=== PATIENT | female | born 1950 | race Caucasian/White ===

== ENCOUNTER 2021-08-01 04:25 | Inpatient (IN) | payer MEDICARE, SELFPAY ==
[2021-08-01] VITALS (11 sets, daily range): BP systolic 102–152; BP diastolic 52–68; PULSE 67–80; RESP 13–18; TEMP 36.7–37.1; O2SAT 94–98; BMI 40.1; BMI 40.4
--- NOTE | 2021-08-01 04:36 | CT_ITS ---
STUDY: CT BRAIN WITHOUT CONTRAST REASON FOR EXAM: Female, 71 years old patient with closed head injury after unspecified trauma. RADIATION DOSAGE (If Supplied By Facility): CTDIvol = ( 44.99 ) mGy, DLP = ( 762.36 ) mGycm TECHNIQUE: Transaxial CT imaging of the brain was performed without administration of intravenous contrast material. Multiplanar reformations are submitted for interpretation. Individualized dose optimization techniques were used for this CT. COMPARISON: No relevant priors. FINDINGS: There are multiple punctate calcifications within the dermis of the forehead and scalp. Normal calvarium. Normal size ventricles and extra-axial spaces for the patient''s age. There are areas of decreased attenuation within the white matter tracts of the supratentorial brain, consistent with microvascular disease changes. There are small punctate calcifications of the basal ganglia which are seen in the aging brain as a normal variant. Normal brainstem. Normal cerebellum. There is no intracranial hemorrhage. There are no findings of an acute ischemic infarction. There is a small right maxillary mucous retention cyst. CT/Brain/Head without Contrast IMPRESSION: 1. Chronic involutional changes of the brain. 2. No CT evidence of acute intracranial hemorrhage. Electronically Signed: Radhika Edwards MD at 6:59 EST ,
--- NOTE | 2021-08-01 04:36 | EKG12_ITS ---
Test Reason : WEAKNESS Blood Pressure : / mmHG Vent. Rate : 070 BPM Atrial Rate : 070 BPM P-R Int : 168 ms QRS Dur : 134 ms QT Int : 474 ms P-R-T Axes : 038 -57 043 degrees QTc Int : 511 ms Normal sinus rhythm Left axis deviation Non-specific intra-ventricular conduction block Abnormal ECG Confirmed by JAY RAMOS, NEAL ([id number]), electronic news gathering editor YANG GRAVES ([id number]) on 08/03/2021 12:43:07 PM Referred By: ALMAZ Confirmed By:NEAL THOMPSON MD
--- NOTE | 2021-08-01 04:36 | RAD_ITS ---
HISTORY: Cough, confused, fall EXAMINATION/TECHNIQUE: XR Chest 1 View portable AP view COMPARISON: None FINDINGS: LINES/DEVICES: classroom monitor leads. LUNGS: No overt pulmonary edema. No focal airspace consolidation. No sizable pleural effusion. No pneumothorax detected. Mildly elevated right hemidiaphragm. MEDIASTINUM AND CARDIOVASCULAR STRUCTURES: Heart shadow is slightly prominent, magnified by imaging technique. Central airways and mediastinal contour are unremarkable. BONES AND SOFT TISSUES: No acute findings. RAD/Chest 1 View (Portable) IMPRESSION: Borderline cardiomegaly with no acute pulmonary airspace disease. at 0650 Reported and signed by: Eagle Arauz MD Electronically Signed: Eagle Arauz MD at 6:49 EST ,
--- NOTE | 2021-08-01 04:36 | CT_ITS ---
HISTORY: trauma TECHNIQUE: Helically acquired images were obtained of the cervical spine without contrast. 2D reformatted images were reviewed. A radiation dose optimization technique was used for this scan. COMPARISON: None FINDINGS: # of images incl. paperwork: [id number] SOFT TISSUES: No prevertebral soft tissue swelling. ALIGNMENT: Normal alignment. FRACTURE: No fracture or acute compression deformity. DISC SPACES/POSTERIOR ELEMENTS: Multilevel anterior bridging osteophytes. Small posterior disc osteophyte complexes, most prominent at C3-C4 with mild spinal canal narrowing. No evidence of critical spinal canal stenosis. LUNG APICES: Visualized portions are unremarkable. THYROID: Left thyroid 9 mm nodule, likely benign given small size relative to age. SKULL BASE: High riding right jugular bulb without gross dehiscence. CT/Spine Cervical without Contras IMPRESSION: No acute fracture or subluxation. Individualized dose optimization techniques were used for this CT. at 0648 Reported and signed by: Mehrdad White MD Electronically Signed: Mehrdad White MD at 6:47 EST ,
--- NOTE | 2021-08-01 04:39 | EX.ED.DYSGE1 ---
HPI History of Present Illness Chief Complaint: Alt LOC Informant: patient and EMS Narrative Narrative: Patient sent in for change in mental status. Patient states she feels fine but does seem mildly confused. From EMS the nurse got the story as below. Patient evidently was not feeling well starting Monday morning. She had some dry heaving but no actual vomiting during the day. I do not know of any other symptomatology. The heard a sound this morning. He went into her room and she was half on the bed and half off. Her head was actually on the ground. It looks like she either rolled out of bed or tried to get out of bed. She seems much more confused than normal. I do not know if this confusion started with the impact or was occurring before that. Patient is reportedly on no blood thinners. Glucose was checked and was evidently over 300 by EMS. [facility] Medical History Diabetes Hypertension Left-sided colitis with ileus Morbid obesity with BMI of 45.0-49.9, adult Obstructive sleep apnea on CPAP Home Medications metformin 1,000 mg PO BIDCM 04/22/15 [History Last Taken 04/22/15 06:00] Vitamin D3 5,000 iu PO DAILY 04/23/15 [History Last Taken 04/22/15 06:00] empagliflozin [Jardiance] 25 mg PO DAILY 08/01/21 [History Last Taken 07/31/21 08:00] lisinopril 10 mg PO DAILY 08/01/21 [History Last Taken 07/31/21 08:00] metoprolol succinate 50 mg PO DAILY 08/01/21 [History Last Taken 07/31/21 08:00] rosuvastatin 5 mg PO QHS 08/01/21 [History Last Taken Unknown] Allergy/AdvReac Type Severity Reaction Status Date / Time sulfamethoxazole Allergy Itching Verified 08/01/21 04:31 [From Bactrim] trimethoprim [From Bactrim] Allergy Itching Verified 08/01/21 04:31 Family History unable to obtain Surgical History History of cholecystectomy History of gastric bypass Social History Smoking Status: Never smoker alcohol intake: never substance use type: does not use ROS ROS ED ROS Narrative Review of systems is quite limited at this time. Patient states she has no complaints at all. But I do not necessarily believe the accuracy of her statements. She denies nausea vomiting or dry heaves but evidently was having dry heaving. Therefore, the review of systems is severely limited. Review of Systems ROS Unobtainable: due to mental status Gastrointestinal Gastrointestinal: Reports other Details: Dry heaves EXAM Physical Exam Const Vital Signs: 08/01/21 04:26 08/01/21 05:26 08/01/21 06:26 Temperature 98.2 F 98.1 F 98.7 F Temperature Source Oral Oral Oral Pulse Rate 75 73 74 Respiratory Rate 18 18 18 Blood Pressure 118/53 L 102/58 L 120/52 L Blood Pressure Mean 74 72 74 Pulse Ox 98 95 97 Oxygen Delivery Method Room Air Room Air Room Air Positive well nourished, well developed and obese Constitutional Narrative: Patient is spontaneously awake. She greets me when I enter the room. But she is slow to answer questions. She looks a bit dry. General Appearance ED: well developed; Negative for cyanotic or diaphoretic Nutritional Appearance: obese HEENT Reports dry mucous membranes HEENT Narrative: I do not find any signs of trauma on exam. Mouth ED: Yes dry mucous membranes Mouth: dry mucous membranes Eyes General Eye ED: Negative for pale conjunctiva or scleral icterus Neck no JVD Chest Wall inspection of chest normal Resp normal respiratory effort and clear to auscultation bilaterally Effort and Inspection: Negative for pain with movement Auscultation: Negative for rales, rhonchi or wheezes Cardio regular rate, regular rhythm and no murmurs GI normal to inspection, nondistended, normoactive bowel sounds and non-tender GI Narrative: Abdomen is benign. She has well-healed her prior scar. I can press firmly [id number] and there is no discomfort. Palpation: soft Back/Spine no CVA tenderness Extremity General Extremety ED: Negative for tenderness Neuro Neuro Narrative: Patient is alert. She is oriented to name, emergency department, month and president [facility]. But she cannot tell me the year. She still seems rather slow to answer questions even when she does get them correct. Sensorium / Orientation: alert Psych Psych Narrative: Mildly flat affect. Skin no rashes or lesions noted and no wounds MDM MDM MDM Narrative Medical decision making narrative: Patient has significant elevation of white count. However, her respiratory rate and heart rate and temperature were normal. She does not meet SIRS criteria although I think she does actually represent suspicion for sepsis. We got back further blood work. She has an acute kidney injury with elevated creatinine. Lactic acid is elevated. All her liver function test and lipase are elevated. Patient is denying abdominal pain but she is a little slow to answer and mildly confused. Her abdomen is not notably tender but obesity likely does limit exam somewhat. With these results, I have added CT scan of her abdomen also. This is without contrast due to her acute kidney injury and inability to take p.o. and follow directions clearly. Patient's CAT scan of the abdomen does not show any marked abnormalities given her findings on labs. I talk with the patient again. If I pressed very firmly in the epigastrium she says maybe she feels a little bit of soreness. But overall she is not hurting. She seems more quick at this time. She is quicker to respond. She has gotten some IV fluids here. Urine was gotten by cath. Patient had a somewhat stool soaked rag down in the inguinal area. There is some erythema and skin breakdown. The urine is very dark but some of this is due to her elevated liver function test. However, her urine does not show complete evidence of UTI. There are 4+ bacteria and the area was cleaned quite well. There are some leukocyte Estrace. But not a lot of white cells. Patient is also on Victoza. This may be altering her bicarb and anion gap slightly. We have sent cultures. Covid is sent but pending. Patient does not officially meet SIRS or qSOFA criteria. Although I think this patient is rather ill. I do not have any old liver function test to compare to. Since she is currently clinically stable, we will admit to PCU stepdown rather than ICU. Patient will need to be admitted. Her vitals been good. Her saturations are good she is more awake and alert. We have cultures pending also. Lab Data Attestation: I reviewed the patient's lab results. Labs: Laboratory Results - last 24 hr 08/01/21 08/01/21 08/01/21 04:55 04:55 04:55 WBC 31.3 H* RBC 5.09 Hgb 14.6 Hct 45.2 MCV 88.8 MCH 28.7 MCHC 32.3 RDW Std Deviation 47.5 H RDW Coeff of Francy 14.6 Plt Count 252 MPV 11.1 Immature Gran % (Auto) 1.100 H Neut % (Auto) 92.1 H Lymph % (Auto) 1.6 L [place] % (Auto) 5.0 Eos % (Auto) 0.0 Baso % (Auto) 0.2 Absolute Neuts (auto) 28.8 H Absolute Lymphs (auto) 0.49 L Nucleated RBC % 0 Diff Path Review May foll PT INR Sodium 138 Potassium 4.0 Chloride 103 Carbon Dioxide 19.0 L Anion Gap 16 H BUN 28 H Creatinine 2.28 H Estim Creat Clear Calc 17.33 Est GFR (MDRD) Af Amer 27 L Est GFR (MDRD) Non-Af 23 L BUN/Creatinine Ratio 12.3 Glucose 347 H Hemoglobin A1c Lactic Acid 4.0 H* Calcium 8.4 L Total Bilirubin 4.70 H AST 632 H ALT 508 H Alkaline Phosphatase 154 H Troponin I High Sens 14 Total Protein 6.7 Albumin 3.0 L Globulin 3.7 Albumin/Globulin Ratio 0.8 L Lipase 45817 H Urine Color Urine Clarity Urine pH Ur Specific [place] Urine Protein Urine Glucose (UA) Urine Ketones Urine Occult Blood Urine Nitrite Urine Bilirubin Urine Urobilinogen Ur Leukocyte Esterase Urine RBC Urine WBC Ur Squamous Epith Cells Ur Renal Epithelial Cell Amorphous Sediment Urine Bacteria Urine Mucus POC Glucose 08/01/21 08/01/21 08/01/21 04:55 06:25 06:57 WBC RBC Hgb Hct MCV MCH MCHC RDW Std Deviation RDW Coeff of Francy Plt Count MPV Immature Gran % (Auto) Neut % (Auto) Lymph % (Auto) [place] % (Auto) Eos % (Auto) Baso % (Auto) Absolute Neuts (auto) Absolute Lymphs (auto) Nucleated RBC % Diff Path Review PT Cancelled INR Cancelled Sodium Potassium Chloride Carbon Dioxide Anion Gap BUN Creatinine Estim Creat Clear Calc Est GFR (MDRD) Af Amer Est GFR (MDRD) Non-Af BUN/Creatinine Ratio Glucose Hemoglobin A1c 7.6 H Lactic Acid Calcium Total Bilirubin AST ALT Alkaline Phosphatase Troponin I High Sens Total Protein Albumin Globulin Albumin/Globulin Ratio Lipase Urine Color Yellow Urine Clarity Sl. Cloudy Urine pH 5.0 Ur Specific [place] 1.015 Urine Protein 30 H Urine Glucose (UA) 1000 H Urine Ketones 5 H Urine Occult Blood 25 H Urine Nitrite Negative Urine Bilirubin 3 H Urine Urobilinogen 4 H Ur Leukocyte Esterase 25 H Urine RBC 0-5 SEEN Urine WBC 0-5 SEEN Ur Squamous Epith Cells 0 SEEN Ur Renal Epithelial Cell 0-5 SEEN Amorphous Sediment 1+ Urine Bacteria 4+ Urine Mucus 0 SEEN POC Glucose 08/01/21 06:58 WBC RBC Hgb Hct MCV MCH MCHC RDW Std Deviation RDW Coeff of Francy Plt Count MPV Immature Gran % (Auto) Neut % (Auto) Lymph % (Auto) [place] % (Auto) Eos % (Auto) Baso % (Auto) Absolute Neuts (auto) Absolute Lymphs (auto) Nucleated RBC % Diff Path Review PT INR Sodium Potassium Chloride Carbon Dioxide Anion Gap BUN Creatinine Estim Creat Clear Calc Est GFR (MDRD) Af Amer Est GFR (MDRD) Non-Af BUN/Creatinine Ratio Glucose Hemoglobin A1c Lactic Acid Calcium Total Bilirubin AST ALT Alkaline Phosphatase Troponin I High Sens Total Protein Albumin Globulin Albumin/Globulin Ratio Lipase Urine Color Urine Clarity Urine pH Ur Specific [place] Urine Protein Urine Glucose (UA) Urine Ketones Urine Occult Blood Urine Nitrite Urine Bilirubin Urine Urobilinogen Ur Leukocyte Esterase Urine RBC Urine WBC Ur Squamous Epith Cells Ur Renal Epithelial Cell Amorphous Sediment Urine Bacteria Urine Mucus POC Glucose 340 H Radiography Diagnostic Testing: Clinical Impression(s) from Imaging Studies Brain CT 08/01/21 04:36 IMPRESSION: 1. Chronic involutional changes of the brain. 2. No CT evidence of acute intracranial hemorrhage. Electronically Signed: Radhika Edwards MD at 6:59 EST , Cervical Spine CT 08/01/21 04:36 IMPRESSION: No acute fracture or subluxation. Individualized dose optimization techniques were used for this CT. at 0648 Reported and signed by: Mehrdad White MD Electronically Signed: Mehrdad White MD at 6:47 EST , Chest X-Ray 08/01/21 04:36 IMPRESSION: Borderline cardiomegaly with no acute pulmonary airspace disease. at 0650 Reported and signed by: Eagle Arauz MD Electronically Signed: Eagle Arauz MD at 6:49 EST , Abdomen/Pelvis CT 08/01/21 05:34 IMPRESSION: Prior Monae-en-Y gastric bypass without evidence of alimentary tract obstruction.. Excluded stomach and duodenum are fluid-filled and mildly prominent caliber without gayathri distention. This is of unknown significance. Finding may be transient. Clinical and possibly CT follow-up may be beneficial to exclude developing or partial biliary limb obstruction. Mild hepatomegaly. Individualized dose optimization techniques were used for this CT. at 0634 Reported and signed by: Mehrdad White MD Electronically Signed: Mehrdad White MD at 6:33 EST , EKG Initial EKG: Comments: EKG none for change in mental status and dry heaves read by me shows normal sinus rhythm with overall rate of 70. No ectopy. No acute ST elevation or depression consistent with infarct or ischemia. Slight nonspecific interventricular conduction delay. [place] interval is normal. QRS duration and QTc are slightly long. There is no old for comparison. Discharge Plan Dx/Rx/DC Orders Clinical Impression: Delirium, Elevated liver function tests, Elevated lipase, Leukocytosis, Acute kidney injury, Dehydration Disposition Disposition: Acute Care Hospital [facility] Discharge Date/Time: 08/01/21 09:10
[2021-08-01 05:03] LABS: Absolute Lymphocyte Count 0.49 X10^3/uL (0.83-4.51); Absolute Neutrophil Count 28.8 X10^3/uL (2.0-7.7); Basophil# 0.07 X10^3/uL; Basophil% 0.2 % (0-1); Hematocrit 45.2 % (37-47); Hemoglobin 14.6 g/dL (12.0-15.0); Lymphocyte # 0.49 X10^3/ul (0.83-4.51); Lymphocyte % 1.6 % (19-41); Mean Corp Hgb Conc 32.3 g/dL (32-36); Mean Corpuscular Hgb 28.7 pg (27.0-32.0); Mean Corpuscular Volume 88.8 fL (81-99); Mean Platelet Vol. 11.1 fl (6.2-12.0); Monocyte# 1.55 X10^3/uL; NRBC Flagged by Analyzer 0 % (0-5); Neutrophil # 28.83 X10^3/uL (2.7-7.7); Neutrophil % 92.1 % (47-70); POSITIVE COUNT YES; POSITIVE DIFFERENTIAL YES; Platelet Count 252 K/mm3 (150-450); RBC Distribution Width CV 14.6 % (11.6-14.6); RBC Distribution Width SD 47.5 fl (35.1-43.9); Red Blood Count 5.09 M/mm3 (4.2-5.4); White Blood Count 31.3 K/mm3 (4.4-11.0)
[2021-08-01 05:08] LABS: Differential Indicated SCAN CRITERIA MET
[2021-08-01 05:33] LABS: ALB/GLOB Ratio 0.8 RATIO (0.9-2.4); AST(SGOT) 632 U/L (15-37); Alanine Aminotransfer ALT/SGPT 508 U/L (13-56); Alkaline Phosphatase 154 U/L (45-117); Anion Gap 16 (5-15); BUN 28 mg/dL (7-18); BUN/Creat Ratio 12.3 RATIO (10-20); Calcium,Total 8.4 mg/dL (8.5-10.1); Chloride 103 mmol/L (98-107); Creatinine, Serum 2.28 mg/dL (0.55-1.02); EST Glomerular Filtration Rate 23 mL/min (>60); Est Glom Filt Rate - Afr Amer 27 mL/min (>60); Estimated Creatinine Clearance 17.33 ml/min; Globulin 3.7 g/dL (2.2-4.2); Glucose 347 mg/dL (74-106); Lipase 11482 U/L (73-393); Protein, Total 6.7 g/dL (6.4-8.2); Sodium Level 138 mmol/L (136-145); Troponin-I HS 14 pg/mL (3.0-54.0)
--- NOTE | 2021-08-01 05:34 | CT_ITS ---
HISTORY: vomiting pain TECHNIQUE: Multiple axial images were obtained of the abdomen and pelvis without oral or IV contrast. Coronal and sagittal reformats obtained. A radiation dose optimization technique was used for this scan. COMPARISON: April 22, 2015 FINDINGS: # of images incl. paperwork: [id number] LUNG BASES: Unremarkable. Severe coronary atherosclerosis. Mild cardiomegaly. LIVER T BILIARY TRACT: Absent gallbladder. Mild hepatomegaly with Jazmín lobe morphology. ADRENAL GLANDS: Unremarkable. SPLEEN: Splenic 1.9 cm fluid density lesion, commonly sequela of prior infection or trauma. PANCREAS: Unremarkable. KIDNEYS/URETERS/BLADDER: Left renal 1.4 cm cyst, no imaging follow-up required. No nephrolithiasis, hydronephrosis or perinephric inflammation. Unremarkable ureters and bladder. LYMPH NODES: No suspicious adenopathy. STOMACH, SMALL AND LARGE BOWEL: Antecolic Monae-en-Y Gastric bypass surgical change. No acute gastric finding. No small bowel obstruction or gross wall thickening. Normal appendix. No acute colonic finding. ASCITES/FREE AIR: No free fluid or free air. AORTA: Atherosclerosis without ectasia. PELVIS: Unremarkable uterus. No evidence of adnexal mass. MUSCULOSKELETAL: No acute osseous finding. Fat-containing umbilical hernia without inflammation. CT/Abdomen/Pelvis without Cont IMPRESSION: Prior Monae-en-Y gastric bypass without evidence of alimentary tract obstruction.. Excluded stomach and duodenum are fluid-filled and mildly prominent caliber without gayathri distention. This is of unknown significance. Finding may be transient. Clinical and possibly CT follow-up may be beneficial to exclude developing or partial biliary limb obstruction. Mild hepatomegaly. Individualized dose optimization techniques were used for this CT. at 0634 Reported and signed by: Mehrdad White MD Electronically Signed: Mehrdad White MD at 6:33 EST ,
[2021-08-01] MEDS: 0.9% Normal Saline 1,000 ML 999 ML IV (06:12)
[2021-08-01 06:34] LABS: Mucous, Urine 0 SEEN /hpf (<or=2+); Squamous Epithelial Cells - UA 0 SEEN /hpf (5-10)
[2021-08-01 06:35] LABS: Color, Urine Yellow (Yellow); Glucose, Dipstick 1000 mg/dl (Normal); Ketone-Dipstick 5 mg/dl (Negative); Leukocyte Esterase-Dipstick 25 /ul (Negative); Nitrite-Dipstick Negative (Negative); Occult Blood-Urine 25 /ul (Negative); Protein-Dipstick 30 mg/dl (Negative); Specific Gravity, Urine 1.015 (1.002-1.030); Urine Clarity Sl. Cloudy (Clear); Urine Urobilinogen 4 mg/dl (Normal)
[2021-08-01 06:43] LABS: Amorphous Sediment 1+; Bacteria 4+ /hpf (None Seen); Red Blood Cells-Urine 0-5 SEEN /hpf (0-5); Renal Epithelial Cells 0-5 SEEN /hpf (0-5); Urine Bilirubin Dipstick 3 mg/dL (Negative); White Blood Cells 0-5 SEEN /hpf (0-5)
[2021-08-01 07:05] LABS: Bedside Glucose 340 mg/dL (70-110)
[2021-08-01 07:33] LABS: International Normalized Ratio 1.2; Prothrombin Time (Protime)PT. 14.6 SECONDS (11.7-14.9)
--- NOTE | 2021-08-01 07:42 | HP.PCM.HOS_ITS ---
HPI - General General Date of Admission: 08/01/21 Date of Service: 08/01/21 Chief Complaint: Altered Mental Status HPI Narrative TONYA HEBERT, is a 71 F who presented to the emergency department was coming hospital on 08/01/2021 with altered mental status. Upon presentation the patient reported that she felt fine but was mildly confused for the emergency department physician. All information obtained was from EMS. Evidently the patient had not been feeling well starting on Monday morning. She had some dry heaving but no actual vomiting during the day. No other symptoms were described. This morning the her heard a sound upstairs and he went into her bedroom and she was half off the bed and half on the bed. Her head was on the ground and it appeared that she either rolled out of bed or try to get out of bed headfirst. She seemed much more confused than normal per her on EMS arrival and was therefore brought to the emergency department. At the time of my evaluation she is alone in the room and has no complaints she is alert and oriented x3 although appears to be mildly confused with recent events. She states that she had been feeling fine. She reports that she did have a Monae-en-Y gastric bypass surgery performed at the [facility] approximately 3 years ago and she had a remote cholecystectomy but is unable to remember the timing of this. Upon presentation to emergency department her vital signs were stable however her laboratory data was markedly abnormal. Her CBC shows a markedly elevated white count at 31.3 with a left shift at 92.1% and a markedly elevated absolute neutrophil count. Her coags are normal. Her CMP is markedly abnormal showing a mildly low serum bicarbonate 19, and elevated anion gap at 16, and elevated BUN at 28, and elevated serum creatinine at 2.28 (baseline 1-1.2), serum glucose of 347, lactic acid of 4.0, total bilirubin of 4.7, and AST of 632, ALT of 508, and alk phos of 154, and a markedly elevated lipase at 11,482. A troponin was obtained and found to be normal at 14. Given her marked liver abnormalities and her elevated lipase a CT of her abdomen pelvis was performed and showed prior Monae-en-Y gastric bypass without evidence of alimentary tract obstruction, fluid-filled stomach and duodenum with mildly prominent caliber however no gayathri distention was noted, mild hepatomegaly and no other acute findings and the pancreas was noted to be unremarkable. With her fall a CT of her head was performed and showed chronic involutional changes of the brain but no evidence of intracranial hemorrhage or acute abnormality. Also a CT of her cervical spine was performed and showed no acute fracture or subluxation and her chest x- ray showed borderline cardiomegaly without acute pulmonary airspace disease. Her EKG showed normal sinus rhythm with a rate of [address]-T wave changes consistent with ischemia. She did have a slight intraventricular conduction delay with a slightly prolonged QTC. We have no previous EKGs for comparison. In the emergency department she was worked up for sepsis and started on antibiotics given her marked leukocytosis and her lactic acid however she did not meet sepsis criteria on admission. She was also given IV hydration given her acute kidney injury. Unfortunately no family was present for further input. [facility] Medical History Diabetes Hypertension Left-sided colitis with ileus Morbid obesity with BMI of 45.0-49.9, adult Obstructive sleep apnea on CPAP Home Medications metformin 1,000 mg PO BIDCM 04/22/15 [History Last Taken 07/31/21 18:00] Vitamin D3 50,000 iu PO QWEEK 04/23/15 [History Last Taken 07/31/21] empagliflozin [Jardiance] 25 mg PO DAILY 08/01/21 [History Last Taken 07/31/21 08:00] lisinopril 10 mg PO DAILY 08/01/21 [History Last Taken 07/31/21 08:00] metoprolol succinate 50 mg PO DAILY 08/01/21 [History Last Taken 07/31/21 08:00] rosuvastatin 5 mg PO QHS 08/01/21 [History Last Taken Unknown] Allergy/AdvReac Type Severity Reaction Status Date / Time sulfamethoxazole Allergy Itching Verified 08/01/21 04:31 [From Bactrim] trimethoprim [From Bactrim] Allergy Itching Verified 08/01/21 04:31 Family History unable to obtain unable to obtain (due to pts MS) Surgical History History of cholecystectomy History of gastric bypass Social History Smoking Status: Never smoker alcohol intake: never substance use type: does not use ROS ROS Narrative betancourt negative but deviates some from husbands report to squad/ED physician--> he is not at bedside Constitutional Constitutional: Denies anorexia, change in weight, chills, fatigue, fever(s), malaise, night sweats, weakness or other Eyes Eyes: Denies blurry vision, change in eye color, change in vision, discharge from eye(s), double vision, erythema, eye pain, loss of vision or other ENT HEENT: Denies abnormal hearing, dysphagia, ear pain, epistaxis, headache(s), hearing loss, nasal congestion, nasal discharge, post nasal drip, sinus pressure, sore throat or other Cardiovascular Cardiovascular: Denies chest pain, claudication, dyspnea on exertion, edema, lightheadedness, orthopnea, palpitations, paroxysmal nocturnal dyspnea, rapid heart rate, syncope or other Respiratory/Chest Respiratory/Chest: Denies cough, dyspnea, excessive phlegm production, hemoptysis, productive cough, shortness of breath at rest, shortness of breath with exertion, wheezing or other Gastrointestinal Gastrointestinal: Denies abdominal pain, coffee ground emesis, constipation, diarrhea, dyspepsia, hematemesis, hematochezia, loose stools, melena, nausea, vomiting or other Genitourinary Genitourinary: Denies burning urination, difficulty urinating, dysuria, hematuria, nocturia, urinary frequency, urinary hesitancy, urinary incontinence, urinary urgency or other Musculoskeletal Musculoskeletal: Denies arthralgias, back pain, joint pain, joint stiffness, joint swelling, myalgias, neck pain or other Neurologic Neurologic: Denies abnormal gait, abnormal speech, confusion, disequilibrium, dizziness, focal weakness, headache(s), numbness, paresthesias, seizure-like ac tivity, seizures, syncope, tingling, tremor(s) or other Psychiatric Psychiatric: Denies anxiety, depression, homicidal ideation, suicidal ideation or other Endocrine Endocrinology: Denies change in body appearance, cold intolerance, excessive sweating, heat intolerance, polydipsia, polyuria or other Hematologic/Lymphatic Hematologic/Lymphatic: Denies anemia, easy bleeding, easy bruising, lymphadenopathy or other Allergic/Immunologic Allergic/Immunologic: Denies rhinitis, hives, eczemia, asthma or other Vital Signs Vital Signs Vital Signs: 08/01/21 04:26 08/01/21 05:26 08/01/21 06:26 Temperature 98.2 F 98.1 F 98.7 F Temperature Source Oral Oral Oral Pulse Rate 75 73 74 Respiratory Rate 18 18 18 Blood Pressure 118/53 L 102/58 L 120/52 L Blood Pressure Mean 74 72 74 Pulse Ox 98 95 97 Oxygen Delivery Method Room Air Room Air Room Air Weight Weight: 96.5 kg Body Mass Index (BMI) 40.1 Physical Exam Const alert, oriented x3, no apparent distress and well nourished Constitutional Narrative: MO, Older WF lying in bed resting but awake, appears comfortable, nontoxic appearing General Appearance: cooperative HEENT normocephalic, head/scalp atraumatic and hearing grossly normal bilaterally HEENT Narrative: Dry mucous membranes, no thrush, mallampati 2-3, Dentition is fair, hirsutism Eyes PERRL, EOMs intact bilaterally and conjunctivae normal Eyes Narrative: no sig scleral icterus Neck no lymphadenopathy, supple, no JVD and no carotid bruits Neck Narrative: trachea midline with no thyroid enlargement Resp normal respiratory effort, no retractions, no use of accessory muscles and clear to auscultation bilaterally Auscultation: Negative for crackles, rales, rhonchi or wheezes Cardio regular rate, regular rhythm, S1 normal heart sound, S2 normal heart sound, no murmurs, no rub, no gallops, no clicks and no JVD GI normal to inspection, nondistended, normoactive bowel sounds, soft to palpation and non-distended GI Narrative: tenderness is only mild, well healed incisions Palpation: tender epigastric, LUQ and RUQ Extremity no clubbing, cyanosis or edema Peripheral Pulses: Yes pulses 2+ throughout Skin no rashes or lesions noted, no wounds, skin turgor normal, no jaundice, no petechiae and no mottling Neuro oriented x3, CN's II-XII intact bilaterally, moves all extremities and no focal motor deficits Neuro Narrative: speech is a bit delayed but otherwise normal Sensorium / Orientation: awake and alert Psych Psych Narrative: tearful when discussing admission, affect is flat Results Lab / Micro Data Attestation: I reviewed the patient's lab results. Result Diagrams: 08/01/21 04:55 08/01/21 04:55 Labs: Laboratory Results - last 24 hr 08/01/21 04:55: WBC 31.3 H*, RBC 5.09, Hgb 14.6, Hct 45.2, MCV 88.8, MCH 28.7, MCHC 32.3, RDW Std Deviation 47.5 H, RDW Coeff of Francy 14.6, Plt Count 252, MPV 11.1, Immature Gran % (Auto) 1.100 H, Neut % (Auto) 92.1 H, Lymph % (Auto) 1.6 L , [place] % (Auto) 5.0, Eos % (Auto) 0.0, Baso % (Auto) 0.2, Absolute Neuts (auto) 28.8 H, Absolute Lymphs (auto) 0.49 L, Nucleated RBC % 0, Diff Path Review October08/01/21 04:55: Sodium 138, Potassium 4.0, Chloride 103, Carbon Dioxide 19.0 L, Anion Gap 16 H, BUN 28 H, Creatinine 2.28 H, Estim Creat Clear Calc 17.33, Est GFR (MDRD) Af Amer 27 L, Est GFR (MDRD) Non-Af 23 L, BUN/Creatinine Ratio 12.3, Glucose 347 H, Calcium 8.4 L, Total Bilirubin 4.70 H, AST 632 H, ALT 508 H, Alkaline Phosphatase 154 H, Troponin I High Sens 14, Total Protein 6.7, Albumin 3.0 L, Globulin 3.7, Albumin/Globulin Ratio 0.8 L, Lipase 97318 H 08/01/21 04:55: Lactic Acid 4.0 H* 08/01/21 06:25: Urine Color Yellow, Urine Clarity Sl. Cloudy, Urine pH 5.0, Ur Specific [place] 1.015, Urine Protein 30 H, Urine Glucose (UA) 1000 H, Urine Ketones 5 H, Urine Occult Blood 25 H, Urine Nitrite Negative, Urine Bilirubin 3 H, Urine Urobilinogen 4 H, Ur Leukocyte Esterase 25 H, Urine RBC 0-5 SEEN, Urine WBC 0-5 SEEN, Ur Squamous Epith Cells 0 SEEN, Ur Renal Epithelial Cell 0-5 SEEN, Amorphous Sediment 1+, Urine Bacteria 4+, Urine Mucus 0 SEEN 08/01/21 06:57: PT Cancelled, INR Cancelled 08/01/21 06:58: POC Glucose 340 H 08/01/21 07:17: PT 14.6, INR 1.2 Micro: Microbiology 08/01/21 06:45 Nasal Secretion SARS-CoV-2 Antigen (Rapid) - Final Radiology Impression Brain CT 08/01/21 04:36 IMPRESSION: 1. Chronic involutional changes of the brain. 2. No CT evidence of acute intracranial hemorrhage. Electronically Signed: Radhika Edwards MD at 6:59 EST , Cervical Spine CT 08/01/21 04:36 IMPRESSION: No acute fracture or subluxation. Individualized dose optimization techniques were used for this CT. at 0648 Reported and signed by: Mehrdad White MD Electronically Signed: Mehrdad White MD at 6:47 EST , Chest X-Ray 08/01/21 04:36 IMPRESSION: Borderline cardiomegaly with no acute pulmonary airspace disease. at 0650 Reported and signed by: Eagle Arauz MD Electronically Signed: Eagle Arauz MD at 6:49 EST , Abdomen/Pelvis CT 08/01/21 05:34 IMPRESSION: Prior Monae-en-Y gastric bypass without evidence of alimentary tract obstruction.. Excluded stomach and duodenum are fluid-filled and mildly prominent caliber without gayathri distention. This is of unknown significance. Finding may be transient. Clinical and possibly CT follow-up may be beneficial to exclude developing or partial biliary limb obstruction. Mild hepatomegaly. Individualized dose optimization techniques were used for this CT. at 0634 Reported and signed by: Mehrdad White MD Electronically Signed: Mehrdad White MD at 6:33 EST , Assessment & Plan Assessment/Plan (1) Acute kidney injury: (2) Dehydration: (3) Elevated lipase: (4) Leukocytosis: (5) Elevated liver function tests: (6) Metabolic encephalopathy: (7) Metabolic acidosis: (8) Lactic acidosis: (9) Hyperbilirubinemia: PLAN: Acute kidney injury -Most recent labs in our EMR from 2014 and showed baseline of 1-1.2 however we have nothing more recent -Current serum creatinine is 2.24 -We will give an IV fluids and hold lisinopril and Metformin -Avoid nephrotoxins -Repeat BMP in a.m. -If creatinine remains elevated will need further work-up Leukocytosis -Patient does not meet sepsis criteria -White count is markedly high at greater than 31,000 with significant left shift -Cultures are pending -Chest x-ray is not impressive for infection -UA has significant bacteria but no white white cells and is leukoesterase positive but nitrite negative -Check procalcitonin -Repeat CBC in a.m. -Some of this may be dilutional however I suspect there is more to it than that Elevated lipase -Etiology unclear -Patient without gallbladder for an extended period of time -No significant tenderness on exam and CT is negative for any abnormalities of the pancreas -We will leave n.p.o. at this time -GI has been consulted Transaminitis/hyperbilirubinemia -Alk phos is not all that elevated -AST and ALT are markedly elevated -Bilirubin is close to 4 -Suspect patient may have some baseline fatty liver however I do not expect that this is the etiology for these significant elevations -Hepatitis panel is pending -Coags are normal -Hold home statin -GI consult pending--> Dr. Shi has been notified Lactic acidosis -Patient does not meet sepsis criteria -Suspect this may be due to dehydration and medication as the patient is on Metformin at baseline -We will repeat per protocol Metabolic encephalopathy -Suspect multifactorial -It is unclear at this time how far off she is of her baseline -She was alert and oriented x3 for me in the emergency department however response times were slightly slow -CT head unremarkable -Check ammonia level given LFT elevation -Continue to monitor clinically Anion gap metabolic acidosis -Suspect related to kidney injury and lactic acid elevation -Repeat lab in a.m. Hypertension -Hold lisinopril with elevated LFTs -Continue home metoprolol 50 mg daily Hyperlipidemia -Hold home rosuvastatin with elevated LFTs DM-2 -Hold home oral agents -N.p.o. for now -Sliding scale every 6 -Accu-Cheks every 6 Morbid obesity -BMI is 50.5 -History of Monae-en-Y gastric bypass approximately 3 years ago -Recommend weight loss -Complicates treatment, prognosis, outcomes DVT prophylaxis -Heparin subcu 5000 units 3 times daily -SCDs CODE STATUS -We will leave as full code unverified is patient was not mentally capable of understanding the ramifications of not being full code on admission based on her confusion and oriented x3 Charges/Coding Visit Charges Inpatient E&M: 00181 Init Hosp L3
[2021-08-01 08:51] LABS: Bedside Glucose 273 mg/dL (70-110)
[2021-08-01 09:01] LABS: Reflex Lactate? Y
[2021-08-01] MEDS: 0.9% Normal Saline 1,000 ML 100 ML IV (10:03)
[2021-08-01 10:05] LABS: Hemoglobin A1c 7.6 % (3.8-5.6)
[2021-08-01 10:11] LABS: Lactic Acid 3.4 mmol/L (0.4-1.9)
[2021-08-01] MEDS: Insulin Lispro 100 UNIT/ML INSULN.PEN SC ×2 (11:29→16:44)
[2021-08-01 12:00] LABS: Bedside Glucose 266 mg/dL (70-110)
--- NOTE | 2021-08-01 13:51 | EX.PCM.CON.G ---
HPI Consult Data Date of Consult: 08/01/21 HPI Narrative HPI Narrative: TONYA HEBERT, is a 71 F who presents from home to EMS with a chief complaint of abdominal pain dry heaving and nausea. She has a past medical history of gastric bypass done approximately 4 years ago. She had a Monae-en-Y gastric bypass for type 2 diabetes mellitus with administration of long-acting insulin. She is lost approximately 80 pounds and has not had any complications such as dumping, vitamin deficiency or diarrhea. However she was brought from home via EMS due to worsening confusion along with abdominal pain and nausea. In the ED, her glucose was checked and it was 300 without a significant acidosis. She was put on IV fluids. She was also determined to be normotensive, not tachycardic and afebrile. Her biochemical analysis in the ED did show acute kidney injury with an elevated BUN/creatinine ratio a significant leukocytosis with a white blood cell count of 31,000 and a lactic acidosis. Also noted was a significant elevation in her lipase at 11,000. She does not drink any alcohol and has had no previous history of pancreatitis. At this time she does not complain of any abdominal pain but does appear to be in what confused. I do not know what her baseline mental status is. I called her but I have not been able to speak with him regarding her day-to-day activities and if he thinks she is at her baseline mentally. She was started on broad-spectrum antibiotics. She got a CT scan of the abdomen pelvis that had shown inflammation in the remnant stomach extending to the duodenum. [facility] [place] Medical History Diabetes Hypertension Left-sided colitis with ileus Morbid obesity with BMI of 45.0-49.9, adult Obstructive sleep apnea on CPAP Home Medications metformin 1,000 mg PO BIDCM 04/22/15 [History Last Taken 07/31/21 18:00] Vitamin D3 50,000 iu PO QWEEK 04/23/15 [History Last Taken 07/31/21] empagliflozin [Jardiance] 25 mg PO DAILY 08/01/21 [History Last Taken 07/31/21 08:00] lisinopril 10 mg PO DAILY 08/01/21 [History Last Taken 07/31/21 08:00] metoprolol succinate 50 mg PO DAILY 08/01/21 [History Last Taken 07/31/21 08:00] rosuvastatin 5 mg PO QHS 08/01/21 [History Last Taken Unknown] Allergy/AdvReac Type Severity Reaction Status Date / Time sulfamethoxazole Allergy Itching Verified 08/01/21 04:31 [From Bactrim] trimethoprim [From Bactrim] Allergy Itching Verified 08/01/21 04:31 Family History unable to obtain Surgical History History of cholecystectomy History of gastric bypass Social History (Updated 08/01/21 @ 09:42 by Renata Berman) Smoking Status: Never smoker alcohol intake: never substance use type: does not use ROS Review of Systems ROS Unobtainable: other Constitutional Constitutional: Denies fatigue, fever(s), poor appetite, weight gain or weight loss ENT HEENT: Denies mouth lesions Cardiovascular Cardiovascular: Denies abdominal bloating, abdominal edema or abdominal pain Respiratory/Chest Respiratory/Chest: Denies change in mental status, change in phlegm color, chest congestion or chest tightness Gastrointestinal Gastrointestinal: Denies belching, bloating, change in bowel habits, change in stool character, chewing difficulty, coffee ground emesis, constipation, cramping, diarrhea, dyspepsia, dysphagia, early satiety, excessive flatus, fecal incontinence, heartburn, hematemesis, hematochezia, hemorrhoids, loose stools, melena, nausea, odynophagia, rectal bleeding, tenesmus, vomiting or weight changes Genitourinary Genitourinary: Denies abdominal discomfort, burning urination or itching Musculoskeletal Musculoskeletal: Reports as per HPI; Denies muscle weakness or myalgias Integumentary Integumentary: Denies jaundice Neurologic Neurologic: Denies lack of coordination or weakness Psychiatric Psychiatric: Denies confusion, depression, memory loss, mood swings, paranoia or suicidal ideation Endocrine Endocrinology: Denies systems reviewed and no addt'l complaints, except as documented Hematologic/Lymphatic Hematologic/Lymphatic: Denies anemia, easy bleeding, easy bruising or lymphadenopathy Allergic/Immunologic Allergic/Immunologic: Denies systems reviewed and no addt'l complaints, except as documented Physical Exam Const alert General Appearance: cooperative Orientation / Consciousness: oriented to person HEENT hearing grossly normal bilaterally Head and Scalp: normal to inspection Face and Sinus: face symmetric Nose: external nose normal Mouth: oral and palatal mucosa normal Eyes conjunctivae normal General Eye: normal appearance of both eyes Neck full ROM General: normal visual inspection Lymph Lymphatic: no lymphadenopathy noted Chest inspection of chest normal and palpation of chest normal Chest: symmetrical chest wall rise Resp normal respiratory effort Effort and Inspection: able to speak in complete sentences Cardio regular rate GI non-distended Percussion: normal to percussion Rectal Exam: deferred Neuro Speech: speech normal Gait (Neuro): normal gait Lab / Micro Data Result Diagrams: 08/01/21 04:55 08/01/21 04:55 Labs: Laboratory Results - last 24 hr 08/01/21 04:55: WBC 31.3 H*, RBC 5.09, Hgb 14.6, Hct 45.2, MCV 88.8, MCH 28.7, MCHC 32.3, RDW Std Deviation 47.5 H, RDW Coeff of Francy 14.6, Plt Count 252, MPV 11.1, Immature Gran % (Auto) 1.100 H, Neut % (Auto) 92.1 H, Lymph % (Auto) 1.6 L, [place] % (Auto) 5.0, Eos % (Auto) 0.0, Baso % (Auto) 0.2, Absolute Neuts (auto) 28.8 H, Absolute Lymphs (auto) 0.49 L, Nucleated RBC % 0, Diff Path Review October08/01/21 04:55: Sodium 138, Potassium 4.0, Chloride 103, Carbon Dioxide 19.0 L, Anion Gap 16 H, BUN 28 H, Creatinine 2.28 H, Estim Creat Clear Calc 17.33, Est GFR (MDRD) Af Amer 27 L, Est GFR (MDRD) Non-Af 23 L, BUN/Creatinine Ratio 12.3, Glucose 347 H, Calcium 8.4 L, Total Bilirubin 4.70 H, AST 632 H, ALT 508 H, Alkaline Phosphatase 154 H, Troponin I High Sens 14, Total Protein 6.7, Albumin 3.0 L, Globulin 3.7, Albumin/Globulin Ratio 0.8 L, Lipase 98312 H 08/01/21 04:55: Lactic Acid 4.0 H* 08/01/21 04:55: Hemoglobin A1c 7.6 H 08/01/21 06:25: Urine Color Yellow, Urine Clarity Sl. Cloudy, Urine pH 5.0, Ur Specific [place] 1.015, Urine Protein 30 H, Urine Glucose (UA) 1000 H, Urine Ketones 5 H, Urine Occult Blood 25 H, Urine Nitrite Negative, Urine Bilirubin 3 H, Urine Urobilinogen 4 H, Ur Leukocyte Esterase 25 H, Urine RBC 0-5 SEEN, Urine WBC 0-5 SEEN, Ur Squamous Epith Cells 0 SEEN, Ur Renal Epithelial Cell 0-5 SEEN, Amorphous Sediment 1+, Urine Bacteria 4+, Urine Mucus 0 SEEN 08/01/21 06:57: PT Cancelled, INR Cancelled 08/01/21 06:58: POC Glucose 340 H 08/01/21 07:17: PT 14.6, INR 1.2 08/01/21 07:17: Acetone Level NEGATIVE 08/01/21 08:41: POC Glucose 273 H 08/01/21 09:22: Lactic Acid 3.4 H* 08/01/21 11:18: POC Glucose 266 H Micro: Microbiology 08/01/21 06:45 Nasal Secretion SARS-CoV-2 Antigen (Rapid) - Final Radiology Impression Brain CT 08/01/21 04:36 IMPRESSION: 1. Chronic involutional changes of the brain. 2. No CT evidence of acute intracranial hemorrhage. Electronically Signed: Radhika Edwards MD at 6:59 EST , Cervical Spine CT 08/01/21 04:36 IMPRESSION: No acute fracture or subluxation. Individualized dose optimization techniques were used for this CT. at 0648 Reported and signed by: Mehrdad White MD Electronically Signed: Mehrdad White MD at 6:47 EST , Chest X-Ray 08/01/21 04:36 IMPRESSION: Borderline cardiomegaly with no acute pulmonary airspace disease. at 0650 Reported and signed by: Eagle Arauz MD Electronically Signed: Eagle Arauz MD at 6:49 EST , Abdomen/Pelvis CT 08/01/21 05:34 IMPRESSION: Prior Monae-en-Y gastric bypass without evidence of alimentary tract obstruction.. Excluded stomach and duodenum are fluid-filled and mildly prominent caliber without gayathri distention. This is of unknown significance. Finding may be transient. Clinical and possibly CT follow-up may be beneficial to exclude developing or partial biliary limb obstruction. Mild hepatomegaly. Individualized dose optimization techniques were used for this CT. at 0634 Reported and signed by: Mehrdad White MD Electronically Signed: Mehrdad White MD at 6:33 EST , Assessment & Plan Assessment/Plan (1) Hyperbilirubinemia: PLAN: Hyperbilirubinemia possibly secondary to a cholestatic hepatitis from a past stone in her common bile duct. I think she needs a MRCP to evaluate her hepatobiliary system. Her risk factors for that would be rapid weight loss which would cause biliary stasis and choledocholithiasis. At this time she does not appear to be in any distress. We can order this for the a.m. (2) Lactic acidosis: PLAN: Lactic acidosis possibly secondary to cholangitis versus urosepsis. (3) Metabolic encephalopathy: PLAN: Metabolic encephalopathy secondary to metabolic acidosis from likely infection from multiple sources. Work-up in progress. I will also order stool tests. (4) Elevated lipase: PLAN: Hyperlipidemia possibly secondary to sepsis and choledocholithiasis. (5) Leukocytosis: PLAN: Leukocytosis likely secondary to sepsis await blood cultures urine cultures and stool cultures. Charges/Coding Visit Charges Inpatient E&M: 31729 Init Hosp L3
--- NOTE | 2021-08-01 14:04 | PCM.RX.CS ---
Consult Pharmacy has been consulted to manage selected antiobiotic: Vancomycin Type of Consult: New start Suspected Infection: Other Labs: Sodium 138 mmol/L (136-145) 08/01/21 04:55 Potassium 4.0 mmol/L (3.5-5.1) 08/01/21 04:55 Chloride 103 mmol/L (98-107) 08/01/21 04:55 Carbon Dioxide 19.0 mmol/L (21.0-32.0) L 08/01/21 04:55 Anion Gap 16 (5-15) H 08/01/21 04:55 BUN 28 mg/dL (7-18) H 08/01/21 04:55 Creatinine 2.28 mg/dL (0.55-1.02) H 08/01/21 04:55 Est GFR (MDRD) Af Amer 27 mL/min (>60) L 08/01/21 04:55 Est GFR (MDRD) Non-Af 23 mL/min (>60) L 08/01/21 04:55 BUN/Creatinine Ratio 12.3 RATIO (10-20) 08/01/21 04:55 Glucose 347 mg/dL (74-106) H 08/01/21 04:55 Microbiology: Microbiology 08/01/21 06:45 Nasal Secretion SARS-CoV-2 Antigen (Rapid) - Final Goal Trough: 15-20 mcg/mL Pharmacy Plan for Drug Dosing: NEW START IV VANCOMYCIN Consulting Physician: Dr. Tessa Christiansen Indication: Goal Trough: 15-20 SrCr: 2.28 CrCl: 28.52 (using an adjusted body weight of 78.7kg) Comments: pt received a 1500mg x1 dose on 08/01/21 at 1042 Vancomcyin Dose: based off of pts weight and renal function, recommend an initial dose of 750mg q24h starting 08/02/21 at 1100. trough before the 3rd total dose Pending Level: 08/03/21 at 1030 Pharmacy Service will continue to monitor and adjust dosing as required. Follow-Up Labs: Trough Vancomycin - 08/03/21 at 1030
[2021-08-01] MEDS: Heparin Injection (Vial) 5,000 UNIT/ML VIAL 5000 UNIT SC ×2 (15:15→21:20)
[2021-08-01 15:20] LABS: Procalcitonin 25.48 ng/mL (0.00-0.09)
[2021-08-01] MEDS: Nystatin Powder 15gm Bottle 1 APPLIC TOPICAL ×2 (16:45→21:20)
[2021-08-01 17:26] LABS: Bedside Glucose 188 mg/dL (70-110)
[2021-08-02] VITALS (13 sets, daily range): BP systolic 147–209; BP diastolic 67–92; PULSE 68–85; RESP 16; TEMP 36.6–36.9; O2SAT 94–98
[2021-08-02] MEDS: Insulin Lispro 100 UNIT/ML INSULN.PEN SC ×2 (00:48→06:47)
[2021-08-02 01:01] LABS: Bedside Glucose 157 mg/dL (70-110)
--- NOTE | 2021-08-02 04:30 | NURSING ---
Pt ambulating to bathroom w/JUNIOR ACCOUNTING CLERK, this RN notified that IV was dislodged by pt's movement. This RN attempted x2 to restart an IV to RFA unsuccessfully. Pt states, can we wait a little while before trying again? Emotional support provided and pt consoled by staff agreement to wait before IV start again.
[2021-08-02 05:49] LABS: Absolute Lymphocyte Count 0.67 X10^3/uL (0.83-4.51); Absolute Neutrophil Count 13.9 X10^3/uL (2.0-7.7); Basophil# 0.04 X10^3/uL; Basophil% 0.3 % (0-1); Eosinophil# 0.02 X10^3/uL; Eosinophils% 0.1 % (0-5); Hematocrit 37.7 % (37-47); Hemoglobin 12.4 g/dL (12.0-15.0); Lymphocyte # 0.67 X10^3/ul (0.83-4.51); Lymphocyte % 4.2 % (19-41); Mean Corp Hgb Conc 32.9 g/dL (32-36); Mean Corpuscular Hgb 29.7 pg (27.0-32.0); Mean Corpuscular Volume 90.2 fL (81-99); Mean Platelet Vol. 11.3 fl (6.2-12.0); Monocyte# 1.11 X10^3/uL; NRBC Flagged by Analyzer 0 % (0-5); Neutrophil # 13.91 X10^3/uL (2.7-7.7); Neutrophil % 87.8 % (47-70); Platelet Count 213 K/mm3 (150-450); RBC Distribution Width CV 15.1 % (11.6-14.6); Red Blood Count 4.18 M/mm3 (4.2-5.4); White Blood Count 15.8 K/mm3 (4.4-11.0)
[2021-08-02 06:27] LABS: ALB/GLOB Ratio 0.7 RATIO (0.9-2.4); AST(SGOT) 188 U/L (15-37); Alanine Aminotransfer ALT/SGPT 303 U/L (13-56); Albumin, Serum 2.5 g/dL (3.2-5.0); Alkaline Phosphatase 118 U/L (45-117); Anion Gap 9 (5-15); BUN 24 mg/dL (7-18); BUN/Creat Ratio 16.2 RATIO (10-20); Calcium,Total 8.2 mg/dL (8.5-10.1); Chloride 117 mmol/L (98-107); Creatinine, Serum 1.48 mg/dL (0.55-1.02); EST Glomerular Filtration Rate 37 mL/min (>60); Est Glom Filt Rate - Afr Amer 45 mL/min (>60); Estimated Creatinine Clearance 25.41 ml/min; Globulin 3.6 g/dL (2.2-4.2); Glucose 153 mg/dL (74-106); Potassium 3.4 mmol/L (3.5-5.1); Protein, Total 6.1 g/dL (6.4-8.2); Sodium Level 146 mmol/L (136-145)
[2021-08-02] MEDS: 0.9% Normal Saline 1,000 ML 100 ML IV (06:40)
[2021-08-02] MEDS: Heparin Injection (Vial) 5,000 UNIT/ML VIAL 5000 UNIT SC ×3 (06:43→22:11)
[2021-08-02] MEDS: Nystatin Powder 15gm Bottle 1 APPLIC TOPICAL ×3 (06:44→22:11)
--- NOTE | 2021-08-02 07:24 | US_ITS ---
STUDY: ABDOMINAL ULTRASOUND - RIGHT UPPER QUADRANT REASON FOR VISIT: Female, 71 years old Transaminitis TECHNIQUE: Ultrasound evaluation of the right upper quadrant was performed with real-time and static corbett-scale imaging. TECHNICAL QUALITY: Adequate. COMPARISON: None. FINDINGS: Liver: The liver is enlarged and measures 20.3 cm. There is normal echogenicity of the liver. The bile ducts are within normal limits. There is hepatic color flow. The direction of portal flow is hepatopetal. There is no demonstrated mass lesion. Gallbladder: The patient is status post cholecystectomy. Common Bile Duct (C.B.D.): The common bile duct measures 7 mm. Pancreas: Normal size of the head, body and tail of the pancreas. There is normal echogenicity of the pancreas. There is no demonstrated pancreatic mass or cyst. Right Kidney: Normal size of the right kidney. The right kidney measures 12.8 cm x 4.5 cm x 5.3 cm. Normal renal cortex. The right cortex measures 1.4 cm. There is no demonstrated renal mass or cyst. There is no right hydronephrosis. US/Abdomen Limited IMPRESSION: Status post cholecystectomy. The common bile duct measures upper limits of normal. Electronically Signed: Nish wKan MD at 13:44 EST ,
[2021-08-02] MEDS: 0.45% Normal Saline 1,000 ML 60 ML IV (09:13)
[2021-08-02] MEDS: Metoprolol(XL)Succ 50 MG Tablet PO (10:06)
[2021-08-02] MEDS: Potassium Chloride Oral Tablet 20 MEQ 60 MEQ PO (10:06)
[2021-08-02] MEDS: hydrALAZINE 20 MG/ML Vial 10 MG IV ×2 (10:42→18:21)
[2021-08-02 12:11] LABS: Bedside Glucose 130 mg/dL (70-110)
--- NOTE | 2021-08-02 12:13 | PHA.PHARE_ITS ---
Consult Pharmacy has been consulted to manage selected antiobiotic: Vancomycin Type of Consult: Follow-up Labs: Sodium 146 mmol/L (136-145) H 08/02/21 05:10 Potassium 3.4 mmol/L (3.5-5.1) L 08/02/21 05:10 Chloride 117 mmol/L (98-107) H 08/02/21 05:10 Carbon Dioxide 20.0 mmol/L (21.0-32.0) L 08/02/21 05:10 Anion Gap 9 (5-15) 08/02/21 05:10 BUN 24 mg/dL (7-18) H 08/02/21 05:10 Creatinine 1.48 mg/dL (0.55-1.02) H 08/02/21 05:10 Est GFR (MDRD) Af Amer 45 mL/min (>60) L 08/02/21 05:10 Est GFR (MDRD) Non-Af 37 mL/min (>60) L 08/02/21 05:10 BUN/Creatinine Ratio 16.2 RATIO (10-20) 08/02/21 05:10 Glucose 153 mg/dL (74-106) H 08/02/21 05:10 Microbiology: Microbiology 08/01/21 06:25 Urine Catheter - Catheter Urine Culture - Preliminary Presumptive E. coli 08/01/21 06:08 Blood Culture (Wb) - Anticubital Right Blood Culture - Preliminary GNR lactose habilitative interventionist 08/01/21 06:45 Nasal Secretion SARS-CoV-2 Antigen (Rapid) - Final Goal Trough: 15-20 mcg/mL Pharmacy Plan for Drug Dosing: DAILY ASSESSMENT Current Vancomycin Dose: 750mg IV Q24h Number of Doses Received: no scheduled doses (had initial dose of 1500mg IV x1 08/01 @1042) Current Renal Function: 1.48 Renal Function Trend: improvement from yesterday (SCr 2.28 08/01) Any Change in Vanc Plan: Increase dose to 1250mg IV Q24hr per protocol based on improvement in renal function. Pending Level: 08/03/21 @1230, prior to 3rd total dose of vancomycin per protocol Pharmacy Service will continue to monitor and adjust dosing as required.
[2021-08-02] MEDS: 0.9% Saline Lock 10 ML Syringe IV ×2 (13:53→18:30)
[2021-08-02 14:05] LABS: Pathologist Review Reviewed
--- NOTE | 2021-08-02 14:10 | CASEMGMT ---
ADAM TERRY assessment: Face to Face with patient for initial transition planning/care coordination assessment. ADAM TERRY introduced self and role at [facility], pt voices understanding and consents to assessment. Pt is sitting up in chair in no distress on room air. Pt is A/Ox4 and answers all questions appropriately. Care providers, pharmacy, and demographics verified. Presentation: Pt fell out of bed, confusion-per , pt has been nauseous and not eating/drinking much Admitting dx: Acute pancreatitis PCP: Te Specialists: None Preferred [facility]acy: [facility] Insurance: AeR Prescription Benefit: AeMCR Living Will/HPOA: Pt does not have LW/HPOA and declines AD info. LNOK: Jesus Yang, Living Arrangements: Pt lives with in apt with laundry in basement and states no concerns at home. Pt is independent with ADL's. Transportation: Pt drives and states no transportation concerns. DME/HHC: Pt has no current DME or need for any further DME. Pt states no hx of HHC or SNF. Pt states no concerns with going home at time of discharge. Pt is retired. Pt states does not smoke cigarettes or drink ETOH. Pt states no further concerns/needs. CM to follow for any further discharge planning/needs. Advised pt to ask for CM if any further questions/concerns/needs arise, voices understanding. Pt Goal: Home Plan: [place] ADAM TERRY
--- NOTE | 2021-08-02 14:41 | MRI_ITS ---
EXAM: MR ABDOMEN WITHOUT INTRAVENOUS CONTRAST, MRCP PROTOCOL CLINICAL INDICATION: pancreaitis and jaundice TECHNIQUE: Multiplanar and multisequence MR images of the abdomen without intravenous contrast obtained with MRCP sequence. Three-dimensional post-processing reconstructions were performed. This report was created using CSDN report generation technology. COMPARISON: None. FINDINGS: LOWER THORAX: Unremarkable. No pleural effusion. LIVER: Unremarkable. Normal morphology. GALLBLADDER AND BILE DUCTS: The common duct is mildly dilated measuring 7.5 mm. The common hepatic duct measures 8.6 mm with slight degree of biliary dilation involving the left more than right intrahepatic bile ducts. On image 14 of series 10, there is a punctate round defect in the lower common duct measuring 2.5-3 mm. The pancreatic duct is nondilated. Gallbladder is surgically absent. No choledochal filling defect. PANCREAS: See above. No pancreatic mass. SPLEEN: Unremarkable. Non-enlarged. ADRENALS: Unremarkable. No nodules. KIDNEYS AND URETERS: 1.1 cm hypointense T2 signal intensity lesion of the left kidney as seen on image 19 of series 7, and not seen on noncontrasted CT performed recently. Normal renal size and position. No hydronephrosis. Age-related perinephric edema. STOMACH AND BOWEL: Status post gastric bypass surgery. INTRAPERITONEAL SPACE: Unremarkable. No ascites or other fluid collection. VASCULATURE: Unremarkable. Abdominal aorta is non-dilated. LYMPH NODES: No enlarged lymph nodes. MRI/MRCP Abdomen without Contrast IMPRESSION: 1. Punctate (2.5-3 mm) lower CBD choledocholithiasis with mild extrahepatic more than intrahepatic bile duct dilation. 2. 1.1 cm left renal indeterminate (not compatible with simple cyst) lesion of the left kidney. Renal protocol CT/MRI recommended for characterization. Electronically Signed: Ezequiel Aguilar MD ([place]) at 13:10 EST ,
--- NOTE | 2021-08-02 15:21 | PN.HOSP_ITS ---
Subjective Subjective Patient states she is feeling okay today. is at the bedside today during my exam and indicates that about 24 hours before he brought her in she had some abdominal pain and some dry heaving but no emesis. He states he noted no other abnormalities. He indicates that she has these episodes periodically. She had no issues overnight. confirms that she is clinically better however she is still not at baseline. Objective Data Objective Data Vital Signs: Vital Signs Temp Pulse Resp BP Pulse Ox 98.5 F 79 16 195/89 H 97 08/02/21 15:00 08/02/21 15:00 08/02/21 15:00 08/02/21 15:00 08/02/21 15:00 Oxygen Delivery Method Room Air Weight: 93.9 kg Body Mass Index (BMI) 40.4 Intake & Output: Intake and Output for Last 24 Hours 07/31/21 08/01/21 08/02/21 23:59 23:59 23:59 Intake Total 2893.33 / 2893.33 395.00 / 395.00 Output Total 950 / 950 Balance 2893.33 / 2643.33 -555.00 / -555.00 Lab / Micro Data Result Diagrams: 08/02/21 05:10 08/02/21 05:10 Labs: Laboratory Results - last 24 hr 08/01/21 04:55: Diff Path Review Reviewed 08/01/21 16:43: POC Glucose 188 H 08/02/21 00:46: POC Glucose 157 H 08/02/21 05:10: WBC 15.8 H, RBC 4.18 L, Hgb 12.4, Hct 37.7, MCV 90.2, MCH 29.7, MCHC 32.9, RDW Std Deviation 50.0 H, RDW Coeff of Francy 15.1 H, Plt Count 213, MPV 11.3, Immature Gran % (Auto) 0.600, Neut % (Auto) 87.8 H, Lymph % (Auto) 4.2 L, [place] % (Auto) 7.0, Eos % (Auto) 0.1, Baso % (Auto) 0.3, Absolute Neuts (auto) 13.9 H, Absolute Lymphs (auto) 0.67 L, Nucleated RBC % 0 08/02/21 05:10: Sodium 146 H, Potassium 3.4 L, Chloride 117 H, Carbon Dioxide 20.0 L, Anion Gap 9, BUN 24 H, Creatinine 1.48 H, Estim Creat Clear Calc 25.41, Est GFR (MDRD) Af Amer 45 L, Est GFR (MDRD) Non-Af 37 L, BUN/Creatinine Ratio 16.2, Glucose 153 H, Calcium 8.2 L, Total Bilirubin 1.00, AST 188 H, ALT 303 H, Alkaline Phosphatase 118 H, Total Protein 6.1 L, Albumin 2.5 L, Globulin 3.6, Albumin/Globulin Ratio 0.7 L 08/02/21 12:02: POC Glucose 130 H Micro: Microbiology 08/01/21 06:25 Urine Catheter - Catheter Urine Culture - Preliminary Presumptive E. coli 08/01/21 06:08 Blood Culture (Wb) - Anticubital Right Blood Culture - Preliminary GNR lactose pharmacy intern 08/01/21 06:45 Nasal Secretion SARS-CoV-2 Antigen (Rapid) - Final Radiography Diagnostic Testing: Radiology Impression Abdomen Ultrasound 08/02/21 07:24 IMPRESSION: Status post cholecystectomy. The common bile duct measures upper limits of normal. Electronically Signed: Nish Kwan MD at 13:44 EST , MRCP 08/02/21 14:41 IMPRESSION: 1. Punctate (2.5-3 mm) lower CBD choledocholithiasis with mild extrahepatic more than intrahepatic bile duct dilation. 2. 1.1 cm left renal indeterminate (not compatible with simple cyst) lesion of the left kidney. Renal protocol CT/MRI recommended for characterization. Electronically Signed: Ezequiel Aguilar MD (Brooks) at 13:10 EST , Physical Exam Const alert, oriented x3, no apparent distress and well nourished Constitutional Narrative: MO, Older WF lying in bed awake, at bedside, nursing at bedside, appears comfortable, nontoxic appearing, patien still is slightly slow with answering questions but definitely improved in the last 24 hours General Appearance: cooperative Nutritional Appearance: morbidly obese HEENT normocephalic, head/scalp atraumatic, hearing grossly normal bilaterally and moist oral mucous membranes HEENT Narrative: Edentulous, Mallampati is 2, no thrush Head and Scalp: normocephalic Eyes PERRL, EOMs intact bilaterally and conjunctivae normal Eyes Narrative: no sig scleral icterus Neck no lymphadenopathy, supple, no JVD and no carotid bruits Neck Narrative: trachea midline with no thyroid enlargement Resp normal respiratory effort, no retractions, no use of accessory muscles and clear to auscultation bilaterally Auscultation: Negative for crackles, rales, rhonchi or wheezes Cardio regular rate, regular rhythm, S1 normal heart sound, S2 normal heart sound, no murmurs, no rub, no gallops, no clicks and no JVD GI normal to inspection, nondistended, normoactive bowel sounds, soft to palpation, non-tender and non-distended Extremity no clubbing, cyanosis or edema Peripheral Pulses: Yes pulses 2+ throughout Skin no rashes or lesions noted, no wounds, skin turgor normal, no jaundice, no petec hiae and no mottling Neuro oriented x3, CN's II-XII intact bilaterally, moves all extremities and no focal motor deficits Neuro Narrative: speech is a bit delayed but otherwise normal--> has improved however in the last 24 hours Sensorium / Orientation: awake and alert Psych Psych Narrative: Affect is slightly flat but otherwise communication is appropriate Assessment & Plan Assessment/Plan (1) Acute kidney injury: (2) Dehydration: (3) Elevated lipase: (4) Leukocytosis: (5) Elevated liver function tests: (6) Metabolic encephalopathy: (7) Metabolic acidosis: (8) Lactic acidosis: (9) Hyperbilirubinemia: (10) Hypokalemia: PLAN: Acute kidney injury -Most recent labs in our EMR from 2014 and showed baseline of 1-1.2 however we have nothing more recent -Serum creatinine was 2.24 admission -Down to 1.48 today -Continue IV fluids but will convert to half-normal from normal saline given rise in sodium and chloride -We will continue to hold home lisinopril -Avoid nephrotoxins -Repeat BMP in a.m. Gram-negative bacteremia secondary to UTI -Patient did not meet sepsis criteria on admission with qSOFA score -White count has dramatically improved -Blood culture with gram-negative rods lactose pharmacy intern -Urine culture showing presumptive E. coli at this time -Chest x-ray is not impressive for infection -Procalcitonin is markedly elevated at 25 LFT elevation secondary to choledocholithiasis -MRCP shows choledocholithiasis however this is a small stone in the lower common bile duct with mild extrahepatic bile duct dilation -Await GI input to see if he would like to perform an ERCP -LFTs have improved in the last 24 hours -Start clear liquid diet Hypokalemia -P.o. potassium replacement -Repeat potassium in a.m. Lactic acidosis -Resolved Hypernatremia/hyperchloremia -Likely iatrogenic with IV fluid replacement -Convert IV fluids from normal saline to half-normal saline -Diet was initiated and I suspect will be able to discontinue IV fluids altogether within the next 24 hours Metabolic encephalopathy -Suspect multifactorial -Improved but not quite yet at baseline -CT head unremarkable -Ammonia levels only slightly elevated at 35 therefore will not intervene further at this time -Continue to monitor clinically Anion gap metabolic acidosis -Resolved Hypertension -Hold lisinopril with elevated LFTs -Continue home metoprolol 50 mg daily -As needed hydralazine for systolic greater than 160 Hyperlipidemia -Hold home rosuvastatin with elevated LFTs [id number] -Hemoglobin A1c on admission was 7.6 -Hold home oral agents -Blood sugar is much better with a fasting of 153 this morning -N.p.o. for now -Sliding scale every 6 -Accu-Cheks every 6 Morbid obesity -BMI is 50.5 -History of Monae-en-Y gastric bypass approximately 3 years ago -Recommend weight loss -Complicates treatment, prognosis, outcomes DVT prophylaxis -Heparin subcu 5000 units 3 times daily -SCDs CODE STATUS -Full code as verified today with patient and Charges/Coding Visit Charges Inpatient E&M: [id number] [facility] L3
[2021-08-02 17:20] LABS: Bedside Glucose 133 mg/dL (70-110)
--- NOTE | 2021-08-02 18:26 | PN_ITS ---
Subjective Subjective Patient is not having any abdominal pain at this time. Objective Data Objective Data Vital Signs: Vital Signs Temp Pulse Resp BP Pulse Ox 97.8 F 70 16 186/91 H 96 08/02/21 18:15 08/02/21 18:21 08/02/21 18:15 08/02/21 18:15 08/02/21 18:15 Oxygen Delivery Method Room Air Weight: 207 lb 0.225 oz Body Mass Index (BMI) 40.4 Intake & Output: Intake and Output for Last 24 Hours 07/31/21 08/01/21 08/02/21 23:59 23:59 23:59 Intake Total 2893.33 / 2893.33 910.00 / 910.00 Output Total 950 / 950 Balance 2893.33 / 2643.33 -40.00 / -40.00 Lab / Micro Data Result Diagrams: 08/02/21 05:10 08/02/21 05:10 Labs: Laboratory Results - last 24 hr 08/01/21 04:55: Diff Path Review Reviewed 08/02/21 00:46: POC Glucose 157 H 08/02/21 05:10: WBC 15.8 H, RBC 4.18 L, Hgb 12.4, Hct 37.7, MCV 90.2, MCH 29.7, MCHC 32.9, RDW Std Deviation 50.0 H, RDW Coeff of Francy 15.1 H, Plt Count 213, MPV 11.3, Immature Gran % (Auto) 0.600, Neut % (Auto) 87.8 H, Lymph % (Auto) 4.2 L, [place] % (Auto) 7.0, Eos % (Auto) 0.1, Baso % (Auto) 0.3, Absolute Neuts (auto) 13.9 H, Absolute Lymphs (auto) 0.67 L, Nucleated RBC % 0 08/02/21 05:10: Sodium 146 H, Potassium 3.4 L, Chloride 117 H, Carbon Dioxide 2 0.0 L, Anion Gap 9, BUN 24 H, Creatinine 1.48 H, Estim Creat Clear Calc 25.41, Est GFR (MDRD) Af Amer 45 L, Est GFR (MDRD) Non-Af 37 L, BUN/Creatinine Ratio 16.2, Glucose 153 H, Calcium 8.2 L, Total Bilirubin 1.00, AST 188 H, ALT 303 H, Alkaline Phosphatase 118 H, Total Protein 6.1 L, Albumin 2.5 L, Globulin 3.6, Albumin/Globulin Ratio 0.7 L 08/02/21 12:02: POC Glucose 130 H 08/02/21 17:15: POC Glucose 133 H Micro: Microbiology 08/01/21 06:25 Urine Catheter - Catheter Urine Culture - Preliminary Presumptive E. coli 08/01/21 06:08 Blood Culture (Wb) - Anticubital Right Blood Culture - Preliminary GNR lactose morning show newscast producer 08/01/21 06:45 Nasal Secretion SARS-CoV-2 Antigen (Rapid) - Final Radiography Diagnostic Testing: Radiology Impression Abdomen Ultrasound 08/02/21 07:24 IMPRESSION: Status post cholecystectomy. The common bile duct measures upper limits of normal. Electronically Signed: Nish Kwan MD at 13:44 EST , MRCP 08/02/21 14:41 IMPRESSION: 1. Punctate (2.5-3 mm) lower CBD choledocholithiasis with mild extrahepatic more than intrahepatic bile duct dilation. 2. 1.1 cm left renal indeterminate (not compatible with simple cyst) lesion of the left kidney. Renal protocol CT/MRI recommended for characterization. Electronically Signed: Ezequiel Aguilar MD (Brooks) at 13:10 EST , Physical Exam Const alert General Appearance: cooperative Orientation / Consciousness: oriented to person HEENT hearing grossly normal bilaterally Head and Scalp: normal to inspection Face and Sinus: face symmetric Nose: external nose normal Mouth: oral and palatal mucosa normal Eyes conjunctivae normal General Eye: normal appearance of both eyes Neck full ROM General: normal visual inspection Lymph Lymphatic: no lymphadenopathy noted Chest inspection of chest normal and palpation of chest normal Chest: symmetrical chest wall rise Resp normal respiratory effort Effort and Inspection: able to speak in complete sentences Cardio regular rate GI non-distended Percussion: normal to percussion Rectal Exam: deferred Neuro Speech: speech normal Gait (Neuro): normal gait Assessment & Plan Assessment/Plan (1) Hyperbilirubinemia: PLAN: Patient is elevated liver enzymes along with cholestatic hepatitis is likely secondary to choledocholithiasis. Patient is status post Monae-en-Y gastric bypass. It would make an ERCP very difficult. However, patient will think about whether she wants to undergo an ERCP. She may need a double-balloon enteroscopy scope in order to have a better chance to have a successful ERCP. (2) Elevated lipase: PLAN: Pancreatitis secondary to gallstone pancreatitis. She has no abdominal pain at this time. I suspect that this was just chemical pancreatitis. Patient should undergo endoscopic evaluation with ERCP and stone removal.
[2021-08-02] MEDS: Morphine 2 MG/ML Syringe IV (18:27)
[2021-08-03] VITALS (19 sets, daily range): BP systolic 156–185; BP diastolic 72–92; PULSE 56–85; RESP 16–20; TEMP 36.2–37; O2SAT 92–98; BMI 40.0; BMI 40.6
[2021-08-03 02:01] LABS: Bedside Glucose 145 mg/dL (70-110)
[2021-08-03] MEDS: 0.45% Normal Saline 1,000 ML 60 ML IV (02:46)
--- NOTE | 2021-08-03 05:00 | EKG12_ITS ---
Test Reason : PRE-OP Blood Pressure : / mmHG Vent. Rate : 065 BPM Atrial Rate : 065 BPM P-R Int : 180 ms QRS Dur : 138 ms QT Int : 474 ms P-R-T Axes : 029 -59 035 degrees QTc Int : 492 ms Normal sinus rhythm Left axis deviation Non-specific intra-ventricular conduction block Abnormal ECG Confirmed by JAY RAMOS, NEAL ([id number]), subeditor YANG GRAVES ([id number]) on 08/04/2021 12:44:42 PM Referred By: ROBERT Confirmed By:NEAL THOMPSON MD
[2021-08-03] MEDS: Nystatin Powder 15gm Bottle 1 APPLIC TOPICAL ×2 (05:19→20:14)
[2021-08-03 05:31] LABS: Absolute Lymphocyte Count 1.14 X10^3/uL (0.83-4.51); Absolute Neutrophil Count 11.2 X10^3/uL (2.0-7.7); Basophil# 0.03 X10^3/uL; Basophil% 0.2 % (0-1); Eosinophil# 0.03 X10^3/uL; Eosinophils% 0.2 % (0-5); Hematocrit 36.7 % (37-47); Hemoglobin 12.5 g/dL (12.0-15.0); Lymphocyte # 1.14 X10^3/ul (0.83-4.51); Lymphocyte % 8.4 % (19-41); Mean Corp Hgb Conc 34.1 g/dL (32-36); Mean Corpuscular Hgb 29.1 pg (27.0-32.0); Mean Corpuscular Volume 85.3 fL (81-99); Mean Platelet Vol. 10.9 fl (6.2-12.0); Monocyte# 1.02 X10^3/uL; Monocyte% 7.5 % (0-10); NRBC Flagged by Analyzer 0 % (0-5); Neutrophil # 11.24 X10^3/uL (2.7-7.7); Neutrophil % 83.3 % (47-70); Platelet Count 209 K/mm3 (150-450); RBC Distribution Width CV 15.1 % (11.6-14.6); RBC Distribution Width SD 46.6 fl (35.1-43.9); White Blood Count 13.5 K/mm3 (4.4-11.0)
[2021-08-03 05:47] LABS: Partial Thromboplast Time 31.4 Seconds (24.1-36.2)
[2021-08-03 05:53] LABS: ALB/GLOB Ratio 0.6 RATIO (0.9-2.4); AST(SGOT) 62 U/L (15-37); Alanine Aminotransfer ALT/SGPT 186 U/L (13-56); Albumin, Serum 2.4 g/dL (3.2-5.0); Alkaline Phosphatase 102 U/L (45-117); Anion Gap 9 (5-15); BUN 16 mg/dL (7-18); BUN/Creat Ratio 15.2 RATIO (10-20); Chloride 112 mmol/L (98-107); Creatinine, Serum 1.05 mg/dL (0.55-1.02); EST Glomerular Filtration Rate 55 mL/min (>60); Est Glom Filt Rate - Afr Amer 67 mL/min (>60); Estimated Creatinine Clearance 35.81 ml/min; Globulin 3.9 g/dL (2.2-4.2); Glucose 128 mg/dL (74-106); Potassium 3.4 mmol/L (3.5-5.1); Protein, Total 6.3 g/dL (6.4-8.2); Sodium Level 138 mmol/L (136-145)
[2021-08-03 06:36] LABS: Bedside Glucose 136 mg/dL (70-110)
[2021-08-03 08:10] LABS: HEPATITIS B SURFACE AG Negative (Negative); Hepatitis A IgM Antibody Negative (Negative); Hepatitis B Core AB IgM Negative (Negative)
[2021-08-03] MEDS: Metoprolol(XL)Succ 50 MG Tablet PO (09:29)
[2021-08-03] MEDS: hydrALAZINE 20 MG/ML Vial 10 MG IV (11:20)
[2021-08-03 12:51] LABS: Bedside Glucose 119 mg/dL (70-110)
[2021-08-03] MEDS: Enalaprilat 1.25 MG/ML Vial IV (12:53)
[2021-08-03 13:24] LABS: Vancomycin, Trough Level 9.4 ug/mL (5.0-15.0)
[2021-08-03 13:45] LABS: Hep C Antibodies <0.1 s/co ratio (0.0-0.9)
--- NOTE | 2021-08-03 15:18 | NURSING ---
This nurse called in to take over care at 0815.
--- NOTE | 2021-08-03 15:38 | PN.HOSP_ITS ---
Subjective Subjective Patient states she is feeling much better today. Asking for something to eat however she is n.p.o. for ERCP later today. Mental status seems much better patient's response times are appropriate. Objective Data Objective Data Vital Signs: Vital Signs Temp Pulse Resp BP Pulse Ox 98.6 F 65 18 161/92 H 96 08/03/21 14:59 08/03/21 14:59 08/03/21 14:59 08/03/21 14:59 08/03/21 14:59 Oxygen Delivery Method Room Air Weight: 93.8 kg Body Mass Index (BMI) 40.6 Intake & Output: Intake and Output for Last 24 Hours 08/01/21 08/02/21 08/03/21 23:59 23:59 23:59 Intake Total 2893.33 / 2893.33 960.00 / 960.00 1212 / 1212 Output Total 950 / 950 350 / 350 Balance 2893.33 / 2643.33 10.00 / 10.00 862 / 862 Lab / Micro Data Result Diagrams: 08/03/21 05:16 08/03/21 05:16 Labs: Laboratory Results - last 24 hr 08/01/21 07:17: Hepatitis A IgM Ab Negative, Hep Bs Antigen Negative, Hep B Core IgM Ab Negative, Hepatitis C Ab (EIA) <0.1 08/02/21 17:15: POC Glucose 133 H 08/02/21 22:14: POC Glucose 145 H 08/03/21 05:16: WBC 13.5 H, RBC 4.30, Hgb 12.5, Hct 36.7 L, MCV 85.3 D, MCH 29.1, MCHC 34.1, RDW Std Deviation 46.6 H, RDW Coeff of Francy 15.1 H, Plt Count 209, MPV 10.9, Immature Gran % (Auto) 0.400, Neut % (Auto) 83.3 H, Lymph % (Auto) 8.4 L, Whiteside % (Auto) 7.5, Eos % (Auto) 0.2, Baso % (Auto) 0.2, Absolute Neuts (auto) 11.2 H, Absolute Lymphs (auto) 1.14, Nucleated RBC % 0 08/03/21 05:16: Sodium 138, Potassium 3.4 L, Chloride 112 H, Carbon Dioxide 17.0 L, Anion Gap 9, BUN 16, Creatinine 1.05 H, Estim Creat Clear Calc 35.81, Est GFR (MDRD) Af Amer 67, Est GFR (MDRD) Non-Af 55 L, BUN/Creatinine Ratio 15.2, Glucose 128 H, Calcium 8.0 L, Total Bilirubin 0.80, AST 62 H, ALT 186 H, Alkaline Phosphatase 102, Total Protein 6.3 L, Albumin 2.4 L, Globulin 3.9, Albumin/Globulin Ratio 0.6 L 08/03/21 05:16: APTT 31.4 08/03/21 05:25: POC Glucose 136 H 08/03/21 12:27: POC Glucose 119 H 08/03/21 12:35: Vancomycin Trough 9.4 Micro: Microbiology 08/01/21 05:33 Blood Culture (Wb) - Anticubital Left Blood Culture - Final Presumptive E. coli 08/01/21 06:25 Urine Catheter - Catheter Urine Culture - Final Escherichia coli 08/01/21 06:08 Blood Culture (Wb) - Anticubital Right Blood Culture - Final Escherichia coli 08/01/21 06:45 Nasal Secretion SARS-CoV-2 Antigen (Rapid) - Final Physical Exam Const alert, oriented x3, no apparent distress, healthy appearing and well nourished Constitutional Narrative: MO, Older WF lying in bed awake, appears comfortable, nontoxic appearing, patient is now appropriately interactive with normal response times General Appearance: cooperative Exam Limitations: no limitations Nutritional Appearance: morbidly obese HEENT normocephalic, head/scalp atraumatic, hearing grossly normal bilaterally and moist oral mucous membranes HEENT Narrative: Mallampati is 3, no thrush Head and Scalp: normocephalic Resp normal respiratory effort, no retractions, no use of accessory muscles and clear to auscultation bilaterally Auscultation: Negative for crackles, rales, rhonchi or wheezes Cardio regular rate, regular rhythm, S1 normal heart sound, S2 normal heart sound, no murmurs, no rub, no gallops, no clicks and no JVD GI normal to inspection, nondistended, normoactive bowel sounds, soft to palpation, non-tender and non-distended Extremity no clubbing, cyanosis or edema Peripheral Pulses: Yes pulses 2+ throughout Neuro oriented x3, CN's II-XII intact bilaterally, moves all extremities and no focal motor deficits Neuro Narrative: Mild proximal weakness generally speaking Sensorium / Orientation: awake and alert Speech: speech normal Assessment & Plan Assessment/Plan (1) Acute kidney injury: (2) Dehydration: (3) Elevated lipase: (4) Leukocytosis: (5) Elevated liver function tests: (6) Metabolic encephalopathy: (7) Metabolic acidosis: (8) Hyperbilirubinemia: (9) Hypokalemia: (10) Choledocholithiasis: PLAN: Acute kidney injury -Most recent labs in our EMR from 2014 and showed baseline of 1-1.2 however we have nothing more recent -Serum creatinine was 2.24 admission -Down to 1.05 -Discontinue IV fluid -We will restart home lisinopril -Avoid nephrotoxins -Repeat BMP in a.m. E. coli bacteremia secondary to UTI -Patient did not meet sepsis criteria on admission with qSOFA score -White count still slightly elevated however almost normalized -E. coli in urine and blood both with same sensitivities -Antibiotics narrowed to Unasyn -Anticipate discharge within the next 24 hours on oral antibiotics LFT elevation secondary to choledocholithiasis -MRCP shows choledocholithiasis however this is a small stone in the lower common bile duct with mild extrahepatic bile duct dilation -ERCP pending for today -LFTs have improved in the last 24 hours -N.p.o. until after ERCP Hypokalemia -P.o. potassium replacement again today -Repeat BMP in a.m. Hypernatremia/hyperchloremia -Likely iatrogenic with IV fluid replacement -Improving -Discontinue IV fluids today Metabolic encephalopathy -Resolved Hypertension -Restart her home lisinopril -Continue home metoprolol 50 mg daily -As needed hydralazine for systolic greater than 160 Hyperlipidemia -Restart home Crestor [id number] -Hemoglobin A1c on admission was 7.6 -Hold home oral agents -Suspect acute marked elevation was related to bacteremia and infection -Blood sugar is much better with a fasting of 128 this morning -N.p.o. for now -Sliding scale every 6 -Accu-Cheks every 6 Morbid obesity -BMI is 50.5 -History of Monae-en-Y gastric bypass approximately 3 years ago -Recommend weight loss -Complicates treatment, prognosis, outcomes DVT prophylaxis -Heparin subcu 5000 units 3 times daily -SCDs CODE STATUS -Full code as verified 08/02/2021 with patient Charges/Coding Visit Charges Inpatient E&M: 57834 Subs Hosp L2
--- NOTE | 2021-08-03 17:55 | RAD_ITS ---
EXAM: INTRAOPERATIVE CHOLANGIOGRAM FLUOROSCOPY TIME: 8.6 seconds RADIATION DOSE: 3.1 mGy TOTAL NUMBER OF IMAGES: 1 COMPARISON: None. PROVIDED CLINICAL HISTORY: STONES PAIN TECHNIQUE: The examination was performed with physician in attendance. Under fluoroscopic observation, fluoroscopic images were obtained in the operating room. FINDINGS: First image demonstrates surgical instruments overlying the [id number]. IMPRESSION: Fluoroscopic assistance images were obtained. Pertinent findings noted above. Electronically Signed: Matheus Hernandes MD at 18:46 EST , RAD/ERCP Biliary/Pancreas
--- NOTE | 2021-08-03 18:27 | OP.ERCP_ITS ---
Patient Name: Anai Yang Procedure Date: 08/03/2021 5:31 PM Date of : 1950 Age: 71 Procedure: ERCP Indications: Bile duct stone(s) Providers: Chandler Shi DO Medicines: General Anesthesia Patient Profile: This is a 71 year old female. Refer to note in patient chart for documentation of history and physical. Patient has symptoms of acute right upper quadrant abdominal pain and acute jaundice. This patient has no history of previous ERCP. She is status post laparoscopic gastric bypass within the past several years. Complications: No immediate complications. Procedure: Pre-Anesthesia Assessment: - Prior to the procedure, a History and Physical was performed, and patient medications and allergies were reviewed. The patient is competent. The risks and benefits of the procedure and the sedation options and risks were discussed with the patient. All questions were answered and informed consent was obtained. Patient identification and proposed procedure were verified by the physician in the pre-procedure area. Mental Status Examination: alert and oriented. Airway Examination: normal oropharyngeal airway and neck mobility. Respiratory Examination: clear to auscultation. CV Examination: normal. Prophylactic Antibiotics: The patient does not require prophylactic antibiotics. Prior Anticoagulants: The patient has taken no previous anticoagulant or antiplatelet agents. ASA Grade Assessment: II - A patient with mild systemic disease. After reviewing the risks and benefits, the patient was deemed in satisfactory condition to undergo the procedure. The anesthesia plan was to use moderate sedation / analgesia (conscious sedation). Immediately prior to administration of medications, the patient was re-assessed for adequacy to receive sedatives. The heart rate, respiratory rate, oxygen saturations, blood pressure, adequacy of pulmonary ventilation, and response to care were monitored throughout the procedure. The physical status of the patient was re-assessed after the procedure. After obtaining informed consent, the scope was passed under direct vision. Throughout the procedure, the patient's blood pressure, pulse, and oxygen saturations were monitored continuously. The pediatric colonoscope was introduced through the mouth, and advanced to the duodenum without successful cannulation. The ERCP was technically difficult and complex due to challenging cannulation because of inability to visualize the major papilla. The major ampulla was not able to be reached due to the long length of the Monae-en-Y gastric bypass. The procedure was therefore stopped. The ulcer seen at the gastrojejunal anastomosis. Moderate Sedation: Moderate (conscious) sedation was administered by the endoscopy nurse and supervised by the endoscopist. The following parameters were monitored: oxygen saturation, heart rate, blood pressure, and response to care. Total physician intraservice time was 15 minutes. Scope In: 5:53:47 PM Scope Out: 6:19:12 PM Total Procedure Duration Time 0 hours 25 minutes 25 seconds Findings: The tool technician film was normal. Impression: Unsuccessful ERCP due to a long Monae-en-Y limb. - The ERCP was aborted due to the extreme difficulty of the procedure. Recommendation: - Resume regular diet today. Carafate liquid 4 times a day x1 month. Procedure Code(s): --- Professional --- 50588, Esophagogastroduodenoscopy, flexible, transoral; diagnostic, including collection of specimen(s) by brushing or washing, when performed (separate procedure) G0500, Moderate sedation services provided by the same physician or other qualified health respiratory care practitioner performing a gastrointestinal endoscopic service that sedation supports, requiring the presence of an independent trained observer to assist in the monitoring of the patient's level of consciousness and physiological status; initial 15 minutes of intra-service time; patient age 5 years or older (additional time may be reported with 98790, as appropriate) CPT copyright 2017 [employer]. All rights reserved. The codes documented in this report are preliminary and upon director professional services review may be revised to meet current compliance requirements. Chandler Shi DO 08/03/2021 6:27:22 PM This report has been signed electronically. Number of Addenda: 0 Note Initiated On: 08/03/2021 5:31 PM
--- NOTE | 2021-08-03 18:28 | OP.CCLET_ITS ---
08/03/2021 Tameka Tiwari [address] [place] [address] Re : ERCP procedure for Anai Trey Dear Dr. Tiwari This procedure was performed on Tuesday, August 03, 2021. My impressions and recommendations are as follows: Impressions : Unsuccessful ERCP due to a long Monae-en-Y limb. - The ERCP was aborted due to the extreme difficulty of the procedure. Recommendations : - Resume regular diet today. Carafate liquid 4 times a day x1 month. My findings are described in the full procedure note, which is enclosed. If I can be of further assistance, please feel free to contact me at . Sincerely, Chandler Shi, 08/03/2021 6:27:22 PM This report has been signed electronically.
[2021-08-03] MEDS: 0.9% Saline Lock 10 ML Syringe IV (19:48)
[2021-08-03] MEDS: Insulin Lispro 100 UNIT/ML INSULN.PEN SC (20:14)
[2021-08-03] MEDS: Heparin Injection (Vial) 5,000 UNIT/ML VIAL 5000 UNIT SC (20:14)
[2021-08-03] MEDS: Atorvastatin Calcium 10 MG Tablet PO (20:15)
[2021-08-03 20:26] LABS: Bedside Glucose 228 mg/dL (70-110)
[2021-08-03] MEDS: Potassium Chloride Oral Tablet 20 MEQ 40 MEQ PO (20:59)
[2021-08-04] VITALS (8 sets, daily range): BP systolic 165–184; BP diastolic 82–93; PULSE 61–80; RESP 18; TEMP 36.1–36.6; O2SAT 96–100
[2021-08-04] MEDS: 0.9% Saline Lock 10 ML Syringe IV (02:51)
[2021-08-04] MEDS: hydrALAZINE 20 MG/ML Vial 10 MG IV (02:52)
[2021-08-04] MEDS: Heparin Injection (Vial) 5,000 UNIT/ML VIAL 5000 UNIT SC (04:32)
[2021-08-04] MEDS: Nystatin Powder 15gm Bottle 1 APPLIC TOPICAL (04:33)
[2021-08-04 05:18] LABS: Absolute Lymphocyte Count 0.38 X10^3/uL (0.83-4.51); Absolute Neutrophil Count 6.3 X10^3/uL (2.0-7.7); Hematocrit 40.7 % (37-47); Hemoglobin 13.3 g/dL (12.0-15.0); Lymphocyte # 0.38 X10^3/ul (0.83-4.51); Lymphocyte % 5.5 % (19-41); Mean Corp Hgb Conc 32.7 g/dL (32-36); Mean Corpuscular Hgb 28.9 pg (27.0-32.0); Mean Corpuscular Volume 88.3 fL (81-99); Mean Platelet Vol. 11.1 fl (6.2-12.0); Monocyte% 1.5 % (0-10); NRBC Flagged by Analyzer 0 % (0-5); Neutrophil # 6.34 X10^3/uL (2.7-7.7); Neutrophil % 92.3 % (47-70); POSITIVE DIFFERENTIAL YES; Platelet Count 220 K/mm3 (150-450); RBC Distribution Width CV 14.9 % (11.6-14.6); RBC Distribution Width SD 48.4 fl (35.1-43.9); Red Blood Count 4.61 M/mm3 (4.2-5.4); White Blood Count 6.9 K/mm3 (4.4-11.0)
[2021-08-04 05:29] LABS: Differential Indicated SCAN CRITERIA MET
[2021-08-04 05:54] LABS: ALB/GLOB Ratio 0.6 RATIO (0.9-2.4); AST(SGOT) 26 U/L (15-37); Alanine Aminotransfer ALT/SGPT 135 U/L (13-56); Albumin, Serum 2.6 g/dL (3.2-5.0); Alkaline Phosphatase 97 U/L (45-117); Anion Gap 9 (5-15); BUN 21 mg/dL (7-18); BUN/Creat Ratio 20.2 RATIO (10-20); Calcium,Total 8.8 mg/dL (8.5-10.1); Chloride 113 mmol/L (98-107); Creatinine, Serum 1.04 mg/dL (0.55-1.02); EST Glomerular Filtration Rate 56 mL/min (>60); Est Glom Filt Rate - Afr Amer 67 mL/min (>60); Estimated Creatinine Clearance 74.85 ml/min; Globulin 4.2 g/dL (2.2-4.2); Glucose 204 mg/dL (74-106); Protein, Total 6.8 g/dL (6.4-8.2); Sodium Level 140 mmol/L (136-145)
[2021-08-04 05:57] LABS: Differential Comment SCANNED
[2021-08-04] MEDS: Insulin Lispro 100 UNIT/ML INSULN.PEN SC (06:38)
[2021-08-04 06:51] LABS: Bedside Glucose 195 mg/dL (70-110)
[2021-08-04] MEDS: Aspirin 81 MG TAB.CHEW PO (09:09)
[2021-08-04] MEDS: Metoprolol(XL)Succ 50 MG Tablet PO (09:10)
[2021-08-04] MEDS: Lisinopril 10 MG Tablet PO (09:10)
--- NOTE | 2021-08-04 11:08 | DS.PCM_ITS ---
Providers Date of Admission: 08/01/21 Primary Care Physician: Dr. Tameka Tiwari MD Consultations 08/01/21 09:23 Consult: Gastroenterology Routine Consulting Provider: [facility] Reason for Consult: Transaminitis/Pancreatitis EMERGENT Consult: No MD Notified: Yes Date Notified: 08/01/21 Time Notified: 07:17 Method of Notification: Text Reason For Visit: ACUTE PANCREATITIS Diagnosis Discharge Diagnosis (1) Acute kidney injury: Status: Acute Code(s): N17.9 - Acute kidney failure, unspecified (2) Dehydration: Status: Acute Code(s): E86.0 - Dehydration (3) Elevated lipase: Status: Acute Code(s): R74.8 - Abnormal levels of other serum enzymes (4) Leukocytosis: Status: Acute Code(s): D72.829 - Elevated white blood cell count, unspecified (5) Elevated liver function tests: Status: Acute Code(s): R79.89 - Other specified abnormal findings of blood chemistry (6) Metabolic encephalopathy: Status: Acute Code(s): G93.41 - Metabolic encephalopathy (7) Metabolic acidosis: Status: Acute Code(s): E87.2 - Acidosis (8) Hyperbilirubinemia: Status: Acute Code(s): E80.6 - Other disorders of bilirubin metabolism (9) Hypokalemia: Status: Acute Code(s): E87.6 - Hypokalemia (10) Choledocholithiasis: Status: Acute Code(s): K80.50 - Calculus of bile duct without cholangitis or cholecystitis without obstruction Medications at Discharge Home Medications metformin 1,000 mg PO BIDCM 04/22/15 Vitamin D3 50,000 iu PO QWEEK 04/23/15 Jardiance 25 mg PO DAILY 08/01/21 metoprolol succinate 50 mg PO DAILY 08/01/21 rosuvastatin 5 mg PO QHS 08/01/21 amoxicillin-pot clavulanate 1 tab PO BID #8 tab 08/04/21 lisinopril 20 mg PO DAILY #30 tab 08/04/21 Hospital Course Procedures - (MRCP/ERCP) Summary of Care Provided Minutes Spent on Discharge: 44 Hospital Course: Mrs. Yang is a 71 year-old white female presented to the emergency department at [facility] on 08/01/2021 with altered mental status. Evidently her heard noise upstairs and found her half off the bed headfirst. He stated when she came in she had some dry heaving the day before but no actual vomiting and had not been feeling well in general on Monday. S he denied any specific complaints on admission however her response times were slow but she was alert and oriented x3 at that time. Upon presentation she had stable vital signs but her labs were markedly abnormal. Her CBC showed a white count of 31.3 with a left shift. Her CMP showed a metabolic acidosis with an elevated anion gap and acute kidney injury with a BUN of 28 and a serum creatinine of 2.28, serum glucose of 347, and elevated total bilirubin at 4.7 and transaminitis with an AST of 632 and an ALT of 508. Her alk phos was only 154. She had a markedly elevated lipase as well at 11,482. Her lactic acid was 4.0. A CT of her abdomen and pelvis was performed and showed a previous Monae-en-Y gastric bypass without evidence of any obstruction and a fluid-filled stomach and duodenum with a mildly prominent caliber however no gayathri distention was noted, mild hepatomegaly but no acute findings were noted in the pancreas. A CT of her head was negative for any acute findings and a CT of her cervical spine was performed given her fall and was negative as well. A sepsis work-up was initiated and she was started on IV antibiotics. She was admitted to the PCU where antibiotics were continued and she was evaluated by gastroenterology given her markedly elevated liver enzymes. An MRCP was performed on 08/02/2021 and the patient was found to have a punctate (2.5 to 3 mm) lower common bile duct choledocholithiasis with a mild extrahepatic more than intrahepatic bile duct dilation and a 1.1 cm left renal lesion. With these findings, an ERCP was recommended by gastroenterology but unfortunately was unsuccessful due to a long Monae-en-Y limb and the fact that the scope was not long enough to proceed. I discussed the case with Dr. Shi from gastroenterology and he recommended outpatient follow-up at a tertiary center where she would have availability to a longer scope. He stated that she could be discharged and follow-up with him in 2 weeks and he would make that referral. She was also found to have E. coli bacteremia with a E. coli urinary tract infection. These organisms appear to be the same as sensitivities were identical. She was treated with IV antibiotics narrowed to Zosyn and then Unasyn and discharged to complete oral antibiotics for total of 7 days with Augmentin orally. Her blood pressure was high throughout her hospitalization and her lisinopril dose was increased from 10 to 20 mg at discharge and she was maintained on her metoprolol. Her renal function improved and on discharge her serum creatinine was 1.04. Her liver functions almost normalized as well with an ALT of 135 and AST of 26 on discharge. Her bilirubin was normal at 0.60. She was discharged home in stable condition. We recommended she follow-up with her primary care physician in 1 to 2 weeks and she will need an outpatient MRI to follow-up on this renal lesion. We also recommended she follow-up with Dr. Shi in 2 weeks for further evaluation and probable referral to tertiary center for repeat ERCP in the future. Discharge diagnoses: E. coli bacteremia E. coli urinary tract infection Choledocholithiasis Transaminitis-improved ADELINA-resolved Metabolic encephalopathy-resolved Hypertension Hyperlipidemia DM-2 uncontrolled Morbid obesity Physical Exam Const alert, oriented x3, no apparent distress, healthy appearing and well nourished Constitutional Narrative: MO, Older WF sitting up in bed, watching television, at bedside, appears comfortable, nontoxic appearing, patient is now appropriately interactive with normal response times General Appearance: cooperative, comfortable, well kempt and well developed Orientation / Consciousness: awake Exam Limitations: no limitations Nutritional Appearance: morbidly obese HEENT normocephalic, head/scalp atraumatic, hearing grossly normal bilaterally and moist oral mucous membranes HEENT Narrative: Mallampati 3, no thrush, dentition fair Eyes PERRL, EOMs intact bilaterally and conjunctivae normal Eyes Narrative: no sig scleral icterus Neck no lymphadenopathy, supple and no JVD Neck Narrative: Trachea midline, no thyroid enlargement Resp normal respiratory effort, no retractions, no use of accessory muscles and clear to auscultation bilaterally Auscultation: Negative for crackles, rales, rhonchi or wheezes Cardio regular rate, regular rhythm, S1 normal heart sound, S2 normal heart sound, no murmurs, no rub, no gallops, no clicks and no JVD GI normal to inspection, nondistended, normoactive bowel sounds, soft to palpation, non-tender and non-distended Palpation: tender epigastric, LUQ and RUQ Extremity normal to inspection and no clubbing, cyanosis or edema Skin no rashes or lesions noted, no wounds, skin turgor normal, no jaundice, no petechiae and no mottling Neuro oriented x3, CN's II-XII intact bilaterally, moves all extremities and no focal motor deficits Sensorium / Orientation: awake and alert Speech: speech normal Psych affect normal Psych Narrative: very pleasant and appropriately interactive Weight / BMI Weight Weight: 94.2 kg Body Mass Index (BMI) 40.6 ABG / Lab / Microbiology Data Result Diagrams: 08/04/21 05:02 08/04/21 05:02 Laboratory: Laboratory Results - last 24 hr 08/01/21 07:17: Hepatitis A IgM Ab Negative, Hep Bs Antigen Negative, Hep B Core IgM Ab Negative, Hepatitis C Ab (EIA) <0.1 08/03/21 12:27: POC Glucose 119 H 08/03/21 12:35: Vancomycin Trough 9.4 08/03/21 20:12: POC Glucose 228 H 08/04/21 05:02: WBC 6.9, RBC 4.61, Hgb 13.3, Hct 40.7, MCV 88.3, MCH 28.9, MCHC 32.7, RDW Std Deviation 48.4 H, RDW Coeff of Francy 14.9 H, Plt Count 220, MPV 11.1, Immature Gran % (Auto) 0.700, Neut % (Auto) 92.3 H, Lymph % (Auto) 5.5 L, Stearns % (Auto) 1.5, Eos % (Auto) 0.0, Baso % (Auto) 0.0, Absolute Neuts (auto) 6.3, Absolute Lymphs (auto) 0.38 L, Nucleated RBC % 0, Differential Comment SCANNED 08/04/21 05:02: Sodium 140, Potassium 4.0, Chloride 113 H, Carbon Dioxide 18.0 L , Anion Gap 9, BUN 21 H, Creatinine 1.04 H, Estim Creat Clear Calc 74.85, Est GFR (MDRD) Af Amer 67, Est GFR (MDRD) Non-Af 56 L, BUN/Creatinine Ratio 20.2 H, Glucose 204 H, Calcium 8.8, Total Bilirubin 0.60, AST 26, ALT 135 H, Alkaline Phosphatase 97, Total Protein 6.8, Albumin 2.6 L, Globulin 4.2, Albumin/Globulin Ratio 0.6 L 08/04/21 06:36: POC Glucose 195 H Microbiology: Microbiology 08/01/21 05:33 Blood Culture (Wb) - Anticubital Left Blood Culture - Final Presumptive E. coli 08/01/21 06:25 Urine Catheter - Catheter Urine Culture - Final Escherichia coli 08/01/21 06:08 Blood Culture (Wb) - Anticubital Right Blood Culture - Final Escherichia coli 08/01/21 06:45 Nasal Secretion SARS-CoV-2 Antigen (Rapid) - Final Radiography Diagnostic Testing: Radiology Impression Endo Retro Cholangiopancreatogram 08/03/21 17:55 D/C Instructions Discharge Diet: Low fat / Low cholesterol and 1800 Calorie Control Diet Discharge Activity: Return to Normal Activity Meaningful Use Info Meaningful Use Diagnoses (Choose all that apply): None applicable Discharge Plan Admission Admit Date/Time: 08/01/21 07:07 Primary Reason for Your Visit: Acute Mental Status Change Attending Provider: Antonella Christiansen Primary Care Provider: Tameka Tiwari Discharge Orders/Prescriptions Prescriptions: New amoxicillin-pot clavulanate 875-125 mg tablet 1 tab PO BID Qty: 8 RF: 0 lisinopril 20 mg tablet 20 mg PO DAILY Qty: 30 RF: 0 Continued metformin 1,000 MG tablet 1,000 mg PO BIDCM RF: 0 Vitamin D3 50,000 iu PO QWEEK RF: 0 metoprolol succinate 50 mg tablet extended release 24 hr 50 mg PO DAILY RF: 0 rosuvastatin 5 mg tablet 5 mg PO QHS RF: 0 Jardiance 25 mg tablet 25 mg PO DAILY RF: 0 Discontinued lisinopril 20 mg tablet 10 mg PO DAILY RF: 0 Referrals / Follow Up: Tameka Tiwari MD [Primary Care Provider] - Within 2 Weeks Chandler Shi DO [STAFF PHYSICIAN] - Within 2 Weeks Disposition Disposition (needs filled in before D/C Order can be placed): Home, Self Care Charges/Coding Visit Charges Inpatient E&M: 84917 Disch Hosp
== END 2021-08-04 13:02 | disposition home or self-care (01) | DRG 444 ==
LOC: ED 07:16 → PCU 07:27
PROVIDERS: Anesthesiology; Internal Medicine Gastroenterology; Admitting Provider Internal Medicine; Emergency Provider Emergency Medicine; PCP Internal Medicine; Visit Provider Internal Medicine
PROC: (CPT 43260; principal; 2021-08-03 16:30)
DX: K80.50 Calculus of bile duct without cholangitis or cholecystitis without obstruction (principal); G93.41 Metabolic encephalopathy; R78.81 Bacteremia; E87.0 Hyperosmolality and hypernatremia; E87.2 Acidosis; N39.0 Urinary tract infection, site not specified; N17.9 Acute kidney failure, unspecified; Z68.43 Body mass index [BMI] 50.0-59.9, adult; E11.9 Type 2 diabetes mellitus without complications; B96.20 Unspecified Escherichia coli [E. coli] as the cause of diseases classified elsewhere; E66.01 Morbid (severe) obesity due to excess calories; K83.8 Other specified diseases of biliary tract; E87.8 Other disorders of electrolyte and fluid balance, not elsewhere classified; E86.0 Dehydration; E80.6 Other disorders of bilirubin metabolism; E87.6 Hypokalemia; I10 Essential (primary) hypertension; G47.33 Obstructive sleep apnea (adult) (pediatric); K75.89 Other specified inflammatory liver diseases; E78.5 Hyperlipidemia, unspecified; K76.0 Fatty (change of) liver, not elsewhere classified; Z87.19 Personal history of other diseases of the digestive system; Z79.84 Long term (current) use of oral hypoglycemic drugs; Z79.899 Other long term (current) drug therapy; Z90.49 Acquired absence of other specified parts of digestive tract; Z98.84 Bariatric surgery status; N28.9 Disorder of kidney and ureter, unspecified
CPT/HCPCS: 36415; 70450; 71045; 72125; 74176; 74181; 74330; 76000; 76705; 80053; 80074; 80202; 81001; 82009; 82140; 82962; 83036; 83605; 83690; 84145; 84484; 85025; 85610; 85730; 87040; 87077; 87086; 87088; 87186; 87426; 93005; 97162; 97165; 97530; 99251; 99285; J7030; J7040; J7050; J7120; A4216; G0463; J0295; J2405

== ENCOUNTER 2021-09-10 06:30 | Outpatient (CLI) | payer MEDICARE, SELFPAY ==
--- NOTE | 2021-09-10 06:32 | MRI_ITS ---
Abdominal MRI and MRCP 09/10/2021 7:05 AM COMPARISON: 08/02/2021 CLINICAL HISTORY: choledocholithiasis TECHNIQUE: Multiplanar T1 and T2 weighted images were obtained through the abdomen. In addition, MRCP was performed. 3-D postprocessing images were reviewed. FINDINGS: Liver: Unremarkable Gallbladder: Surgically absent. Bile Ducts: Mild dilatation of the common bile duct and common hepatic duct with no visible obstructing stone or stricture. This is compatible with reservoir effect status post cholecystectomy. No intrahepatic biliary duct dilatation. Pancreas: Unremarkable Spleen: Two mildly T2 hyperintense lesions in the spleen measuring 1.4 cm and 1.3 cm, respectively. Adrenal Glands: Unremarkable Kidneys: Simple bilateral renal cysts. GI Tract: Postsurgical changes status post gastric bypass. Lymphadenopathy: Absent Ascites: Absent Bones: Diffuse degenerative changes of the visualized spine. MRI/MRCP Abdomen without Contrast IMPRESSION: No evidence of choledocholithiasis. Two mildly T2 hyperintense lesions in the spleen are indeterminate, however most likely represent hemangiomas. Electronically Signed: Isauro Strickland MD at 16:52 EDT ,
== END 2021-09-10 23:59 | disposition home or self-care (01) ==
PROVIDERS: PCP Internal Medicine; Referring Provider Nurse Practitioner Adult Health; Visit Provider Nurse Practitioner Adult Health
DX: K80.50 Calculus of bile duct without cholangitis or cholecystitis without obstruction (principal)
CPT/HCPCS: 74181

== ENCOUNTER → 2023-10-30 | Outpatient (CLI) | payer MEDICARE, SELFPAY ==
--- NOTE | 2023-10-30 08:27 | MRI_ITS ---
ACR Level 3 findings have been noted. An addendum which confirms receipt of the report will follow. MRCP without contrast 10/30/2023 8:52 AM COMPARISON: 11/07/2021 CLINICAL HISTORY: choledocholithiasis TECHNIQUE: Multiplanar and multisequence MR images of the abdomen were obtained with MRCP sequence. Three-dimensional post-processing reconstructions were performed. FINDINGS: Liver: Unremarkable Gallbladder: Surgically absent. Bile Ducts: Mild intra and extrahepatic biliary ductal dilatation. No T2 dark stone or mass. Pancreas: Unremarkable Spleen: 1.7 cm T2 hyperintense lesion in the spleen. Adrenal Glands: Unremarkable Kidneys: There is a 2 cm heterogeneous mixed T1 and T2 intensity mass in the mid to lower pole of the left kidney. It has increased in size since prior, measuring 1.5 cm on 09/10/2021. GI Tract: Unremarkable Lymphadenopathy: Absent Ascites: Absent Bones: No suspicious lesions MRI/MRCP Abdomen without Contrast IMPRESSION: No evidence of choledocholithiasis. Mild intra/extrahepatic biliary ductal dilatation most likely represents reservoir effect status post cholecystectomy. Increased size of a 2 cm heterogeneous mass in the mid to lower pole of the left kidney. This is concerning for possible renal cell carcinoma. Recommend obtaining additional multiphase postcontrast images to assess for enhancement. 1.7 cm T2 hyperintense lesion in the spleen most likely represents a hemangioma. Electronically Signed: Isauro Strickland MD at 23:36 EDT ,
== END | disposition home or self-care (01) ==
LOC: MRI 07:50
PROVIDERS: PCP Internal Medicine; Referring Provider Internal Medicine Gastroenterology; Visit Provider Internal Medicine Gastroenterology
DX: K80.50 Calculus of bile duct without cholangitis or cholecystitis without obstruction (principal)
CPT/HCPCS: 74181

== ENCOUNTER → 2024-05-20 | Outpatient (CLI) | payer MEDICARE, SELFPAY ==
--- NOTE | 2024-05-20 13:44 | CT_ITS ---
EXAM: CT ABDOMEN AND PELVIS WITH INTRAVENOUS CONTRAST CLINICAL INDICATION: Neoplasm of uncertain behavior of left kidney TECHNIQUE: Helically acquired images were obtained of the abdomen and pelvis with intravenous contrast. This CT exam was performed using one or more of the following dose reduction techniques: automated exposure control, adjustment of the mA and/or kV according to patient size, and/or use of iterative reconstruction technique. CONTRAST: IV 100mL Isovue-370 COMPARISON: 04/22/2015 FINDINGS: LOWER THORAX: Unremarkable. Lung bases are clear. No cardiomegaly. No significant pericardial effusion. ABDOMEN: LIVER: Unremarkable. Homogeneous. No focal mass. GALLBLADDER AND BILE DUCTS: Unremarkable. No calcified gallstones. No gallbladder distention or wall edema. No intra- or extrahepatic biliary ductal dilation. PANCREAS: Unremarkable. No focal cystic or solid mass. SPLEEN: There is a fluid density structure in the spleen which may represent a cyst or hemangioma. ADRENALS: Unremarkable. No nodules. KIDNEYS AND URETERS: There is low-density in the cortex of the midpole of the left kidney that measures 2.2 x 1.9 cm. This does not meet the strict criteria for cyst and may represent a renal mass. Further evaluation with ultrasound may be beneficial. STOMACH AND BOWEL: There are surgical clips at the GE junction. No stomach or bowel distention. No focal inflammatory change. PELVIS: APPENDIX: No evidence of acute appendicitis. BLADDER: Unremarkable. REPRODUCTIVE: Unremarkable as visualized. No mass. ABDOMEN and PELVIS: INTRAPERITONEAL SPACE: Unremarkable. No ascites or other fluid collection. No free air. BONES/JOINTS: Unremarkable. No suspicious lytic or blastic abnormality. SOFT TISSUES: There is a fat-containing umbilical hernia. VASCULATURE: Unremarkable. Abdominal aorta is non-dilated. LYMPH NODES: Unremarkable. No enlarged lymph nodes. CT/Abdomen/Pelvis W IV Cont ONLY IMPRESSION: Low-density area in the lateral aspect of the left kidney which does not meet the criteria for simple cysts and further evaluation with ultrasound is recommended. No other acute abnormalities are seen in the abdomen or pelvis. Electronically Signed: Saul Benson MD at 0:08 EST ,
[2024-05-20 14:11] LABS: CREATININE FINGERSTICK 1.1 mg/dL (0.55-1.02)
== END | disposition home or self-care (01) ==
LOC: CT 13:33
PROVIDERS: PCP Internal Medicine; Referring Provider Urology; Visit Provider Urology
DX: D41.02 Neoplasm of uncertain behavior of left kidney (principal)
CPT/HCPCS: 74177; Q9967

== ENCOUNTER → 2024-11-26 | Outpatient (CLI) | payer MEDICARE, SELFPAY ==
--- NOTE | 2024-11-26 07:54 | CT_ITS ---
PROCEDURE: ABDOMEN/PELVIS WITH CONTRAST 11/26/2024 REASON FOR EXAM: NEOPLASM OF UNCERTAIN BEHAVIOR OF LEFT KIDNEY TECHNIQUE: Abdomen and pelvis CT with intravenous contrast. Coronal and Sagittal reconstruction series were provided. PATIENT PREPARATION: Per protocol ORAL CONTRAST TYPE: None. AMOUNT: mL CONTRAST: Isovue-300 VOLUME: 99 mL One or more dose reduction techniques were used (e.g., Automated exposure control, adjustment of the mA and/or kV according to patient size, use of iterative reconstruction technique. RADIATION DOSE SUMMARY: CTDlvol: 32.4 mGy DLP: 1124.59 mGycm COMPARISON: CT abdomen and pelvis with contrast, 05/20/2024. MR abdomen with/without contrast, 10/30/2023. FINDINGS: Lung bases: There are stable peripheral nodules in both lung bases. There are no pleural effusions. The heart size is normal. There is no pericardial effusion. There is calcific vascular disease of the thoracic aorta and coronary arteries. Liver: Normal homogeneous parenchymal. There is stable intra and extrahepatic biliary ductal dilatation. Gallbladder: Surgically absent. Spleen: There is a stable 2 cm in diameter low-density nodule consistent with a hemangioma. Pancreas: Normal. Adrenals: Normal. Kidneys: There is a 2.4 x 2.4 x 2.3 cm (was 2.2 x 2.1 x 2.1 cm) hypoenhancing mass in the interpolar cortex of the left kidney. There is a 1.9 cm in diameter simple cortical cyst in the interpolar region of the left kidney. The right kidney is unremarkable. Bladder: Normal unenhanced appearance. Reproductive Organs: The uterus and ovaries are unremarkable. There is no free fluid in the pelvis. There is no pelvic or inguinal lymphadenopathy. Bowel: There is a small hiatal hernia. Status post gastric bypass surgery. There is fluid and stool throughout the colon consistent with a mild colitis. Appendix: Normal. Lymph nodes: There is no mesenteric or retroperitoneal lymphadenopathy. Field Vasculature: There is calcific vascular disease of the abdominal aorta. The inferior vena cava and portal venous system are normal. Abdominal wall: There is a 4.7 cm in diameter multiloculated umbilical hernia. Bones: There is [id number] multilevel degenerative disc disease of the lower thoracic and lumbar spine. There is degenerative grade 1 anterolisthesis of L4 on L5 and L5 on S1. 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 CT/Abdomen/Pelvis WITH Contrast IMPRESSION: 1. Interval decrease in size of a suspicious mass in the left kidney consisten t with a renal cell carcinoma. 2. Other findings as noted. Reading Location: [place] [id number]
[2024-11-26 08:22] LABS: CREATININE FINGERSTICK < 1.0 mg/dL (0.55-1.02)
== END | disposition home or self-care (01) ==
PROVIDERS: PCP Internal Medicine; Referring Provider Urology; Visit Provider Urology
DX: D41.02 Neoplasm of uncertain behavior of left kidney (principal)
CPT/HCPCS: 74177; Q9967; A4216

== ENCOUNTER 2025-01-08 07:41 | Observation (INO) | payer MEDICARE, SELFPAY ==
--- NOTE | 2024-12-23 15:19 | PAT.ANE_ITS ---
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 When Was Last Pacemaker Check QUESTION #4 FULL TEXT: You/Your Family Experience fever (hyperthermia) with Anesthesia Last Oral Intake Last Oral intake: Last Oral Intake NPO since Meds taken in AM with sips of water? Meds patient instructed to take am of surgery PONV PONV - advertising operations coordinator: PONV - advertising operations coordinator Female Yes 12/23/24 14:55 HX of Motion Sickness No 12/23/24 14:55 HX of N/V After Surgery No 12/23/24 14:55 Non-Smoker Yes 12/23/24 14:55 Duration of Surgery greater Yes 12/23/24 14:55 than 60 minutes Number of Risk Factors 3 12/23/24 14:55 PONV Score Moderate Risk 12/23/24 14:55 Height & Weight Height & Weight: Anesthesia: Height & Weight Height 4 ft 11 in 10/10/22 08:00 Respiratory Assessment Respiratory Assessment - advertising operations coordinator: Respiratory Tract Infection Hx - advertising operations coordinator Hx Respiratory Tract Infection No 12/23/24 14:55 STOP Sleep Apnea STOP Sleep Apnea - advertising operations coordinator: STOP Sleep Apnea - advertising operations coordinator Hx Hypertension Yes: ON MEDS 12/23/24 14:55 Hx Sleep Apnea No 12/23/24 14:55 CPAP Yes 08/01/21 10:04 BIPAP No 08/01/21 10:04 Do you snore loudly (louder No 12/23/24 14:55 than talking or can be heard Do you often feel tired/ No 12/23/24 14:55 fatigued/ sleepy during daytime? Has anyone observed you stop No 12/23/24 14:55 breathing during sleep? STOP Results Negative 12/23/24 14:55 QUESTION #5 FULL TEXT : Do you snore loudly (louder than talking or can be heard through closed doors)? 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 Specify any problems Hx of Preganancy in last 3 No 12/23/24 14:55 Months Nurse Filling Out Transfusion JZOLLINGE 12/23/24 14:55 & Questions: Date: 12/23/24 12/23/24 14:55 Time: 14:56 12/23/24 14:55 Patient unable to answer at this time (ie. confused, unrespo /Reproduction History /Reproductive History - advertising operations coordinator: /Reproductive Hx- advertising operations coordinator Hx Now No 12/23/24 14:55 Gestational Age (in weeks): EDC: Hx Hx Para Hx Section SAB No 12/23/24 14:55 [facility] Medical History (Updated 12/23/24 @ 14:54 by Emily Graham) Wears glasses Wears partial dentures Bladder disease High cholesterol Dietary restriction Non-smoker Sleep apnea Herpes zoster Choledocholithiasis Diabetes Hypertension Morbid obesity with BMI of 45.0-49.9, adult Left-sided colitis with ileus Home Medications ?Medication ?Instructions ?Recorded ?Last Taken ?Type metformin 1,000 mg tablet 1,000 mg PO BIDCM diabetic 1 06/22/14 07/31/21 18:00 History empagliflozin 25 mg tablet 25 mg PO DAILY diabetic 07/31/21 08:00 History (Jardiance) metoprolol succinate 50 mg 50 mg PO DAILY heart 07/31/21 08:00 History tablet,extended release 24 hr rosuvastatin 5 mg tablet 5 mg PO QHS cholesterol 07/20 09/07 Unknown History lisinopril 20 mg tablet 40 mg PO DAILY 10/10/22 Unkn own History oxybutynin chloride 5 mg tablet 5 mg PO DAILY 10/09/23 Unknown History ursodiol 300 mg capsule 300 mg PO BID #180 caps 10/17 01/09 Unknown Rx cholecalciferol (vitamin D3) 125 125 mcg PO DAILY 01/10 Unknown History mcg (5,000 unit) tablet (Vitamin D3) Allergy/AdvReac Type Severity Reaction Status Date / Time sulfamethoxazole (From Allergy Itching Verified 12/23/24 14:39 Bactrim) trimethoprim (From Bactrim) Allergy Itching Verified 12/23/24 14:39 Surgical History (Updated 12/23/24 @ 14:54 by Emily Graham) Hx of colonoscopy History of cholecystectomy History of gastric bypass Social History Smoking Status: Never smoker alcohol intake: never substance use type: does not use Audit: Pertinent Findings Pertinent Findings EKG Perinent findings: 08/03 2021. Normal sinus rhythm 65 bpm. Left axis deviation. Nonspecific intraventricular conduction block. Current Visit Impressions Current Visit Impressions: Await pending EKG results. From future date. Recommendation Anesthesia Recommendation Anesthesia recommendation: F/U recommended (Await pending EKG. Most likely should be good for anesthesia for the procedure.)
--- NOTE | 2024-12-31 07:20 | EKG12_ITS ---
Test Reason : PRE OP Blood Pressure : */* mmHG Vent. Rate : 55 BPM Atrial Rate : 55 BPM P-R Int : 186 ms QRS Dur : 142 ms QT Int : 484 ms P-R-T Axes : 34 -62 36 degrees QTcB Int : 463 ms Sinus bradycardia Non-specific intra-ventricular conduction block Possible Anterolateral infarct , age undetermined Abnormal ECG Confirmed by Tye Camarillo ([id number]), school photograph editor SIMONE MARQUEZ ([id number]) on 01/01/2025 11:22:11 AM Referred By: Matt Mason Confirmed By: Tye Camarillo
[2024-12-31 08:22] LABS: Anion Gap 13 (5-15); BUN 18 mg/dL (4-19); BUN/Creat Ratio 17.6 RATIO (10-20); Calcium,Total 8.2 mg/dL (7.6-11.0); Carbon Dioxide 20.9 mmol/L (21.0-32.0); Chloride 108 mmol/L (98-108); Glucose 169 mg/dL (70-99); Potassium 3.0 mmol/L (3.3-5.1)
--- NOTE | 2024-12-31 17:31 | PAT.ANESEVAL ---
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 When Was Last Pacemaker Check QUESTION #4 FULL TEXT: You/Your Family Experience fever (hyperthermia) with Anesthesia Last Oral Intake Last Oral intake: Last Oral Intake NPO since Meds taken in AM with sips of water? 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 Female Yes 12/23/24 14:55 HX of Motion Sickness No 12/23/24 14:55 HX of N/V After Surgery No 12/23/24 14:55 Non-Smoker Yes 12/23/24 14:55 Duration of Surgery greater Yes 12/23/24 14:55 than 60 minutes Number of Risk Factors 3 12/23/24 14:55 PONV Score Moderate Risk 12/23/24 14:55 Height & Weight Height & Weight: Anesthesia: Height & Weight Height 4 ft 11 in 10/10/22 08:00 Respiratory Assessment Respiratory Assessment - school cafeteria cook head: Respiratory Tract Infection Hx - school cafeteria cook head Hx Respiratory Tract Infection No 12/23/24 14:55 STOP Sleep Apnea STOP Sleep Apnea - school cafeteria cook head: STOP Sleep Apnea - school cafeteria cook head Hx Hypertension Yes: ON MEDS 12/23/24 14:55 Hx Sleep Apnea No 12/23/24 14:55 CPAP Yes 08/01/21 10:04 BIPAP No 08/01/21 10:04 Do you snore loudly (louder No 12/23/24 14:55 than talking or can be heard Do you often feel tired/ No 12/23/24 14:55 fatigued/ sleepy during daytime? Has anyone observed you stop No 12/23/24 14:55 breathing during sleep? STOP Results Negative 12/23/24 14:55 QUESTION #5 FULL TEXT : Do you snore loudly (louder than talking or can be heard through closed doors)? 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 Specify any problems Hx of Preganancy in last 3 No 12/23/24 14:55 Months Nurse Filling Out Transfusion JZOLLINGE 12/23/24 14:55 & Questions: Date: 12/23/24 12/23/24 14:55 Time: 14:56 12/23/24 14:55 Patient unable to answer at this time (ie. confused, unrespo /Reproduction History /Reproductive History - school cafeteria cook head: /Reproductive Hx- school cafeteria cook head Hx Now No 12/23/24 14:55 Gestational Age (in weeks): EDC: Hx Hx Para Hx Section SAB No 12/23/24 14:55 [facility] Medical History (Updated 12/23/24 @ 14:54 by Emily Graham) Wears glasses Wears partial dentures Bladder disease High cholesterol Dietary restriction Non-smoker Sleep apnea Herpes zoster Choledocholithiasis Diabetes Hypertension Morbid obesity with BMI of 45.0-49.9, adult Left-sided colitis with ileus Home Medications ?Medication ?Instructions ?Recorded ?Last Taken ?Type metformin 1,000 mg tablet 1,000 mg PO BIDCM diabetic 04/22/15 07/31/21 18:00 History empagliflozin 25 mg tablet 25 mg PO DAILY diabetic 08/01/21 07/31/21 08:00 History (Jardiance) metoprolol succinate 50 mg 50 mg PO DAILY heart 08/01/21 07/31/21 08:00 History tablet,extended release 24 hr rosuvastatin 5 mg tablet 5 mg PO QHS cholesterol 08/01/21 Unknown History lisinopril 20 mg tablet 40 mg PO DAILY 10/10/22 Unknown History oxybutynin chloride 5 mg tablet 5 mg PO DAILY 10/09/23 Unknown History ursodiol 300 mg capsule 300 mg PO BID #180 caps 11/03/23 Unknown Rx cholecalciferol (vitamin D3) 125 125 mcg PO DAILY 12/23/24 Unknown History mcg (5,000 unit) tablet (Vitamin D3) Allergy/AdvReac Type Severity Reaction Status Date / Time sulfamethoxazole (From Allergy Itching Verified 12/23/24 14:39 Bactrim) trimethoprim (From Bactrim) Allergy Itching Verified 12/23/24 14:39 Surgical History (Updated 12/23/24 @ 14:54 by Emily Graham) Hx of colonoscopy History of cholecystectomy History of gastric bypass Social History Smoking Status: Never smoker alcohol intake: never substance use type: does not use Audit: Pertinent Findings HISTORY of Pertinent Findings History of Pertinent Findings: EKG Pertinent Findings EKG Perinent findings 08/03 2021. Normal sinus 12/23/24 15:21 rhythm 65 bpm. Left axis deviation. Nonspecific intraventricular conduction block. Pertinent Findings EKG Perinent findings: December 31, 2024. Sinus bradycardia at 55 bpm. Nonspecific intraventricular conduction block. Possible anterior lateral infarct, age undetermined. No significant change from EKG of August 03, 2021. Additional pertinent findings: Labs done on 12/31/2024. Potassium is 3.0. A1c is 7.8. Recommendation Anesthesia Recommendation Anesthesia recommendation: F/U recommended (Patient's potassium needs to be rechecked on day of surgery or prior to day of surgery to make sure it is above 3.0.)
[2025-01-06 10:56] LABS: Anion Gap 12 (5-15); BUN 19 mg/dL (4-19); BUN/Creat Ratio 19.2 RATIO (10-20); Calcium,Total 8.7 mg/dL (7.6-11.0); Carbon Dioxide 20.4 mmol/L (21.0-32.0); Chloride 109 mmol/L (98-108); Glucose 204 mg/dL (70-99); Potassium 4.5 mmol/L (3.3-5.1)
--- NOTE | 2025-01-06 16:49 | PAT.ANE_ITS ---
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 When Was Last Pacemaker Check QUESTION #4 FULL TEXT: You/Your Family Experience fever (hyperthermia) with Anesthesia Last Oral Intake Last Oral intake: Last Oral Intake NPO since Meds taken in AM with sips of water? 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 Female Yes 12/23/24 14:55 HX of Motion Sickness No 12/23/24 14:55 HX of N/V After Surgery No 12/23/24 14:55 Non-Smoker Yes 12/23/24 14:55 Duration of Surgery greater Yes 12/23/24 14:55 than 60 minutes Number of Risk Factors 3 12/23/24 14:55 PONV Score Moderate Risk 12/23/24 14:55 Height & Weight Height & Weight: Anesthesia: Height & Weight Height 4 ft 11 in 10/10/22 08:00 Respiratory Assessment Respiratory Assessment - electric truck crane operator: Respiratory Tract Infection Hx - electric truck crane operator Hx Respiratory Tract Infection No 12/23/24 14:55 STOP Sleep Apnea STOP Sleep Apnea - electric truck crane operator: STOP Sleep Apnea - electric truck crane operator Hx Hypertension Yes: ON MEDS 12/23/24 14:55 Hx Sleep Apnea No 12/23/24 14:55 CPAP Yes 08/01/21 10:04 BIPAP No 08/01/21 10:04 Do you snore loudly (louder No 12/23/24 14:55 than talking or can be heard Do you often feel tired/ No 12/23/24 14:55 fatigued/ sleepy during daytime? Has anyone observed you stop No 12/23/24 14:55 breathing during sleep? STOP Results Negative 12/23/24 14:55 QUESTION #5 FULL TEXT : Do you snore loudly (louder than talking or can be heard through closed doors)? 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 Specify any problems Hx of Preganancy in last 3 No 12/23/24 14:55 Months Nurse Filling Out Transfusion JZOLLINGE 12/23/24 14:55 & Questions: Date: 12/23/24 12/23/24 14:55 Time: 14:56 12/23/24 14:55 Patient unable to answer at this time (ie. 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: /Reproductive Hx- electric truck crane operator Hx Now No 12/23/24 14:55 Gestational Age (in weeks): EDC: Hx Hx Para Hx Section SAB No 12/23/24 14:55 [facility] Medical History (Updated 12/23/24 @ 14:54 by Emily Graham) Wears glasses Wears partial dentures Bladder disease High cholesterol Dietary restriction Non-smoker Sleep apnea Herpes zoster Choledocholithiasis Diabetes Hypertension Morbid obesity with BMI of 45.0-49.9, adult Left-sided colitis with ileus Home Medications ?Medication ?Instructions ?Recorded ?Last Taken ?Type metformin 1,000 mg tablet 1,000 mg PO BIDCM diabetic 1 06/22/14 07/31/21 18:00 History empagliflozin 25 mg tablet 25 mg PO DAILY diabetic 07/31/21 08:00 History (Jardiance) metoprolol succinate 50 mg 50 mg PO DAILY heart 07/31/21 08:00 History tablet,extended release 24 hr rosuvastatin 5 mg tablet 5 mg PO QHS cholesterol 07/20 09/07 Unknown History lisinopril 20 mg tablet 40 mg PO DAILY 10/10/22 Unkn own History oxybutynin chloride 5 mg tablet 5 mg PO DAILY 10/09/23 Unknown History ursodiol 300 mg capsule 300 mg PO BID #180 caps 10/17 01/09 Unknown Rx cholecalciferol (vitamin D3) 125 125 mcg PO DAILY 01/10 Unknown History mcg (5,000 unit) tablet (Vitamin D3) potassium chloride 10 mEq 10 meq PO DAILY 01/03/25 Unk nown History tablet,extended release(part/cryst) (Klor-Con M) Allergy/AdvReac Type Severity Reaction Status Date / Time sulfamethoxazole (From Allergy Itching Verified 12/23/24 14:39 Bactrim) trimethoprim (From Bactrim) Allergy Itching Verified 12/23/24 14:39 Surgical History (Updated 12/23/24 @ 14:54 by Emily Graham) Hx of colonoscopy History of cholecystectomy History of gastric bypass Social History (Reviewed 10/10/22 @ 08:04 by Samantha Whitlock CHEF PASSENGER VESSEL, CHEF PASSENGER VESSEL-C) Smoking Status: Never smoker alcohol intake: never substance use type: does not use Audit: Pertinent Findings HISTORY of Pertinent Findings History of Pertinent Findings: EKG Pertinent Findings EKG Perinent findings December 31, 2024. Sinus 12/31/24 17:36 bradycardia at 55 bpm. Nonspecific intraventricular conduction block. Possible anterior lateral infarct, age undetermined. No significant change from EKG of August 03, 2021. EKG Perinent findings 08/03 2021. Normal sinus 12/23/24 15:21 rhythm 65 bpm. Left axis deviation. Nonspecific intraventricular conduction block. Additional Pertinent Findings Additional pertinent findings Labs done on 12/31/2024. 12/31/24 17:38 Potassium is 3.0. A1c is 7. 8. Pertinent Findings Additional pertinent findings: Repeat potassium was performed on January 06, 2025 and was 4.5. Patient is optimized for surgery. Recommendation Anesthesia Recommendation Anesthesia recommendation: OPTIMIZED for anesthesia
[2025-01-08] VITALS (16 sets, daily range): BP systolic 162–213; BP diastolic 72–106; PULSE 54–89; RESP 16–18; TEMP 35.5–37.2; O2SAT 93–100; BMI 36.1
--- OUTSIDE RECORDS SUMMARY | 2025-01-08 06:08 | XMS RPT_ITS | CCD ---
Author Organization [facility] Care Team Providers Care Director Of Food And Nutrition Name Role Phone Dr. Griffin Stahl Primary Care Provider Dr. Alex Koch Emergency Provider Dr. Antonella Christiansen Admit Provider Dr. Antonella Christiansen Attending Provider Dr. Antonella Christiansen Other Provider Dr. Antonella Christiansen Referring Provider Dr. Chandler Shi Attending Provider [phone] Simon Shearer Attending Provider FriendDr. Arteaga Referring Provider Dr. Girffin Stahl Referring Provider Chinyere EDI PROGRAMMER ANALYST, EDI PROGRAMMER ANALYST-C Samantha Gardiner Attending Provider Griffin Stahl MD Primary Care Provider Rin RAMOS, Benico Unavailable [phone] [facility], Keti Unavailable Griffin Stahl MD Primary Care Provider Rin RAMOS, Benico Unavailable [phone] [facility], Keti Unavailable Griffin Stahl MD Primary Care Provider Rin RAMOS, Benico Unavailable [facility], Keti Unavailable Rin RAMOS, Benico Unavailable [facility], Keti Unavailable Griffin Stahl MD Primary Care Provider Cherry CADD MANAGER.PORTER SAMPLE CASE, Janelle Unavailable Shonna CADD MANAGER.SAP BOBJ DEVELOPER, Rachel Unavailable Shonna CADD MANAGER.SAP BOBJ DEVELOPER, Rachel Unavailable Cherry CADD MANAGER.PORTER SAMPLE CASE, Janelle Unavailable Te RAMOS, Dr. Griffin Ernst Primary Care Provider [phone] Isabella RAMOS, Dr. Matt Tinajero Attending Provider [phone] Isabella RAMOS, Dr. Matt Tinajero Referring Provider JANELLE CHERRY Referring Unavailable TALAMPAS, GRIFFIN D Primary Care Unavailable TALAMPAS, GRIFFIN D Primary Care Unavailable TALAMPAS, GRIFFIN D Attending Unavailable TALAMPAS, GRIFFIN D Primary Care Unavailable TALAMPAS, GRIFFIN D Referring Unavailable TALAMPAS, GRIFFIN D Primary Care Unavailable JANELLE CHERRY Attending Unavailable Isabella, Matt Tinajero Attending Unavailable Talampas, Griffin D Primary Care Unavailable Isabella, Matt Tinajero Referring Unavailable Isabella, Matt Tinajero Attending Unavailable Talampas, Griffin D Primary Care Unavailable IsabellaMatt Referring Unavailable Isabella, Matt Tinajero Referring Unavailable Isabella, Matt Tinajero Attending Unavailable Talampas, Griffin D Primary Care Unavailable Allergies Allergy Classification Reported Allergen(s) Allergy Type Date of Onset Reaction(s) Facility (3 sources) Sulfamethoxazole Drug Allergy 2 Itching [facility] (3 sources) Trimethoprim Drug Allergy 2 Itching [facility] (20 sources) Sulfamethoxazole / Trimethoprim; Translations: [SULFAMETHOXAZOLE-TR IMETHOPRIM] Drug Allergy 2 Rash [facility] (1 source) Sulfamethoxazole Drug Allergy 5 [facility] (1 source) Trimethoprim Drug Allergy 5 [facility] Medications Current Medications Medication Drug Class(es) Dates Sig (Normalized) Sig (Original) azithromycin 250 mg oral tablet (1 source) Macrolide Antimicrobial Start: 12-11-2023 End: 12-16-2023 take 2 tablets by mouth once daily, then take 1 tablet by mouth once daily azithromycin (ZITHROMAX) 250 mg tablet Indications: Acute cough Take 2 tablets by mouth once daily for 1 day, THEN 1 tablet once daily for 4 days. 6 tablet 0 12/11/2023 12/16/2023 Active benzonatate 100 mg oral capsule (7 sources) Non-narcotic Antitussive Start: 12-11-2023 End: 12-02-2024 take 1-2 capsules by mouth three times daily as needed benzonatate (TESSALON PERLES) 100 mg capsule Indications: Acute cough Take 1-2 capsules by mouth three times a day as needed. 60 capsule 1 12/11/2023 12/02/2024 Discontinued cholecalciferol 0.125 mg oral capsule (20 sources) Vitamin D Start: 05-31-2024 take 1 capsule by mouth once daily Cholecalciferol, Vitamin D3, 125 mcg (5,000 unit) cap Take 1 capsule by mouth once daily. 90 capsule 3 05/31/2024 Active Start: 08-23-2021 End: 05-31-2024 take 1 capsule by mouth every week cholecalciferol, Vitamin D3, (VITAMIN D3) 1,250 mcg (50,000 unit) cap capsule Indications: Vitamin D deficiency Take 1 capsule by mouth one time a week. 08/23/2021 05/31/2024 Discontinued Comment on above: Take 1 capsule by mo ut one time a week. empagliflozin 25 mg oral tablet (20 sources) Sodium-Glucose Cotransporter 2 Inhibitor Start: 023 End: 024 take 1 tablet by mouth once daily at breakfast empagliflozin (JARDIANCE) 25 mg tablet Indications: Type 2 diabetes mellitus with microalbuminuria, without long-term current use of insulin (HCC) Take 1 tablet by mouth daily with breakfast. 90 tablet 3 02/14/2024 Active Start: 07-07-2021 End: 03-18-2023 take 1 tablet by mouth once daily at breakfast JARDIANCE 25 mg tablet Indications: Type 2 diabetes mellitus with microalbuminuria, without long-term current use of insulin (HCC) take 1 tablet by mouth every day with breakfast 30 tablet 3 03/13/2023 03/18/2023 Discontinued Comment on above: Take 1 tablet by honey th daily with breakfast. take 1 tablet by honey th every day with breakfast lisinopril 40 mg oral tablet (20 sources) Angiotensin Converting Enzyme Inhibitor Start: 12-02-2024 End: 12-02-2025 take 1 tablet by mouth once daily lisinopril (ZESTRIL) 40 mg tablet Take 1 tablet by mouth once daily. 90 tablet 3 12/02/2024 12/02/2025 Active Start: 10-10-2022 take 2 tablets by mo [facility] once daily Lisinopril 20 mg tablet Active 40 mg PO DAILY October 10, 2022 8:10am Start: 05-17-2022 End: 12-02-2024 take 1 tablet by mouth once daily lisinopril (ZESTRIL) 30 mg tablet Take 1 tablet by mouth once daily. 90 tablet 3 05/02/2024 12/02/2024 Discontinued Start: 08-01-2021 End: 08-04-2021 take 10 mg by mouth once daily Lisinopril Discontinued 10 MG PO DAILY August 01, 2021 11:17am August 04, 2021 12:09pm Start: 08-01-2021 End: 08-04-2021 take 10 mg by mouth once daily Lisinopril 20 mg tablet Discontinued 10 mg PO DAILY August 01, 2021 1:00am August 04, 2021 12:09pm Start: 04-28-2021 End: 10-10-2022 take 1 tablet by mouth once daily Lisinopril 20 mg tablet Discontinued 20 mg PO DAILY August 04, 2021 1:00am October 10, 2022 8:10am Comment on above: Take 1 tablet by [facility] once daily. metFORMIN hydrochloride 500 mg oral tablet (20 sources) Biguanide Start: End: take 2 tablets by mouth once daily at breakfast, then take 2 tablets by mouth once daily at dinner metFORMIN (GLUCOPHAGE) 500 mg tablet Indications: Type 2 diabetes mellitus with microalbuminuria, without long-term current use of insulin (HCC) Take 2 tablets by mouth daily with breakfast AND 2 tablets daily with dinner. 360 tablet 3 12/11/2023 Active Start: 08-20-2022 take 2 tablets by mo [facility] once daily at breakfast, then take 1 tablet by mouth once daily at dinner metFORMIN (GLUCOPHAGE) 500 mg tablet Indications: Type 2 diabetes mellitus with microalbuminuria, without long-term current use of insulin (HCC) Take 2 tablets by mouth daily with breakfast AND 1 tablet daily with dinner. 270 tablet 3 08/20/2022 Active Start: 07-07-2021 take 2 tablets by mo [facility] once daily at breakfast, then take 1 tablet by mouth once daily at dinner metFORMIN (GLUCOPHAGE) 500 mg tablet Indications: Type 2 diabetes mellitus with microalbuminuria, without long-term current use of insulin (HCC) Take 2 tablets by mouth daily with breakfast AND 1 tablet daily with dinner. 270 tablet 3 07/07/2021 Active Start: 04-22-2015 take 1000 mg by mout h twice daily at mealtime Metformin Active 1000 MG PO TWICE DAILY WITH MEALS April 22, 2015 7:44pm Comment on above: Take 2 tablets by mo uth daily with breakfast AND 1 tablet daily with dinner. 24 hr metoprolol succinate 50 mg extended release oral tablet (20 sources) beta-Adrenergic Hayley Start: End: 4 take 1 tablet by mouth once daily metoprolol succinate ER (TOPROL XL) 50 mg 24 hr tablet Indications: White coat syndrome with diagnosis of hypertension Take 1 tablet by mouth once daily. 90 tablet 3 05/31/2024 Active Comment on above: Take 1 tablet by honey th once daily. nystatin 344602 unt/ml topical cream (20 sources) Polyene Antifungal Start: 0 End: 5 nystatin (MYCOSTATIN) cream Indications: Candidal intertrigo Apply 1 application to affected area twice daily. 30 g 1 10/08/2019 12/02/2024 Discontinued Comment on above: Apply 1 application to affected area twice daily. 24 hr oxybutynin chloride 5 mg extended release oral tablet (12 sources) Cholinergic Muscarinic Antagonist Start: 4 take 1 tablet by mouth once daily Oxybutynin Chloride 5 mg tablet Active 5 mg PO DAILY October 09, 2023 12:00am Start: 06-14-2023 End: 12-09-2024 take 1 tablet by mouth once daily oxybutynin XL (DITROPAN XL) 5 mg 24 hr tablet Take 1 tablet by mouth once daily. 90 tablet 3 12/09/2024 Active rosuvastatin calcium 5 mg oral tablet (20 sources) HMG-CoA Reductase Inhibitor Start: 04-28-2021 End: 05-31-2024 take 1 tablet by mouth once daily at bedtime rosuvastatin (CRESTOR) 5 mg tablet Indications: Mixed hyperlipidemia Take 1 tablet by mouth daily at bedtime. 90 tablet 3 05/31/2024 Active Comment on above: Take 1 tablet by honey th daily at bedtime. ursodiol 300 mg oral capsule (20 sources) Bile Acid Start: 06-14-2023 End: 05-31-2024 take 2 capsules by mouth once daily in the morning, then take 1 capsule by mouth once daily at bedtime ursodiol (ACTIGALL) 300 mg capsule Take 2 capsules by mouth every morning AND 1 capsule daily at bedtime. 270 capsule 3 05/31/2024 Active Start: 08-18-2021 End: 11-03-2023 take 1 capsule by mouth twice daily Ursodiol 300 mg capsule Active 300 mg PO TWICE A DAY November 03, 2023 12:44pm Comment on above: Take 300 mg by mouth twice daily. Vitamin D3 (3 sources) Start: 04-23-2015 take 44451 [IU] by mouth every week Vitamin D3 Active 04031 IU PO EVERY WEEK April 23, 2015 1:12am Start: 04-23-2015 Vitamin D3 Act kimberly 92539 [iU] PO EVERY WEEK April 23, 2015 1:00am Completed/Discontinued Medications Medication Drug Class(es) Dates Sig (Normalized) Sig (Original) amoxicillin 875 mg / clavulanate 125 mg oral tablet (3 sources) Penicillin-class Antibacterial Start: 08-04-2021 End: 08-18-2021 take 1 tablet by mouth twice daily Amoxicillin-Pot Clavulanate Discontinued 1 TABLET PO TWICE A DAY 8 August 04, 2021 12:10pm August 18, 2021 10:43am Start: 08-04-2021 End: 08-18-2021 Amoxicillin-Pot Clavulanate 875-125 mg tablet Discontinued 1 {tbl} PO TWICE A DAY 8 August 04, 2021 1:00am August 18, 2021 10:43am calcium carbonate 1250 mg / cholecalciferol 0.01 mg chewable tablet (3 sources) Vitamin D Start: 08-05-2015 End: 12-13-2021 take 1 tablet by mouth three times daily calcium carbonate-vitamin D3 (OSCAL+D) 500 mg(1,250mg) -400 unit chewable tablet Take 1 tablet by mouth three times daily. 0 08/05/2015 12/13/2021 Discontinued (Other) Comment on above: Take 1 tablet by honey three times daily. ciclopirox 7.7 mg/ml topical cream (3 sources) Start: 10-11-2018 End: 12-13-2021 ciclopirox (LOPROX) 0.77 % cream Indications: Seborrheic dermatitis Apply 1 application to affected area twice daily. as directed to rash on face as well as skin folds 90 g 1 10/11/2018 12/13/2021 Discontinued (Other) Comment on above: Apply 1 application to affected area twice daily. as directed to rash on face as well as skin folds COMPOUNDED PRESCRIPTION (14 sources) Start: 03-27-2013 End: 01-16-2023 COMPOUNDED PRESCRIPTION Initiate CPAP @ 10 cm of water with humidification. Mask, optional chin strap, filters, tubing, humidifier and lifetime supplies. 1 Device 0 03/27/2013 01/16/2023 Discontinued Start: 03-27-2013 COMPOUNDED PRE SCRIPTION Initiate CPAP @ 10 cm of water with humidification. Mask, optional chin strap, filters, tubing, humidifier and lifetime supplies. 1 Device 0 03/27/2013 Active Comment on above: Initiate CPAP @ 10 c m of water with humidification. Mask, optional chin strap, filters, tubing, humidifier and lifetime supplies. ketoconazole 20 mg/ml medicated shampoo (14 sources) Azole Antifungal Start: 06-08-2015 End: 01-16-2023 ketoconazole (NIZORAL) 2 % shampoo Indications: Other psoriasis , Intertrigo Lather scalp psoriasis areas for full 5 minutes on alternate days (qoday) as directed and tolerated for up to 2-4 wks or less, then if alot better, can gradually taper as able to once per week or less for maintenance tx. Can also use as a cleanser for 5 minute lather of fold areas of behind ears, under breasts, and groin area, as tolerated, daily to alternate day for 2-4 weeks and if cleared up can taper to weekly for maintenance control. 120 mL 6 06/08/2015 01/16/2023 Discontinued Comment on above: Lather scalp psorias is areas for full 5 minutes on alternate days (qoday) as directed and tolerated for up to 2-4 wks or less, then if alot better, can gradually taper as able to once per week or less for maintenance tx. Can also use as a cleanser for 5 minute lather of fold areas of behind ears, under breasts, and groin area, as tolerated, daily to alternate day for 2-4 weeks and if cleared up can taper to weekly for maintenance control. mupirocin 0.02 mg/mg topical ointment (14 sources) RNA Synthetase Inhibitor Antibacterial Start: 04-13-2016 End: 01-16-2023 mupirocin (BACTROBAN) 2 % ointment Apply 1 application to affected area three times daily. Location: umbilicus 22 g 0 04/13/2016 01/16/2023 Discontinued Comment on above: Apply 1 application to affected area three times daily. Location: umbilicus valACYclovir 1000 mg oral tablet (1 source) Herpesvirus Nucleoside Analog DNA Polymerase Inhibitor, Herpes Simplex Virus Nucleoside Analog DNA Polymerase Inhibitor, Herpes Zoster Virus Nucleoside Analog DNA Polymerase Inhibitor Start: 04-11-2022 End: 04-18-2022 Valacyclovir 1 gram tablet Discontinued 1000 mg PO Q8H 21 7 April 11, 2022 12:00am April 17, 2022 12:00am April 18, 2022 12:04am Problems Active Problems Problem Classification Problem Date Documented Date Episodic/Chronic Acute and unspecified renal failure (5 sources) Injury of kidney; Translations: [Acute kidney failure, unspecified] Episodic Administrative/socia l admission (2 sources) Caregiver role strain; Translations: [Dependent relative needing care at home] Onset: 5 12-02-2024 Episodic Anxiety disorders (20 sources) Anxiety neurosis ; Translations: [Generalized anxiety disorder] Onset: 5 02-20-2015 Chronic Biliary tract disease (3 sources) Common bile duct calculus; Translations: [Calculus of bile duct without cholangitis or cholecystitis without obstruction] 10-10-2022 Episodic Diabetes mellitus with complications (20 sources) Type 2 diabetes mellitus; Translations: [Type 2 diabetes mellitus with diabetic cataract] Onset: 5 04-24-2017 Chronic Diseases of white blood cells (5 sources) Leukocytosis; Translations: [Elevated white blood cell count, unspecified] Chronic Disorders of lipid metabolism (20 sources) Mixed hyperlipidemia; Translations: [Mixed hyperlipidemia] Onset: 9 08-19-2008 Chronic Essential hypertension (20 sources) Essential hypertension; Translations: [Essential (primary) hypertension] Onset: 5 12-19-2016 Chronic Fluid and electrolyte disorders (20 sources) Metabolic acidosis; Translations: [Acidosis] Episodic Neoplasms of unspecified nature or uncertain behavior (1 source) Neoplasm of uncertain behavior of left kidney; Translations: [Neoplasm of uncertain behavior of left kidney] Onset: 5 Episodic Nutritional deficiencies (20 sources) Vitamin D deficiency; Translations: [Vitamin D deficiency, unspecified] Onset: 0 06-04-2010 Chronic Osteoarthritis (20 sources) Osteoarthritis of knee; Translations: [Unilateral primary osteoarthritis, unspecified knee] Onset: 1 02-20-2015 Chronic Other diseases of bladder and urethra (20 sources) Overactive bladder; Translations: [Overactive bladder] Onset: 8 05-23-2018 Chronic Other diseases of kidney and ureters (20 sources) Secondary hyperparathyroidism; Translations: [Secondary hyperparathyroidism of renal origin] Onset: 0 03-01-2020 Chronic Other diseases of kidney and ureters (1 source) Hyperparathyroidism due to renal insufficiency; Translations: [Secondary hyperparathyroidism of renal origin] 01-16-2023 Chronic Other liver diseases (3 sources) High lipase level in serum; Translations: [Abnormal levels of other serum enzymes] 08-12-2021 Episodic Other liver diseases (2 sources) Abnormal levels of other serum enzymes; Translations: [Other nonspecific abnormal serum enzyme levels] Episodic Other lower respiratory disease (1 source) Cough; Translations: [Acute cough] 12-11-2023 Episodic Other nervous system disorders (3 sources) Metabolic encephalopathy; Translations: [Metabolic encephalopathy] 08-12-2021 Chronic Other nervous system disorders (2 sources) Metabolic encephalopathy; Translations: [Metabolic encephalopathy] Chronic Other nutritional; endocrine; and metabolic disorders (3 sources) Hyperbilirubinemia; Translations: [Other disorders of bilirubin metabolism] 08-12-2021 Chronic Other nutritional; endocrine; and metabolic disorders (2 sources) Other disorders of bilirubin metabolism; Translations: [Jaundice, unspecified, not of ] Chronic Other nutritional; endocrine; and metabolic disorders (3 sources) Severe obesity; Translations: [Morbid (severe) obesity due to excess calories] Chronic Other nutritional; endocrine; and metabolic disorders (1 source) Obesity caused by energy imbalance; Translations: [Class 2 obesity due to excess calories with body mass index (BMI) of 38.0 to 38.9 in adult, unspecified whether serious comorbidity present] 05-31-2024 Chronic Other nutritional; endocrine; and metabolic disorders (1 source) Other obesity due to excess calories; Translations: [Class 2 obesity due to excess calories with body mass index (BMI) of 38.0 to 38.9 in adult, unspecified whether serious comorbidity present] Onset: 4 Chronic Other nutritional; endocrine; and metabolic disorders (1 source) Body mass index (BMI) 38.0-38.9, adult; Translations: [Class 2 obesity due to excess calories with body mass index (BMI) of 38.0 to 38.9 in adult, unspecified whether serious comorbidity present] Onset: 4 Chronic Other screening for suspected conditions (not mental disorders or infectious disease) (13 sources) Other specified abnormal findings of blood chemistry; Translations: [Elevated liver function tests] Episodic Residual codes; unclassified (20 sources) Obstructive sleep apnea syndrome; Translations: [Obstructive sleep apnea (adult) (pediatric)] Onset: 3 06-14-2021 Chronic Residual codes; unclassified (1 source) Obstructive sleep apnea (adult) (pediatric); Translations: [DAKOTA (obstructive sleep apnea)] Onset: 1 Chronic Screening and history of mental health and substance abuse codes (2 sources) Patient encounter status; Translations: [Encounter for screening for depression] Onset: 5 12-02-2024 Episodic Spondylosis; intervertebral disc disorders; other back problems (20 sources) Degeneration of lumbosacral intervertebral disc; Translations: [Other intervertebral disc degeneration, lumbosacral region] Onset: 8 01-31-2008 Chronic Unclassified (1 source) Class 2 obesity due to excess calories with body mass index (BMI) of 38.0 to 38.9 in adult, unspecified whether serious comorbidity present; Translations: [Class 2 obesity due to excess calories with body mass index (BMI) of 38.0 to 38.9 in adult, unspecified whether serious comorbidity present] Onset: Viral infection (1 source) Herpes zoster; Translations: [Zoster without complications] 10-10-2022 Episodic Past or Other Problems Problem Classification Problem Date Documented Da te Episodic/Chronic Genitourinary symptoms and ill-defined conditions (20 sources) Dysuria; Translations: [Dysuria] Onset: 02-12-2018 02-12-2018 Episodic Immunizations and screening for infectious disease (7 sources) Vaccination needed; Translations: [Encounter for immunization] Onset: 05-31-2024 Episodic Other connective tissue disease (20 sources) Triggering of digit; Translations: [Trigger finger, left middle finger] Onset: 03-06-2018 04-05-2018 Episodic Other connective tissue disease (10 sources) Plantar fasciitis; Translations: [Plantar fascial fibromatosis] Onset: 03-04-2010 Resolved: 02-20-2015 02-20-2015 Episodic Other endocrine disorders (10 sources) Primary hyperparathyroidism ; Translations: [Primary hyperparathyroidism ] Onset: 07-09-2015 Resolved: 12-08-2016 06-14-2021 Chronic Other nutritional; endocrine; and metabolic disorders (20 sources) Body mass index 40+ - severely obese; Translations: [Morbid (severe) obesity due to excess calories] Onset: 04-07-2005 Resolved: 05-31-2024 05-06-2019 Chronic Other nutritional; endocrine; and metabolic disorders (20 sources) Morbid obesity; Translations: [Morbid (severe) obesity due to excess calories] Onset: 02-25-2016 Resolved: 05-31-2024 02-25-2016 Chronic Other nutritional; endocrine; and metabolic disorders (10 sources) Hypercalcemia; Translations: [Hypercalcemia] Onset: 02-20-2015 Resolved: 10-21-2015 10-21-2015 Chronic Spondylosis; intervertebral disc disorders; other back problems (20 sources) Lumbago with sciatica; Translations: [Lumbago with sciatica, left side] Onset: 08-19-2008 Resolved: 02-05-2020 02-20-2015 Episodic Unclassified (3 sources) Left-sided colitis with ileus 08-01-2021 Comment on above: 2014 Unclassified (1 source) Patient encounter status 11-12-2024 Results Test Name Value Interpretation Reference Range Facility 12 Lead EKGon 12-31-2024 12 Lead EKG [facility] [address] [place] [address] 12 Lead EKG 12/31/24 0728 MR#: [id number] Acct: [id number] Name: ANAI HEBERT Rep #: [id number] : 1950 74 From: Tye Camarillo MD Attending Dr: Dr. Matt Mason MD Status: PRE HIC Ordering Dr: Yannick Noe MD Date: 12/31/24 Location: [facility] Sex: F C Admitted: Test Reason : PRE OP Blood Pressure : */* mmHG Vent. Rate : 55 BPM Atrial Rate : 55 BPM P-R Int : 186 ms QRS Dur : 142 ms QT Int : 484 ms P-R-T Axes : 34 -62 36 degrees QTcB Int : 463 ms Sinus bradycardia Non-specific intra-ventricular conduction block Possible Anterolateral infarct , age undetermined Abnormal ECG Confirmed by Tye Camarillo ([id number]), script editor SIMONE MARQUEZ ([id number]) on 01/01/2025 11:22:11 AM Referred By: Matt Mason Confirmed By: Tye Camarillo 01/01/25 1122 Date Tye Camarillo MD CC: Dr. Yannick Noe MD; Dr. Matt Mason MD; Dr. Griffin Stahl MD Signed Normal [facility] Basic Metabolic Profile (BMP )on 12-31-2024 BUN/CRE 17.6 RATIO Normal 10-20 [facility] Comment on above: Performed By: #### L [id number], L500.2500 #### [facility] [address] [place], [address] Calcium [Mass/Vol] 8.2 mg/dL Normal 7.6-11.0 [facility] Comment on above: Performed By: #### L [id number], L500.2500 #### [facility] [address] [place], [address] Chloride [Moles/Vol] 108 mmol/L Normal 98-108 [facility] Comment on above: Performed By: #### L [id number], L500.2500 #### [facility] [address] [place], [address] CO2 [Moles/Vol] 20.9 mmol/L Low 21.0-32.0 [facility] Comment on above: Performed By: #### L [id number], L500.2500 #### [facility] [address] [place], [address] Creatinine [Mass/Vol] 1.00 mg/dL Normal 0.70-1.20 [facility] Comment on above: Performed By: #### L [id number], L500.2500 #### [facility] [address] [place], [address] GAP 13 Normal 5-15 [facility] Comment on above: Performed By: #### L [id number], L500.2500 #### [facility] [address] [place], [address] GFR/1.73 sq M.predicted among non-blacks MDRD (S/P/Bld) [Vol rate/Area] 60 mL/min/{1.73_m2} Normal >60 [facility] Comment on above: Result Comment: mL/m in/1.73m2 CKD-EPI Creatinine Equation (2020) Performed By: #### L [id number], L500.2500 #### [facility] [address] [place], [address] Glucose [Mass/Vol] 169 mg/dL High 70-99 [facility] Comment on above: Performed By: #### L [id number], L500.2500 #### [facility] [address] [place], [address] Potassium [Moles/Vol] 3.0 mmol/L Low 3.3-5.1 [facility] Comment on above: Result Comment: Hemo lysis present, Results??could be affected. ?? Performed By: #### L 501.9985, L500.2500 #### [facility] [address] [place], [address] Sodium [Moles/Vol] 142 mmol/L Normal 133-145 [facility] Comment on above: Performed By: #### L 501.9985, L500.2500 #### [facility] [address] [place], [address] Urea nitrogen [Mass/Vol] 18 mg/dL Normal 4-19 [facility] Comment on above: Performed By: #### L 501.9985, L500.2500 #### [facility] [address] [place], [address] Hemoglobin A1con 12-31-2024 HbA1c (Bld) [Mass fraction] 7.8 % High <=5.6 [facility] Comment on above: Result Comment: Norm al < 5.7 % Prediabetic 5.7 - 6.4 % Diabetic >or= 6.5 % Please note range changes. Performed By: #### L 501.9985, L500.2500 #### [facility] [address] [place], [address] MR/PAT.ANEon 12-31-2024 MR/PAT.ANE [facility] Medical Records Department [address] [place] [address] PAT - Anesthesia 12/31/24 1731 MR#: [id number] Acct: [id number] Name: EMILEEANAI Rep #: [id number] : 1950 74 From: Reed Sibley MD PCP: Dr. Griffin Stahl MD Status:PRE [facility] Y Race: C Location: [facility] Pre-Assessment Diagnosis/Proposed Procedure Planned Operative Procedure(s): (L) Lap Robotic Partial Nephrectomy Anesthesia History Anesthesia History - contact agent: Anesthesia History - contact agent Hx Hospitalization No 12/23/24 14:55 Any Problems With Anesthesia No 12/23/24 14:55 Cholinesterase deficiency No 12/23/24 14:55 You/Your Family Experience No 12/23/24 14:55 fever (hyperthermia) with Relationship Recent Exposure to Contagious No 08/03/21 01:29 Disease Does patient have nerve No 12/23/24 14:55 stimulator Patient instructed to have device shut off --Does patient have Pacemaker or ICD? When Was Last Pacemaker Check QUESTION #4 FULL TEXT: You/Your Family Experience fever (hyperthermia) with Anesthesia Last Oral Intake Last Oral intake: Last Oral Intake NPO since Meds taken in AM with sips of water? Meds patient instructed to take am of surgery PONV PONV - contact agent: PONV - contact agent Female Yes 12/23/24 14:55 HX of Motion Sickness No 12/23/24 14:55 HX of N/V After Surgery No 12/23/24 14:55 Non-Smoker Yes 12/23/24 14:55 Duration of Surgery greater Yes 12/23/24 14:55 than 60 minutes Number of Risk Factors 3 12/23/24 14:55 PONV Score Moderate Risk 12/23/24 14:55 Height Weight Height Weight: Anesthesia: Height Weight Height 4 ft 11 in 10/10/22 08:00 Respiratory Assessment Respiratory Assessment - contact agent: Respiratory Tract Infection Hx - contact agent Hx Respiratory Tract Infection No 12/23/24 14:55 STOP Sleep Apnea STOP Sleep Apnea - contact agent: STOP Sleep Apnea - contact agent Hx Hypertension Yes: ON MEDS 12/23/24 14:55 Hx Sleep Apnea No 12/23/24 14:55 CPAP Yes 08/01/21 10:04 BIPAP No 08/01/21 10:04 Do you snore loudly (louder No 12/23/24 14:55 than talking or can be heard Do you often feel tired/ No 12/23/24 14:55 fatigued/ sleepy during daytime? Has anyone observed you stop No 12/23/24 14:55 breathing during sleep? STOP Results Negative 12/23/24 14:55 QUESTION #5 FULL TEXT : Do you snore loudly (louder than talking or can be heard through closed doors)? Tobacco Use History Tobacco Use History - contact agent: Tobacco Use History - contact agent Tobacco Use Smoking Status Never smoker 12/23/24 14:55 Hx Tobacco Use No 12/23/24 14:55 Years Smoking Packs Smoked per Day Smoking Cessation Date was within the last 15 years Hx Smoking Cessation Date Hx Smoking Cessation Counseling Hematologic Medial History Hematologic Hx - contact agent: Hematologic Medical Hx - double end trimmer Hx of Blood Transfusion No 12/23/24 14:55 Hx of Transfusion in last 3 No 12/23/24 14:55 Months Date of Last Transfusion (if within last 3 months) Ever experience any problems No 12/23/24 14:55 with transfusion(s)? Specify any problems Hx of Preganancy in last 3 No 12/23/24 14:55 Months Nurse Filling Out Transfusion JZOLLINGE 12/23/24 14:55 Questions: Date: 12/23/24 12/23/24 14:55 Time: 14:56 12/23/24 14:55 Patient unable to answer at this time (ie. confused, unrespo /Reproduction History /Reproductive History - contact agent: /Reproductive Hx- contact agent Hx Now No 12/23/24 14:55 Gestational Age (in weeks): EDC: Hx Hx Para Hx Section SAB No 12/23/24 14:55 [facility] Medical History (Updated 12/23/24 @ 14:54 by Emily Graham) Wears glasses Wears partial dentures Bladder disease High cholesterol Dietary restriction Non-smoker Sleep apnea Herpes zoster Choledocholithiasis Diabetes Hypertension Morbid obesity with BMI of 45.0-49.9, adult Left-sided colitis with ileus Home Medications ???Medication ???Instructions ???Recorded ???Last Taken ???Type metformin 1,000 mg tablet 1,000 mg PO BIDCM diabetic 5 07/31/21 18:00 History empagliflozin 25 mg tablet 25 mg PO DAILY diabetic 08/01/21 0 07/31/21 08:00 History (Jardiance) metoprolol succinate 50 mg 50 mg PO DAILY heart 08/01/2107/20 08:00 History tablet,extended release 24 hr rosuvastatin 5 mg tablet 5 mg PO QHS cholesterol 08/01/21 U nknown History lisinopril 20 mg tablet 40 mg PO DAILY 10/10/22 Unknown Hi story oxybutynin chloride 5 mg tablet 5 mg PO D (more content not included)... Normal [facility] MR/PAT.Reina 12-23-2024 MR/PAT.SAIMA [facility] Medical Records Department [address] [place] [address] PAT - Anesthesia 12/23/24 1519 MR#: [id number] Acct: [id number] Name: ANAI HEBERT Rep #: [id number] : 1950 74 From: Yannick Noe MD PCP: Dr. Griffin Stahl MD Status:PRE SDC Y Race: C Location: [facility] Pre-Assessment Diagnosis/Proposed Procedure Planned Operative Procedure(s): (L) Lap Robotic Partial Nephrectomy Anesthesia History Anesthesia History - contact agent: Anesthesia History - contact agent Hx Hospitalization No 12/23/24 14:55 Any Problems With Anesthesia No 12/23/24 14:55 Cholinesterase deficiency No 12/23/24 14:55 You/Your Family Experience No 12/23/24 14:55 fever (hyperthermia) with Relationship Recent Exposure to Contagious No 08/03/21 01:29 Disease Does patient have nerve No 12/23/24 14:55 stimulator Patient instructed to have device shut off --Does patient have Pacemaker or ICD? When Was Last Pacemaker Check QUESTION #4 FULL TEXT: You/Your Family Experience fever (hyperthermia) with Anesthesia Last Oral Intake Last Oral intake: Last Oral Intake NPO since Meds taken in AM with sips of water? Meds patient instructed to take am of surgery PONV PONV - contact agent: PONV - contact agent Female Yes 12/23/24 14:55 HX of Motion Sickness No 12/23/24 14:55 HX of N/V After Surgery No 12/23/24 14:55 Non-Smoker Yes 12/23/24 14:55 Duration of Surgery greater Yes 12/23/24 14:55 than 60 minutes Number of Risk Factors 3 12/23/24 14:55 PONV Score Moderate Risk 12/23/24 14:55 Height Weight Height Weight: Anesthesia: Height Weight Height 4 ft 11 in 10/10/22 08:00 Respiratory Assessment Respiratory Assessment - contact agent: Respiratory Tract Infection Hx - contact agent Hx Respiratory Tract Infection No 12/23/24 14:55 STOP Sleep Apnea STOP Sleep Apnea - contact agent: STOP Sleep Apnea - contact agent Hx Hypertension Yes: ON MEDS 12/23/24 14:55 Hx Sleep Apnea No 12/23/24 14:55 CPAP Yes 08/01/21 10:04 BIPAP No 08/01/21 10:04 Do you snore loudly (louder No 12/23/24 14:55 than talking or can be heard Do you often feel tired/ No 12/23/24 14:55 fatigued/ sleepy during daytime? Has anyone observed you stop No 12/23/24 14:55 breathing during sleep? STOP Results Negative 12/23/24 14:55 QUESTION #5 FULL TEXT : Do you snore loudly (louder than talking or can be heard through closed doors)? Tobacco Use History Tobacco Use History - contact agent: Tobacco Use History - contact agent Tobacco Use Smoking Status Never smoker 12/23/24 14:55 Hx Tobacco Use No 12/23/24 14:55 Years Smoking Packs Smoked per Day Smoking Cessation Date was within the last 15 years Hx Smoking Cessation Date Hx Smoking Cessation Counseling Hematologic Medial History Hematologic Hx - contact agent: Hematologic Medical Hx - double end trimmer Hx of Blood Transfusion No 12/23/24 14:55 Hx of Transfusion in last 3 No 12/23/24 14:55 Months Date of Last Transfusion (if within last 3 months) Ever experience any problems No 12/23/24 14:55 with transfusion(s)? Specify any problems Hx of Preganancy in last 3 No 12/23/24 14:55 Months Nurse Filling Out Transfusion JOSE ENRIQUE 12/23/24 14:55 Questions: Date: 12/23/24 12/23/24 14:55 Time: 14:56 12/23/24 14:55 Patient unable to answer at this time (ie. confused, unrespo /Reproduction History /Reproductive History - contact agent: /Reproductive Hx- contact agent Hx Now No 12/23/24 14:55 Gestational Age (in weeks): EDC: Hx Hx Para Hx Section SAB No 12/23/24 14:55 [facility] Medical History (Updated 12/23/24 @ 14:54 by Emily Graham) Wears glasses Wears partial dentures Bladder disease High cholesterol Dietary restriction Non-smoker Sleep apnea Herpes zoster Choledocholithiasis Diabetes Hypertension Morbid obesity with BMI of 45.0-49.9, adult Left-sided colitis with ileus Home Medications ???Medication ???Instructions ???Recorded ???Last Taken ???Type metformin 1,000 mg tablet 1,000 mg PO BIDCM diabetic 5 07/31/21 18:00 History empagliflozin 25 mg tablet 25 mg PO DAILY diabetic 08/01/21 0 07/31/21 08:00 History (Jardiance) metoprolol succinate 50 mg 50 mg PO DAILY heart 08/01/2107/20 08:00 History tablet,extended release 24 hr rosuvastatin 5 mg tablet 5 mg PO QHS cholesterol 08/01/21 U nknown History lisinopril 20 mg tablet 40 mg PO DAILY 10/10/22 Unknown Hi story oxybutynin chloride 5 mg tablet 5 mg PO DAILY (more content not included)... Normal [facility] CNOVon 12-02-2024 CNOV Office Visit (INTMWS ) ANAI HEBERT ([id number]) 1950 F [place] Date Time Provider Department 12/02/24 7:00 AM JANELLE CHERRY INTMWS During your visit today, we recorded the following information about you: Pulse Respiration Blood pressure Weight 51/minute 16/minute 204/96 85.9 kg Janelle Cherry, CADD MANAGER.PORTER SAMPLE CASE 12/02/2024 8:06 AM Signed SUBJECTIVE: RSV Vaccine(1 - Risk 60-74 years 1-dose series) Never done Shingrix Vaccine(2 of 3) due on 05/17/2013 DTaP,Tdap,Td Vaccine(2 - Td or Tdap) due on 04/02/2022 Mammogram Screening due on 03/22/2024 Advance Directive Discussion due on 06/19/2024 Medicare Advantage Annual Wellness Visit due on 06/19/2024 Diabetic Foot Exam due on 12/10/2024 Depression Screening due on 12/10/2024 HPI Anai Dilia Hebert is a 74 year old female. 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 Hypertension: - Blood pressure elevated today; attributes to stress. - Denies missing medication this morning. - Denies chest pain, dyspnea, or palpitations. - Reports occasional dizziness in the mornings and mild ankle edema. - Home blood pressure readings: 140s/80s. - Current medications include Lisinopril 30 mg daily. Diabetes Mellitus: - Monitoring sugar intake; reports improvement in blood sugar levels. - Current medications include Jardiance. Hyperlipidemia: - Current medications include a statin. - suggests discontinuing statin due to improved cholesterol levels; Anai denies any adverse effects from the medication. Renal Mass: - Undergoing regular CT scans every 6 months for the past year. - Recent CT scan prompted a call from Dr. Sevilla to discuss surgical removal due to increased size and potential cancer risk. - Appointment scheduled with Dr. Sevilla on Monday to discuss surgery. Sleep Apnea: - No longer using CPAP machine due to recall. - reports no longer snoring; Anai reports good sleep quality. - Wakes up 3-4 times per night to urinate. Lifestyle: - Engages in regular walking, especially during shopping trips. - Accompanies on trips, which involves some physical activity. Notes incidentally found kidney lesion. She has an appointment with Dr. Vasquez urology next Monday, may need surgery for this. No outside records today. DIABETES MELLITUS: Without report of excessive thirst or increased frequency of urination, chest pain or dyspnea , numbness, tingling or pain in extremities, new or unusual visual symptoms, low sugar/hypoglycemic reactions, weight loss/gain, lightheadedness/dizzine ss and bowel changes/loose stools. Patient's last HgA1C was Hemoglobin A1C (%) Date Value 11/26/2024 7.4 05/22/2024 7.6 04/21/2021 7.6 12/23/2020 7.7 ) Notes home FBS - checks infrequently. Walking daily, tries to be consistent Eating more healthy meals, less fast foods. Notes prior gastric bypass and eating every 2 hours. Weight is stable. HTN: Without report of headache, chest pain, palpitations, dyspnea, peripheral edema, orthopnea, fatigue and PND.Notes occasional dry cough, helped with cough drop or similar. Has not missed BP medication doses. Last 14 Encounter BP Readings: Date: BP: 12/02/2024 204/96 05/31/2024 158/80 12/11/2023 154/82[bp average[ 06/14/2023 170/88 01/16/2023 142/88 05/17/2022 144/92 12/13/2021 142/78 04/28/2021 158/80 12/31/2020 156/85[trubp average[ 04/22/2019 195/105 01/21/2019 162/88[rechecked 3 times --was initially 180's over 80s[ 10/22/2018 183/84 10/11/2018 196/85 05/23/2018 180/88 Hyperlipidemia. Ms. Hebert reports doing well on current therapy Her most recent lipid panels are: Cholesterol, Total (mg/dL) Date Value 11/26/2024 156 05/22/2024 161 12/23/2020 152 08/11/2020 187 HDL Cholesterol (mg/dL) Date Value 11/26/2024 45 05/22/2024 46 12/23/2020 38 08/11/2020 34 LDL Cholesterol, Calculated (mg/dL) Date Value 11/26/2024 81 05/22/2024 76 12/23/2020 75 08/11/2020 108 LDL Cholesterol Calculated, Nonfasting (mg/dL) Date Value 08/14/2021 76 Triglyceride (mg/dL) Date Value 11/26/2024 177 05/22/2024 196 12/23/2020 196 08/11/2020 227 No report GERD, HB, or abdominal pain. Taking vitamin D supplemental. Taking once per week 50,000 IU ROS Cardiovascular: ( (more content not included)... Normal [facility]([place] 25-hydroxyvitamin D3 [Mass/Vol] 42.2 ng/mL Normal 31.0-80.0 [facility] Comment on above: Order Comment: Speci men Type: BLOOD SPECIMEN Ordering Facility: [facility] Address: [address] [place] [address] Performed By: #### 1 989-3 #### [facility] CLIA [id number] [address] [place] [address] [place] ALBUMIN/CREATININE RATIO, UR INEon 11-26-2024 Albumin DL <= 20 mg/L (U) [Mass/Vol] 305.7 mg/L Normal [facility] Comment on above: Order Comment: Speci men Type: URINE SPECIMEN Ordering Facility: [facility] Address: [address] [place] [address] Performed By: #### U ACR #### [facility] CLIA [id number] [address] [place] [address] [place] Albumin/Creatinine (U) [Mass ratio] 4076 mg/g High <30 [facility] Comment on above: Order Comment: Speci men Type: URINE SPECIMEN Ordering Facility: [facility] Address: [address] [place] [address] Result Comment: Adul t Male and Female Nephrotic Criteria: <30 mg/g is considered normal to mildly increased 30-300 mg/g is considered moderately increased >300 mg/g is considered severely increased KDIGO. (2013). KDIGO 2012 Clinical Practice Guideline for the Evaluation and Management of Chronic Kidney Disease. Official Journal of the International Society of Nephrology, 3(1), 1-150. Performed By: #### U ACR #### [facility] CLIA [id number] [address] [place] [address] [place] Creatinine (U) [Mass/Vol] 7.5 mg/dL Low 20.0-300.0 [facility] Comment on above: Order Comment: Speci men Type: URINE SPECIMEN Ordering Facility: [facility] Address: [address] [place] [address] Performed By: #### U ACR #### [facility] CLIA [id number] [address] [place] [address] [place] [address] [place] Abdomen/Pelvis WITH Contrast on 11-26-2024 Abdomen/Pelvis WITH Contrast [facility] Imaging Services [address] [place] [address] Abdomen/Pelvis WITH Contrast MR#: [id number] Acct: [id number] Name: ANAI HEBERT Rep #: [id number] : 1950 F 74 From: Bertrand Pastor MD PCP: Dr. Griffin Stahl MD Status: REG CLI Study: Abdomen/Pelvis WITH Contrast Date of Exam: 04/12 Exam# [id number] Ordering Dr: Matt Mason MD PROCEDURE: ABDOMEN/PELVIS WITH CONTRAST 11/26/2024 REASON FOR EXAM: NEOPLASM OF UNCERTAIN BEHAVIOR OF LEFT KIDNEY TECHNIQUE: Abdomen and pelvis CT with intravenous contrast. Coronal and Sagittal reconstruction series were provided. PATIENT PREPARATION: Per protocol ORAL CONTRAST TYPE: None. AMOUNT: mL CONTRAST: Isovue-300 VOLUME: 99 mL One or more dose reduction techniques were used (e.g., Automated exposure control, adjustment of the mA and/or kV according to patient size, use of iterative reconstruction technique. RADIATION DOSE SUMMARY: CTDlvol: 32.4 mGy DLP: 1124.59 mGycm COMPARISON: CT abdomen and pelvis with contrast, 05/20/2024. MR abdomen with/without contrast, 10/30/2023. FINDINGS: Lung bases: There are stable peripheral nodules in both lung bases. There are no pleural effusions. The heart size is normal. There is no pericardial effusion. There is calcific vascular disease of the thoracic aorta and coronary arteries. Liver: Normal homogeneous parenchymal. There is stable intra and extrahepatic biliary ductal dilatation. Gallbladder: Surgically absent. Spleen: There is a stable 2 cm in diameter low-density nodule consistent with a hemangioma. Pancreas: Normal. Adrenals: Normal. Kidneys: There is a 2.4 x 2.4 x 2.3 cm (was 2.2 x 2.1 x 2.1 cm) hypoenhancing mass in the interpolar cortex of the left kidney. There is a 1.9 cm in diameter simple cortical cyst in the interpolar region of the left kidney. The right kidney is unremarkable. Bladder: Normal unenhanced appearance. Reproductive Organs: The uterus and ovaries are unremarkable. There is no free fluid in the pelvis. There is no pelvic or inguinal lymphadenopathy. Bowel: There is a small hiatal hernia. Status post gastric bypass surgery. There is fluid and stool throughout the colon consistent with a mild colitis. Appendix: Normal. Lymph nodes: There is no mesenteric or retroperitoneal lymphadenopathy. Field Vasculature: There is calcific vascular disease of the abdominal aorta. The inferior vena cava and portal venous system are normal. Abdominal wall: There is a 4.7 cm in diameter multiloculated umbilical hernia. Bones: There is zpub-wy-thtrxgou multilevel degenerative disc disease of the lower thoracic and lumbar spine. There is degenerative grade 1 anterolisthesis of L4 on L5 and L5 on S1. 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 CT/Abdomen/Pelvis WITH Contrast IMPRESSION: 1. Interval decrease in size of a suspicious mass in the left kidney consistent with a renal cell carcinoma. 2. Other findings as noted. Reading Location: [place] [address] CC: Dr. Matt Mason MD; Dr. Griffin Stahl MD Batch Tester: Signed Normal [facility] CBC panel Auto (Bld)on 11-26 Erythrocyte distribution width (RBC) [Ratio] 15.2 % High 11.5-15.0 [facility] Comment on above: Order Comment: Nancy munoz Type: BLOOD SPECIMEN Ordering Facility: [facility] Address: [address] [place] [address] Performed By: #### 5 8410-2 #### [facility] CLIA [id number] [address] [place] [address] [place] Hematocrit (Bld) [Volume fraction] 43.7 % Normal 36.0-46.0 [facility] Comment on above: Order Comment: Specjulian munoz Type: BLOOD SPECIMEN Ordering Facility: [facility] Address: [address] [place] [address] Performed By: #### 5 8410-2 #### [facility] CLIA [id number] [address] [place] [address] [place] Hemoglobin (Bld) [Mass/Vol] 13.9 g/dL Normal 11.5-15.5 [facility] Comment on above: Order Comment: Speci men Type: BLOOD SPECIMEN Ordering Facility: [facility] Address: [address] [place] [address] Performed By: #### 5 8410-2 #### [facility] CLIA [id number] [address] [place] [address] [place] MCH (RBC) [Entitic mass] 29.4 pg Normal 26.0-34.0 [facility] Comment on above: Order Comment: Speci men Type: BLOOD SPECIMEN Ordering Facility: [facility] Address: [address] [place] [address] Performed By: #### 5 8410-2 #### [facility] CLIA [id number] [address] [place] [address] [place] MCHC (RBC) [Mass/Vol] 31.8 g/dL Normal 30.5-36.0 [facility] Comment on above: Order Comment: Speci men Type: BLOOD SPECIMEN Ordering Facility: [facility] Address: [address] [place] [address] Performed By: #### 5 8410-2 #### [facility] CLIA [id number] [address] [place] [address] [place] MCV (RBC) [Entitic vol] 92.6 fL Normal 80.0-100.0 [facility] Comment on above: Order Comment: Speci men Type: BLOOD SPECIMEN Ordering Facility: [facility] Address: [address] [place] [address] Performed By: #### 5 8410-2 #### [facility] CLIA [id number] [address] [place] [address] [place] Nucleated RBC (Bld) [#/Vol] 10*3/uL Normal <0.01 [facility] Comment on above: Order Comment: Speci men Type: BLOOD SPECIMEN Ordering Facility: [facility] Address: [address] [place] [address] Performed By: #### 5 8410-2 #### [facility] CLIA [id number] [address] [place] [address] [place] Platelet mean volume (Bld) [Entitic vol] 12.2 fL Normal 9.0-12.7 [facility] Comment on above: Order Comment: Speci men Type: BLOOD SPECIMEN Ordering Facility: [facility] Address: [address] [place] [address] Performed By: #### 5 8410-2 #### [facility] CLIA [id number] [address] [place] [address] [place] Platelets (Bld) [#/Vol] 234 10*3/uL Normal 150-400 [facility] Comment on above: Order Comment: Speci men Type: BLOOD SPECIMEN Ordering Facility: [facility] Address: [address] [place] [address] Performed By: #### 5 8410-2 #### [facility] CLIA [id number] [address] [place] [address] [place] RBC (Bld) [#/Vol] 4.72 10*6/uL Normal 3.90-5.20 [facility] Comment on above: Order Comment: Speci men Type: BLOOD SPECIMEN Ordering Facility: [facility] Address: [address] [place] [address] Performed By: #### 5 8410-2 #### [facility] CLIA [id number] [address] [place] [address] [place] WBC (Bld) [#/Vol] 10.66 10*3/uL Normal 3.70-11.00 [facility] Comment on above: Order Comment: Speci men Type: BLOOD SPECIMEN Ordering Facility: [facility] Address: [address] [place] [address] Performed By: #### 5 8410-2 #### [facility] CLIA [id number] [address] [place] [address] [place] CREATININE FINGERSTICKon CREATININE WB < 1.0 Normal 0.55-1.02 [facility] Comment on above: Performed By: #### L 9100.0200 #### [facility] [address] [place], [address] GFR/1.73 sq M.predicted among non-blacks MDRD (S/P/Bld) [Vol rate/Area] 56.0000 mL/min/{1.73_m2} Low >60 [facility] Comment on above: Performed By: #### L 9100.0200 #### [facility] [address] [place], [address] Comprehensive metabolic 2000 panelon 11-26-2024 Albumin [Mass/Vol] 4.0 g/dL Normal 3.9-4.[address] [facility] Comment on above: Order Comment: Speci men Type: BLOOD SPECIMEN Ordering Facility: [facility] Address: [address] [place] [address] Performed By: #### 2 4323-8, 94724-1 #### [facility] CLIA [id number] [address] [place] [address] [place] ALP [Catalytic activity/Vol] 72 U/L Normal 34-123 [facility] Comment on above: Order Comment: Speci men Type: BLOOD SPECIMEN Ordering Facility: [facility] Address: [address] [place] [address] Performed By: #### 2 4323-8, 91346-3 #### [facility] CLIA [id number] [address] [id number] [place] ALT [Catalytic activity/Vol] 13 U/L Normal 7-38 [facility] Comment on above: Order Comment: Speci men Type: BLOOD SPECIMEN Ordering Facility: [facility] Address: [address] [place], [place] [address] Performed By: #### 2 4323-8, 36586-9 #### [facility] CLIA [id number] [address] [place], [place] [address] [place] Anion gap [Moles/Vol] 12 mmol/L Normal 8-15 [facility] Comment on above: Order Comment: Speci men Type: BLOOD SPECIMEN Ordering Facility: [facility] Address: [address] [place] [address] Performed By: #### 2 4323-8, 59504-3 #### [facility] CLIA [id number] [address] [place] [address] [place] AST [Catalytic activity/Vol] 19 U/L Normal 13-35 [facility] Comment on above: Order Comment: Speci men Type: BLOOD SPECIMEN Ordering Facility: [facility] Address: [address] [place] [address] Performed By: #### 2 4323-8, 42290-6 #### [facility] CLIA [id number] [address] [place], [place] [address] [place] Bilirubin [Mass/Vol] 0.4 mg/dL Normal 0.2-1.3 [facility] Comment on above: Order Comment: Speci men Type: BLOOD SPECIMEN Ordering Facility: [facility] Address: [address] [place], [place] [id number] Performed By: #### 2 4323-8, 72025-0 #### [facility] CLIA [id number] [address] [place], [place] [address] [place] Calcium [Mass/Vol] 8.4 mg/dL Low 8.5-10.[address] [facility] Comment on above: Order Comment: Speci men Type: BLOOD SPECIMEN Ordering Facility: [facility] Address: [address] [place], [place] [address] Performed By: #### 2 4323-8, 36946-3 #### [facility] CLIA [id number] [address] [place] [address] [place] Chloride [Moles/Vol] 106 mmol/L Normal 98-107 [facility] Comment on above: Order Comment: Speci men Type: BLOOD SPECIMEN Ordering Facility: [facility] Address: [address] [place] [address] Performed By: #### 2 4323-8, 53728-0 #### [facility] CLIA [id number] [address] [place] [address] [place] CO2 [Moles/Vol] 22 mmol/L Normal 22-30 [facility] Comment on above: Order Comment: Speci men Type: BLOOD SPECIMEN Ordering Facility: [facility] Address: [address] [place] [address] Performed By: #### 2 4323-8, 78231-1 #### [facility] CLIA [id number] [address] [place] [address] [place] Creatinine [Mass/Vol] 0.90 mg/dL Normal 0.58-0.96 [facility] Comment on above: Order Comment: Speci men Type: BLOOD SPECIMEN Ordering Facility: [facility] Address: [address] [place] [address] Performed By: #### 2 4323-8, 07211-4 #### [facility] CLIA [id number] [address] [place] [address] [place] Creatinine and Glomerular filtration rate.predicted panel (S/P/Bld) 68 mL/min/1.73m??? Normal >=60 [facility] Comment on above: Order Comment: Speci men Type: BLOOD SPECIMEN Ordering Facility: [facility] Address: [address] [place] [address] Result Comment: Anny mated Glomerular Filtration Rate (eGFR) is calculated using the 2020 CKD-EPI creatinine equation. This equation utilizes serum creatinine, sex, and age as parameters. The creatinine assay has traceable calibration to isotope dilution-mass spectrometry. Refer to KDIGO guidelines for clinical interpretation. In patients with unstable renal function, e.g. those with acute kidney injury, the eGFR may not accurately reflect actual GFR. Performed By: #### 2 4323-8, 55670-8 #### [facility] CLIA [id number] [address] [place] [address] [place] Glucose [Mass/Vol] 161 mg/dL High 74-[address] [facility] Comment on above: Order Comment: Nancy munoz Type: BLOOD SPECIMEN Ordering Facility: [facility] Address: [address] [place] [address] Result Comment: The [place] Diabetes Association (ADA) provides guidance for cutoff values for fasting glucose and random glucose. The ADA defines fasting as no caloric intake for at least 8 hours. Fasting plasma glucose results between 100 to 125 mg/dL indicate increased risk for diabetes (prediabetes). Fasting plasma glucose results greater than or equal to 126 mg/dL meet the criteria for diagnosis of diabetes. In the absence of unequivocal hyperglycemia, results should be confirmed by repeat testing. In a patient with classic symptoms of hyperglycemia or hyperglycemic crisis, random plasma glucose results greater than or equal to 200 mg/dL meet the criteria for diagnosis of diabetes. Reference: Standards of Medical Care in Diabetes 2016, [place] Diabetes Association. Diabetes Care. 2016.39(Suppl 1). Performed By: #### 2 4323-8, 02852-9 #### [facility] CLIA [id number] [address] [place] [address] [place] Potassium [Moles/Vol] 4.0 mmol/L Normal 3.7-5.1 [facility] Comment on above: Order Comment: Nancy munoz Type: BLOOD SPECIMEN Ordering Facility: [facility] Address: [address] [place] [address] Performed By: #### 2 4323-8, 21785-8 #### [facility] CLIA [id number] [address] [place], [place] [address] [place] Protein [Mass/Vol] 6.9 g/dL Normal 6.3-8.[address] [facility] Comment on above: Order Comment: Nancy munoz Type: BLOOD SPECIMEN Ordering Facility: [facility] Address: [address] [place] [address] Performed By: #### 2 4323-8, 77789-3 #### [facility] CLIA [id number] [address] [place] [address] [place] Sodium [Moles/Vol] 140 mmol/L Normal 136-[address] [facility] Comment on above: Order Comment: Nancy munoz Type: BLOOD SPECIMEN Ordering Facility: [facility] Address: [address] [place] [address] Performed By: #### 2 4323-8, 29558-3 #### [facility] CLIA [id number] [address] [place] [address] [place] Urea nitrogen [Mass/Vol] 17 mg/dL Normal 7-21 [facility] Comment on above: Order Comment: Nancy men Type: BLOOD SPECIMEN Ordering Facility: [facility] Address: [address] [place] [address] Performed By: #### 2 4323-8, 26184-7 #### [facility] CLIA [id number] [address] [place] [address] [place] EGFROrdered By: Matt Mason on 11-26-2024 GFR/1.73 sq M.predicted among non-blacks MDRD (S/P/Bld) [Vol rate/Area] 56.0000 mL/min/{1.73_m2} Low >60 [facility] HbA1c (Bld)on 11-26-2024 Average glucose Estimated from glycated hemoglobin (Bld) [Mass/Vol] 166 mg/dL Normal [facility] Comment on above: Order Comment: Jessicai men Type: BLOOD SPECIMEN Ordering Facility: [facility] Address: [address] [place] [address] Result Comment: eAG: (Estimated average glucose) is a calculated value from HgbA1c and is insurance claims representative of the average blood glucose level in the last 2-3 month period. Performed By: #### 2 4323-8 #### [facility] CLIA [id number] [address] [place] [address] [place] HbA1c (Bld) [Mass fraction] 7.4 % High 4.3-5.6 [facility] Comment on above: Order Comment: Nancy munoz Type: BLOOD SPECIMEN Ordering Facility: [facility] Address: [address] [place] [address] Result Comment: [place] Diabetes Association guidelines indicate that patients with HgbA1c in the range 5.7-6.4% are at increased risk for development of diabetes, and intervention by lifestyle modification may be beneficial. HgbA1c greater or equal to 6.5% is considered diagnostic of diabetes. Performed By: #### 2 4323-8 #### [facility] CLIA [id number] [address] [place] [address] [place] Lipid 1996 panelon 5 Cholesterol [Mass/Vol] 156 mg/dL Normal <200 [facility] Comment on above: Order Comment: Nancy munoz Type: BLOOD SPECIMEN Ordering Facility: [facility] Address: [address] [place] [address] Result Comment: <200 mg/dL, Desirable 200-239 mg/dL, Borderline high >239 mg/dL, High Performed By: #### 2 4323-8, 73207-8 #### [facility] CLIA [id number] [address] [place] [address] [place] Cholesterol in HDL [Mass/Vol] 45 mg/dL Normal >39 [facility] Comment on above: Order Comment: Nancy munoz Type: BLOOD SPECIMEN Ordering Facility: [facility] Address: [address] [place] [address] Result Comment: 40-5 9 mg/dL, Acceptable >59 mg/dL, High: Negative risk factor for coronary heart disease <40 mg/dL, Low: Positive risk factor for coronary heart disease Performed By: #### 2 4323-8, 47807-3 #### [facility] CLIA [id number] [address] [place] [address] [place] Cholesterol in LDL [Mass/Vol] 81 mg/dL Normal <100 [facility] Comment on above: Order Comment: Speci men Type: BLOOD SPECIMEN Ordering Facility: [facility] Address: [address] [place] [address] Result Comment: <100 mg/dL, Optimal 100-129 mg/dL, Near optimal/above optimal 130-159 mg/dL, Borderline high 160-189 mg/dL, High >189 mg/dL, Very high Secondary prevention optimal LDL Cholesterol levels are recommended to be <70 mg/dL LDL cholesterol is calculated using the Gibson-NIH equation. Performed By: #### 2 4323-8, 91060-6 #### [facility] CLIA [id number] [address] [place] [address] [place] Cholesterol in LDL/Cholesterol in HDL [Mass ratio] 1.80 {ratio} Normal <2.54 [facility] Comment on above: Order Comment: Nancy men Type: BLOOD SPECIMEN Ordering Facility: [facility] Address: [address] [place] [address] Result Comment: Refe rence: 1. National Cholesterol Education Program ATP III Guideline At-A-Glance Quick Desk Reference: National Heart, Lung, and Blood [place]. National Institutes of Health. 2001: NIH Publication No. 01-3305. 2. An International Atherosclerosis Society position paper: global recommendations for the management of dyslipidemia: executive summary, Atherosclerosis. 2014: 232(2):410-413. Performed By: #### 2 4323-8, 45467-6 #### [facility] CLIA [id number] [address] [place] [address] [place] Cholesterol in VLDL [Mass/Vol] 27 mg/dL Normal <30 [facility] Comment on above: Order Comment: Speci men Type: BLOOD SPECIMEN Ordering Facility: [facility] Address: [address] [id number] Performed By: #### 2 4323-8, 59017-1 #### [facility] CLIA [id number] [address] [place] [address] [place] Cholesterol non HDL [Mass/Vol] 111 mg/dL Normal <130 [facility] Comment on above: Order Comment: Speci men Type: BLOOD SPECIMEN Ordering Facility: [facility] Address: [address] [place] [address] Result Comment: <130 mg/dL, Optimal 130-159 mg/dL, Near optimal/above optimal 160-189 mg/dL, Borderline high 190-219 mg/dL, High >219 mg/dL, Very high Secondary prevention optimal non HDL Cholesterol levels are recommended to be <100 mg/dL Performed By: #### 2 4323-8, 84381-1 #### [facility] CLIA [id number] [address] [place] [address] [place] Cholesterol.total/Cho lesterol in HDL [Mass ratio] 3.47 {ratio} Normal <5.10 [facility] Comment on above: Order Comment: Speci men Type: BLOOD SPECIMEN Ordering Facility: [facility] Address: [address] [place] [address] Performed By: #### 2 4323-8, 41587-9 #### [facility] CLIA [id number] [address] [place] [address] [place] FASTING TIME 12 hrs Normal [facility] Comment on above: Order Comment: Speci men Type: BLOOD SPECIMEN Ordering Facility: [facility] Address: [address] [place], [place] [id number] Performed By: #### 2 4323-8, 83306-3 #### [facility] CLIA [id number] [address] [place], [place] [address] [place] Triglyceride [Mass/Vol] 177 mg/dL High <150 [facility] Comment on above: Order Comment: Speci men Type: BLOOD SPECIMEN Ordering Facility: [facility] Address: [address] [place] [address] Result Comment: <150 mg/dL, Normal 150-199 mg/dL, Borderline high 200-499 mg/dL, High >499 mg/dL, Very high Performed By: #### 2 4323-8, 49972-6 #### [facility] CLIA [id number] [address] [place] [address] [place] Urinalysis complete panel (U )on 11-26-2024 Bacteria LM.HPF (Urine sed) [#/Area] Negative Normal Negative [facility] Comment on above: Order Comment: Speci men Type: URINE SPECIMEN Ordering Facility: [facility] Address: [address] [place] [address] Performed By: #### 2 4356-8 #### [facility] CLIA [id number] [address] [place] [address] [place] Bilirubin Ql (U) Negative Normal Negative [facility] Comment on above: Order Comment: Speci men Type: URINE SPECIMEN Ordering Facility: [facility] Address: [address] [place] [address] Performed By: #### 2 4356-8 #### [facility] CLIA [id number] [address] [place] [address] [place] Clarity (Unsp spec) Clear Normal Clear [facility] Comment on above: Order Comment: Speci men Type: URINE SPECIMEN Ordering Facility: [facility] Address: [address] [place] [address] Performed By: #### 2 4356-8 #### [facility] CLIA [id number] [address] [place] [address] [place] Color (U) Yellow Normal Yellow [facility] Comment on above: Order Comment: Speci men Type: URINE SPECIMEN Ordering Facility: [facility] Address: [address] [place] [address] Performed By: #### 2 4356-8 #### [facility] CLIA [id number] [address] [place] [address] [place] Epithelial cells LM.HPF (Urine sed) [#/Area] None Seen Normal [facility] Comment on above: Order Comment: Speci men Type: URINE SPECIMEN Ordering Facility: [facility] Address: [address] [place] [address] Performed By: #### 2 4356-8 #### [facility] CLIA [id number] [address] [place] [address] [place] Glucose Test strip (U) [Mass/Vol] 2+ Abnormal Negative [facility] Comment on above: Order Comment: Speci men Type: URINE SPECIMEN Ordering Facility: [facility] Address: [address] [place] [address] Performed By: #### 2 4356-8 #### [facility] CLIA [id number] [address] [place] [address] [place] Hemoglobin Ql (U) Negative Normal Negative [facility] Comment on above: Order Comment: Speci men Type: URINE SPECIMEN Ordering Facility: [facility] Address: [address] [place] [address] Performed By: #### 2 4356-8 #### [facility] CLIA [id number] [address] [place] [address] [place] Hyaline casts (Urine sed) [#/Area] 0 /[LPF] Normal 0 /LPF [facility] Comment on above: Order Comment: Speci men Type: URINE SPECIMEN Ordering Facility: [facility] Address: [address] [place] [address] Performed By: #### 2 4356-8 #### [facility] CLIA [id number] [address] [place] [address] [place] Ketones Ql (U) Negative Normal Negative [facility] Comment on above: Order Comment: Speci men Type: URINE SPECIMEN Ordering Facility: [facility] Address: [address] [place] [address] Performed By: #### 2 4356-8 #### [facility] CLIA [id number] [address] [place] [address] [place] Leukocyte esterase Test strip Ql (U) Negative Normal Negative [facility] Comment on above: Order Comment: Speci men Type: URINE SPECIMEN Ordering Facility: [facility] Address: [address] [place] [address] Performed By: #### 2 4356-8 #### [facility] CLIA [id number] [address] [place] [address] [place] Nitrite Ql (U) Negative Normal Negative [facility] Comment on above: Order Comment: Speci men Type: URINE SPECIMEN Ordering Facility: [facility] Address: [address] [place] [address] Performed By: #### 2 4356-8 #### [facility] CLIA [id number] [address] [place] [address] [place] pH (U) 6.5 [pH] Normal <8.5 [facility] Comment on above: Order Comment: Speci men Type: URINE SPECIMEN Ordering Facility: [facility] Address: [address] [place] [address] Performed By: #### 2 4356-8 #### [facility] CLIA [id number] [address] [place], [place] [address] [place] Protein (U) [Mass/Vol] 2+ Abnormal Negative [facility] Comment on above: Order Comment: Speci men Type: URINE SPECIMEN Ordering Facility: [facility] Address: [address] [place] [address] Performed By: #### 2 4356-8 #### [facility] CLIA [id number] [address] [place] [address] [place] RBC LM.HPF (Urine sed) [#/Area] 0-2 /HPF Normal 0-2 /HPF [facility] Comment on above: Order Comment: Speci men Type: URINE SPECIMEN Ordering Facility: [facility] Address: [address] [place] [address] Performed By: #### 2 4356-8 #### [facility] CLIA [id number] [address] [place] [address] [place] Specific gravity (U) [Rel density] 1.025 Normal 1.005-1.030 [facility] Comment on above: Order Comment: Speci men Type: URINE SPECIMEN Ordering Facility: [facility] Address: [address] [place] [address] Performed By: #### 2 4356-8 #### [facility] CLIA [id number] [address] [place] [address] [place] Urobilinogen Ql (U) 0.2 EU/dL Normal 0.2-1.0 EU/dL [facility] Comment on above: Order Comment: Speci men Type: URINE SPECIMEN Ordering Facility: [facility] Address: [address] [place] [address] Performed By: #### 2 4356-8 #### [facility] CLIA [id number] [address] [place] [address] [place] WBC LM.HPF (Urine sed) [#/Area] 0-5 /HPF Normal 0-5 /HPF [facility] Comment on above: Order Comment: Speci men Type: URINE SPECIMEN Ordering Facility: [facility] Address: [address] [place] [address] Performed By: #### 2 4356-8 #### [facility] CLIA [id number] [address] [place] [address] [place] CNOVon 05-31-2024 CNOV Office Visit (INTMWS ) ANAI HEBERT ([id number]) 1950 F [place] Date Time Provider Department 05/31/24 1:40 PM GRIFFIN STAHL INTMWS During your visit today, we recorded the following information about you: Pulse Respiration Blood pressure Weight 68/minute 14/minute 158/80 88.3 kg Height 1.524 m Griffin Stahl MD 06/30/2024 11:02 PM Signed This note was created using [employer]. Subjective HISTORY Anai Hebert is a 73 year old lady here for Medicare Annual Wellness Visit and yearly exam and follow up appointment. Anai Hebert is a 73-year-old female with a history of DM, HTN, HLD, and a renal cyst, presenting for a Medicare Annual Wellness Visit. Anai reports concerns about her current medications, particularly metformin and rosuvastatin. She questions the efficacy of metformin, despite her HbA1c being 7.6, and mentions her ?s concerns about rosuvastatin potentially causing dementia. She is currently taking 2 metformin tablets in the morning and 2 in the evening, along with Jardiance. She denies any side effects from rosuvastatin but notes increased forgetfulness, such as leaving her purse at home recently. She is not overly concerned about dementia, attributing her forgetfulness to her age and stress. Anai also reports nocturia, waking 2-3 times per night to urinate, and difficulty returning to sleep due to racing thoughts. She averages 6 hours of sleep per night and feels better with more sleep. She denies heartburn, reflux, or changes in bowel habits. She is hesitant to take melatonin due to concerns about not waking up when needed. She has a history of a renal cyst, with a recent CT scan showing a low-density area in the lateral aspect of the left kidney, measuring 2.2 x 1.9 cm. This is a follow-up to a previous MRI that showed a 2 cm cyst, which had increased from 1.5 cm in August 2021. She is awaiting further evaluation and is concerned about potential growth. Anai also reports stress related to her house being on the market, which may increase her rent from $350 to $1,000 per month. She mentions her is busy with [employer] and [employer] shopping trips, which adds to her stress. She has a history of vision problems, being legally blind in one eye and having astigmatism in the other, which prevents her from using bifocals. She uses two pairs of glasses and reports that her vision has improved over the last two years. She follows up with Dr. Karimi for her eye care. She has a history of gallstones and is currently taking ursodiol. She also takes Ditropan for urinary issues and is on a vitamin D supplement, having recently finished a course of 50,000 IU once a week. She is concerned about her vitamin D levels and the availability of her prescription. Anai has had a mild case of shingles in the past and received the Zostavax vaccine in 2012. She has not had a flu shot since 2015 and received the initial two COVID-19 vaccines but no boosters. She is due for a mammogram and has an order in place for it. 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 PAST MEDICAL HISTORY Diagnosis Date Adjustment disorder with mixed anxiety and depressed mood 11/29/2013 Benign neoplasm of rectum and anal canal Degenerative tear of medial meniscus 01/06/2011 Dermatofibroma of left lower leg 07/02/2012 Eczema intertrigo 07/02/2012 Erythema intertrigo 07/02/2012 External hemorrhoids without mention of complication 07/03/2012 Internal hemorrhoids without mention of complication 07/03/2012 Marital conflict 01/17/2014 Obesity, unspecified [place] (obstructive sleep apnea), severe on PSG 03/22/2013 Needs CPAP at 10 cm H2O with nasal pillows mask Other psoriasis 07/02/2012 Primary hyperparathyroidism (HCC) Type II or unspecified type diabetes mellitus without mention of complication, uncontrolled Unspecified essential hypertension Vitamin D deficiency 06/04/2010 Xerosis cutis 07/02/2012 Current Outpatient Medications Medication Sig lisinopril (ZESTRIL) 30 mg tablet Take 1 tablet by mouth once daily. empagliflozin (JARDIANCE) 25 mg tablet Take 1 tablet by mouth daily with breakfast. oxybutynin XL (DITROPAN XL) 5 mg 24 hr tablet Take 1 tablet by mouth once daily. metFORMIN (GLUCOPHAGE) 500 mg tablet Take 2 tablets by mouth daily with breakfast AND 2 tablets daily with dinner. benzonatate (TESSALON PERLES) 100 mg capsule Take 1-2 capsules by mouth three times a day as needed. ursodiol (ACTIGALL) 300 mg capsule Take 2 capsules by mouth every morning AND 1 capsule daily at bedtime. 2 capsules am and 1 capsule HS. metoprolol succinate ER (TOPROL XL) 50 mg 24 hr tablet Take 1 tablet by mouth once daily. rosuvastatin (CRESTOR) 5 mg tablet Take 1 tablet by mouth daily at bedtime. blood sugar diagnostic (BLOOD GLUCOSE TEST) test strip Test blood mccullough (more content not included)... Normal [facility] ALBUMIN/CREATININE RATIO, UR INEon 05-22-2024 Albumin DL <= 20 mg/L (U) [Mass/Vol] 898.2 mg/L Normal [facility] Comment on above: Order Comment: Nancy munoz Type: BLOOD SPECIMEN Ordering Facility: [facility] Address: [address] [place] [address] Performed By: #### 2 4323-8 #### [id number] [address] [place] [address] [place] Albumin/Creatinine (U) [Mass ratio] 2994 mg/g High <30 [facility] Comment on above: Order Comment: Nancy munoz Type: BLOOD SPECIMEN Ordering Facility: [facility] Address: [address] [place] [address] Result Comment: Not calculated Adult Male and Female Nephrotic Criteria: <30 mg/g is considered normal to mildly increased 30-300 mg/g is considered moderately increased >300 mg/g is considered severely increased KDIGO. (2013). KDIGO 2012 Clinical Practice Guideline for the Evaluation and Management of Chronic Kidney Disease. Official Journal of the International Society of Nephrology, 3(1), 1-150. Performed By: #### 2 4323-8 #### [facility] CLIA [id number] [address] [place] [address] [place] Creatinine (U) [Mass/Vol] 30.0 mg/dL Normal 20.0-300.0 [facility] Comment on above: Order Comment: Speci men Type: BLOOD SPECIMEN Ordering Facility: [facility] Address: [address] [place] [address] Performed By: #### 2 4323-8 #### [facility] CLIA [id number] [address] [place] [address] CBC panel Auto (Bld)on 05-22 Erythrocyte distribution width (RBC) [Ratio] 15.2 % High 11.5 - 15.0 % [facility] Hematocrit (Bld) [Volume fraction] 44.3 % 36.0 - 46.0 % [facility] Hemoglobin (Bld) [Mass/Vol] 14.3 g/dL 11.5 - 15.5 g/dL [facility] Interpretation and review of laboratory results Abnormal [facility] MCH (RBC) [Entitic mass] 29.2 pg 26.0 - 34.0 pg [facility] MCHC (RBC) [Mass/Vol] 32.3 g/dL 30.5 - 36.0 g/dL [facility] MCV (RBC) [Entitic vol] 90.4 fL 80.0 - 100.0 fL [facility] Nucleated RBC (Bld) [#/Vol] NINF [facility] Platelet mean volume (Bld) [Entitic vol] 11.0 fL 9.0 - 12.7 fL [facility] Platelets (Bld) [#/Vol] 232 10*3/uL [facility] RBC (Bld) [#/Vol] 4.90 10*6/uL 3.90 - 5.2 0 m/uL [facility] WBC (Bld) [#/Vol] 8.98 10*3/uL [facility] Erythrocyte distribution width (RBC) [Ratio] 15.2 % High 11.5-15.0 [facility] Comment on above: Order Comment: Speci men Type: BLOOD SPECIMEN Ordering Facility: [facility] Address: [address] [place] [address] Performed By: #### 2 4323-8 #### [facility] CLIA [id number] [address] [place] [address] [place] Hematocrit (Bld) [Volume fraction] 44.3 % Normal 36.0-46.0 [facility] Comment on above: Order Comment: Speci men Type: BLOOD SPECIMEN Ordering Facility: [facility] Address: [address] [place] [address] Performed By: #### 2 4323-8 #### [facility] [id number] [address] [place] [address] [place] Hemoglobin (Bld) [Mass/Vol] 14.3 g/dL Normal 11.5-15.5 [facility] Comment on above: Order Comment: Speci men Type: BLOOD SPECIMEN Ordering Facility: [facility] Address: [address] [place] [address] Performed By: #### 2 4323-8 #### [facility] [id number] [address] [place] [address] [place] MCH (RBC) [Entitic mass] 29.2 pg Normal 26.0-34.0 [facility] Comment on above: Order Comment: Speci men Type: BLOOD SPECIMEN Ordering Facility: [facility] Address: [address] [place] [address] Performed By: #### 2 4323-8 #### [facility] [id number] [address] [place] [address] [place] MCHC (RBC) [Mass/Vol] 32.3 g/dL Normal 30.5-36.0 [facility] Comment on above: Order Comment: Speci men Type: BLOOD SPECIMEN Ordering Facility: [facility] Address: [address] [place] [address] Performed By: #### 2 4323-8 #### [facility] [id number] [address] [place] [address] [place] MCV (RBC) [Entitic vol] 90.4 fL Normal 80.0-100.0 [facility] Comment on above: Order Comment: Speci men Type: BLOOD SPECIMEN Ordering Facility: [facility] Address: [address] [place] [address] Performed By: #### 2 4323-8 #### [facility] CLIA [id number] [address] [place] [address] [place] Nucleated RBC (Bld) [#/Vol] 10*3/uL Normal <0.01 [facility] Comment on above: Order Comment: Speci men Type: BLOOD SPECIMEN Ordering Facility: [facility] Address: [address] [place] [address] Performed By: #### 2 4323-8 #### [facility] CLIA [id number] [address] [place] [address] [place] Platelet mean volume (Bld) [Entitic vol] 11.0 fL Normal 9.0-12.7 [facility] Comment on above: Order Comment: Speci men Type: BLOOD SPECIMEN Ordering Facility: [facility] Address: [address] [place] [address] Performed By: #### 2 4323-8 #### [facility] CLIA [id number] [address] [place] [address] [place] Platelets (Bld) [#/Vol] 232 10*3/uL Normal 150-400 [facility] Comment on above: Order Comment: Speci men Type: BLOOD SPECIMEN Ordering Facility: [facility] Address: [address] [place] [address] Performed By: #### 2 4323-8 #### [facility] CLIA [id number] [address] [place] [address] [place] RBC (Bld) [#/Vol] 4.90 10*6/uL Normal 3.90-5.20 [facility] Comment on above: Order Comment: Speci men Type: BLOOD SPECIMEN Ordering Facility: [facility] Address: [address] [place] [id number] Performed By: #### 2 4323-8 #### [facility] CLIA [id number] [address] [place] [address] [facility] WBC (Bld) [#/Vol] 8.98 10*3/uL Normal 3.70-11.00 [facility] Comment on above: Order Comment: Speci men Type: BLOOD SPECIMEN Ordering Facility: [facility] Address: [address] [place] [id number] Performed By: #### 2 4323-8 #### [facility] CLIA [id number] [address] [facility] Comprehensive metabolic 2000 panelOrdered By: Deneen Harrison on 05-22-2024 Albumin [Mass/Vol] 4.2 g/dL 3.9 - 4.9 g/dL [facility] ALP [Catalytic activity/Vol] 67 U/L 34 - 123 U/L [facility] ALT [Catalytic activity/Vol] 9 U/L 7 - 38 U/L [facility] Anion gap [Moles/Vol] 14 mmol/L 8 - 15 mmol/L [facility] AST [Catalytic activity/Vol] 16 U/L 13 - 35 U/L [facility] Bilirubin [Mass/Vol] 0.4 mg/dL 0.2 - 1 .3 mg/dL [facility] Calcium [Mass/Vol] 9.2 mg/dL 8.5 - 10. 2 mg/dL [facility] Chloride [Moles/Vol] 107 mmol/L 98 - 10 7 mmol/L [facility] CO2 [Moles/Vol] 20 mmol/L Low 22 - 30 mmol/L [facility] Creatinine [Mass/Vol] 0.98 mg/dL High 0.58 - 0.96 mg/dL [facility] GFR/1.73 sq M.predicted among non-blacks MDRD (S/P/Bld) [Vol rate/Area] 61 mL/min/{1.73_m2} - PINF [facility] Comment on above: Estimated Glomerular Filtration Rate (eGFR) is calculated using the 2020 CKD-EPI creatinine equation. This equation utilizes serum creatinine, sex, and age as parameters. The creatinine assay has traceable calibration to isotope dilution-mass spectrometry. Refer to KDIGO guidelines for clinical interpretation. In patients with unstable renal function, e.g. those with acute kidney injury, the eGFR may not accurately reflect actual GFR. Glucose [Mass/Vol] 138 mg/dL High 74 - 99 mg/dL [facility] Comment on above: The [place] Diabete s Association (ADA) provides guidance for cutoff values for fasting glucose and random glucose. The ADA defines fasting as no caloric intake for at least 8 hours. Fasting plasma glucose results between 100 to 125 mg/dL indicate increased risk for diabetes (prediabetes). Fasting plasma glucose results greater than or equal to 126 mg/dL meet the criteria for diagnosis of diabetes. In the absence of unequivocal hyperglycemia, results should be confirmed by repeat testing. In a patient with classic symptoms of hyperglycemia or hyperglycemic crisis, random plasma glucose results greater than or equal to 200 mg/dL meet the criteria for diagnosis of diabetes. Reference: Standards of Medical Care in Diabetes 2016, [place] Diabetes Association. Diabetes Care. 2016.39(Suppl 1). Interpretation and review of laboratory results Abnormal [facility] Potassium [Moles/Vol] 3.5 mmol/L Low 3.7 - 5.1 mmol/L [facility] Protein [Mass/Vol] 6.8 g/dL 6.3 - 8.0 g/dL [facility] Sodium [Moles/Vol] 141 mmol/L 136 - 144 mmol/L [facility] Urea nitrogen [Mass/Vol] 17 mg/dL 7 - 21 mg/dL [facility] Comprehensive metabolic 2000 panelon 05-22-2024 Albumin [Mass/Vol] 4.2 g/dL Normal 3.9-4.[address] [facility] Comment on above: Order Comment: Nancy munoz Type: BLOOD SPECIMEN Ordering Facility: [facility] Address: [address] [place] [address] Performed By: #### 2 4323-8 #### [facility] [id number] [address] [place] [address] [place] ALP [Catalytic activity/Vol] 67 U/L Normal 34-123 [facility] Comment on above: Order Comment: Nancy munoz Type: BLOOD SPECIMEN Ordering Facility: [facility] Address: [address] [place] [address] Performed By: #### 2 4323-8 #### [facility] CLIA [id number] [address] [place] [address] [place] ALT [Catalytic activity/Vol] 9 U/L Normal 7-38 [facility] Comment on above: Order Comment: Speci men Type: BLOOD SPECIMEN Ordering Facility: [facility] Address: [address] [place] [address] Performed By: #### 2 4323-8 #### [facility] CLIA [id number] [address] [place] [address] [place] Anion gap [Moles/Vol] 14 mmol/L Normal 8-15 [facility] Comment on above: Order Comment: Speci men Type: BLOOD SPECIMEN Ordering Facility: [facility] Address: [address] [place] [address] Performed By: #### 2 4323-8 #### [facility] CLIA [id number] [address] [place] [address] [place] AST [Catalytic activity/Vol] 16 U/L Normal 13-35 [facility] Comment on above: Order Comment: Speci men Type: BLOOD SPECIMEN Ordering Facility: [facility] Address: [address] [place] [address] Performed By: #### 2 4323-8 #### [facility] CLIA [id number] [address] [place] [address] [place] Bilirubin [Mass/Vol] 0.4 mg/dL Normal 0.2-1.3 [facility] Comment on above: Order Comment: Speci men Type: BLOOD SPECIMEN Ordering Facility: [facility] Address: [address] [place] [address] Performed By: #### 2 4323-8 #### [facility] CLIA [id number] [address] [place] [address] [place] Calcium [Mass/Vol] 9.2 mg/dL Normal 8.5-10.[address] [facility] Comment on above: Order Comment: Speci men Type: BLOOD SPECIMEN Ordering Facility: [facility] Address: [address] [place] [address] Performed By: #### 2 4323-8 #### [facility] CLIA [id number] [address] [place] [address] [place] Chloride [Moles/Vol] 107 mmol/L Normal 98-107 [facility] Comment on above: Order Comment: Speci men Type: BLOOD SPECIMEN Ordering Facility: [facility] Address: [address] [place] [address] Performed By: #### 2 4323-8 #### [facility] CLIA [id number] [address] [place] [address] [place] CO2 [Moles/Vol] 20 mmol/L Low 22-30 [facility] Comment on above: Order Comment: Speci men Type: BLOOD SPECIMEN Ordering Facility: [facility] Address: [address] [place] [address] Performed By: #### 2 4323-8 #### [facility] CLIA [id number] [address] [place] [address] [place] Creatinine [Mass/Vol] 0.98 mg/dL High 0.58-0.96 [facility] Comment on above: Order Comment: Speci men Type: BLOOD SPECIMEN Ordering Facility: [facility] Address: [address] [place] [address] Performed By: #### 2 4323-8 #### [facility] CLIA [id number] [address] [place] [address] [place] Creatinine and Glomerular filtration rate.predicted panel (S/P/Bld) 61 mL/min/1.73m??? Normal >=60 [facility] Comment on above: Order Comment: Speci men Type: BLOOD SPECIMEN Ordering Facility: [facility] Address: [address] [place] [address] Result Comment: Anny mated Glomerular Filtration Rate (eGFR) is calculated using the 2020 CKD-EPI creatinine equation. This equation utilizes serum creatinine, sex, and age as parameters. The creatinine assay has traceable calibration to isotope dilution-mass spectrometry. Refer to KDIGO guidelines for clinical interpretation. In patients with unstable renal function, e.g. those with acute kidney injury, the eGFR may not accurately reflect actual GFR. Performed By: #### 2 4323-8 #### [facility] [id number] [address] [place] [address] [place] Glucose [Mass/Vol] 138 mg/dL High 74-[address] [facility] Comment on above: Order Comment: Nancy munoz Type: BLOOD SPECIMEN Ordering Facility: [facility] Address: [address] [place] [address] Result Comment: The [place] Diabetes Association (ADA) provides guidance for cutoff values for fasting glucose and random glucose. The ADA defines fasting as no caloric intake for at least 8 hours. Fasting plasma glucose results between 100 to 125 mg/dL indicate increased risk for diabetes (prediabetes). Fasting plasma glucose results greater than or equal to 126 mg/dL meet the criteria for diagnosis of diabetes. In the absence of unequivocal hyperglycemia, results should be confirmed by repeat testing. In a patient with classic symptoms of hyperglycemia or hyperglycemic crisis, random plasma glucose results greater than or equal to 200 mg/dL meet the criteria for diagnosis of diabetes. Reference: Standards of Medical Care in Diabetes 2016, [place] Diabetes Association. Diabetes Care. 2016.39(Suppl 1). Performed By: #### 2 4323-8 #### [facility] [id number] [address] [place] [address] [place] Potassium [Moles/Vol] 3.5 mmol/L Low 3.7-5.1 [facility] Comment on above: Order Comment: Nancy munoz Type: BLOOD SPECIMEN Ordering Facility: [facility] Address: [address] [place] [id number] Performed By: #### 2 4323-8 #### [facility] CLIA [id number] [address] [place] [address] [place] Protein [Mass/Vol] 6.8 g/dL Normal 6.3-8.[address] [facility] Comment on above: Order Comment: Speci men Type: BLOOD SPECIMEN Ordering Facility: [facility] Address: [address] [place] [address] Performed By: #### 2 4323-8 #### [facility] CLIA [id number] [address] [place] [address] [place] Sodium [Moles/Vol] 141 mmol/L Normal 136-[address] [facility] Comment on above: Order Comment: Speci men Type: BLOOD SPECIMEN Ordering Facility: [facility] Address: [address] [place] [address] Performed By: #### 2 4323-8 #### [facility] CLIA [id number] [address] [place] [address] [place] Urea nitrogen [Mass/Vol] 17 mg/dL Normal 7-21 [facility] Comment on above: Order Comment: Speci men Type: BLOOD SPECIMEN Ordering Facility: [facility] Address: [address] [place] [address] Performed By: #### 2 4323-8 #### [facility] CLIA [id number] [address] [place] [address] [place] HbA1c (Bld)on 05-22-2024 Average glucose Estimated from glycated hemoglobin (Bld) [Mass/Vol] 171 mg/dL Normal [facility] Comment on above: Order Comment: Speci men Type: BLOOD SPECIMEN Ordering Facility: [facility] Address: [address] [place] [address] Result Comment: eAG: (Estimated average glucose) is a calculated value from HgbA1c and is insurance claims representative of the average blood glucose level in the last 2-3 month period. Performed By: #### 2 4323-8 #### [facility] CLIA [id number] [address] [place] [address] [place] HbA1c (Bld) [Mass fraction] 7.6 % High 4.3-5.6 [facility] Comment on above: Order Comment: Nancy munoz Type: BLOOD SPECIMEN Ordering Facility: [facility] Address: [address] [place] [address] Result Comment: [facility] Diabetes Association guidelines indicate that patients with HgbA1c in the range 5.7-6.4% are at increased risk for development of diabetes, and intervention by lifestyle modification may be beneficial. HgbA1c greater or equal to 6.5% is considered diagnostic of diabetes. Performed By: #### 2 4323-8 #### [facility] CLIA [id number] [address] [place] [address] [place] Lipid 1996 panelon 4 Cholesterol [Mass/Vol] 161 mg/dL Normal <200 [facility] Comment on above: Order Comment: Nancy munoz Type: BLOOD SPECIMEN Ordering Facility: [facility] Address: [address] [place] [address] Result Comment: <200 mg/dL, Desirable 200-239 mg/dL, Borderline high >239 mg/dL, High Performed By: #### 2 4331-1 #### [facility] CLIA [id number] [address] [facility] [id number] [place] [address] [place] [facility] CLIA [id number] [address] [place] [address] [place] Cholesterol in HDL [Mass/Vol] 46 mg/dL Normal >39 [facility] Comment on above: Order Comment: Nancy munoz Type: BLOOD SPECIMEN Ordering Facility: [facility] Address: [address] [place] [address] Result Comment: 40-5 9 mg/dL, Acceptable >59 mg/dL, High: Negative risk factor for coronary heart disease <40 mg/dL, Low: Positive risk factor for coronary heart disease Performed By: #### 2 4331-1 #### [facility] CLIA [id number] [address] [place] [address] CLIA [id number] [address] [place] [address] Cholesterol in LDL [Mass/Vol] 76 mg/dL Normal <100 [facility] Comment on above: Order Comment: Nancy munoz Type: BLOOD SPECIMEN Ordering Facility: [facility] Address: [address] [place] [address] Result Comment: <100 mg/dL, Optimal 100-129 mg/dL, Near optimal/above optimal 130-159 mg/dL, Borderline high 160-189 mg/dL, High >189 mg/dL, Very high Secondary prevention optimal LDL Cholesterol levels are recommended to be < 70 mg/dL Performed By: #### 2 4331-1 #### [facility] CLIA [id number] [address] [place] [address] [place] [facility] [id number] [address] [place] [address] [place] Cholesterol in LDL/Cholesterol in HDL [Mass ratio] 1.65 {ratio} Normal <2.54 [facility] Comment on above: Order Comment: Nancy munoz Type: BLOOD SPECIMEN Ordering Facility: [facility] Address: [address] [place] [address] Result Comment: Mason blake: 1. National Cholesterol Education Program ATP III Guideline At-A-Glance Quick Desk Reference: National Heart, Lung, and Blood [place]. National Institutes of Health. 2001: NIH Publication No. 01-3305. 2. An International Atherosclerosis Society position paper: global recommendations for the management of dyslipidemia: executive summary, Atherosclerosis. 2014: 232(2):410-413. Performed By: #### 2 4331-1 #### [facility] CLIA [id number] [address] [place] [address] [place] [facility] [id number] [address] [place] [address] [place] Cholesterol in VLDL [Mass/Vol] 39 mg/dL High <30 [facility] Comment on above: Order Comment: Speci men Type: BLOOD SPECIMEN Ordering Facility: [facility] Address: [address] [place] [address] Performed By: #### 2 4331-1 #### [facility] CLIA [id number] [address] [place] [address] [place] [facility] CLIA [id number] [address] [place] [address] [place] Cholesterol non HDL [Mass/Vol] 115 mg/dL Normal <130 [facility] Comment on above: Order Comment: Speci men Type: BLOOD SPECIMEN Ordering Facility: [facility] Address: [address] [place] [address] Result Comment: <130 mg/dL, Optimal 130-159 mg/dL, Near optimal/above optimal 160-189 mg/dL, Borderline high 190-219 mg/dL, High >219 mg/dL, Very high Secondary prevention optimal non HDL Cholesterol levels are recommended to be <100 mg/dL Performed By: #### 2 4331-1 #### [facility] CLIA [id number] [address] [place] [address] [place] [facility] CLIA [id number] [address] [place] [address] [place] Cholesterol.total/Cho lesterol in HDL [Mass ratio] 3.50 {ratio} Normal <5.10 [facility] Comment on above: Order Comment: Speci men Type: BLOOD SPECIMEN Ordering Facility: [facility] Address: [address] [place] [address] Performed By: #### 2 4331-1 #### [facility] CLIA [id number] [address] [place], [place] [id number] [place] [facility] CLIA [id number] [address] [place] [address] [place] FASTING TIME 14 hrs Normal [facility] Comment on above: Order Comment: Speci men Type: BLOOD SPECIMEN Ordering Facility: [facility] Address: [address] [place] [address] Performed By: #### 2 4331-1 #### [facility] CLIA [id number] [address] [place] [address] [place] [facility] CLIA [id number] [address] [place] [address] [place] Triglyceride [Mass/Vol] 196 mg/dL High <150 [facility] Comment on above: Order Comment: Speci men Type: BLOOD SPECIMEN Ordering Facility: [facility] Address: [address] [place] [address] Result Comment: <150 mg/dL, Normal 150-199 mg/dL, Borderline high 200-499 mg/dL, High >499 mg/dL, Very high Performed By: #### 2 4331-1 #### [facility] CLIA [id number] [address] [place] [address] [place] [facility] CLIA [id number] [address] [place] [address] [place] Abdomen/Pelvis W IV Cont ONL Yon 05-20-2024 Abdomen/Pelvis W IV Cont ONLY [facility] Imaging Services [address] [place] [address] Abdomen/Pelvis W IV Cont ONLY MR#: [id number] Acct: [id number] Name: ANAI HEBERT Rep #: [id number] : [id number] F 73 From: Saul Benson MD PCP: Dr. 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 This CT exam was performed using one or more of the following dose reduction techniques: automated exposure control, adjustment of the mA and/or kV according to patient size, and/or use of iterative reconstruction technique. CONTRAST: IV 100mL Isovue-370 COMPARISON: 04/22/2015 FINDINGS: LOWER THORAX: Unremarkable. Lung bases are clear. No cardiomegaly. No significant pericardial effusion. ABDOMEN: LIVER: Unremarkable. Homogeneous. No focal mass. GALLBLADDER AND BILE DUCTS: Unremarkable. No calcified gallstones. No gallbladder distention or wall edema. No intra- or extrahepatic biliary ductal dilation. PANCREAS: Unremarkable. No focal cystic or solid mass. SPLEEN: There is a fluid density structure in the spleen which may represent a cyst or hemangioma. ADRENALS: Unremarkable. No nodules. KIDNEYS AND URETERS: There is low-density in the cortex of the midpole of the left kidney that measures 2.2 x 1.9 cm. This does not meet the strict criteria for cyst and may represent a renal mass. Further evaluation with ultrasound may be beneficial. STOMACH AND BOWEL: There are surgical clips at the GE junction. No stomach or bowel distention. No focal inflammatory change. PELVIS: APPENDIX: No evidence of acute appendicitis. BLADDER: Unremarkable. REPRODUCTIVE: Unremarkable as visualized. No mass. ABDOMEN and PELVIS: INTRAPERITONEAL SPACE: Unremarkable. No ascites or other fluid collection. No free air. BONES/JOINTS: Unremarkable. No suspicious lytic or blastic abnormality. SOFT TISSUES: There is a fat-containing umbilical hernia. VASCULATURE: Unremarkable. Abdominal aorta is non-dilated. LYMPH NODES: Unremarkable. No enlarged lymph nodes. CT/Abdomen/Pelvis W IV Cont ONLY IMPRESSION: Low-density area in the lateral aspect of the left kidney which does not meet the criteria for simple cysts and further evaluation with ultrasound is recommended. No other acute abnormalities are seen in the abdomen or pelvis. Electronically Signed: Saul Benson MD at 0:08 EST , CC: Dr. Matt Mason MD; Dr. Griffin Stahl MD Batch Tester: Signed Normal [facility] CREATININE FINGERSTICKon Creatinine [Mass/Vol] 1.1 mg/dL High 0.55-1.02 [facility] Comment on above: Performed By: #### L 9100.0200 #### [facility] [address] [place], [place], [id number] GFR/1.73 sq M.predicted among non-blacks MDRD (S/P/Bld) [Vol rate/Area] 50.0000 mL/min/{1.73_m2} Low >60 [facility] Comment on above: Performed By: #### L 5400.0200 #### [facility] [address] [place], [place], [address] [facility] SCREENINGon 03-22-2023 [facility] EMILY SCREENINGon 03-10-2022 [facility] Absolute lymphocyte counton 08-04-2021 Lymphocytes Auto (Unsp spec) [#/Vol] 0.38 10*3/uL 0.83-4.51 [facility] Work Phone: Basophil percentageon 2021 Basophils/100 WBC (Bld) 0.0 % 0-1 [facility] Work Phone: Bilirubin [Mass/Vol] 0.60 mg/dL 0.20-1.00 [facility] Work Phone: Comment on above: For patients on eltr ombopag therapy, use of Dimension [employer] [place] TBIL is not recommended. Chloride [Moles/Vol] 113 mmol/L 98-107 [facility] Work Phone: Eosinophils/100 WBC (Bld) 0.0 % 0-5 [facility] Work Phone: Glucose [Mass/Vol] 204 mg/dL 74-106 [facility] Work Phone: Comment on above: Glucose result great er than or equal to 200 mg/dLsuggests DIABETES MELLITUS per A.D.A. criteria. Neutrophils (Bld) [#/Vol] 6.3 10*3/uL 2.0-7.7 [facility] Work Phone: Neutrophils/100 WBC (Bld) 92.3 % 47-70 [facility] Work Phone: Potassium [Moles/Vol] 4.0 mmol/L 3.5-5.1 [facility] Work Phone: Protein [Mass/Vol] 6.8 g/dL 6.4-8.2 [facility] Work Phone: Sodium [Moles/Vol] 140 mmol/L 136-145 [facility] Work Phone: WBC (Bld) [#/Vol] 6.9 10*3/uL 4.4-11.0 [facility] Work Phone: Blood erythrocytes count (nu mber/volume)on 08-04-2021 RBC (Bld) [#/Vol] 4.61 10*6/uL 4.2-5.4 [facility] Work Phone: Blood hemoglobin measurement (mass/volume)on 08-04-2021 Hemoglobin (Bld) [Mass/Vol] 13.3 g/dL 12.0-15.0 [facility] Work Phone: Blood lymphocytes/100 leukoc yteson 08-04-2021 Lymphocytes/100 WBC (Bld) 5.5 % 19-41 [facility] Work Phone: Blood manual differential co mment interpretation (narrative result)on 08-04-2021 Manual differential comment Vj (Bld) [Interp] SCANNED [facility] Work Phone: Comment on above: LYMPHOPENIA NOTED Blood monocytes/100 leukocyt eson 08-04-2021 Monocytes/100 WBC (Bld) 1.5 % 0-10 [facility] Work Phone: Blood platelet mean volumeon 08-04-2021 Platelet mean volume (Bld) [Entitic vol] 11.1 fL 6.2-12.0 [facility] Work Phone: Determination of erythrocyte mean corpuscular volume (MCV)on 08-04-2021 MCV (RBC) [Entitic vol] 88.3 fL 81-99 [facility] Work Phone: Glucose Glucometer (BldC) [M ass/Vol]on 08-04-2021 Glucose [Mass/Vol] 195 mg/dL 70-110 [facility] Work Phone: Comment on above: MANAGEMENT OF PATIEN T CARE PER NURSING PROTOCOL Hematocrit Auto (Bld) [Volum e fraction]on 08-04-2021 Hematocrit (Bld) [Volume fraction] 40.7 % 37-47 [facility] Work Phone: Laboratory - Chemistry and C hemistry - challengeon 08-04-2021 ALP [Catalytic activity/Vol] 97 U/L 45-117 [facility] Work Phone: ALT [Catalytic activity/Vol] 135 U/L 13-56 [facility] Work Phone: CO2 [Moles/Vol] 18.0 mmol/L 21.0-32.0 [facility] Work Phone: Globulin (S) [Mass/Vol] 4.2 g/dL 2.2-4.2 [facility] Work Phone: Urea nitrogen/Creatinine [Mass ratio] 20.2 mg/mg 10-20 [facility] Work Phone: Laboratory - Hematology and Cell countson 08-04-2021 Erythrocyte distribution width (RBC) [Entitic vol] 48.4 fL 35.1-43.9 [facility] Work Phone: Erythrocyte distribution width (RBC) [Ratio] 14.9 % 11.6-14.6 [facility] Work Phone: Immature granulocytes/100 WBC (Bld) 0.700 % 0.0-0.9 [facility] Work Phone: Comment on above: IG% - Immature Granu locytes (promyelocytes, myelocytes and metamyelocytes) > 1% indicates that a LEFT SHIFT is Present. MCH (RBC) [Entitic mass] 28.9 pg 27.0-32.0 [facility] Work Phone: Nucleated RBC/100 WBC (Bld) [Ratio] 0 % 0-5 [facility] Work Phone: MCHC Auto (RBC) [Mass/Vol]on 08-04-2021 MCHC (RBC) [Mass/Vol] 32.7 g/dL 32-36 [facility] Work Phone: No Panel Informationon 08-04 Estimated Creatinine Clearance Calc 74.85 ml/min [facility] Work Phone: Estimated GFR (MDRD) Amer 67 mL/min >60 [facility] Work Phone: Comment on above: GFR Calc Estimated GFR (MDRD) Non-Af Amer 56 mL/min >60 [facility] Work Phone: Comment on above: Non- GFR Calc Platelets bldon 08-04-2021 Platelets (Bld) [#/Vol] 220 10*3/uL 150-450 [facility] Work Phone: Serum or plasma albumin abdirahman urement (mass/volume)on 08-04-2021 Albumin [Mass/Vol] 2.6 g/dL 3.2-5.0 [facility] Work Phone: Serum or plasma albumin/glob ulin mass ratioon 08-04-2021 Albumin/Globulin [Mass ratio] 0.6 {ratio} 0.9-2.4 [facility] Work Phone: Serum or plasma calcium abdirahman urement (mass/volume)on 08-04-2021 Calcium [Mass/Vol] 8.8 mg/dL 8.5-10.1 [facility] Work Phone: Serum or plasma creatinine m easurement (mass/volume)on 08-04-2021 Creatinine [Mass/Vol] 1.04 mg/dL 0.55-1.02 [facility] Work Phone: Comment on above: The validity of the calculated GFR & GFRAA in patients over 70 years has not been determined. Clinical correlation is essential. Serum or plasma urea nitroge n measurement (mass/volume)on 08-04-2021 Urea nitrogen [Mass/Vol] 21 mg/dL 7-18 [facility] Work Phone: Thin prep Papanicolaou smear with manual screeningon 08-04-2021 Thin prep Papanicolaou smear with manual screening 26 U/L 15-37 [facility] Work Phone: Thin prep Papanicolaou smear with manual screening 9 5-15 [facility] Work Phone: Laboratory - Coagulationon 0 08-03-2021 aPTT Coag (Bld) [Time] 31.4 s 24.1-36.2 [facility] Work Phone: Vancomycin troughon 08-03-19 Vancomycin trough [Mass/Vol] 9.4 ug/mL 5.0-15.0 [facility] Work Phone: Comment on above: VANCOMYCIN STANDARED DRUG THERAPY TROUGH LEVEL: 5.0 - 15.0 mg/L VANCOMYCIN HIGH INTENSITY THERAPY TROUGH LEVEL: 15.0 - 20.0 mg/L High Intensity therapy recommended for serious lifethreatening infections include:- Gbyfsmecqv-Fiebtocvokpg-Yqnmwnbwp (Ventilator/Healtcare Associated)-Sepsis PLEASE CONTACT PHARMACY SERVICES (#[id number]) FOR INTERPRETATIONOF RESULTS. Amorphous sediment detection in urine sediment by light microscopyon 08-01-2021 Amorphous sediment LM Ql (Urine sed) 1+ [facility] Work Phone: Basophil percentageon 2021 Ammonia (P) [Moles/Vol] 35.0 umol/L 11-32 [facility] Work Phone: Lactate [Moles/Vol] 3.4 mmol/L 0.4-2.0 [facility] Work Phone: Comment on above: Critical Result(s) C alled at: 10:17:45 08/01/2021 by: Jf Hair. Bari Roque RN ([facility]). Results read back by same. Basophil percentage 0-5 SEEN /hpf [facility] Work Phone: Bilirubin Test strip Ql (U)o n 08-01-2021 Bilirubin Ql (U) 3 mg/dL Negative [facility] Work Phone: Comment on above: COLOR OF URINE MAY A FFECT DIPSTICK RESULTS. Culture, urineon 08-01-2021 Bacteria identified Cx Nom (U) Escherichia coli [facility] Work Phone: INR in Blood by Coagulation assayon 08-01-2021 INR Coag (Bld) [Relative time] 1.2 {INR} [facility] Work Phone: Ketones Test strip Ql (U)on 08-01-2021 Ketones Ql (U) 5 mg/dl Negative [facility] Work Phone: Laboratory - Chemistry and C hemistry - challengeon 08-01-2021 Lipase [Catalytic activity/Vol] 81454 U/L 73-393 [facility] Work Phone: Laboratory - Coagulationon 0 08-01-2021 PT Coag (PPP) [Time] 14.6 s 11.7-14.9 [facility] Work Phone: Laboratory - Microbiology an d Antimicrobial susceptibilityon 08-01-2021 Bacteria identified Cx Nom (Bld) Presumptive E. coli [facility] Work Phone: Bacteria identified Cx Nom (Bld) Escherichia coli [facility] Work Phone: Mucus LM Ql (Urine sed)on Mucus Ql (Urine sed) 0 SEEN /hpf [facility] Work Phone: Nitrite Test strip Ql (U)on 08-01-2021 Nitrite Ql (U) Negative Negative [facility] Work Phone: No Panel Informationon 08-01 Hepatitis A IgM Antibody Negative Negative [facility] Work Phone: Hepatitis B Core IgM Antibody Negative Negative [facility] Work Phone: Hepatitis C Antibody (EIA) <0.1 s/co ratio [facility] Work Phone: Comment on above: Negative: < 0.8 Inde terminate: 0.8 - 0.9 Positive: > 0.9 The CDC recommends that a positive HCV antibody result be followed up with a HCV Nucleic Acid Amplification test (243422).Effective August 30, 2021 Hepatitis Panel (4) will be made non-orderable. [employer] offers order code [id number] Acute Hepatitis.Performed at: [facility] [address] [id number] Director: Dale Lipscomb PhD, Phone: [phone] SARS-CoV-2 Antigen (Rapid) [facility] Work Phone: Troponin I High Sensitivity 14 pg/mL 3.0-54.0 [facility] Work Phone: Comment on above: Please Note: New Bria t Units and Gender Specific Reference Ranges. For more information see Policy Stat Procedure [employer] [place] High Sensitivity Troponin (TNIH) and attachments. Protein Test strip Ql (U)on 08-01-2021 Protein Ql (U) 30 mg/dl Negative [facility] Work Phone: Review by pathologiston 07-20 Pathologist review Vj (Unsp spec) [Interp] Reviewed [facility] Work Phone: Comment on above: Previous reported re sult: October jessica Edited by: RGOOD on 08/02/21:1405Neutrophilic leukocytosis.Clinical correlation necessary.Pa Mason M.D. 08/02/21 AMENDED REPORT 08/02/21 1405 PATH REV previously reported as: Cheli lopez Serum or plasma acetone abdirahman urement (mass/volume)on 08-01-2021 Acetone [Mass/Vol] Negative NEG [facility] Work Phone: Serum or plasma hepatitis B virus surface antigen detection by immunoassayon 08-01-2021 HBV surface Ag IA Ql Negative Negative [facility] Work Phone: Serum procalcitonin measurem enton 08-01-2021 Procalcitonin [Mass/Vol] 25.48 ng/mL 0.00-0.09 [facility] Work Phone: Comment on above: A procalcitonin (PCT ) level above 2.0 ng/mL on the first day of ICU admission is associated with a high risk for progression to severe sepsis and/or septic shock. A PCT level below 0.5 ng/mL on the first day of ICU admission is associated with a low risk for progression to severe and/or septic shock. Note: Concentrations <0.5 ng/mL do not exclude an infection on account of localized infections (without systemic signs) which can be associated with such low concentrations, or a systemic infection in its initial stages (<6 hours). Furthermore, increased procalcitonin can occur without infection. PCT concentrations between 0.5 and 2.0 ng/mL should be interpreted taking into account the patient's history. It is recommended to retest PCT within 6-24 hours if any concentrations <2 ng/mL are obtained. Squamous epithelial cells de tection in urine sediment by light microscopyon 08-01-2021 Epithelial cells.squamous LM Ql (Urine sed) 0 SEEN /hpf [facility] Work Phone: Urine blood detectionon 07-20 RBC Ql (U) 25 /ul Negative [facility] Work Phone: RBC Ql (U) 0-5 SEEN /hpf [facility] Work Phone: Urine clarityon 08-01-2021 Clarity (U) Sl. Cloudy Clear [facility] Work Phone: Urine color determinationon 08-01-2021 Color (U) Yellow Yellow [facility] Work Phone: Urine glucose detectionon Glucose Ql (U) 1000 mg/dl Normal [facility] Work Phone: Urine leukocyte esterase det ection by dipstickon 08-01-2021 Leukocyte esterase Test strip Ql (U) 25 /ul Negative [facility] Work Phone: Urine pHon 08-01-2021 pH (U) 5.0 [pH] [facility] Work Phone: Urine sediment bacteria coun t by microscopy (number/high power field)on 08-01-2021 Bacteria LM.HPF (Urine sed) [#/Area] 4 /[HPF] None Seen [facility] Work Phone: Urine sediment renal epithel ial cell count by microscopy (number/high power field)on 08-01-2021 Epithelial cells.renal LM.HPF (Urine sed) [#/Area] 0 /[HPF] [facility] Work Phone: Urine specific gravity measu rementon 08-01-2021 Specific gravity (U) [Rel density] 1.015 [facility] Work Phone: Urobilinogen Auto test strip Ql (U)on 08-01-2021 Urobilinogen Ql (U) 4 mg/dl Normal [facility] Work Phone: Whole blood hemoglobin A1c/t otal hemoglobin ratio (mass fraction)on 08-01-2021 HbA1c (Bld) [Mass fraction] 7.6 % 3.8-5.6 [facility] Work Phone: Comment on above: Normal < 5.7 % Predi abetic 5.7 - 6.4 % Diabetic >or= 6.5 % Please note range changes. Vital Signs Date Time Vital Sign Value Performing Clinician Facility 12-02-2024 07:12-0400 Diastolic blood pressure 96 mm[Hg] Janelle Cherry APRN.PORTER SAMPLE CASE Work Phone: [facility] 12-02-2024 07:12-0400 Heart rate 51 /min Janelle Cherry APRN.[employer]TER [employer] Work Phone: [facility] 12-02-2024 07:12-0400 Systolic blood pressure 204 mm[Hg] Janelle Cherry CADD MANAGER.[employer] Work Phone: [facility] 12-02-2024 07:04-0400 Body mass index (BMI) [Ratio] 36.98 kg/m2 Janelle Olivos CADD MANAGER.[employer] Work Phone: [facility] 12-02-2024 07:04-0400 Body weight 85.9 kg Janelle Olivos CADD MANAGER.[employer] Work Phone: [facility] 12-02-2024 07:04-0400 Respiratory rate 16 /min Janelle Cherry CADD MANAGER.[employer] Work Phone: [facility] 05-31-2024 15:01-0500 Diastolic blood pressure 80 mm[Hg] Griffin Stahl MD Work Phone: [facility] 05-31-2024 15:01-0500 Systolic blood pressure 158 mm[Hg] Griffin Stahl MD Work Phone: [facility] 05-31-2024 13:39-0500 Body height 152.4 cm Griffin Stahl MD Work Phone: [facility] 05-31-2024 13:39-0500 Body mass index (BMI) [Ratio] 38.02 kg/m2 Griffin Stahl MD Work Phone: [facility] 05-31-2024 13:39-0500 Body weight 88.3 kg Griffin Stahl MD Work Phone: [facility] 05-31-2024 13:39-0500 Heart rate 68 /min Griffin Stahl MD Work Phone: [facility] 05-31-2024 13:39-0500 Respiratory rate 14 /min Griffin Stahl MD Work Phone: [facility] 05-31-2024 13:39-0500 SaO2% (BldA) [Mass fraction] 100 % Griffin Stahl MD Work Phone: [facility] 12-11-2023 09:25-0400 Diastolic blood pressure 82 mm[Hg] Janellejulian Cherry CADD MANAGER.PORTER [employer] Work Phone: [facility] Comment on above: bp average 12-11-2023 09:25-0400 Heart rate 66 /min Janelle Cherry CADD MANAGER.[employer] Work Phone: [facility] 12-11-2023 09:25-0400 Systolic blood pressure 154 mm[Hg] Janelle Cherry CADD MANAGER.[employer] Work Phone: [facility] Comment on above: bp average 12-11-2023 09:24-0400 Body mass index (BMI) [Ratio] 38.47 kg/m2 Janelle Cherry CADD MANAGER.[employer] Work Phone: [facility] 12-11-2023 09:24-0400 Body weight 89.36 kg Janelle Cherry CADD MANAGER.PORTER [employer] Work Phone: [facility] 12-11-2023 09:24-0400 Respiratory rate 16 /min Janelle Cherry CADD MANAGER.PORTER [employer] Work Phone: [facility] 01-16-2023 09:24-0400 Body temperature 97.9 [degF] Janelle Cherry CADD MANAGER.PORTER [employer] Work Phone: [facility] 01-16-2023 09:24-0400 Body weight 91.63 kg Janelle Cherry CADD MANAGER.PORTER [employer] Work Phone: [facility] 01-16-2023 09:24-0400 Diastolic blood pressure 88 mm[Hg] Janelle Cherry CADD MANAGER.PORTER [employer] Work Phone: [facility] 01-16-2023 09:24-0400 Heart rate 67 /min Janelle Cherry CADD MANAGER.PORTER [employer]AMPLE [employer] Work Phone: [facility] 01-16-2023 09:24-0400 Respiratory rate 18 /min Janelle Cherry CADD MANAGER.[employer] Work Phone: [facility] 01-16-2023 09:24-0400 SaO2% (BldA) [Mass fraction] 98 % Janelle Cherry CADD MANAGER.[employer]TER [employer] Work Phone: [facility] 01-16-2023 09:24-0400 Systolic blood pressure 142 mm[Hg] Janelle Cherry CADD MANAGER.PORTER [employer]AMPLE [employer] Work Phone: [facility] 05-17-2022 09:02-0500 Body weight 91.63 kg Janelle Cherry CADD MANAGER.POR[employer] Work Phone: [facility] 05-17-2022 09:02-0500 Diastolic blood pressure 92 mm[Hg] Janelle Cherry CADD MANAGER.PORTER [employer]AMPLE CASE Work Phone: [facility] 05-17-2022 09:02-0500 Heart rate 60 /min Janelle Cherry CADD MANAGER.PORTER [employer]AMPLE CASE Work Phone: [facility] 05-17-2022 09:02-0500 Respiratory rate 16 /min Janelle Cherry CADD MANAGER.PORTER [employer]AMPLE [employer] Work Phone: [facility] 05-17-2022 09:02-0500 Systolic blood pressure 144 mm[Hg] Janelle Cherry CADD MANAGER.PORTER SAMPLE CASE Work Phone: [facility] 12-13-2021 09:11-0400 Diastolic blood pressure 78 mm[Hg] Griffin Stahl MD Work Phone: [facility] 12-13-2021 09:11-0400 Systolic blood pressure 142 mm[Hg] Griffin Stahl MD Work Phone: [facility] 12-13-2021 08:38-0400 Body weight 91.17 kg Griffin Stahl MD Work Phone: [facility] 12-13-2021 08:38-0400 Heart rate 63 /min Griffin Stahl MD Work Phone: [facility] 12-13-2021 08:38-0400 SaO2% (BldA) [Mass fraction] 100 % Griffin Stahl MD Work Phone: [facility] 08-04-2021 10:40-0500 Body temperature 97.8 [degF] Dr. Griffin Stahl Work Phone: [facility] Work Phone: 08-04-2021 10:40-0500 Diastolic blood pressure 82 mm[Hg] Dr. Griffin Stahl Work Phone: [facility] Work Phone: 08-04-2021 10:40-0500 Heart rate 79 /min Dr. Griffin Stahl Work Phone: [facility] Work Phone: 08-04-2021 10:40-0500 Respiratory rate 18 /min Dr. Griffin Stahl Work Phone: [facility] Work Phone: 08-04-2021 10:40-0500 SaO2% (BldA) [Mass fraction] 98 % Dr. Griffin Stahl Work Phone: [facility] Work Phone: 08-04-2021 10:40-0500 Systolic blood pressure 165 mm[Hg] Dr. Griffin Stahl Work Phone: [facility] Work Phone: 08-04-2021 03:45-0500 Body weight 94.[address] Griffin Stahl Work Phone: [facility] Work Phone: 08-03-2021 08:16-0500 Body height 151.[address] Griffin Stahl Work Phone: [facility] Work Phone: 08-03-2021 08:16-0500 Body mass index (BMI) [Ratio] 40.6 kg/m2 Dr. 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 Griffin Stahl MD Work Phone: [facility] Work Phone: Start: 11-26-2024 End: 11-26-[address] Matt Mason MD -Cat Scan [facility] Work Phone: Start: 11-26-2024 End: 11-26-2024 ambulatory Matt Mason Facility:[facility] Start: 11-12-2024 End: 12-13-2024 ambulatory Griffin Stahl MD Work Phone: [facility] Start: 05-31-2024 End: 05-31-2024 ambulatory GRIFFIN STAHL Facility:[facility] Start: 05-31-2024 End: 05-31-2024 Patient encounter procedure Griffin Stahl MD Work Phone: [facility] Comment on above: Medicare annual well ness visit, subsequent (Primary Dx); 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, without long-term current use of insulin (HCC); White coat syndrome with diagnosis of hypertension; Mixed hyperlipidemia; Vitamin D deficiency; Class 2 obesity due to excess calories with body mass index (BMI) of 38.0 to 38.9 in adult, unspecified whether serious comorbidity present; Nocturia more than twice per night; Albuminuria; Encounter for immunization Start: 05-22-2024 End: 05-22-2024 Get Medical Advice Griffin Stahl MD Work Phone: [facility] Comment on above: Lab orders Start: 05-20-2024 End: 05-20-2024 ambulatory Matt Mason Facility:[facility] Start: 05-02-2024 End: 05-02-2024 Refill Rachel Shonna CADD MANAGER.[employer]OBJ DEVELOPER Work Phone: [facility] Comment on above: Refill Request Start: 02-14-2024 End: 02-14-2024 Refill Janelle Cherry CADD MANAGER.PORTER [employer]AMPLE CASE Work Phone: [facility] Comment on above: Refill Request Start: 01-17-2024 Refill Janelle Cherry CADD MANAGER.PORTER SAMPLE CASE Work Phone: Pharm [facility] Comment on above: Refill Request Start: 12-11-2023 End: 12-11-2023 Office outpatient visit 25 minutes Janelle Olivos CADD MANAGER.PORTER SAMPLE CASE Work Phone: Internal [facility] [place] Comment on above: Type 2 diabetes lamonte itus with microalbuminuria, without long- term current use of insulin (HCC) (Primary Dx); Class 3 severe obesity due to excess calories with body mass index (BMI) of 40.0 to 44.9 in adult, unspecified whether serious comorbidity present (HCC); Primary hypertension; Mixed hyperlipidemia; Acute cough; Encounter for screening mammogram for breast cancer Start: 10-16-2023 Refill Rachel Shonna CADD MANAGER.SAP BOBJ DEVELOPER Work Phone: [facility] Comment on above: Refill Request Start: 05-18-2023 Refill Janelle Cherry CADD MANAGER.PORTER SAMPLE CASE Work Phone: Internal [facility] Comment on above: Refill Request Start: 05-14-2023 Refill Janelle Cherry CADD MANAGER.PORTER SAMPLE CASE Work Phone: Internal [facility] [place] Comment on above: Refill Request Start: 03-22-2023 Documentation procedure Mammog wilfrid Coordinator [facility] Start: 03-22-2023 Letter encounter Mammography Coordinator [facility] Start: 03-22-2023 End: 03-22-2023 Subsequent hospital visit by physician Screen Mammo [facility] Comment on above: Encounter for screen ing mammogram for breast cancer [Z12.31] Start: 03-18-2023 Refill Rachel Shonna KRISTEN.SAP BOBJ DEVELOPER Work Phone: [facility] Comment on above: Refill Request Start: 03-11-2023 Refill Rachel Shonna CADD MANAGER.SAP BOBJ DEVELOPER Work Phone: [facility] Comment on above: Refill Request Start: 02-27-2023 ambulatory Sheron Diaz [facility] [place] Comment on above: Population Health Na vigation Outreach ([employer] Care Gaps 9.1.23) Start: 01-16-2023 End: 01-16-2023 Office outpatient visit 25 minutes Janelle Cherry APRN.PORTER SAMPLE CASE Work Phone: Internal [facility] [place] Comment on above: Type 2 diabetes lamonte itus with microalbuminuria, without long- term current use of insulin (HCC) (Primary Dx); Class 2 severe obesity due to excess calories with serious comorbidity and body mass index (BMI) of 39.0 to 39.9 in adult (HCC); Secondary hyperparathyroidism of renal origin (HCC); Mixed hyperlipidemia; Primary hypertension; Encounter for immunization; Need for shingles vaccine; Encounter for screening mammogram for breast cancer; Screening for colon cancer Start: 11-17-2022 Refill Rachel Shonna CADD MANAGER.SAP BOBJ DEVELOPER Work Phone: [facility] Comment on above: Refill Request Start: 11-13-2022 Refill Rachel Shonna CADD MANAGER.SAP BOBJ DEVELOPER Work Phone: [facility] Comment on above: Refill Request Start: 10-25-2022 ambulatory Munira Gage (Pss) [facility] [place] Comment on above: Population Health Na vigation Outreach ([employer] Care Gaps) Start: 07-20-2022 Refill Janelle Cherry APRN.PORTER SAMPLE CASE Work Phone: [facility] Comment on above: Refill Request Start: 05-24-2022 Orders Only Janelle Cherry APRN.PORTER SAMPLE CASE Work Phone: [facility] [place] Comment on above: 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, without long-term current use of insulin (HCC) (Primary Dx); Essential hypertension; Vitamin D deficiency Start: 05-17-2022 End: 05-17-2022 Office outpatient visit 25 minutes Janelle Cherry APRRADHA Work Phone: [facility] [place] Comment on above: Type 2 diabetes lamonte itus with microalbuminuria, without long- term current use of insulin (HCC) (Primary Dx); Screening for diabetic retinopathy; Encounter for immunization; Primary hypertension; Mixed hyperlipidemia Start: 05-05-2022 ambulatory Beryl Cresp[facility] [place] Comment on above: Population Health Na vigation Outreach ([employer] care cap) Start: 03-19-2022 Refill Griffin phelan MD Work Phone: [facility] Comment on above: Refill Request Start: 03-10-2022 Documentation procedure Mammog wilfrid Coordinator [facility] Start: 03-10-2022 Letter encounter Mammography Coordinator [facility] Start: 03-10-2022 End: 03-10-2022 Subsequent hospital visit by physician Screen Mammo [facility] Comment on above: Breast cancer screen ing by mammogram [Z12.31] Start: 12-13-2021 End: 12-13-2021 Office outpatient visit 25 minutes Griffin Stahl MD Work Phone: [facility] [place] Comment on above: Type 2 diabetes lamonte itus with microalbuminuria, without long- term current use of insulin (HCC) (Primary Dx); Class 2 severe obesity due to excess calories with serious comorbidity and body mass index (BMI) of 39.0 to 39.9 in adult (HCC); Breast cancer screening by mammogram; Need for vaccination; Vitamin D deficiency; High triglycerides; Essential hypertension Start: 11-16-2021 Refill Griffin phelan MD Work Phone: [facility] Comment on above: Refill Request Start: 11-11-2021 ambulatory Munira (Yasmeen Gage [facility] [place] Comment on above: Population Health Na vigation Outreach ([employer] Care Gaps) Start: 09-10-2021 End: 09-10-[address] Griffin Stahl Work Phone: [facility] Start: 08-18-2021 End: 08-18-[address] Griffin Stahl Work Phone: [facility] Start: 08-04-2021 Non-patient / Non-visit Dr. Jocy Stahl Work Phone: [facility] Start: 08-03-2021 Non-patient / Non-visit Dr. Jocy Stahl Work Phone: [facility] Start: 08-03-2021 Non-patient / Non-visit Dr. Jocy Stahl Work Phone: [facility] Start: 08-02-2021 Non-patient / Non-visit Dr. Jocy Stahl Work Phone: [facility] Start: 08-01-2021 Non-patient / Non-visit Dr. Jocy Stahl Work Phone: [facility] Start: 08-01-2021 Non-patient / Non-visit Dr. Jocy Stahl Work Phone: [facility] Start: 08-01-2021 End: 08-04-2021 Evaluation and management of inpatient Dr. Griffin Stahl Work Phone: [facility] Procedures Date Procedure Procedure Detail Performing Clinician Start: 11-26-[address] Griffin Stahl MD Work Phone: Start: 11-26-2024 Computed tomography of abdomen and pelvis with contrast Dr. Griffin Stahl MD Work Phone: Start: 12-11-2023 Adult depression screening assessment Janelle Cherry APRN.PORTER SAMPLE CASE Work Phone: Start: 03-22-2023 Screening mammography bi 2-view breast inc arely Cherry APRN.PORTER SAMPLE CASE Work Phone: Start: 03-10-2022 End: 03-10-2022 Screening mammography bi 2-view breast inc arely Stahl MD Work Phone: Start: 09-10-[address] Griffin Stahl Work Phone: Start: 08-03-2021 End: 08-03-[address] Griffin Stahl Work Phone: Start: 08-03-2021 O.R. Fluoro for C-Arm Dr. Griffin Stahl Work Phone: Start: 08-02-[address] Griffin Stahl Work Phone: Start: 08-02-[address] Griffin delong Work Phone: Start: 08-01-2021 Bacteria identified in Blood by Culture Dr. Griffin Stahl Work Phone: Start: 08-01-2021 SARS-CoV-2 Antigen (Rapid) Dr. Griffin delong Work Phone: Start: 08-01-[address] Griffin Stahl Work Phone: Start: 08-01-2021 CT of abdomen and pelvis without contrast Dr. Griffin Stahl Work Phone: Start: 08-01-2021 CT cervical spine without contrast Dr. Rahul Stahl Work Phone: Start: 08-01-2021 CT of head without contrast Dr. Griffin guzman Work Phone: Start: 08-01-2021 Plain chest X-ray Dr. Griffin Stahl Work Phone: Start: 04-26-2021 Adult depression screening assessment Munira Dopart Start: 09-21-2020 Mammography Munira Dopart Start: 07-03-2012 Colonoscopy Munira Dopa Plan of Treatment Date Care Activity Detail Author Start: 01-19-2026 COLOGUARD (FIT-DNA) COLOGUARD (FIT-D NA) [facility] Start: 01-19-2026 COLORECTAL CANCER SCREENING COLORECTAL CANCER SCREENING [facility] Start: 01-19-2026 Screening for malign ant neoplasm of colon [facility] Start: 12-02-2025 End: 03-03-2026 CBC W Auto Differential panel - Blood COMPLETE BLOOD COUNT AND DIFFERENTIAL Lab Routine 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, without long-term current use of insulin (HCC) Expected: 12/02/2025 (Approximate), Expires: 03/03/2026 [facility] Comment on above: Expected: 12/02/2025 (Approximate), Expires: 03/03/2026 Start: 12-02-2025 End: 03-03-2026 Comprehensive metabolic 2000 panel - Serum or Plasma COMPREHENSIVE METABOLIC PANEL Lab Routine 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, without long-term current use of insulin (HCC) Expected: 12/02/2025 (Approximate), Expires: 03/03/2026 [facility] Comment on above: Expected: 12/02/2025 (Approximate), Expires: 03/03/2026 Start: 12-02-2025 End: 03-03-2026 Hemoglobin A1c in Blood HEMOGLOBIN A1C Lab Routine 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, without long-term current use of insulin (HCC) Expected: 12/02/2025 (Approximate), Expires: 03/03/2026 [facility] Comment on above: Expected: 12/02/2025 (Approximate), Expires: 03/03/2026 Start: 12-02-2025 End: 03-03-2026 Lipid 1996 panel - Serum or Plasma LIPID PANEL, FASTING Lab Routine 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, without long-term current use of insulin (HCC) Expected: 12/02/2025 (Approximate), Expires: 03/03/2026 [facility] Comment on above: Expected: 12/02/2025 (Approximate), Expires: 03/03/2026 Start: 12-02-2025 End: 03-03-2026 Microalbumin/Creatinine [Mass Ratio] in Urine ALBUMIN/CREATININE RATIO, URINE Lab Routine 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, without long-term current use of insulin (HCC) Expected: 12/02/2025 (Approximate), Expires: 03/03/2026 [facility] Work Phone: Comment on above: Expected: 12/02/2025 (Approximate), Expires: 03/03/2026 Start: 11-26-2025 Hepatitis B screening Urine Al bumin:Creatinine Ratio [facility] Start: 11-26-2025 Hepatitis B surface antibody level LDL Cholesterol [facility] Start: 06-11-2025 End: 06-11-2025 Patient encounter procedure 06/11/2025 9:00 AM EST Office Visit [facility] [address] [place] [id number] Griffin Stahl MD [address] [place] [address] medicare wellness exam [facility] [place] Comment on above: medicare wellness ex am Start: 05-31-2025 Annual PCP Team Campus Recruiter ekta Disease Visit Annual PCP Team Chronic Disease Visit [facility] Start: 05-28-2025 Hemoglobin A1c measurement HbA1C [facility] Start: 05-22-2025 Hepatitis B screening Urine Al bumin:Creatinine Ratio [facility] Start: 05-22-2025 Hepatitis B surface antibody level LDL Cholesterol [facility] Start: 05-19-2025 End: 08-18-2025 25-hydroxyvitamin D3 [Mass/volume] in Serum or Plasma VITAMIN D 25 HYDROXY Lab Routine Vitamin D deficiency Expected: 05/19/2025 (Approximate), Expires: 08/18/2025 [facility] Comment on above: Expected: 05/19/2025 (Approximate), Expires: 08/18/2025 Start: 05-19-2025 End: 08-18-2025 CBC panel - Blood by Automated count COMPLETE BLOOD COUNT Lab Routine 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, without long-term current use of insulin (HCC) Expected: 05/19/2025 (Approximate), Expires: 08/18/2025 [facility] Comment on above: Expected: 05/19/2025 (Approximate), Expires: 08/18/2025 Start: 05-19-2025 End: 08-18-2025 Comprehensive metabolic 2000 panel - Serum or Plasma COMPREHENSIVE METABOLIC PANEL Lab Routine 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, without long-term current use of insulin (HCC) Expected: 05/19/2025 (Approximate), Expires: 08/18/2025 [facility] Comment on above: Expected: 05/19/2025 (Approximate), Expires: 08/18/2025 Start: 05-19-2025 End: 08-18-2025 Hemoglobin A1c in Blood HEMOGLOBIN A1C Lab Routine 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, without long-term current use of insulin (HCC) Expected: 05/19/2025 (Approximate), Expires: 08/18/2025 [facility] Comment on above: Expected: 05/19/2025 (Approximate), Expires: 08/18/2025 Start: 05-19-2025 End: 08-18-2025 Lipid 1996 panel - Serum or Plasma LIPID PANEL BASIC Lab Routine 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, without long-term current use of insulin (HCC) Mixed hyperlipidemia Expected: 05/19/2025 (Approximate), Expires: 08/18/2025 [facility] Comment on above: Expected: 05/19/2025 (Approximate), Expires: 08/18/2025 Start: 05-19-2025 End: 08-18-2025 Microalbumin/Creatinine [Mass Ratio] in Urine ALBUMIN/CREATININE RATIO, URINE Lab Routine 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, without long-term current use of insulin (HCC) Expected: 05/19/2025 (Approximate), Expires: 08/18/2025 [facility] Comment on above: Expected: 05/19/2025 (Approximate), Expires: 08/18/2025 Start: 03-25-2025 Glaucoma screening Dilated Retinal E xam [facility] Start: 02-17-2025 Influenza vaccination Influenz a Vaccine (Season Ended) [facility] Start: 12-16-2024 Influenza vaccination Influenza Vacc ine (#1) [facility] Comment on above: Postponed from 02/17 (Declined at this time) Start: 12-10-2024 Depression Screening Depression Scre ening [facility] Start: 12-10-2024 Diabetic foot examination Diabetic Foot Exam [facility] Start: 12-05-2024 Hepatitis B screening Urine Al bumin:Creatinine Ratio [facility] Start: 12-05-2024 Hepatitis B surface antibody level LDL Cholesterol [facility] Start: 11-29-2024 End: 11-29-2024 Patient encounter procedure 11/29/2024 7:00 AM EDT Office Visit [facility] [address] [place] [address] Janelle Cherry APRN.PORTER SAMPLE CASE [address] [place] [id number] 6 month follow up [facility] [place] Comment on above: 6 month follow up Start: 11-20-2024 Hemoglobin A1c measurement HbA1C [facility] Start: 10-29-2024 End: 01-28-2025 25-hydroxyvitamin D3 [Mass/volume] in Serum or Plasma VITAMIN D 25 HYDROXY Lab Routine 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, without long-term current use of insulin ([facility]) Vitamin D deficiency Expected: 10/29/2024 (Approximate), Expires: 01/28/2025 [facility] Comment on above: Expected: 10/29/2024 (Approximate), Expires: 01/28/2025 Start: 10-29-2024 End: 01-28-2025 CBC panel - Blood by Automated count COMPLETE BLOOD COUNT Lab Routine 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, without long-term current use of insulin (HCC) White coat syndrome with diagnosis of hypertension Expected: 10/29/2024 (Approximate), Expires: 01/28/2025 [facility] Comment on above: Expected: 10/29/2024 (Approximate), Expires: 01/28/2025 Start: 10-29-2024 End: 01-28-2025 Comprehensive metabolic 2000 panel - Serum or Plasma COMPREHENSIVE METABOLIC PANEL Lab Routine 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, without long-term current use of insulin (HCC) White coat syndrome with diagnosis of hypertension Expected: 10/29/2024 (Approximate), Expires: 01/28/2025 [facility] Comment on above: Expected: 10/29/2024 (Approximate), Expires: 01/28/2025 Start: 10-29-2024 End: 01-28-2025 Hemoglobin A1c in Blood HEMOGLOBIN A1C Lab Routine 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, without long-term current use of insulin (HCC) White coat syndrome with diagnosis of hypertension Expected: 10/29/2024 (Approximate), Expires: 01/28/2025 [facility] Comment on above: Expected: 10/29/2024 (Approximate), Expires: 01/28/2025 Start: 10-29-2024 End: 01-28-2025 Lipid 1996 panel - Serum or Plasma LIPID PANEL BASIC Lab Routine 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, without long-term current use of insulin (HCC) White coat syndrome with diagnosis of hypertension Expected: 10/29/2024 (Approximate), Expires: 01/28/2025 [facility] Work Phone: Comment on above: Expected: 10/29/2024 (Approximate), Expires: 01/28/2025 Start: 10-29-2024 End: 01-28-2025 Microalbumin/Creatinine [Mass Ratio] in Urine ALBUMIN/CREATININE RATIO, URINE Lab Routine 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, without long-term current use of insulin (HCC) White coat syndrome with diagnosis of hypertension Expected: 10/29/2024 (Approximate), Expires: 01/28/2025 [facility] Comment on above: Expected: 10/29/2024 (Approximate), Expires: 01/28/2025 Start: 10-29-2024 End: 01-28-2025 Urinalysis complete panel - Urine URINALYSIS, WITH MICROSCOPIC Lab Routine 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, without long-term current use of insulin (HCC) White coat syndrome with diagnosis of hypertension Expected: 10/29/2024 (Approximate), Expires: 01/28/2025 [facility] Comment on above: Expected: 10/29/2024 (Approximate), Expires: 01/28/2025 Start: 06-19-2024 Advance Directive Discussion Advance Directive Discussion [facility] Start: 06-19-2024 Medicare Advantage Annual Wellness Visit Medicare Advantage Annual Wellness Visit [facility] Start: 06-14-2024 Annual PCP Team Campus Recruiter ekta Disease Visit Annual PCP Team Chronic Disease Visit [facility] Start: 06-14-2024 Covid-19 Vaccine ( season) Covid-19 Vaccine () [facility] Comment on above: Postponed from 02/17 (Declined at this time) Start: 06-11-2024 End: 09-10-2024 Hemoglobin A1c in Blood HEMOGLOBIN A1C Lab Routine Type 2 diabetes mellitus with microalbuminuria, without long-term current use of insulin (HCC) Expected: 06/11/2024 (Approximate), Expires: 09/10/2024 [facility] Comment on above: Expected: 06/11/2024 (Approximate), Expires: 09/10/2024 Start: 06-06-2024 Hemoglobin A1c measurement HbA1C [facility] Start: 06-06-2024 Hepatitis B screening Urine Al bumin:Creatinine Ratio [facility] Start: 06-06-2024 Hepatitis B surface antibody level LDL Cholesterol [facility] Start: 05-31-2024 End: 05-31-2024 Patient encounter procedure 05/31/2024 2:00 PM EST Office Visit [facility] [address] [place], [place] [id number] Griffin Stahl MD [address] [place], [place] [id number] 2 yr [facility] Medicine [place] Comment on above: 2 yr Start: 05-22-2024 End: 08-21-2024 Lipid 1996 panel - Serum or Plasma [facility] Comment on above: Expected: 05/22/2024 , Expires: 08/21/2024 Start: 05-22-2024 End: 08-21-2024 Microalbumin/Creatinine [Mass Ratio] in Urine [facility] Work Phone: Comment on above: Expected: 05/22/2024 , Expires: 08/21/2024 Start: 03-22-2024 Mammography Mammogram Screening [facility] Start: 03-22-2024 Screening for malign ant neoplasm of breast Mammogram Screening [facility] Start: 02-22-2024 Glaucoma screening Dilated Retinal E xam [facility] Start: 02-22-2024 Hepatitis C antibody , confirmatory test DILATED RETINAL EXAM [facility] Start: 02-18-2024 Covid-19 Vaccine ( season) Covid-19 Vaccine ( season) [facility] Start: 02-18-2024 Influenza vaccination [facility] Start: 01-17-2024 3 comp foot exam completed DIABETIC FOOT EXAM [facility] Start: 01-17-2024 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 ANNUAL PCP TEAM CHRONIC DISEASE VISIT [facility] Start: 01-17-2024 BP CONTROLLED (<130/80) BP CONTROLLE D (<130/80) [facility] Start: 01-17-2024 Diabetic foot examination Diabetic Foot Exam [facility] Start: 01-07-2024 Hepatitis B surface antibody level LDL CHOLESTEROL [facility] Start: 12-11-2023 End: 12-11-2023 Patient encounter procedure 12/11/2023 9:00 AM EDT Office Visit [facility] [address] [place] [address] Janelle Cherry APRN.PORTER SAMPLE CASE [address] [place] [address] 6 mth [facility] [place] Comment on above: 6 mth Start: 12-06-2023 Hemoglobin A1c measurement HbA1C [facility] Start: 08-18-2023 End: 01-15-2024 ALBUMIN/CREAT RATIO RND UR ALBUMIN/CREAT RATIO RND UR Lab Routine Type 2 diabetes mellitus with microalbuminuria, without long-term current use of insulin (HCC) Expected: 08/18/2023 (Approximate), Expires: 01/15/2024 [facility] Work Phone: Comment on above: Expected: 08/18/2023 (Approximate), Expires: 01/15/2024 Start: 08-18-2023 End: 01-15-2024 CBC W Auto Differential panel - Blood CBC + DIFF Lab Routine Type 2 diabetes mellitus with microalbuminuria, without long-term current use of insulin (HCC) Expected: 08/18/2023 (Approximate), Expires: 01/15/2024 [facility] Work Phone: Comment on above: Expected: 08/18/2023 (Approximate), Expires: 01/15/2024 Start: 08-18-2023 End: 01-15-2024 Comprehensive metabolic 2000 panel - Serum or Plasma COMP METABOLIC PANEL Lab Routine Type 2 diabetes mellitus with microalbuminuria, without long-term current use of insulin (HCC) Expected: 08/18/2023 (Approximate), Expires: 01/15/2024 [facility] Work Phone: Comment on above: Expected: 08/18/2023 (Approximate), Expires: 01/15/2024 Start: 08-18-2023 End: 01-15-2024 Hemoglobin A1c in Blood HGB A1C Lab Routine Type 2 diabetes mellitus with microalbuminuria, without long-term current use of insulin (HCC) Expected: 08/18/2023 (Approximate), Expires: 01/15/2024 [facility] Work Phone: Comment on above: Expected: 08/18/2023 (Approximate), Expires: 01/15/2024 Start: 08-18-2023 End: 01-15-2024 Lipid 1996 panel - Serum or Plasma LIPID PANEL BASIC Lab Routine Type 2 diabetes mellitus with microalbuminuria, without long-term current use of insulin (HCC) Expected: 08/18/2023 (Approximate), Expires: 01/15/2024 [facility] Work Phone: Comment on above: Expected: 08/18/2023 (Approximate), Expires: 01/15/2024 Start: 07-09-2023 Hemoglobin A1c/Hemoglobin.total in Blood HBA1C [facility] Start: 06-19-2023 Advance Directive Discussion Advance Directive Discussion [facility] Start: 06-19-2023 Behavioral Health Screening Behavioral Health Screening [facility] Start: 05-17-2023 COVID-19 VACCINE (3 - Booster for Pfizer series) COVID-19 VACCINE (3 - Booster for Pfizer series) [facility] Comment on above: Postponed from 12/10 (Declined at this time) Start: 05-17-2023 COVID-19 VACCINE (3 - Pfizer series) COVID-19 VACCINE (3 - Pfizer series) [facility] Comment on above: Postponed from 12/10 (Declined at this time) Start: 05-09-2023 Hepatitis B screening URINE AL BUMIN:CREATININE RATIO [facility] Start: 05-09-2023 Hepatitis B surface antibody level LDL CHOLESTEROL [facility] Start: 03-10-2023 Mammography [facility] Start: 03-04-2023 Hepatitis C antibody , confirmatory test DILATED RETINAL EXAM [facility] Start: 02-17-2023 Covid-19 Vaccine ( season) Covid-19 Vaccine ( season) [facility] Start: 02-17-2023 Influenza vaccination C [facility] Start: 12-16-2022 Influenza vaccination INFLUENZA (#1) [facility] Comment on above: Postponed from 02/17 (Declined at this time) Start: 12-13-2022 3 comp foot exam completed DIABETIC FOOT EXAM [facility] Start: 12-13-2022 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 ANNUAL PCP TEAM CHRONIC DISEASE VISIT [facility] Start: 12-13-2022 SHINGRIX VACCINE (2 of 3) SHINGRIX VACCINE (2 of 3) [facility] Comment on above: Postponed from 05/17 (Declined at this time) Start: 12-07-2022 Hepatitis B screening URINE AL BUMIN:CREATININE RATIO [facility] Start: 12-07-2022 Hepatitis B surface antibody level LDL CHOLESTEROL [facility] Start: 11-06-2022 Hemoglobin A1c/Hemoglobin.total in Blood HBA1C [facility] Start: 10-19-2022 End: 05-22-2023 25-hydroxyvitamin D3 [Mass/volume] in Serum or Plasma VITAMIN D 25 HYDROXY Lab Routine Vitamin D deficiency Expected: 10/19/2022 (Approximate), Expires: 05/22/2023 [facility] Work Phone: Comment on above: Expected: 10/19/2022 (Approximate), Expires: 05/22/2023 Start: 10-19-2022 End: 05-22-2023 CBC W Auto Differential panel - Blood CBC + DIFF Lab Routine 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, without long-term current use of insulin (HCC) Essential hypertension Expected: 10/19/2022 (Approximate), Expires: 05/22/2023 [facility] Work Phone: Comment on above: Expected: 10/19/2022 (Approximate), Expires: 05/22/2023 Start: 10-19-2022 End: 05-22-2023 Comprehensive metabolic 2000 panel - Serum or Plasma COMP METABOLIC PANEL Lab Routine 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, without long-term current use of insulin (HCC) Essential hypertension Expected: 10/19/2022 (Approximate), Expires: 05/22/2023 [facility] Work Phone: Comment on above: Expected: 10/19/2022 (Approximate), Expires: 05/22/2023 Start: 10-19-2022 End: 05-22-2023 Hemoglobin A1c in Blood HGB A1C Lab Routine 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, without long-term current use of insulin (HCC) Expected: 10/19/2022 (Approximate), Expires: 05/22/2023 [facility] Work Phone: Comment on above: Expected: 10/19/2022 (Approximate), Expires: 05/22/2023 Start: 10-19-2022 End: 05-22-2023 Lipid 1996 panel - Serum or Plasma LIPID PANEL BASIC Lab Routine 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, without long-term current use of insulin (HCC) Expected: 10/19/2022 (Approximate), Expires: 05/22/2023 [facility] Work Phone: Comment on above: Expected: 10/19/2022 (Approximate), Expires: 05/22/2023 Start: 08-23-2022 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 ANNUAL PCP TEAM CHRONIC DISEASE VISIT [facility] Start: 08-14-2022 Hepatitis B surface antibody level LDL CHOLESTEROL [facility] Start: 07-03-2022 Colonoscopy COLONOSCOPY [facility] Start: 07-03-2022 COLORECTAL CANCER SCREENING COLORECTAL CANCER SCREENING [facility] Start: 06-20-2022 Urine microalbumin profile DTAP,TDAP,TD (2 - Td or Tdap) [facility] Comment on above: Postponed from 04/02 (Insurance Coverage) Start: 06-19-2022 ADVANCE DIRECTIVE DISCUSSION ADVANCE DIRECTIVE DISCUSSION [facility] Start: 06-19-2022 DEPRESSION ASSESSMENT DEPRESSION ASS ESSMENT [facility] Start: 06-14-2022 End: 08-14-2022 25-hydroxyvitamin D3 [Mass/volume] in Serum or Plasma VITAMIN D 25 HYDROXY Lab Routine Vitamin D deficiency Expected: 06/14/2022, Expires: 08/14/2022 [facility] Work Phone: Comment on above: Expected: 06/14/2022 , Expires: 08/14/2022 Start: 06-14-2022 End: 08-14-2022 ALBUMIN/CREAT RATIO RND UR ALBUMIN/CREAT RATIO RND UR Lab Routine Type 2 diabetes mellitus with microalbuminuria, without long-term current use of insulin (HCC) Expected: 06/14/2022, Expires: 08/14/2022 [facility] Work Phone: Comment on above: Expected: 06/14/2022 , Expires: 08/14/2022 Start: 06-14-2022 End: 08-14-2022 CBC panel - Blood by Automated count CBC Lab Routine Essential hypertension Expected: 06/14/2022, Expires: 08/14/2022 [facility] Work Phone: Comment on above: Expected: 06/14/2022 , Expires: 08/14/2022 Start: 06-14-2022 End: 08-14-2022 Comprehensive metabolic 2000 panel - Serum or Plasma COMP METABOLIC PANEL Lab Routine Type 2 diabetes mellitus with microalbuminuria, without long-term current use of insulin (HCC) Essential hypertension Expected: 06/14/2022, Expires: 08/14/2022 [facility] Work Phone: Comment on above: Expected: 06/14/2022 , Expires: 08/14/2022 Start: 06-14-2022 End: 08-14-2022 Hemoglobin A1c in Blood HGB A1C Lab Routine Type 2 diabetes mellitus with microalbuminuria, without long-term current use of insulin (HCC) Expected: 06/14/2022, Expires: 08/14/2022 [facility] Work Phone: Comment on above: Expected: 06/14/2022 , Expires: 08/14/2022 Start: 06-14-2022 End: 08-14-2022 Lipid 1996 panel - Serum or Plasma LIPID PANEL BASIC Lab Routine High triglycerides Expected: 06/14/2022, Expires: 08/14/2022 [facility] Work Phone: Comment on above: Expected: 06/14/2022 , Expires: 08/14/2022 Start: 06-08-2022 Hemoglobin A1c/Hemoglobin.total in Blood HBA1C [facility] Start: 04-26-2022 Adult depression screening assessment DEPRESSION SCREENING [facility] Start: 04-02-2022 Urine microalbumin profile [facility] Start: 02-17-2022 Influenza vaccination C [facility] Start: 12-23-2021 Hepatitis B screening URINE AL BUMIN:CREATININE RATIO [facility] Start: 11-11-2021 Hemoglobin A1c/Hemoglobin.total in Blood HBA1C [facility] Start: 09-21-2021 Mammography MAMMOGRAM [facility] Start: 06-19-2021 ADVANCE DIRECTIVE DISCUSSION ADVANCE DIRECTIVE DISCUSSION [facility] Start: 06-19-2021 DEPRESSION ASSESSMENT DEPRESSION ASS ESSMENT [facility] Start: 03-17-2021 COVID-19 VACCINE (3 - Booster for Pfizer series) COVID-19 VACCINE (3 - Booster for Pfizer series) [facility] Start: 12-10-2020 COVID-19 VACCINE (3 - Booster for Pfizer series) COVID-19 VACCINE (3 - Booster for Pfizer series) [facility] Start: 12-14-2019 Hepatitis C antibody , confirmatory test DILATED RETINAL EXAM [facility] Start: 06-30-2018 3 comp foot exam completed DIABETIC FOOT EXAM [facility] Start: 06-30-2018 PNEUMOCOCCAL: 65+ (3 - PPSV23 or PCV20) PNEUMOCOCCAL: 65+ (3 - PPSV23 or PCV20) [facility] Start: 07-03-2013 Colonoscopy COLONOSCOPY [facility] Start: 07-03-2013 Screening for malign ant neoplasm of colon Colonoscopy [facility] Start: 05-17-2013 SHINGRIX VACCINE (2 of 3) SHINGRIX VACCINE (2 of 3) [facility] Start: 2011 Hepatitis B Vaccine (1 of 3 - Risk 3-dose series) Hepatitis B Vaccine (1 of 3 - Risk 3-dose series) [facility] Start: 2011 RSV Vaccine (1 - 1-d ose 60+ series) RSV Vaccine (1 - 1-dose 60+ series) [facility] Start: 2011 RSV Vaccine (1 - Ris k 60-74 years 1-dose series) RSV Vaccine (1 - Risk 60-74 years 1-dose series) [facility] Start: 1996 COLOGUARD (FIT-DNA) COLOGUARD (FIT-D NA) [facility] Start: [address] COLONOGRAPHY [facility] Start: 1996 FECAL OCCULT BLOOD FECAL OCCULT BLOO D [facility] Start: 1996 Screening for malign ant neoplasm of colon [facility] Start: 1996 SIGMOIDOSCOPY [facility] Start: 1969 BP CONTROLLED (<130/80) BP CONTROLLE D (<130/80) [facility] Start: 1957 PNEUMOCOCCAL: 65+ (1 - PCV) PNEUMOCOCCAL: 65+ (1 - PCV) [facility] COLOGUARD COLOGUARD Lab Ro utine Screening for colon cancer Ordered: 01/16/2023 [facility] Work Phone: Comment on above: Ordered: 01/16/2023 End: 01-09-2025 DBT Breast - bilateral screening EMILY SCREENING W [facility] Radiology Routine Encounter for screening mammogram for breast cancer 1 Occurrences starting 12/11/2023 until 01/09/2025 [facility] Work Phone: Comment on above: 1 Occurrences starti ng 12/11/2023 until 01/09/2025 End: 12-12-2025 DBT Breast - bilateral screening EMILY SCREENING [facility] Routine Encounter for screening mammogram for breast cancer 1 Occurrences starting 11/12/2024 until 12/12/2025 [facility] Work Phone: Comment on above: 1 Occurrences starti ng 11/12/2024 until 12/12/2025 End: 02-15-2024 EMILY SCREENING EMILY SCREENING Radiology Routine Encounter for screening mammogram for breast cancer 1 Occurrences starting 01/16/2023 until 02/15/2024 [facility] Work Phone: Comment on above: 1 Occurrences starti ng 01/16/2023 until 02/15/2024 End: 02-15-2024 EMILY SCREENING W AJ EMILY SCREENING W [facility] Radiology Routine Encounter for screening mammogram for breast cancer 1 Occurrences starting 01/16/2023 until 02/15/2024 [facility] Work Phone: Comment on above: 1 Occurrences starti ng 01/16/2023 until 02/15/2024 Patient referral [facility] Work Phone: End: 01-12-2023 Screening mammography bi 2-view breast inc cad EMILY SCREENING Radiology Routine Breast cancer screening by mammogram 1 Occurrences starting 12/13/2021 until 01/12/2023 [facility] Work Phone: Comment on above: 1 Occurrences starti ng 12/13/2021 until 01/12/2023 Tdap vaccine 7 yrs/> im TDAP VAC CINE, AGE 7+ YR (ADACEL, BOOSTRIX) Immunization/Injection Routine Encounter for immunization 1 Occurrences starting 01/16/2023 [facility] Work Phone: Comment on above: 1 Occurrences starti ng 01/16/2023 [facility] Immunizations Immunization Date Immunization Notes Care Provider Home osei 12-13-2021 pneumococcal polysaccharide vaccine, 23 valent Griffin Stahl MD Work Phone: [facility] 10-15-2020 COVID-19 vaccine, ag e 12+ yr (PFIZER-BIONTECH - PURPLE TOP) [facility] Work Phone: 09-25-2020 COVID-19 vaccine, ag e 12+ yr (PFIZER-BIONTECH - PURPLE TOP) [facility] Work Phone: 06-30-2017 pneumococcal conjuga te vaccine, 13 valent [facility] 06-30-2017 influenza virus vacc ine, unspecified formulation Rachel Kilpatrick APRN.CNP Work Phone: [facility] 02-26-2016 influenza, injectabl e, quadrivalent, preservative free [facility] 05-05-2015 influenza, high dose seasonal, preservative-free [facility] 04-24-2015 influenza, injectabl e, quadrivalent, preservative free Dr. Griffin Stahl MD Work Phone: [facility] 04-24-2015 influenza, seasonal, injectable Dr. Griffin Stahl Work Phone: [facility] 04-18-2014 influenza, seasonal, injectable [facility] 03-22-2013 influenza virus vacc ine, unspecified formulation [facility] 03-22-2013 zoster vaccine, live [facility] 04-02-2012 influenza virus vacc ine, unspecified formulation [facility] 04-02-2012 tetanus toxoid, redu kodi diphtheria toxoid, and acellular pertussis vaccine, adsorbed [facility] 06-22-2005 pneumococcal polysaccharide vaccine, 23 valent [facility] Work Phone: Payers Date Payer Category Payer Self-pay [id number] 2021 Medicare A[employer] MEDICARE A ETNA MEDICARE PPO [id number] 2021-Present [phone] [address] [place] [address] PP [id number] 2021 Medicare [employer] MEDICARE A ETNA MEDICARE PPO [id number] 2021-Present [phone] [address] [place] [address] PPO [id number] 2021 Medicare (Managed Care) [facility] [id number] 2021 Private Health Insurance [id number] 2014 Unknown SELF PAY INSURANCE [id number] Unknown [id number] Unknown [id number] Unknown [id number] Social History Date Type Detail Facility [facility] Work Phone: Start: 08-18-2021 Tobacco smoking status PAIS Unknown if ever smoked [facility] Work Phone: Start: 1950 Sex Assigned At Female [facility] Start: 04-01-2011 End: 10-10-2022 Tobacco smoking status NHIS Never smoked tobacco [facility] Start: 04-28-2021 End: 05-31-2024 Alcohol intake Current non-drinker of alcohol (finding) [facility] Start: 10-09-2019 End: 05-12-2022 History SDOH Alcohol Frequency 1 [facility] Start: 10-09-2019 End: 05-12-2022 History SDOH Social Connections Phone 5 [facility] Start: 05-17-2020 End: 05-12-2022 History SDOH Social Connections Get Together 4 [facility] Start: 10-09-2019 End: 05-12-2022 History SDOH Social Connections Pentecostal 3 [facility] Start: 05-17-2020 End: 05-12-2022 History SDOH Physical Activity MPS 2 [facility] Start: 10-09-2019 Education 12 [facility] Start: 1950 Sex Assigned At Not on file [facility] Start: 12-03-2021 End: 05-17-2022 Exposure to SARS-CoV-2 (event) Not sure [facility] Start: 04-01-2011 Tobacco use and exposure Smokeless tobacco non-user [facility] Start: 05-12-2022 End: 01-16-2023 History of Social function [facility] Start: 05-12-2022 End: 01-16-2023 Social connection and isolation panel [facility] Frequency of Social Gatherings with Friends and Family Not on file [facility] Work Phone: Are you now , , , , never or living with a partner? [facility] How often do you hav e 6 or more drinks on 1 occasion? Never [facility] How hard is it for y ou to pay for the very basics like food, housing, medical care, and heating Not very hard [facility] Do you feel stress - tense, restless, nervous, or anxious, or unable to sleep at night because your mind is troubled all the time - these days [OSQ] To some extent [facility] (I/We) worried mari er (my/our) food would run out before (I/we) got money to buy more. Never true [facility] In the past 12 month s, was there a time when you were not able to pay the mortgage or rent on time? No [facility] Start: 04-26-2021 Gender identity Identifies as female gender (finding) [facility] Start: 04-26-2021 Sexual orientation Heterosexual (finding) [facility] Do you belong to any clubs or organizations such as shinto groups, unions, fraternal or athletic groups, or school groups? Yes [facility] Do you feel stress - tense, restless, nervous, or anxious, or unable to sleep at night because your mind is troubled all the time - these days [OSQ] Only a little [facility] Medical Equipment Procedure Code Equipment Code Equipment Origin al Text Equipment Identifier Dates Tubing 8fr .105i n .063in Silicone Elastomer 100cm Irrigation Radiopaque - [id number] Start: 02-25-2016 Test blood sugar (s) 3 times daily. Dx: Type 2 DM - Uncontrolled E11.65 Insulin: Yes [id number], [id number] Start: 08-17-2020 Comment on above: Test blood sugar(s) 3 times daily. Dx: Type 2 DM - Uncontrolled E11.65 Insulin: Yes Functional Status Date Assessment Result Facility 11-29-2024 Total score [AUDIT-C] 0 11/30/19 25 9:38 AM EDT UserGerhard [facility] 11-29-2024 How often to you hav e a drink containing alcohol? Never 11/29/2024 9:38 AM EDT User, Gerhard Never [facility] 11-29-2024 Functional status Patient does n ot drink 11/29/2024 9:38 AM EDT User, Gerhard Patient does not drink [facility] 11-29-2024 How often do you hav e 6 or more drinks on 1 occasion? Never 11/29/2024 9:38 AM EDT UserGerhard Never [facility] 08-04-2021 Functional status Ambulates [facility] Work Phone: 02-27-2016 Are you deaf, or do you have serious difficulty hearing No 02/27/2016 12:52 PM Jennifer Cobb RN No [facility] 02-27-2016 Are you blind, or do you have serious difficulty seeing, even when wearing glasses No 02/27/2016 12:52 PM Jennifer oCbb RN No [facility] 02-27-2016 Do you have serious difficulty walking or climbing stairs No 02/27/2016 12:52 PM Jennifer Cobb RN No [facility] 02-27-2016 Do you have difficul ty dressing or bathing No 02/27/2016 12:52 PM Jennifer Cobb, ADAM No [facility] 02-27-2016 Because of a physica l, mental, or emotional condition, do you have difficulty doing errands alone such as visiting a physician's office or shopping No 02/27/2016 12:52 PM Jennifer Cobb RN No [facility] Mental Status Date Assessment Result Facility 08-04-2021 Cognitive function Voice/Name [facility] Work Phone: 02-27-2016 Because of a physica l, mental, or emotional condition, do you have serious difficulty concentrating, remembering, or making decisions No 02/27/2016 12:52 PM Jennifer Cobb RN No [facility] Clinical Notes 10-14-2015 to 12-09-2024 Telephone Encounter - Naina Graham LPN - 12/09/2024 2:06 PM EDTTelephone Encounter - Naina Graham LPN - 12/09/2024 2:06 PM EDTPatient InstructionsPatient InstructionsPatient Instructions Note Date & Type Note [facility] 12-09-2024 Telephone encounter Note Patient has been identified by name and date of : Yes Patient phones for refill(s): Requested Prescriptions Pending Prescriptions Disp Refills oxybutynin XL (DITROPAN XL) 5 mg 24 hr tablet 90 tablet 3 Sig: Take 1 tablet by mouth once daily. Date of last office visit in primary care: 12/02/2024 Date of next office visit in primary care: 06/11/2025 Please advise. Thank you. Naina Graham LPN. [facility] 12-09-2024 Miscellaneous Notes Patient has been identified by name and date of : Yes Patient phones for refill(s): Requested Prescriptions Pending Prescriptions Disp Refills oxybutynin XL (DITROPAN XL) 5 mg 24 hr tablet 90 tablet 3 Sig: Take 1 tablet by mouth once daily. Date of last office visit in primary care: 12/02/2024 Date of next office visit in primary care: 06/11/2025 Please advise. Thank you. Naina Graham LPN. documented in this encounter [facility] 12-02-2024 Instructions Janelle Cherry APRN.PORTER SAMPLE CASE - 12/02/2024 7:41 AM EDT - Increase lisinopril from 30 mg to 40 mg once daily; new prescription sent to your [facility] pharmacy. - Continue your cholesterol-lowering medicine to keep LDL in the target range and reduce heart attack/stroke risk. - Continue Jardiance for blood sugar control and kidney protection. - Monitor your blood pressure at home regularly and record your readings. - Have your blood pressure checked again in about one week (3-7 days) to ensure it comes down. - Complete the lab work that has already been ordered before your May appointment with Dr. Stahl. - Follow up with Dr. Stahl in six months (appointment scheduled for May) to review labs and diabetes management. - Attend your appointment with Dr. Jiménez on Monday to discuss kidney surgery and next steps. - Keep up your healthy eating habits, limit junk food, and continue your regular walking activities as tolerated. documented in this encounter [facility] 12-02-2024 Note HNO ID: [id number] Author: JANELLE CHERRY APRN.CNS Service: ? Author Type: Nurse Specialist Type: Progress Notes Filed: 12/02/2024 08:06 Note Text: SUBJECTIVE: RSV Vaccine(1 - Risk 60-74 years 1-dose series) Never done Shingrix Vaccine(2 of 3) due on 05/17/2013 DTaP,Tdap,Td Vaccine(2 - Td or Tdap) due on 04/02/2022 Mammogram Screening due on 03/22/2024 Advance Directive Discussion due on 06/19/2024 Medicare Advantage Annual Wellness Visit due on 06/19/2024 Diabetic Foot Exam due on 12/10/2024 Depression Screening due on 12/10/2024 HPI Anai Hebert is a 74 year old female. 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 Hypertension: - Blood pressure elevated today; attributes to stress. - Denies missing medication this morning. - Denies chest pain, dyspnea, or palpitations. - Reports occasional dizziness in the mornings and mild ankle edema. - Home blood pressure readings: 140s/80s. - Current medications include Lisinopril 30 mg daily. Diabetes Mellitus: - Monitoring sugar intake; reports improvement in blood sugar levels. - Current medications include Jardiance. Hyperlipidemia: - Current medications include a statin. - suggests discontinuing statin due to improved cholesterol levels; Anai denies any adverse effects from the medication. Renal Mass: - Undergoing regular CT scans every 6 months for the past year. - Recent CT scan prompted a call from Dr. Sevilla to discuss surgical removal due to increased size and potential cancer risk. - Appointment scheduled with Dr. Sevilla on Monday to discuss surgery. Sleep Apnea: - No longer using CPAP machine due to recall. - reports no longer snoring; Anai reports good sleep quality. - Wakes up 3-4 times per night to urinate. Lifestyle: - Engages in regular walking, especially during shopping trips. - Accompanies on trips, which involves some physical activity. Notes incidentally found kidney lesion. She has an appointment with Dr. Vasquez urology next Monday, may need surgery for this. No outside records today. DIABETES MELLITUS: Without report of excessive thirst or increased frequency of urination, chest pain or dyspnea , numbness, tingling or pain in extremities, new or unusual visual symptoms, low sugar/hypoglycemic reactions, weight loss/gain, lightheadedness/dizziness and bowel changes/loose stools. Patient's last HgA1C was Hemoglobin A1C (%) Date Value 11/26/2024 7.4 05/22/2024 7.6 04/21/2021 7.6 12/23/2020 7.7 ) Notes home FBS - checks infrequently. Walking daily, tries to be consistent Eating more healthy meals, less fast foods. Notes prior gastric bypass and eating every 2 hours. Weight is stable. HTN: Without report of headache, chest pain, palpitations, dyspnea, peripheral edema, orthopnea, fatigue and PND.Notes occasional dry cough, helped with cough drop or similar. Has not missed BP medication doses. Last 14 Encounter BP Readings: Date: BP: 12/02/2024 204/96 05/31/2024 158/80 12/11/2023 154/82[bp average[ 06/14/2023 170/88 01/16/2023 142/88 05/17/2022 144/92 12/13/2021 142/78 04/28/2021 158/80 12/31/2020 156/85[trubp average[ 04/22/2019 195/105 01/21/2019 162/88[rechecked 3 times --was initially 180's over 80s[ 10/22/2018 183/84 10/11/2018 196/85 05/23/2018 180/88 Hyperlipidemia. Ms. Hebert reports doing well on current therapy Her most recent lipid panels are: Cholesterol, Total (mg/dL) Date Value 11/26/2024 156 05/22/2024 161 12/23/2020 152 08/11/2020 187 HDL Cholesterol (mg/dL) Date Value 11/26/2024 45 05/22/2024 46 12/23/2020 38 08/11/2020 34 LDL Cholesterol, Calculated (mg/dL) Date Value 11/26/2024 81 05/22/2024 76 12/23/2020 75 08/11/2020 108 LDL Cholesterol Calculated, Nonfasting (mg/dL) Date Value 08/14/2021 76 Triglyceride (mg/dL) Date Value 11/26/2024 177 05/22/2024 196 12/23/2020 196 08/11/2020 227 No report GERD, HB, or abdominal pain. Taking vitamin D supplemental. Taking once per week 50,000 IU ROS Cardiovascular: (+) ankle swelling, (-) chest pain, (-) palpitations Respiratory: (-) shortness of breath, (-) snoring Genitourinary: (+) nocturia Neurological: (+) dizziness Psychiatric: (+) stress Objective BP (!) 204/96 Pulse (!) 51 Resp 16 Wt 85.9 kg (189 lb (more content not included)... [facility] 12-02-2024 History of Present illness Narrative SUBJECTIVE: RSV Vaccine(1 - Risk 60-74 years 1-dose series) Never done Shingrix Vaccine(2 of 3) due on 05/17/2013 DTaP,Tdap,Td Vaccine(2 - Td or Tdap) due on 04/02/2022 Mammogram Screening due on 03/22/2024 Advance Directive Discussion due on 06/19/2024 Medicare Advantage Annual Wellness Visit due on 06/19/2024 Diabetic Foot Exam due on 12/10/2024 Depression Screening due on 12/10/2024 HPI Anai Dilia Hebert is a 74 year old female. 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 Hypertension: - Blood pressure elevated today; attributes to stress. - Denies missing medication this morning. - Denies chest pain, dyspnea, or palpitations. - Reports occasional dizziness in the mornings and mild ankle edema. - Home blood pressure readings: 140s/80s. - Current medications include Lisinopril 30 mg daily. Diabetes Mellitus: - Monitoring sugar intake; reports improvement in blood sugar levels. - Current medications include Jardiance. Hyperlipidemia: - Current medications include a statin. - suggests discontinuing statin due to improved cholesterol levels; Anai denies any adverse effects from the medication. Renal Mass: - Undergoing regular CT scans every 6 months for the past year. - Recent CT scan prompted a call from Dr. Sevilla to discuss surgical removal due to increased size and potential cancer risk. - Appointment scheduled with Dr. Sevilla on Monday to discuss surgery. Sleep Apnea: - No longer using CPAP machine due to recall. - reports no longer snoring; Anai reports good sleep quality. - Wakes up 3-4 times per night to urinate. Lifestyle: - Engages in regular walking, especially during shopping trips. - Accompanies on trips, which involves some physical activity. Notes incidentally found kidney lesion. She has an appointment with Dr. Vasquez urology next Monday, may need surgery for this. No outside records today. DIABETES MELLITUS: Without report of excessive thirst or increased frequency of urination, chest pain or dyspnea , numbness, tingling or pain in extremities, new or unusual visual symptoms, low sugar/hypoglycemic reactions, weight loss/gain, lightheadedness/dizziness and bowel changes/loose stools. Patient's last HgA1C was Hemoglobin A1C (%) Date Value 11/26/2024 7.4 05/22/2024 7.6 04/21/2021 7.6 12/23/2020 7.7 ) Notes home FBS - checks infrequently. Walking daily, tries to be consistent Eating more healthy meals, less fast foods. Notes prior gastric bypass and eating every 2 hours. Weight is stable. HTN: Without report of headache, chest pain, palpitations, dyspnea, peripheral edema, orthopnea, fatigue and PND.Notes occasional dry cough, helped with cough drop or similar. Has not missed BP medication doses. Last 14 Encounter BP Readings: Date: BP: 12/02/2024 204/96 05/31/2024 158/80 12/11/2023 154/82[bp average[ 06/14/2023 170/88 01/16/2023 142/88 05/17/2022 144/92 12/13/2021 142/78 04/28/2021 158/80 12/31/2020 156/85[trubp average[ 04/22/2019 195/105 01/21/2019 162/88[rechecked 3 times --was initially 180's over 80s[ 10/22/2018 183/84 10/11/2018 196/85 05/23/2018 180/88 Hyperlipidemia. Ms. Hebert reports doing well on current therapy Her most recent lipid panels are: Cholesterol, Total (mg/dL) Date Value 11/26/2024 156 05/22/2024 161 12/23/2020 152 08/11/2020 187 HDL Cholesterol (mg/dL) Date Value 11/26/2024 45 05/22/2024 46 12/23/2020 38 08/11/2020 34 LDL Cholesterol, Calculated (mg/dL) Date Value 11/26/2024 81 05/22/2024 76 12/23/2020 75 08/11/2020 108 LDL Cholesterol Calculated, Nonfasting (mg/dL) Date Value 08/14/2021 76 Triglyceride (mg/dL) Date Value 11/26/2024 177 05/22/2024 196 12/23/2020 196 08/11/2020 227 No report GERD, HB, or abdominal pain. Taking vitamin D supplemental. Taking once per week 50,000 IU ROS Cardiovascular: (+) ankle swelling, (-) chest pain, (-) palpitations Respiratory: (-) shortness of breath, (-) snoring Genitourinary: (+) nocturia Neurological: (+) dizziness Psychiatric: (+) stress Objective BP (!) 204/96 Pulse (!) 51 Resp 16 Wt 85.9 kg (189 lb 6 oz) LMP 03/06/1997 BMI 36.98 kg/m Physical Exam Vitals and nursing note reviewed. Constitutional: Appearance: Normal appearance. She is obese. HENT: Head: Normocephalic and atraumatic. Eyes: Conjunctiva/sclera: Conjunctivae normal. Cardiovascular: Rate and Rhythm: Normal rate and regular rhythm. Pulses: Dorsalis pedis pulses are 2+ on the right side and 2+ on the left side. Heart sounds: Normal heart sounds. Pulmonary: Effort: Pulmonary effort is normal. Abdominal: General: Bowel sounds are normal. Palpations: Abdomen is soft. Feet: Right foot: Skin integrity: Skin integrity normal. Left foot: Skin integrity: Skin integrity normal. Skin: General: Skin is warm and dry. Neurological: General: No focal deficit present. Mental Status: She is alert and oriented to person, place, and time. ALLERGIES Allergen Reactions Bactrim [Sulfametho* Rash Pt. developed total body rash 4-5 days after starting. Medications metoprolol succinate ER (TOPROL XL) 50 mg 24 hr tablet Take 1 tablet by mouth once daily. Cholecalciferol, Vitamin D3, 125 mcg (5,000 unit) cap Take 1 capsule by mouth once daily. rosuvastatin (CRESTOR) 5 mg tablet Take 1 tablet by mouth daily at bedtime. ursodiol (ACTIGALL) 300 mg capsule Take 2 capsules by mouth every morning AND 1 capsule daily at bedtime. empagliflozin (JARDIANCE) 25 mg tablet Take 1 tablet by mouth daily with breakfast. oxybutynin XL (DITROPAN XL) 5 mg 24 hr tablet Take 1 tablet by mouth once daily. metFORMIN (GLUCOPHAGE) 500 mg tablet Take 2 tablets by mouth daily with breakfast AND 2 tablets daily with dinner. blood sugar diagnostic (BLOOD GLUCOSE TEST) test strip Test blood sugar(s) 3 times daily. Dx: Type 2 DM - Uncontrolled E11.65 Insulin: Yes Lancets lancets Test blood sugar(s) 3 times daily. Dx: Type 2 DM - Uncontrolled E11.65 Insulin: Yes lisinopril (ZESTRIL) 40 mg tablet Take 1 tablet by mouth once daily. PAST MEDICAL HISTORY Diagnosis Date Adjustment disorder with mixed anxiety and depressed mood 11/29/2013 Benign neoplasm of rectum and anal canal Degenerative tear of medial meniscus 01/06/2011 Dermatofibroma of left lower leg 07/02/2012 Eczema intertrigo 07/02/2012 Erythema intertrigo 07/02/2012 External hemorrhoids without mention of complication 07/03/2012 Internal hemorrhoids without mention of complication 07/03/2012 Marital conflict 01/17/2014 Obesity, unspecified DAKOTA (obstructive sleep apnea), severe on PSG 03/22/2013 Needs CPAP at 10 cm H2O with nasal pillows mask Other psoriasis 07/02/2012 Primary hyperparathyroidism (HCC) Type II or unspecified type diabetes mellitus without mention of complication, uncontrolled Unspecified essential hypertension Vitamin D deficiency 06/04/2010 Xerosis cutis 07/02/2012 Social History Tobacco Use Smoking status: Never Smokeless tobacco: Never Substance Use Topics Alcohol use: No Drug use: No Latest Ref Rng 12/06/2023 05/22/2024 11/26/2024 Color Yellow Yellow Yellow Clarity Clear Clear Clear Glucose, Urine Negative 3+ ! 2+ ! Bilirubin, Urine Negative Negative Negative Ketones, Urine Negative Trace ! Negative Specific [place], Ur 1.005 - 1.030 1.035 (H) 1.025 Hemoglobin/Blood,Ur Negative Negative Negative pH, Urine <8.5 6.0 6.5 Protein, Urine Negative 2+ ! 2+ ! Urobilinogen 0.2-1.0 EU/dL 0.2 EU/dL 0.2 EU/dL Nitrites Negative Negative Negative Leukest Negative Negative Negative WBC, Urine 0-5 /HPF 0-5 /HPF 0-5 /HPF RBC, Urine 0-2 /HPF 0-2 /HPF 0-2 /HPF Bacteria Negative /HPF Negative Negative Epithelial Cells /HPF None Seen None Seen Hyaline Cast 0 /LPF 4-10 /LPF ! 0 /LPF Protein, Total 6.3 - 8.0 g/dL 6.8 6.8 6.9 Albumin 3.9 - 4.9 g/dL 3.7 (L) 4.2 4.0 Calcium 8.5 - 10.2 mg/dL 9.2 9.2 8.4 (L) Bilirubin, Total 0.2 - 1.3 mg/dL 0.5 0.4 0.4 Alkaline Phosphatase 34 - 123 U/L 104 67 72 AST 13 - 35 U/L 15 16 19 ALT 7 - 38 U/L 14 9 13 Glucose 74 - 99 mg/dL 177 (H) 138 (H) 161 (H) BUN 7 - 21 mg/dL 22 (H) 17 17 Creatinine 0.58 - 0.96 mg/dL 0.97 (H) 0.98 (H) 0.90 Sodium 136 - 144 mmol/L 137 141 140 Potassium 3.7 - 5.1 mmol/L 3.3 (L) 3.5 (L) 4.0 Chloride 98 - 107 mmol/L 107 107 106 CO2 22 - 30 mmol/L 18 (L) 20 (L) 22 Anion Gap 8 - 15 mmol/L 12 14 12 eGFR >=60 mL/min/1.73m 62 61 68 WBC 3.70 - 11.00 k/uL 12.68 (H) 8.98 10.66 RBC 3.90 - 5.20 m/uL 4.61 4.90 4.72 Hemoglobin 11.5 - 15.5 g/dL 13.3 14.3 13.9 Hematocrit 36.0 - 46.0 % 40.7 44.3 43.7 MCV 80.0 - 100.0 fL 88.3 90.4 92.6 MCH 26.0 - 34.0 pg 28.9 29.2 29.4 MCHC 30.5 - 36.0 g/dL 32.7 32.3 31.8 RDW-CV 11.5 - 15.0 % 14.8 15.2 (H) 15.2 (H) Platelet Count 150 - 400 k/uL 245 232 234 MPV 9.0 - 12.7 fL 10.8 11.0 12.2 Absolute nRBC <0.01 k/uL <0.01 <0.01 <0.01 Cholesterol, Total <200 mg/dL 137 161 156 Triglyceride <150 mg/dL 151 (H) 196 (H) 177 (H) HDL Cholesterol >39 mg/dL 40 46 45 Non HDL Cholesterol <130 mg/dL 97 115 111 Fasting Time hrs 12 14 12 VLDL Cholesterol <30 mg/dL 30 (H) 39 (H) 27 TC:HDL Ratio <5.10 3.43 3.50 3.47 LDL Cholesterol, Calculated <100 mg/dL 67 76 81 LDL:HDL Ratio <2.54 1.68 1.65 1.80 Creatinine, Ur Random (UCRR) 20.0 - 300.0 mg/dL 84.1 30.0 7.5 (L) Albumin, Urine Random mg/L 793.7 898.2 305.7 Albumin/Creat Ratio <30 mg/g 944 (H) 2,994 (H) 4,076 (H) Hemoglobin A1C 4.3 - 5.6 % 7.9 (H) 7.6 (H) 7.4 (H) Estimated Average Glucose mg/dL 180 171 166 Vitamin D 25 Hydroxy 31.0 - 80.0 ng/mL 46.5 42.2 The ASCVD Risk score (Sam DK, et al., 2019) failed to calculate for the following reasons: The valid systolic blood pressure range is 90 to 200 mmHg 1. 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, without long-term current use of insulin (HCC) (E11.36) - Blood glucose levels are improving; patient is monitoring dietary sugar intake. - Continue current medication regimen including Jardiance, which also aids in reducing proteinuria. - Follow-up with Dr. Stahl in 6 months; appointment scheduled for May. - Lab work already ordered for next visit. 2. Mixed hyperlipidemia (E78.2) - LDL cholesterol level is 80 mg/dL; target for diabetic patients is <70 mg/dL. - Continue current lipid-lowering medication. - Educated patient on the importance of maintaining medication to reduce the risk of cardiovascular events. 3. Primary hypertension (I10) - Blood pressure elevated today; home readings averaging 140s/80s. - No reports of chest pain, dyspnea, or palpitations; mild ankle edema and occasional morning dizziness noted. - Increased lisinopril dosage from 30 mg to 40 mg daily. - Advised patient to monitor blood pressure at home. - Follow-up in 3-7 days to reassess blood pressure control. 4. DAKOTA (obstructive sleep apnea) (G47.33) - CPAP machine was recalled; patient reports no current snoring and adequate sleep. - Discussed potential impact of untreated DAKOTA on blood pressure. 5. Encounter for immunization (Z23) 6. Screening for depression (Z13.31) 7. Caregiver stress (Z63.6) - Significant stress due to caregiving responsibilities for and upcoming surgery. - Discussed potential support options, including asking neighbors for assistance. - Advised patient on the importance of self-care and stress management. 6 mo follow up Griffin Stahl MD with labs Janelle Cherry APRN.PORTER SAMPLE CASE Medical Decision Making: Problems: Moderate: 2+ stable chronic illnesses Data: Unique test result(s) reviewed: 3+ Unique test(s) ordered: 3+ Risk: Moderate: Drug management Medical Decision Making Level: 4 - Moderate documented in this encounter [facility] 11-26-2024 Radiology Diagnostic study note [facility] Imaging Services [address] [place] [address] Abdomen/Pelvis WITH Contrast MR#: [id number] Acct: [id number] Name: ANAI HEBERT Rep #: [id number] : 1950 F 74 From: Ashu Pastor MD PCP: Dr. Griffin Stahl MD Status: RE G CLI Study:Abdomen/Pelvis WITH Contrast Date of Ex am: 11/26/24 Exam# [id number] Ordering Dr: Chichi Mason MD PROCEDURE: ABDOMEN/PELVIS WITH CONTRAST 11/26/2024 REASON FOR EXAM: NEOPLASM OF UNCERTAIN BEHAVIOR OF LEFT KIDNEY TECHNIQUE: Abdomen and pelvis CT with intravenous contrast. Coronal and Sagittal reconstruction series were provided. PATIENT PREPARATION: Per protocol ORAL CONTRAST TYPE: None. AMOUNT: mL CONTRAST: Isovue-300 VOLUME: 99 mL One or more dose reduction techniques were used (e.g., Automated exposure control, adjustment of the mA and/or kV according to patient size, use of iterative reconstruction technique. RADIATION DOSE SUMMARY: CTDlvol: 32.4 mGy DLP: 1124.59 mGycm COMPARISON: CT abdomen and pelvis with contrast, 05/20/2024. MR abdomen with/without contrast, 10/30/2023. FINDINGS: Lung bases: There are stable peripheral nodules in both lung bases. There are no pleural effusions. The heart size is normal. There is no pericardial effusion. There is calcific vascular disease of the thoracic aorta and coronary arteries. Liver: Normal homogeneous parenchymal. There is stable intra and extrahepatic biliary ductal dilatation. Gallbladder: Surgically absent. Spleen: There is a stable 2 cm in diameter low-density nodule consistent with a hemangioma. Pancreas: Normal. Adrenals: Normal. Kidneys: There is a 2.4 x 2.4 x 2.3 cm (was 2.2 x 2.1 x 2.1 cm) hypoenhancing mass in the interpolar cortex of the left kidney. There is a 1.9 cm in diameter simple cortical cyst in the interpolar region of the left kidney. The right kidney is unremarkable. Bladder: Normal unenhanced appearance. Reproductive Organs: The uterus and ovaries are unremarkable. There is no free fluid in the pelvis. There is no pelvic or inguinal lymphadenopathy. Bowel: There is a small hiatal hernia. Status post gastric bypass surgery. There is fluid and stool throughout the colon consistent with a mild colitis. Appendix: Normal. Lymph nodes: There is no mesenteric or retroperitoneal lymphadenopathy. Field Vasculature: There is calcific vascular disease of the abdominal aorta. The inferior vena cava and portal venous system are normal. Abdominal wall: There is a 4.7 cm in diameter multiloculated umbilical hernia. Bones: There is djbs-yx-rhtwruih multilevel degenerative disc disease of the lower thoracic and lumbar spine. There is degenerative grade 1 anterolisthesis of L4 on L5 and L5 on S1. 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 CT/Abdomen/Pelvis WITH Contrast IMPRESSION: 1. Interval decrease in size of a suspicious mass in the left kidney consistentwith a renal cell carcinoma. 2. Other findings as noted. Reading Location: [place] [address] CC: Dr. Matt Mason MD; Dr. Griffin Stahl MD ~ Batch Tester: Signed [facility] Work Phone: 11-12-2024 Note Patient Outreach (IN TMWS) ANAI HEBERT ([id number]) 1950 F LV Date Time Provider Department 11/12/24 GRIFFIN STAHL During your visit today, we recorded the following information about you: Allergies As of Date: 11/12/2024 Noted Allergy Reaction BACTRIM (SULFAMETHOXAZOLE-TRIMETH*09/19/19 12 2 - Rash Comments: Pt. developed total body rash 4-5 days after starting. Date Reviewed: 05/31/2024 Reviewed by: Ana Moise LPN - Fully Assessed Visit Diagnosis:Encounter for screening mammogram for breast cancer [Z12.31] Order(s):EMILY ROCHA [[id number]] Order #: [id number] FUTURE Prescriptions as of 12/13/2024 - oxybutynin XL (DITROPAN XL) 5 mg 24 hr tablet Take 1 tablet by mouth once daily. - lisinopril (ZESTRIL) 40 mg tablet Take 1 tablet by mouth once daily. - metoprolol succinate ER (TOPROL XL) 50 mg 24 hr tablet Take 1 tablet by mouth once daily. - Cholecalciferol, Vitamin D3, 125 mcg (5,000 unit) cap Take 1 capsule by mouth once daily. - rosuvastatin (CRESTOR) 5 mg tablet Take 1 tablet by mouth daily at bedtime. - ursodiol (ACTIGALL) 300 mg capsule Take 2 capsules by mouth every morning AND 1 capsule daily at bedtime. - empagliflozin (JARDIANCE) 25 mg tablet Take 1 tablet by mouth daily with breakfast. - metFORMIN (GLUCOPHAGE) 500 mg tablet Take 2 tablets by mouth daily with breakfast AND 2 tablets daily with dinner. - blood sugar diagnostic (BLOOD GLUCOSE TEST) test strip Test blood sugar(s) 3 times daily. Dx: Type 2 DM - Uncontrolled E11.65 Insulin: Yes - Lancets lancets Test blood sugar(s) 3 times daily. Dx: Type 2 DM - Uncontrolled E11.65 Insulin: Yes Problem List As Of Date 11/12/2024 Noted Resolved Controlled type 2 diabetes mellitus with diabet*04/07/2005 Essential hypertension [I10] 04/07/2005 BMI 45.0-49.9, adult (HCC) [Z68.42] 04/07/2005 05/31/2024 LUMB/LUMBOSAC DISC DEGEN [M51.379] 01/31/2008 Low back pain with left-sided sciatica [M54.42] 08/19/2008 MIXED HYPERLIPIDEMIA [E78.2] 08/19/2008 Plantar Fasciitis, left heel [M72.2] 03/04/2010 02/20/2015 Vitamin D deficiency [E55.9] 06/04/2010 Arthritis of knee, degenerative [M17.9] 04/01/2011 DAKOTA (obstructive sleep apnea), severe on PSG [G*03/22/2013 Serum calcium elevated [E83.52] 02/20/2015 10/21/2015 Anxiety neurosis [F41.1] 02/20/2015 Primary hyperparathyroidism (HCC) [E21.0] 07/09/2015 12/08/2016 High triglycerides [E78.1] 07/13/2015 Cervicalgia [M54.2] 10/14/2015 02/05/2020 Morbid obesity due to excess calories (HCC) [E6*02/25/2016 05/31/2024 Cervical radiculopathy [M54.12] 11/21/2016 Dysuria [R30.0] 02/12/2018 Trigger finger, left middle finger [M65.332] 03/06/2018 OAB (overactive bladder) [N32.81] 05/23/2018 Type 2 diabetes mellitus with microalbuminuria,*02/05/2020 Secondary hyperparathyroidism (HCC) [N25.81] 03/01/2020 Albuminuria [R80.9] 03/01/2020 Encounter Status:Closed by CARL ROQUE on 12/13/24 [facility] 05-31-2024 Instructions Griffin Stahl MD - 05/31/2024 2:08 PM EST - Continue taking Metformin as prescribed: 2 tablets in the morning and 2 tablets in the evening. - Continue taking Jardiance as prescribed to help protect your kidneys and prevent heart disease. - Continue taking Rosuvastatin as prescribed to manage cholesterol levels. - Continue taking Metoprolol as prescribed; a 90-day supply has been sent to [facility]. - Continue taking Ursodiol as prescribed: 2 pills in the morning and 1 at bedtime. - Start taking Vitamin D 5,000 IU daily; prescription sent to [facility]. - Monitor your blood pressure at home regularly and report readings to the clinic via [facility] in 1-2 months. - Drink plenty of water throughout the day to support kidney function. - Practice breathing exercises to help manage blood pressure: inhale for 4 seconds, hold for 4 seconds, and exhale for 8 seconds. - Consider trying melatonin to improve sleep quality; discuss with your and start on a night when you don't need to wake up early. - Schedule and complete your mammogram as ordered. - Consider getting the Shingrix vaccine at the pharmacy to reduce the risk of shingles. - Next follow-up appointment in 6 months; alternating between your current clinician and Junior. Screening schedule The following prevention plan is recommended: RSV Vaccine(1 - Risk 60-74 years 1-dose series) Never done Shingrix Vaccine(2 of 3) due on 05/17/2013 DTaP,Tdap,Td Vaccine(2 - Td or Tdap) due on 04/02/2022 BP Controlled (<130/80) due on 01/17/2024 Mammogram Screening due on 03/22/2024 WHAT YOU CAN DO TO PREVENT FALLS Many falls can be prevented. By making some changes, you can lower your chances of falling. Four things YOU can do to prevent falls for you* and your caregiver 1. Begin a regular exercise program Exercise is one of the most important ways to lower your chances of falling. It makes you stronger and helps you feel better. Exercises that improve balance and coordination (like John Paul Chi) are the most helpful. Lack of exercise leads to weakness and increases your chances of falling. Ask your doctor or health care provider about the best type of exercise program for you. 2. Have your health care provider review your medicines Have your doctor or pharmacist review all the medicines you take, even nhnr-yxw-aklbwmi medicines. As you get older, the way medicines work in your body can change. Some medicines, or combinations of medicines, can make you sleepy or dizzy and can cause you to fall. 3. Have your vision checked Have your eyes checked by an eye doctor at least once a year. You may be wearing the wrong glasses or have a condition like glaucoma or cataracts that limits your vision. Poor vision can increase your chances of falling. 4. Make your home safer About half of all falls happen at home. To make your home safer: Remove things you can trip over (like papers, books, clothes, and shoes) from stairs and places where you walk. Remove small throw rugs or use double-sided tape to keep the rugs from slipping. Keep items you use often in cabinets you can reach easily without using a step stool. Have grab bars put in next to your toilet and in the tub or shower. Use non-slip mats in the bathtub and on shower floors. Improve the lighting in your home. As you get older, you need brighter lights to see well. Hang light-weight curtains or shades to reduce glare. Have handrails and lights put in on all staircases. Wear shoes both inside and outside the house. Avoid going barefoot or wearing slippers. For more information, contact: Centers for Disease Control and Prevention www.cdc.gov/injury * This information may not apply if you have certain medical conditions. documented in this encounter [facility] 05-31-2024 Note HNO ID: [id number] Author: GRIFFIN STAHL MD Service: ? Author Type: Physician Type: Progress Notes Filed: 06/30/2024 23:02 Note Text: This note was created using Algorithmicsriter. Subjective HISTORY Anai Hebert is a 73 year old lady here for Medicare Annual Wellness Visit and yearly exam and follow up appointment. Anai Hebert is a 73-year-old female with a history of DM, HTN, HLD, and a renal cyst, presenting for a Medicare Annual Wellness Visit. Anai reports concerns about her current medications, particularly metformin and rosuvastatin. She questions the efficacy of metformin, despite her HbA1c being 7.6, and mentions her ?s concerns about rosuvastatin potentially causing dementia. She is currently taking 2 metformin tablets in the morning and 2 in the evening, along with Jardiance. She denies any side effects from rosuvastatin but notes increased forgetfulness, such as leaving her purse at home recently. She is not overly concerned about dementia, attributing her forgetfulness to her age and stress. Anai also reports nocturia, waking 2-3 times per night to urinate, and difficulty returning to sleep due to racing thoughts. She averages 6 hours of sleep per night and feels better with more sleep. She denies heartburn, reflux, or changes in bowel habits. She is hesitant to take melatonin due to concerns about not waking up when needed. She has a history of a renal cyst, with a recent CT scan showing a low-density area in the lateral aspect of the left kidney, measuring 2.2 x 1.9 cm. This is a follow-up to a previous MRI that showed a 2 cm cyst, which had increased from 1.5 cm in August 2021. She is awaiting further evaluation and is concerned about potential growth. Anai also reports stress related to her house being on the market, which may increase her rent from $350 to $1,000 per month. She mentions her is busy with [employer] and [employer] shopping trips, which adds to her stress. She has a history of vision problems, being legally blind in one eye and having astigmatism in the other, which prevents her from using bifocals. She uses two pairs of glasses and reports that her vision has improved over the last two years. She follows up with Dr. Karimi for her eye care. She has a history of gallstones and is currently taking ursodiol. She also takes Ditropan for urinary issues and is on a vitamin D supplement, having recently finished a course of 50,000 IU once a week. She is concerned about her vitamin D levels and the availability of her prescription. Anai has had a mild case of shingles in the past and received the Zostavax vaccine in 2012. She has not had a flu shot since 2016 and received the initial two COVID-19 vaccines but no boosters. She is due for a mammogram and has an order in place for it. 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 PAST MEDICAL HISTORY Diagnosis Date Adjustment disorder with mixed anxiety and depressed mood 11/29/2013 Benign neoplasm of rectum and anal canal Degenerative tear of medial meniscus 01/06/2011 Dermatofibroma of left lower leg 07/02/2012 Eczema intertrigo 07/02/2012 Erythema intertrigo 07/02/2012 External hemorrhoids without mention of complication 07/03/2012 Internal hemorrhoids without mention of complication 07/03/2012 Marital conflict 01/17/2014 Obesity, unspecified DAKOTA (obstructive sleep apnea), severe on PSG 03/22/2013 Needs CPAP at 10 cm H2O with nasal pillows mask Other psoriasis 07/02/2012 Primary hyperparathyroidism (HCC) Type II or unspecified type diabetes mellitus without mention of complication, uncontrolled Unspecified essential hypertension Vitamin D deficiency 06/04/2010 Xerosis cutis 07/02/2012 Current Outpatient Medications Medication Sig lisinopril (ZESTRIL) 30 mg tablet Take 1 tablet by mouth once daily. empagliflozin (JARDIANCE) 25 mg tablet Take 1 tablet by mouth daily with breakfast. oxybutynin XL (DITROPAN XL) 5 mg 24 hr tablet Take 1 tablet by mouth once daily. metFORMIN (GLUCOPHAGE) 500 mg tablet Take 2 tablets by mouth daily with breakfast AND 2 tablets daily with dinner. benzonatate (TESSALON PERLES) 100 mg capsule Take 1-2 capsules by mouth three times a day as needed. ursodiol (ACTIGALL) 300 mg capsule Take 2 capsules by mouth every morning AND 1 capsule daily at bedtime. 2 capsules am and 1 capsule HS. metoprolol succinate ER (TOPROL XL) 50 mg 24 hr tablet Take 1 tablet by mouth once daily. rosuvastatin (CRESTOR) 5 mg tablet Take 1 tablet by mouth daily at bedtime. blood sugar diagnostic (BLOOD GLUCOSE TEST) test strip Test blood sugar(s) 3 times daily. Dx: Type 2 DM - Uncontrolled E11.65 Insulin: Yes cholecalciferol, Vitamin D3, (VITAMIN D3) 1,250 mcg (50,000 unit) cap capsule Take 1 capsule by mouth one time a week. Lancets lancets Test blood sugar(s) 3 times daily. Dx: Type 2 DM - Uncontrolled E11.65 Insulin: (more content not included)... [facility] 05-31-2024 History of Present illness Narrative Images from the original note were not included. This note was created using NoteWriter. Subjective HISTORY Anai Hebert is a 73 year old lady here for Medicare Annual Wellness Visit and yearly exam and follow up appointment. Anai Hebert is a 73-year-old female with a history of DM, HTN, HLD, and a renal cyst, presenting for a Medicare Annual Wellness Visit. Anai reports concerns about her current medications, particularly metformin and rosuvastatin. She questions the efficacy of metformin, despite her HbA1c being 7.6, and mentions her s concerns about rosuvastatin potentially causing dementia. She is currently taking 2 metformin tablets in the morning and 2 in the evening, along with Jardiance. She denies any side effects from rosuvastatin but notes increased forgetfulness, such as leaving her purse at home recently. She is not overly concerned about dementia, attributing her forgetfulness to her age and stress. Anai also reports nocturia, waking 2-3 times per night to urinate, and difficulty returning to sleep due to racing thoughts. She averages 6 hours of sleep per night and feels better with more sleep. She denies heartburn, reflux, or changes in bowel habits. She is hesitant to take melatonin due to concerns about not waking up when needed. She has a history of a renal cyst, with a recent CT scan showing a low-density area in the lateral aspect of the left kidney, measuring 2.2 x 1.9 cm. This is a follow-up to a previous MRI that showed a 2 cm cyst, which had increased from 1.5 cm in August 2021. She is awaiting further evaluation and is concerned about potential growth. Anai also reports stress related to her house being on the market, which may increase her rent from $350 to $1,000 per month. She mentions her is busy with [employer] and [employer] shopping trips, which adds to her stress. She has a history of vision problems, being legally blind in one eye and having astigmatism in the other, which prevents her from using bifocals. She uses two pairs of glasses and reports that her vision has improved over the last two years. She follows up with Dr. Karimi for her eye care. She has a history of gallstones and is currently taking ursodiol. She also takes Ditropan for urinary issues and is on a vitamin D supplement, having recently finished a course of 50,000 IU once a week. She is concerned about her vitamin D levels and the availability of her prescription. Anai has had a mild case of shingles in the past and received the Zostavax vaccine in 2012. She has not had a flu shot since 2016 and received the initial two COVID-19 vaccines but no boosters. She is due for a mammogram and has an order in place for it. 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 PAST MEDICAL HISTORY Diagnosis Date Adjustment disorder with mixed anxiety and depressed mood 11/29/2013 Benign neoplasm of rectum and anal canal Degenerative tear of medial meniscus 01/06/2011 Dermatofibroma of left lower leg 07/02/2012 Eczema intertrigo 07/02/2012 Erythema intertrigo 07/02/2012 External hemorrhoids without mention of complication 07/03/2012 Internal hemorrhoids without mention of complication 07/03/2012 Marital conflict 01/17/2014 Obesity, unspecified DAKOTA (obstructive sleep apnea), severe on PSG 03/22/2013 Needs CPAP at 10 cm H2O with nasal pillows mask Other psoriasis 07/02/2012 Primary hyperparathyroidism (HCC) Type II or unspecified type diabetes mellitus without mention of complication, uncontrolled Unspecified essential hypertension Vitamin D deficiency 06/04/2010 Xerosis cutis 07/02/2012 Current Outpatient Medications Medication Sig lisinopril (ZESTRIL) 30 mg tablet Take 1 tablet by mouth once daily. empagliflozin (JARDIANCE) 25 mg tablet Take 1 tablet by mouth daily with breakfast. oxybutynin XL (DITROPAN XL) 5 mg 24 hr tablet Take 1 tablet by mouth once daily. metFORMIN (GLUCOPHAGE) 500 mg tablet Take 2 tablets by mouth daily with breakfast AND 2 tablets daily with dinner. benzonatate (TESSALON PERLES) 100 mg capsule Take 1-2 capsules by mouth three times a day as needed. ursodiol (ACTIGALL) 300 mg capsule Take 2 capsules by mouth every morning AND 1 capsule daily at bedtime. 2 capsules am and 1 capsule HS. metoprolol succinate ER (TOPROL XL) 50 mg 24 hr tablet Take 1 tablet by mouth once daily. rosuvastatin (CRESTOR) 5 mg tablet Take 1 tablet by mouth daily at bedtime. blood sugar diagnostic (BLOOD GLUCOSE TEST) test strip Test blood sugar(s) 3 times daily. Dx: Type 2 DM - Uncontrolled E11.65 Insulin: Yes cholecalciferol, Vitamin D3, (VITAMIN D3) 1,250 mcg (50,000 unit) cap capsule Take 1 capsule by mouth one time a week. Lancets lancets Test blood sugar(s) 3 times daily. Dx: Type 2 DM - Uncontrolled E11.65 Insulin: Yes nystatin (MYCOSTATIN) cream Apply 1 application to affected area twice daily. No current facility-administered medications for this visit. ALLERGIES Allergen Reactions Bactrim [Sulfametho* Rash Pt. developed total body rash 4-5 days after starting. FAMILY HISTORY Problem Relation Age of Onset None Mother hx MS. Hypertension Father Diabetes Father Coronary Artery Disease Father 55 CABG Stroke Father 69 Diabetes Paternal Grandmother Social History Tobacco Use Smoking status: Never Smokeless tobacco: Never Substance Use Topics Alcohol use: No Drug use: No REVIEW OF SYSTEMS Review of Systems Objective BP 180/93 (BP Site: Left Arm, BP Position: Sitting, BP Cuff Size: Large Adult) Pulse 68 Resp 14 Ht 152.4 cm (5') Wt 88.3 kg (194 lb 10.7 oz) LMP 03/06/1997 SpO2 100% BMI 38.02 kg/m Last 5 Encounter Wt Readings: Date: Wt: 05/31/2024 88.3 kg (194 lb 10.7 oz) 12/11/2023 89.4 kg (197 lb) 06/14/2023 93 kg (205 lb) 01/16/2023 91.6 kg (202 lb) 05/17/2022 91.6 kg (202 lb) No waist measurement recorded Estimated body mass index is 38.02 kg/m as calculated from the following: Height as of this encounter: 152.4 cm (5'). Weight as of this encounter: 88.3 kg (194 lb 10.7 oz). Last 5 Encounter BP Readings: Date: BP: 05/31/2024 180/93[bridger bp average[ 12/11/2023 154/82[bp average[ 06/14/2023 170/88 01/16/2023 142/88 05/17/2022 144/92 05/31/24 1339 05/31/24 1342 05/31/24 1501 BP: 160/84 180/93 158/80 BP Site: Left Arm Left Arm BP Position: Sitting Sitting BP Cuff Size: Large Adult Large Adult Pulse: 68 Resp: 14 SpO2: 100% Weight: 88.3 kg (194 lb 10.7 oz) Height: 152.4 cm (5') Physical Exam Vitals reviewed. Constitutional: Appearance: Normal appearance. She is well-developed. HENT: Head: Normocephalic and atraumatic. Right Ear: Tympanic membrane, ear canal and external ear normal. Left Ear: External ear normal. There is impacted cerumen. Nose: Nose normal. Mouth/Throat: Mouth: Mucous membranes are moist. Eyes: Conjunctiva/sclera: Conjunctivae normal. Pupils: Pupils are equal, round, and reactive to light. Neck: Thyroid: No thyromegaly. Vascular: No carotid bruit. Cardiovascular: Rate and Rhythm: Normal rate and regular rhythm. Pulses: Normal pulses. Heart sounds: Normal heart sounds. No murmur heard. No friction rub. No gallop. Pulmonary: Effort: Pulmonary effort is normal. Breath sounds: Normal breath sounds. Abdominal: General: Bowel sounds are normal. There is no distension. Palpations: Abdomen is soft. There is no mass. Tenderness: There is no abdominal tenderness. Musculoskeletal: General: No deformity. Normal range of motion. Lymphadenopathy: Cervical: No cervical adenopathy. Skin: General: Skin is warm and dry. Coloration: Skin is not jaundiced or pale. Findings: No rash. Neurological: General: No focal deficit present. Mental Status: She is alert and oriented to person, place, and time. Cranial Nerves: No cranial nerve deficit. Sensory: No sensory deficit. Motor: No abnormal muscle tone. Coordination: Coordination normal. Deep Tendon Reflexes: Reflexes normal. Psychiatric: Attention and Perception: Attention and perception normal. Mood and Affect: Mood and affect normal. Speech: Speech normal. Behavior: Behavior normal. Thought Content: Thought content normal. Cognition and Memory: Cognition and memory normal. Judgment: Judgment normal. Latest Ref Rn 01/06/2023 06/06/2023 12/06/2023 05/22/2024 WBC 3.70 - 11.00 k/uL 8.75 10.08 12.68 (H) 8.98 RBC 3.90 - 5.20 m/uL 4.82 5.09 4.61 4.90 Hemoglobin 11.5 - 15.5 g/dL 14.0 14.5 13.3 14.3 Hematocrit 36.0 - 46.0 % 43.9 46.3 (H) 40.7 44.3 MCV 80.0 - 100.0 fL 91.1 91.0 88.3 90.4 MCH 26.0 - 34.0 pg 29.0 28.5 28.9 29.2 MCHC 30.5 - 36.0 g/dL 31.9 31.3 32.7 32.3 RDW-CV 11.5 - 15.0 % 14.5 14.6 14.8 15.2 (H) Platelet Count 150 - 400 k/uL 184 227 245 232 MPV 9.0 - 12.7 fL 11.2 11.2 10.8 11.0 Neut% % 70.0 70.4 Abs Neut (ANC) 1.45 - 7.50 k/uL 6.13 7.10 Lymph% % 19.8 18.8 Abs Lymph 1.00 - 4.00 k/uL 1.73 1.89 Armstrong% % 8.8 9.3 Abs Armstrong <0.87 k/uL 0.77 0.94 (H) Eosin% % 0.7 0.8 Abs Eosin <0.46 k/uL 0.06 0.08 Baso% % 0.5 0.4 Abs Baso <0.11 k/uL 0.04 0.04 Immature Gran % % 0.2 0.3 IMMATURE GRANS (ABS) <0.10 k/uL <0.03 0.03 NRBC /100 WBC 0.0 0.0 Absolute nRBC <0.01 k/uL <0.01 <0.01 <0.01 <0.01 DTYPE Auto Auto Color Yellow Yellow Clarity Clear Clear Glucose, Urine Negative 3+ ! Bilirubin, Urine Negative Negative Ketones, Urine Negative Trace ! Specific [place], Ur 1.005 - 1.030 1.035 (H) Hemoglobin/Blood,Ur Negative Negative pH, Urine <8.5 6.0 Protein, Urine Negative 2+ ! Urobilinogen 0.2-1.0 EU/dL 0.2 EU/dL Nitrites Negative Negative Leukest Negative Negative WBC, Urine 0-5 /HPF 0-5 /HPF RBC, Urine 0-2 /HPF 0-2 /HPF Bacteria Negative /HPF Negative Epithelial Cells /HPF None Seen Hyaline Cast 0 /LPF 4-10 /LPF ! Protein, Total 6.3 - 8.0 g/dL 6.4 7.0 6.8 6.8 Albumin 3.9 - 4.9 g/dL 4.1 4.2 3.7 (L) 4.2 Calcium 8.5 - 10.2 mg/dL 8.7 9.2 9.2 9.2 Bilirubin, Total 0.2 - 1.3 mg/dL 0.4 0.4 0.5 0.4 Alkaline Phosphatase 34 - 123 U/L 66 77 104 67 AST 13 - 35 U/L 15 11 (L) 15 16 ALT 7 - 38 U/L 11 8 14 9 Glucose 74 - 99 mg/dL 133 (H) 150 (H) 177 (H) 138 (H) BUN 7 - 21 mg/dL 17 18 22 (H) 17 Creatinine 0.58 - 0.96 mg/dL 0.93 0.94 0.97 (H) 0.98 (H) Sodium 136 - 144 mmol/L 139 140 137 141 Potassium 3.7 - 5.1 mmol/L 3.9 3.4 (L) 3.3 (L) 3.5 (L) Chloride 98 - 107 mmol/L 108 (H) 106 (H) 107 107 CO2 22 - 30 mmol/L 19 (L) 22 18 (L) 20 (L) Anion Gap 8 - 15 mmol/L 12 12 12 14 eGFR >=60 mL/min/1.73m 66 65 62 61 Cholesterol, Total <200 mg/dL 144 158 137 161 Triglyceride <150 mg/dL 157 (H) 181 (H) 151 (H) 196 (H) HDL Cholesterol >39 mg/dL 46 45 40 46 Non HDL Cholesterol <130 mg/dL 98 113 97 115 Fasting Time hrs 12 12 12 14 VLDL Cholesterol <30 mg/dL 31 (H) 36 (H) 30 (H) 39 (H) TC:HDL Ratio <5.10 3.13 3.51 3.43 3.50 LDL Cholesterol <100 mg/dL 67 77 67 76 LDL:HDL Ratio <2.54 1.46 1.71 1.68 1.65 Creatinine, Ur Random (UCRR) 20.0 - 300.0 mg/dL 31.5 84.1 30.0 Albumin, Urine Random mg/L 600.3 793.7 898.2 Albumin/Creat Ratio <30 mg/g 1,906 (H) 944 (H) 2,994 (H) Hemoglobin A1C 4.3 - 5.6 % 7.4 (H) 7.4 (H) 7.9 (H) 7.6 (H) Estimated Average Glucose mg/dL 166 166 180 171 Vitamin D 25 Hydroxy 31.0 - 80.0 ng/mL 58.0 46.5 Legend: (H) High (L) Low ! Abnormal Assessment and Plan--See below Anai Hebert is a 73 year old female here for a Medicare wellness visit. Medicare Health Risk Assessment General Health Very good Exercise: Minutes/Day 30 min Exercise: Days/Week 7 days Alcohol: Daily Use Never Alcohol: Drinks/Day Patient does not drink Alcohol: 6 or more drinks Never Feel off balance No Concerns: Teeth/Dentures No Concerns: Sexual function No Troubled by feelings None of the above Frequency: Eating healthy diet Nearly every day ADLs requiring help Safety precautions in home/vehicle Yes Smoke, vape, chews tobacco No Difficulty hearing No Difficulty seeing Yes--not able to get bifocals because of stigmatism in left eye; eyes improving the past 2 years Current Providers Specialists: I have reviewed specialist-related care of the patient in the medical record. Outside specialists seen: Dr. [facility]imi ([facility]), Dr. Mason (urology) Medical/Family history review Reviewed and updated problem list, medical/surgical/family/social history, medications, and allergies. Opioid use review Opioid Medications (last 90 days) No data to display Anxiety/Depression screening PHQ-9 Score: 2 (Minimal Depression) Recommendation: no further intervention at this time Cognitive screening Mini Cog Score: 5 Cognitive screening reviewed and No further action needed (score 3-5). Functional Observation Was the patient's Timed Up & Go test unsteady or >= 12 seconds? No Advance Care Planning Surrogate decision maker and/or advance care plan documented Already scanned in. Measurements BP 180/93 (BP Site: Left Arm, BP Position: Sitting, BP Cuff Size: Large Adult) Pulse 68 Resp 14 Ht 152.4 cm (5') Wt 88.3 kg (194 lb 10.7 oz) LMP 03/06/1997 SpO2 100% BMI 38.02 kg/m Vision Screening: Follows with optometry/ophthalmology Assessment/Plan Medicare annual wellness visit, subsequent (Z00.00) - Counseled on healthy diet and regular exercise - Fall avoidance information provided - Personalized prevention plan provided # Medicare annual wellness visit, subsequent (Z00.) - Completed comprehensive wellness examination. - Discussed health maintenance, including immunizations and screenings. - Follow-up in 6 months. 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 - Continue Metformin and Jardiance for glycemic control and renal protection. - Monitor blood glucose levels regularly. # White coat syndrome with diagnosis of hypertension (I10) - Blood pressure readings in the office were elevated, but patient reports lower readings at home (140s/60s). - Rechecked BP in office: 158/80 mmHg. - Continue Metoprolol; prescription sent to [facility] for a 90-day supply. - Advised patient to monitor BP at home and report readings in a month or two. # Mixed hyperlipidemia (E78.2) - LDL cholesterol at 76 mg/dL, triglycerides at 196 mg/dL, HDL at 46 mg/dL. - Continue Rosuvastatin; prescription refilled. - Educated patient on the importance of maintaining cholesterol levels to prevent cardiovascular events. # Vitamin D deficiency (E55.9) - Completed 50,000 IU weekly regimen. - Transition to 5,000 IU daily; prescription sent to [facility]. - Discussed benefits of daily dosing for better absorption. # Class 2 obesity due to excess calories with body mass index (BMI) of 38.0 to 38.9 in adult, unspecified whether serious comorbidity present (E66.812) - Weight has decreased from 205 lbs to 194 lbs over the past year. - Encouraged continued weight management through diet and exercise. # Nocturia more than twice per night (R35.1) - Discussed potential impact on sleep quality and memory. - Continue Ditropan; current dose is effective. # Albuminuria (R80.9) - Urine fyaddjy-xx-iwrbracfny ratio elevated, indicating proteinuria. - Continue Jardiance to reduce proteinuria and protect renal function. - Maintain adequate hydration. # Encounter for immunization (Z23) - Discussed Shingrix vaccine; patient had Zostavax in 2013 and a mild case of shingles previously. - Discussed Tdap and RSV vaccines; available at the pharmacy. - Patient has not received flu vaccine since 2016; advised to consider vaccination if a severe flu season is anticipated. Griffin Stahl MD documented in this encounter [facility] 05-22-2024 Telephone encounter Note Patient aware lab orders filed. Phyllis Yung LPN [facility] 05-22-2024 Miscellaneous Notes Patient aware lab orders filed. Phyllis Yung LPN \Filed documented in this encounter [facility] 05-22-2024 Telephone encounter Note \Filed [facility] 05-02-2024 Telephone encounter Note Patient has been identified by name and date of : Yes Patient phones for refill(s): Requested Prescriptions Pending Prescriptions Disp Refills lisinopril (ZESTRIL) 30 mg tablet 90 tablet 3 Sig: Take 1 tablet by mouth once daily. Date of last office visit in primary care: 12/11/2023 Date of next office visit in primary care: 05/31/2024 Please advise. Thank you. Naina Graham LPN. [facility] 05-02-2024 Miscellaneous Notes Patient has been identified by name and date of : Yes Patient phones for refill(s): Requested Prescriptions Pending Prescriptions Disp Refills lisinopril (ZESTRIL) 30 mg tablet 90 tablet 3 Sig: Take 1 tablet by mouth once daily. Date of last office visit in primary care: 12/11/2023 Date of next office visit in primary care: 05/31/2024 Please advise. Thank you. Naina Graham LPN. documented in this encounter [facility] 02-14-2024 Telephone encounter Note Prescription Refill Information The patient has been identified by name and date of : Yes Caregiver verified no other encounters exist for this prescription request: Yes Caregiver confirmed with patient/requestor that no other refills are due, in the near future, with this provider at this time: Yes The last office visit in the department: 12/11/23 Does the patient have a future office visit with this provider/department: Yes 05/31/24 Requested Prescriptions Pending Prescriptions Disp Refills empagliflozin (JARDIANCE) 25 mg tablet 90 tablet 3 Sig: Take 1 tablet by mouth daily with breakfast. Tootie Barton LPN February 14, 2024 1:15 PM [facility] 02-14-2024 Miscellaneous Notes Prescription Refill Information The patient has been identified by name and date of : Yes Caregiver verified no other encounters exist for this prescription request: Yes Caregiver confirmed with patient/requestor that no other refills are due, in the near future, with this provider at this time: Yes The last office visit in the department: 12/11/23 Does the patient have a future office visit with this provider/department: Yes 05/31/24 Requested Prescriptions Pending Prescriptions Disp Refills empagliflozin (JARDIANCE) 25 mg tablet 90 tablet 3 Sig: Take 1 tablet by mouth daily with breakfast. Tootie Barton LPN February 14, 2024 1:15 PM documented in this encounter [facility] 01-17-2024 Telephone encounter Note Spoke to ALVAREZ/Arlene, Patient does have a refill for Jardiance. Pharmacy will notify Patient when ready for pickup. Naina Graham LPN [facility] 01-17-2024 Miscellaneous Notes Spoke to ALVAREZ/Arlene, Patient does have a refill for Jardiance. Pharmacy will notify Patient when ready for pickup. Naina Graham LPN documented in this encounter [facility] 12-11-2023 Instructions Janelle Cherry APRN.COLTEN - 12/11/2023 10:00 AM EDT Increase metformin to two with breakfast and two with dinner. documented in this encounter [facility] 12-11-2023 History of Present illness Narrative SUBJECTIVE: RSV Vaccine(1 - 1-dose 60+ series) Never done Shingrix Vaccine(2 of 3) due on 05/17/2013 DTaP,Tdap,Td Vaccine(2 - Td or Tdap) due on 04/02/2022 Advance Directive Discussion due on 06/19/2023 Behavioral Health Screening Never done Mammogram Screening due on 03/22/2024 HPI Anai Hebert is a 73 year old female. PMH significant for ACTIVE PROBLEM LIST Controlled Type 2 Diabetes Mellitus With Diabetic Cataract (Hcc) Essential Hypertension Bmi 45.0-49.9, Adult (Hcc) Degeneration of Lumbar Or Lumbosacral Intervertebral Disc Low Back Pain With Left-Sided Sciatica Mixed Hyperlipidemia Vitamin D Deficiency Arthritis of Knee, Degenerative DAKOTA (obstructive sleep apnea), severe on PSG Anxiety Neurosis High Triglycerides Morbid Obesity Due to Excess Calories (Hcc) Cervical Radiculopathy Dysuria Trigger Finger, Left Middle Finger Oab (Overactive Bladder) Type 2 Diabetes Mellitus With Microalbuminuria, Without Long-Term Current Use of Insulin (Hcc) Secondary Hyperparathyroidism (Hcc) Albuminuria Presents for routine follow up . She notes a cough that is productive present for 3 weeks. Has been taking DayQuil and NyQuil for this. Did not seek care initially. She reports that Dr. Shi completed a MRI to check on postoperative changes. Notes incidentally found kidney lesion. She was scheduled therefore for an appointment with Dr. Vasquez urology. She has a follow-up scheduled with him as well. No current change in treatment only following. No outside records today. She notes her is not a fan of [employer]. DIABETES MELLITUS: Without report of excessive thirst or increased frequency of urination, chest pain or dyspnea , numbness, tingling or pain in extremities, new or unusual visual symptoms, low sugar/hypoglycemic reactions, weight loss/gain, lightheadedness/dizziness and bowel changes/loose stools. Patient's last HgA1C was Hemoglobin A1C (%) Date Value 12/06/2023 7.9 06/06/2023 7.4 04/21/2021 7.6 12/23/2020 7.7 ) Notes home FBS typically increased since last here. Checks infrequently. Walking daily, tries to be consistent Eating more healthy meals, less fast foods. Notes prior gastric bypass and eating every 2 hours. Weight is stable. HTN: Without report of headache, chest pain, palpitations, dyspnea, peripheral edema, orthopnea, fatigue and PND.Notes occasional dry cough, helped with cough drop or similar. Last 14 Encounter BP Readings: Date: BP: 12/11/2023 154/82[bp average[ 06/14/2023 170/88 01/16/2023 142/88 05/17/2022 144/92 12/13/2021 142/78 04/28/2021 158/80 12/31/2020 156/85[trubp average[ 04/22/2019 195/105 01/21/2019 162/88[rechecked 3 times --was initially 180's over 80s[ 10/22/2018 183/84 10/11/2018 196/85 05/23/2018 180/88 03/19/2018 158/80 03/06/2018 211/95 Hyperlipidemia. Ms. Hebert reports doing well on current therapy Her most recent lipid panels are: Cholesterol, Total (mg/dL) Date Value 12/06/2023 137 06/06/2023 158 12/23/2020 152 08/11/2020 187 HDL Cholesterol (mg/dL) Date Value 12/06/2023 40 06/06/2023 45 12/23/2020 38 08/11/2020 34 LDL Cholesterol (mg/dL) Date Value 12/06/2023 67 06/06/2023 77 12/23/2020 75 08/11/2020 108 LDL Cholesterol, Nonfasting (mg/dL) Date Value 08/14/2021 76 Triglyceride (mg/dL) Date Value 12/06/2023 151 06/06/2023 181 12/23/2020 196 08/11/2020 227 No report GERD, HB, or abdominal pain. Taking vitamin d supplemental. Taking once per week 50,000 IU Review of Systems Constitutional: Negative. Respiratory: Positive for cough. Cardiovascular: Negative. Endocrine: Negative. Objective BP 154/82 Pulse 66 Resp 16 Wt 89.4 kg (197 lb) LMP 03/06/1997 BMI 38.47 kg/m Physical Exam Vitals and nursing note reviewed. Constitutional: Appearance: Normal appearance. She is obese. HENT: Head: Normocephalic and atraumatic. Eyes: Conjunctiva/sclera: Conjunctivae normal. Cardiovascular: Rate and Rhythm: Normal rate and regular rhythm. Pulses: Dorsalis pedis pulses are 2+ on the right side and 2+ on the left side. Heart sounds: Normal heart sounds. Pulmonary: Effort: Pulmonary effort is normal. Breath sounds: Rhonchi (few right base) present. Abdominal: General: Bowel sounds are normal. Palpations: Abdomen is soft. Feet: Right foot: Protective Sensation: 10 sites tested. 10 sites sensed. Skin integrity: Skin integrity normal. Left foot: Protective Sensation: 10 sites tested. 10 sites sensed. Skin integrity: Skin integrity normal. Skin: General: Skin is warm and dry. Neurological: General: No focal deficit present. Mental Status: She is alert and oriented to person, place, and time. ALLERGIES Allergen Reactions Bactrim [Sulfametho* Rash Pt. developed total body rash 4-5 days after starting. Medications empagliflozin (JARDIANCE) 25 mg tablet Take 1 tablet by mouth daily with breakfast. oxybutynin XL (DITROPAN XL) 5 mg 24 hr tablet Take 1 tablet by mouth once daily. metFORMIN (GLUCOPHAGE) 500 mg tablet Take 2 tablets by mouth daily with breakfast AND 1 tablet daily with dinner. ursodiol (ACTIGALL) 300 mg capsule Take 2 capsules by mouth every morning AND 1 capsule daily at bedtime. 2 capsules am and 1 capsule HS. metoprolol succinate ER (TOPROL XL) 50 mg 24 hr tablet Take 1 tablet by mouth once daily. rosuvastatin (CRESTOR) 5 mg tablet Take 1 tablet by mouth daily at bedtime. lisinopril (ZESTRIL) 30 mg tablet Take 1 tablet by mouth once daily. blood sugar diagnostic (BLOOD GLUCOSE TEST) test strip Test blood sugar(s) 3 times daily. Dx: Type 2 DM - Uncontrolled E11.65 Insulin: Yes cholecalciferol, Vitamin D3, (VITAMIN D3) 1,250 mcg (50,000 unit) cap capsule Take 1 capsule by mouth one time a week. Lancets lancets Test blood sugar(s) 3 times daily. Dx: Type 2 DM - Uncontrolled E11.65 Insulin: Yes nystatin (MYCOSTATIN) cream Apply 1 application to affected area twice daily. PAST MEDICAL HISTORY Diagnosis Date Adjustment disorder with mixed anxiety and depressed mood 11/29/2013 Benign neoplasm of rectum and anal canal Degenerative tear of medial meniscus 01/06/2011 Dermatofibroma of left lower leg 07/02/2012 Eczema intertrigo 07/02/2012 Erythema intertrigo 07/02/2012 External hemorrhoids without mention of complication 07/03/2012 Internal hemorrhoids without mention of complication 07/03/2012 Marital conflict 01/17/2014 Obesity, unspecified DAKOTA (obstructive sleep apnea), severe on PSG 03/22/2013 Needs CPAP at 10 cm H2O with nasal pillows mask Other psoriasis 07/02/2012 Primary hyperparathyroidism (HCC) Type II or unspecified type diabetes mellitus without mention of complication, uncontrolled Unspecified essential hypertension Vitamin D deficiency 06/04/2010 Xerosis cutis 07/02/2012 Social History Tobacco Use Smoking status: Never Smokeless tobacco: Never Substance Use Topics Alcohol use: No Drug use: No Latest Ref Rng 01/06/2023 01/19/2023 06/06/2023 12/06/2023 WBC 3.70 - 11.00 k/uL 8.75 10.08 12.68 (H) RBC 3.90 - 5.20 m/uL 4.82 5.09 4.61 Hemoglobin 11.5 - 15.5 g/dL 14.0 14.5 13.3 Hematocrit 36.0 - 46.0 % 43.9 46.3 (H) 40.7 MCV 80.0 - 100.0 fL 91.1 91.0 88.3 MCH 26.0 - 34.0 pg 29.0 28.5 28.9 MCHC 30.5 - 36.0 g/dL 31.9 31.3 32.7 RDW-CV 11.5 - 15.0 % 14.5 14.6 14.8 Platelet Count 150 - 400 k/uL 184 227 245 MPV 9.0 - 12.7 fL 11.2 11.2 10.8 Neut% % 70.0 70.4 Abs Neut (ANC) 1.45 - 7.50 k/uL 6.13 7.10 Lymph% % 19.8 18.8 Abs Lymph 1.00 - 4.00 k/uL 1.73 1.89 Armstrong% % 8.8 9.3 Abs Armstrong <0.87 k/uL 0.77 0.94 (H) Eosin% % 0.7 0.8 Abs Eosin <0.46 k/uL 0.06 0.08 Baso% % 0.5 0.4 Abs Baso <0.11 k/uL 0.04 0.04 Immature Gran % % 0.2 0.3 IMMATURE GRANS (ABS) <0.10 k/uL <0.03 0.03 NRBC /100 WBC 0.0 0.0 Absolute nRBC <0.01 k/uL <0.01 <0.01 <0.01 DTYPE Auto Auto Color Yellow Yellow Clarity Clear Clear Glucose, Urine Negative 3+ ! Bilirubin, Urine Negative Negative Ketones, Urine Negative Trace ! Specific [place], Ur 1.005 - 1.030 1.035 (H) Hemoglobin/Blood,Ur Negative Negative pH, Urine <8.5 6.0 Protein, Urine Negative 2+ ! Urobilinogen 0.2-1.0 EU/dL 0.2 EU/dL Nitrites Negative Negative Leukest Negative Negative WBC, Urine 0-5 /HPF 0-5 /HPF RBC, Urine 0-2 /HPF 0-2 /HPF Bacteria Negative /HPF Negative Epithelial Cells /HPF None Seen Hyaline Cast 0 /LPF 4-10 /LPF ! Protein, Total 6.3 - 8.0 g/dL 6.4 7.0 6.8 Albumin 3.9 - 4.9 g/dL 4.1 4.2 3.7 (L) Calcium 8.5 - 10.2 mg/dL 8.7 9.2 9.2 Bilirubin, Total 0.2 - 1.3 mg/dL 0.4 0.4 0.5 Alkaline Phosphatase 34 - 123 U/L 66 77 104 AST 13 - 35 U/L 15 11 (L) 15 ALT 7 - 38 U/L 11 8 14 Glucose 74 - 99 mg/dL 133 (H) 150 (H) 177 (H) BUN 7 - 21 mg/dL 17 18 22 (H) Creatinine 0.58 - 0.96 mg/dL 0.93 0.94 0.97 (H) Sodium 136 - 144 mmol/L 139 140 137 Potassium 3.7 - 5.1 mmol/L 3.9 3.4 (L) 3.3 (L) Chloride 98 - 107 mmol/L 108 (H) 106 (H) 107 CO2 22 - 30 mmol/L 19 (L) 22 18 (L) Anion Gap 8 - 15 mmol/L 12 12 12 eGFR >=60 mL/min/1.73m 66 65 62 Cholesterol, Total <200 mg/dL 144 158 137 Triglyceride <150 mg/dL 157 (H) 181 (H) 151 (H) HDL Cholesterol >39 mg/dL 46 45 40 Non HDL Cholesterol <130 mg/dL 98 113 97 Fasting Time hrs 12 12 12 VLDL Cholesterol <30 mg/dL 31 (H) 36 (H) 30 (H) TC:HDL Ratio <5.10 3.13 3.51 3.43 LDL Cholesterol <100 mg/dL 67 77 67 LDL:HDL Ratio <2.54 1.46 1.71 1.68 Creatinine, Ur Random (UCRR) 20.0 - 300.0 mg/dL 31.5 84.1 Albumin, Urine Random mg/L 600.3 793.7 Albumin/Creat Ratio <30 mg/g 1,906 (H) 944 (H) Hemoglobin A1C 4.3 - 5.6 % 7.4 (H) 7.4 (H) 7.9 (H) Estimated Average Glucose mg/dL 166 166 180 Vitamin D 25 Hydroxy 31.0 - 80.0 ng/mL 58.0 46.5 Stool DNA Negative Negative The 10-year ASCVD risk score (Sam DK, et al., 2019) is: 36.3% Values used to calculate the score: Age: 73 years Sex: Female Is Non- : No Diabetic: Yes Tobacco smoker: No Systolic Blood Pressure: 154 mmHg Is BP treated: Yes HDL Cholesterol: 40 mg/dL Total Cholesterol: 137 mg/dL ASSESSMENT/PLAN: 1. Type 2 diabetes mellitus with microalbuminuria, without long-term current use of insulin (HCC) - ICD9: 250.40, 791.0, ICD10: E11.29, R80.9 (primary diagnosis) Decreased control -Increase metformin to 1000 mg twice daily - Blood glucose monitoring on a once a day schedule - HGB A1C - check 6 mos 2. Class 2 severe obesity due to excess calories with serious comorbidity and body mass index (BMI) of 39.0 to 39.9 in adult (HCC) - ICD9: 278.01, V85.39, ICD10: E66.01, Z68.39 Endorse portion control and routine exercise as able S/P gastric bypass Weight decreased 8 lbs since last here 4. Mixed hyperlipidemia - ICD9: 272.2, ICD10: E78.2 Recommend a plant based diet such as Mediterranean diet with plenty of vegetables, fruits,whole grains, fish, chicken, turkey or plant proteins and routine exercise such as walking Continue statin unchanged 5. Primary hypertension - ICD9: 401.9, ICD10: I10 Controlled. Continue unchanged for now. Consider increased dose of lisinopril at next visit if needed. - Encouraged sodium restriction, DASH or Mediterranean diet - Recommend regular aerobic exercise 6. Acute cough - ICD9: 786.2, ICD10: R05.1 - BENZONATATE 100 MG CAPSULE - AZITHROMYCIN 250 MG TABLET 7 Encounter for screening mammogram for breast cancer - ICD9: V76.12, ICD10: Z12.31 - Encourage monthly BSE - EMILY SCREENING W AJ 6 mo follow up MD Janelle Messina APRN.PORTER SAMPLE CASE Medical Decision Making: Problems: Moderate: 2+ stable chronic illnesses Data: Unique test(s) ordered: 1 Risk: Moderate: Drug management Medical Decision Making Level: 4 - Moderate documented in this encounter [facility] 10-16-2023 Telephone encounter Note Patient has been identified by name and date of : Yes Patient phones for refill(s): Requested Prescriptions Pending Prescriptions Disp Refills empagliflozin (JARDIANCE) 25 mg tablet 30 tablet 3 Sig: Take 1 tablet by mouth daily with breakfast. Date of last office visit in primary care: 06/14/2023 Date of next office visit in primary care: 12/11/2023 Please advise. Thank you. RADHA Garcia. [facility] 10-16-2023 Miscellaneous Notes Patient has been identified by name and date of : Yes Patient phones for refill(s): Requested Prescriptions Pending Prescriptions Disp Refills empagliflozin (JARDIANCE) 25 mg tablet 30 tablet 3 Sig: Take 1 tablet by mouth daily with breakfast. Date of last office visit in primary care: 06/14/2023 Date of next office visit in primary care: 12/11/2023 Please advise. Thank you. RADHA Garcia. documented in this encounter [facility] 05-19-2023 Miscellaneous Notes Patient has been identified by name and date of : Yes Patient phones for refill(s): Requested Prescriptions Pending Prescriptions Disp Refills metoprolol succinate ER (TOPROL XL) 50 mg 24 hr tablet 90 tablet 3 Sig: Take 1 tablet by mouth once daily. rosuvastatin (CRESTOR) 5 mg tablet 90 tablet 3 Sig: Take 1 tablet by mouth daily at bedtime. Date of last office visit in primary care: 01/16/2023 Date of next office visit in primary care: 06/14/2023 Last 2 Encounter Wt Readings: Date: Wt: 01/16/2023 91.6 kg (202 lb) 05/17/2022 91.6 kg (202 lb) Please advise. Thank you. RADHA Garcia. documented in this encounter [facility] 05-15-2023 Miscellaneous Notes Patient has been identified by name and date of : Yes Patient phones for refill(s): Requested Prescriptions Pending Prescriptions Disp Refills lisinopril (ZESTRIL) 30 mg tablet 90 tablet 3 Sig: Take 1 tablet by mouth once daily. Date of last office visit in primary care: 01/16/2023 Date of next office visit in primary care: 06/14/2023 Last 2 Encounter Wt Readings: Date: Wt: 01/16/2023 91.6 kg (202 lb) 05/17/2022 91.6 kg (202 lb) Previous labs/tests for medication: Blood Pressure: BUN (mg/dL) Date Value 01/06/2023 17 12/23/2020 19 Sodium (mmol/L) Date Value 01/06/2023 139 12/23/2020 142 Last 1 Encounter BP Readings: Date: BP: 01/16/2023 142/88 Please advise. Thank you. Naina Graham LPN. documented in this encounter [facility] 03-22-2023 Miscellaneous Notes March 23, 2023 PID: [id number] Anai Hebert [address] [place] [address] Dear Ms. Hebert, We are pleased to inform you that the results of your recent breast imaging exam on 03/22/2023 are normal. Early detection of cancer is very important. We also understand recommendations regarding breast cancer screening are controversial. Please discuss with your primary care provider which strategy is best for you and whether a mammogram is right for you. Your imaging studies and report will be kept on file at [facility] as part of your permanent medical record and are available for your continuing care. Thank you for allowing us to help in meeting your health care needs. Sincerely, Dr. Aleman Interpreting Radiologist [facility] (Normal over 40) documented in this encounter [facility] 03-22-2023 History of Present illness Narrative Radiology Service Progress Note PATIENT NAME: Anai Hebert DATE OF SERVICE: March 22, 2023 TIME: 9:27 AM PATIENT IDENTITY VERIFICATION COMPLETED USING TWO (2) IDENTIFIERS: Name and Date of confirmed by patient verbally. FALL SCREENING: Has the patient had 2 falls in the last year or 1 fall with injury or currently using an Ambulatory Assistive Device (Walker, Cane, Wheelchair, Crutches, etc.)? No PATIENT GENDER DATA: Female. status: : No status: NO. PATIENT RELEVANT IMPLANT DATA REVIEWED: Not Applicable RADIOLOGY DEPARTMENT: Mammography PERIPHERAL IV DATA: Not applicable SIGNED BY: Arlene Gotti March 22, 2023 9:27 AM documented in this encounter [facility] 03-22-2023 Miscellaneous Notes Negative, 1 year screening follow-up documented in this encounter [facility] 03-20-2023 Miscellaneous Notes Last office visit: 01/16/23 Next appointment scheduled: 06/14/23 Last labs: 01/06/23 last HGB A1C documented in this encounter [facility] 03-11-2023 Miscellaneous Notes Patient has been identified by name and date of : No Patient phones for refill(s): Requested Prescriptions Pending Prescriptions Disp Refills JARDIANCE 25 mg tablet [Pharmacy Med Name: JARDIANCE 25 MG TABLET] 30 tablet 3 Sig: take 1 tablet by mouth every day with breakfast Date of last office visit in primary care: 01/16/23 Last 2 Encounter Wt Readings: Date: Wt: 01/16/2023 91.6 kg (202 lb) 05/17/2022 91.6 kg (202 lb) Previous labs/tests for medication: Diabetes: Hemoglobin A1C (%) Date Value 01/06/2023 7.4 05/09/2022 7.0 04/21/2021 7.6 12/23/2020 7.7 Please advise. Thank you. Ana Miles documented in this encounter [facility] 02-27-2023 History of Present illness Narrative POPULATION HEALTH NAVIGATION OUTREACH Action/I [employer] Care Gaps 9.1.23 Discuss/Due for: Mammogram, Influenza Vaccination, Colorectal Cancer Screening Follow Up previously scheduled with Griffin Stahl MD Outcome: 1st attempt - Left Message 2nd attempt - MyChart message sent Updated Health Maintenance with Cologuard from 01/19/2023 Patient Identified by Name and : NO Outreach Outcome/Action Unable to reach patient: Left message MyChart message sent Did you use a PCP flex slot to schedule this appointment? N/A Reason for Outreach Care Gap or Scheduling/Wellness visits Payer: Payor: [employer] MEDICARE / Plan: [employer] MED[employer]ARE PPO / Product Type: PPO / Care Gap Reviewed:: Breast Cancer screening Colorectal Cancer Screening Flu Vaccine Reminder: Reminder note to check Health Maintenance for items below Health Maintenance items due: SHINGRIX VACCINE(2 of 3) due on 05/17/2013 DTAP,TDAP,TD(2 - Td or Tdap) due on 04/02/2022 COLORECTAL CANCER SCREENING due on 01/20/2023 INFLUENZA(1) due on 02/17/2023 MAMMOGRAM due on 03/10/2023 Navigation Signature: Sheron Diaz MA February 27, 2023 9:24 AM documented in this encounter [facility] 01-16-2023 Instructions Janelle Cherry APRN.CNS - 01/16/2023 9:41 AM EDT Consider getting Tdap and shingles vaccine at your local pharmacy or at the clinic. documented in this encounter [facility] 01-16-2023 History of Present illness Narrative SUBJECTIVE: BP CONTROLLED (<130/80) Never done SHINGRIX VACCINE(2 of 3) due on 05/17/2013 DTAP,TDAP,TD(2 - Td or Tdap) due on 04/02/2022 ADVANCE DIRECTIVE DISCUSSION due on 06/19/2022 DEPRESSION ASSESSMENT due on 06/19/2022 COLORECTAL CANCER SCREENING due on 07/03/2022 DIABETIC FOOT EXAM due on 12/13/2022 ANNUAL PCP TEAM CHRONIC DISEASE VISIT due on 12/13/2022 MAMMOGRAM due on 03/10/2023 HPI Anai Hebert is a 72 year old female. PMH significant for ACTIVE PROBLEM LIST Controlled Type 2 Diabetes Mellitus With Diabetic Cataract (Hcc) Essential Hypertension Bmi 45.0-49.9, Adult (Hcc) Degeneration of Lumbar Or Lumbosacral Intervertebral Disc Low Back Pain With Left-Sided Sciatica Mixed Hyperlipidemia Vitamin D Deficiency Arthritis of Knee, Degenerative DAKOTA (obstructive sleep apnea), severe on PSG Anxiety Neurosis High Triglycerides Morbid Obesity Due to Excess Calories (Hcc) Cervical Radiculopathy Dysuria Trigger Finger, Left Middle Finger Oab (Overactive Bladder) Type 2 Diabetes Mellitus With Microalbuminuria, Without Long-Term Current Use of Insulin (Hcc) Secondary Hyperparathyroidism (Hcc) Albuminuria Presents for routine follow up . She notes no longer with apnea or daytime fatigue or snoring so no longer using CPAP. She notes her is not a fan of [employer]. DIABETES MELLITUS: Without report of excessive thirst or increased frequency of urination, chest pain or dyspnea , numbness, tingling or pain in extremities, new or unusual visual symptoms, low sugar/hypoglycemic reactions, weight loss/gain, lightheadedness/dizziness and bowel changes/loose stools. Patient's last HgA1C was Hemoglobin A1C (%) Date Value 01/06/2023 7.4 05/09/2022 7.0 04/21/2021 7.6 12/23/2020 7.7 ) Notes home FBS typically in well controlled since last here. Walking daily, tries to be consistent Eating more healthy meals, less fast foods. Notes prior gastric bypass and eating every 2 hours. Weight is stable. HTN: Without report of headache, chest pain, palpitations, dyspnea, peripheral edema, orthopnea, fatigue and PND.Notes occasional dry cough, helped with cough drop or similar. Last 14 Encounter BP Readings: Date: BP: 01/16/2023 142/88 05/17/2022 144/92 12/13/2021 142/78 04/28/2021 158/80 12/31/2020 156/85[trubp average[ 04/22/2019 195/105 01/21/2019 162/88[rechecked 3 times --was initially 180's over 80s[ 10/22/2018 183/84 10/11/2018 196/85 05/23/2018 180/88 03/19/2018 158/80 03/06/2018 211/95 03/01/2018 169/80 02/08/2018 154/80 Hyperlipidemia. Ms. Hebert reports doing well on current therapy Her most recent lipid panels are: Cholesterol, Total (mg/dL) Date Value 01/06/2023 144 05/09/2022 185 12/23/2020 152 08/11/2020 187 HDL Cholesterol (mg/dL) Date Value 01/06/2023 46 05/09/2022 49 12/23/2020 38 08/11/2020 34 LDL Cholesterol (mg/dL) Date Value 01/06/2023 67 05/09/2022 105 12/23/2020 75 08/11/2020 108 LDL Cholesterol, Nonfasting (mg/dL) Date Value 08/14/2021 76 Triglyceride (mg/dL) Date Value 01/06/2023 157 05/09/2022 157 12/23/2020 196 08/11/2020 227 No report GERD, HB, or abdominal pain. Taking vitamin d supplemental. Taking once per week 50,000 IU Review of Systems Constitutional: Negative. Respiratory: Negative. Cardiovascular: Negative. Endocrine: Negative. Objective BP 142/88 Pulse 67 Temp 36.6 C (97.9 F) Resp 18 Wt 91.6 kg (202 lb) LMP 03/06/1997 SpO2 98% BMI 39.45 kg/m Physical Exam Vitals and nursing note reviewed. Constitutional: Appearance: Normal appearance. She is obese. HENT: Head: Normocephalic and atraumatic. Eyes: Conjunctiva/sclera: Conjunctivae normal. Cardiovascular: Rate and Rhythm: Normal rate and regular rhythm. Pulses: Dorsalis pedis pulses are 2+ on the right side and 2+ on the left side. Heart sounds: Normal heart sounds. Pulmonary: Effort: Pulmonary effort is normal. Breath sounds: Normal breath sounds. Abdominal: General: Bowel sounds are normal. Feet: Right foot: Protective Sensation: 10 sites tested. 10 sites sensed. Skin integrity: Skin integrity normal. Left foot: Protective Sensation: 10 sites tested. 10 sites sensed. Skin integrity: Skin integrity normal. Skin: General: Skin is warm and dry. Neurological: General: No focal deficit present. Mental Status: She is alert and oriented to person, place, and time. ALLERGIES Allergen Reactions Bactrim [Sulfametho* Rash Pt. developed total body rash 4-5 days after starting. Medications empagliflozin (JARDIANCE) 25 mg tablet Take 1 tablet by mouth daily with breakfast. blood sugar diagnostic (BLOOD GLUCOSE TEST) test strip Test blood sugar(s) 3 times daily. Dx: Type 2 DM - Uncontrolled E11.65 Insulin: Yes metFORMIN (GLUCOPHAGE) 500 mg tablet Take 2 tablets by mouth daily with breakfast AND 1 tablet daily with dinner. metoprolol succinate ER (TOPROL XL) 50 mg 24 hr tablet Take 1 tablet by mouth once daily. rosuvastatin (CRESTOR) 5 mg tablet Take 1 tablet by mouth daily at bedtime. lisinopril (ZESTRIL,PRINIVIL) 30 mg tablet Take 1 tablet by mouth once daily. cholecalciferol, Vitamin D3, (VITAMIN D3) 1,250 mcg (50,000 unit) cap capsule Take 1 capsule by mouth one time a week. ursodiol (ACTIGALL) 300 mg capsule Take 300 mg by mouth twice daily. Lancets lancets Test blood sugar(s) 3 times daily. Dx: Type 2 DM - Uncontrolled E11.65 Insulin: Yes nystatin (MYCOSTATIN) cream Apply 1 application to affected area twice daily. mupirocin (BACTROBAN) 2 % ointment Apply 1 application to affected area three times daily. Location: umbilicus (Patient not taking: Reported on 12/31/2020) ketoconazole (NIZORAL) 2 % shampoo Lather scalp psoriasis areas for full 5 minutes on alternate days (qoday) as directed and tolerated for up to 2-4 wks or less, then if alot better, can gradually taper as able to once per week or less for maintenance tx. Can also use as a cleanser for 5 minute lather of fold areas of behind ears, under breasts, and groin area, as tolerated, daily to alternate day for 2-4 weeks and if cleared up can taper to weekly for maintenance control. (Patient not taking: Reported on 12/31/2020) COMPOUNDED PRESCRIPTION Initiate CPAP @ 10 cm of water with humidification. Mask, optional chin strap, filters, tubing, humidifier and lifetime supplies. (Patient not taking: Reported on 04/28/2021) PAST MEDICAL HISTORY Diagnosis Date Adjustment disorder with mixed anxiety and depressed mood 11/29/2013 Benign neoplasm of rectum and anal canal Degenerative tear of medial meniscus 01/06/2011 Dermatofibroma of left lower leg 07/02/2012 Eczema intertrigo 07/02/2012 Erythema intertrigo 07/02/2012 External hemorrhoids without mention of complication 07/03/2012 Internal hemorrhoids without mention of complication 07/03/2012 Marital conflict 01/17/2014 Obesity, unspecified DAKOTA (obstructive sleep apnea), severe on PSG 03/22/2013 Needs CPAP at 10 cm H2O with nasal pillows mask Other psoriasis 07/02/2012 Primary hyperparathyroidism (HCC) Type II or unspecified type diabetes mellitus without mention of complication, uncontrolled Unspecified essential hypertension Vitamin D deficiency 06/04/2010 Xerosis cutis 07/02/2012 Social History Tobacco Use Smoking status: Never Smokeless tobacco: Never Substance Use Topics Alcohol use: No Drug use: No Component Latest Ref Rng & Units 08/14/2021 12/07/2021 05/09/2022 01/06/2023 WBC 3.70 - 11.00 k/uL 8.57 7.77 7.90 8.75 RBC 3.90 - 5.20 m/uL 5.07 5.00 4.92 4.82 Hemoglobin 11.5 - 15.5 g/dL 14.5 14.6 14.5 14.0 Hematocrit 36.0 - 46.0 % 47.6 (H) 45.0 46.4 (H) 43.9 MCV 80.0 - 100.0 fL 93.9 90.0 94.3 91.1 MCH 26.0 - 34.0 pg 28.6 29.2 29.5 29.0 MCHC 30.5 - 36.0 g/dL 30.5 32.4 31.3 31.9 RDW-CV 11.5 - 15.0 % 14.7 14.3 15.4 (H) 14.5 Platelet Count 150 - 400 k/uL 224 201 182 184 MPV 9.0 - 12.7 fL 12.4 10.9 12.8 (H) 11.2 Neut% % 70.0 Abs Neut (ANC) 1.45 - 7.50 k/uL 6.13 Lymph% % 19.8 Abs Lymph 1.00 - 4.00 k/uL 1.73 Armstrong% % 8.8 Abs Armstrong <0.87 k/uL 0.77 Eosin% % 0.7 Abs Eosin <0.46 k/uL 0.06 Baso% % 0.5 Abs Baso <0.11 k/uL 0.04 Immature Gran % % 0.2 IMMATURE GRANS (ABS) <0.10 k/uL <0.03 NRBC /100 WBC 0.0 Absolute nRBC <0.01 k/uL <0.01 <0.01 <0.01 <0.01 DTYPE Auto Protein, Total 6.3 - 8.0 g/dL 6.9 6.5 7.1 6.4 Albumin 3.9 - 4.9 g/dL 3.8 (L) 4.2 4.4 4.1 Calcium 8.5 - 10.2 mg/dL 9.8 9.0 9.6 8.7 Bilirubin, Total 0.2 - 1.3 mg/dL 0.4 0.5 0.5 0.4 Alkaline Phosphatase 34 - 123 U/L 76 66 59 66 AST 13 - 35 U/L 40 (H) 17 17 15 ALT 7 - 38 U/L 31 12 15 11 Glucose 74 - 99 mg/dL 145 (H) 127 (H) 146 (H) 133 (H) BUN 7 - 21 mg/dL 16 17 22 (H) 17 Creatinine 0.58 - 0.96 mg/dL 0.91 0.87 1.00 (H) 0.93 Sodium 136 - 144 mmol/L 141 139 140 139 Potassium 3.7 - 5.1 mmol/L 4.6 4.2 4.2 3.9 Chloride 97 - 105 mmol/L 106 (H) 105 105 108 (H) CO2 22 - 30 mmol/L 18 (L) 22 22 19 (L) Anion Gap 9 - 18 mmol/L 17 12 13 12 eGFR >=60 mL/min/1.73m 68 72 61 66 Cholesterol, Total <200 mg/dL 162 185 144 Triglyceride <150 mg/dL 197 (H) 157 (H) 157 (H) HDL Cholesterol >39 mg/dL 46 49 46 Non HDL Cholesterol <130 mg/dL 116 136 (H) 98 Fasting Time hrs 12 12 12 VLDL Cholesterol <30 mg/dL 39 (H) 31 (H) 31 (H) TC:HDL Ratio <5.10 3.52 3.78 3.13 LDL Cholesterol <100 mg/dL 77 105 (H) 67 LDL:HDL Ratio <2.54 1.67 2.14 1.46 Total Cholesterol, Nonfasting <200 mg/dL 151 Triglycerides, Nonfasting <150 mg/dL 174 (H) HDL Cholesterol, Nonfasting >39 mg/dL 40 LDL Cholesterol, Nonfasting <100 mg/dL 76 Non HDL Cholesterol, Nonfasting <130 mg/dL 111 VLDL Cholesterol, Nonfasting <30 mg/dL 35 (H) Total Chol/HDL Ratio, Nonfasting <5.10 mg/dL 3.78 LDL/HDL Ratio, Nonfasting <2.54 mg/dL 1.90 Creatinine, Ur Random (UCRR) 20.0 - 300.0 mg/dL 31.4 26.0 Albumin, Urine Random mg/L 152.4 275.1 Albumin/Creat Ratio <30 mg/g 485 (H) 1,058 (H) Hemoglobin A1C 4.3 - 5.6 % 8.2 (H) 7.7 (H) 7.0 (H) 7.4 (H) Estimated Average Glucose mg/dL 189 174 154 166 Vitamin D 25 Hydroxy 31.0 - 80.0 ng/mL 82.2 (H) 55.1 65.4 58.0 The 10-year ASCVD risk score (Sam PARKER, et al., 2019) is: 28.7% Values used to calculate the score: Age: 72 years Sex: Female Is Non- : No Diabetic: Yes Tobacco smoker: No Systolic Blood Pressure: 142 mmHg Is BP treated: Yes HDL Cholesterol: 46 mg/dL Total Cholesterol: 144 mg/dL ASSESSMENT/PLAN: 1. Type 2 diabetes mellitus with microalbuminuria, without long-term current use of insulin (HCC) - ICD9: 250.40, 791.0, ICD10: E11.29, R80.9 (primary diagnosis) Improved control - Continue current medications - Blood glucose monitoring on a once a day schedule - ALBUMIN/CREAT RATIO RND UR - CBC + DIFF - COMP METABOLIC PANEL - LIPID PANEL BASIC - HGB A1C 2. Class 2 severe obesity due to excess calories with serious comorbidity and body mass index (BMI) of 39.0 to 39.9 in adult (HCC) - ICD9: 278.01, V85.39, ICD10: E66.01, Z68.39 Endorse portion control and routine exercise as able 4. Mixed hyperlipidemia - ICD9: 272.2, ICD10: E78.2 Recommend a plant based diet such as Mediterranean diet with plenty of vegetables, fruits,whole grains, fish, chicken, turkey or plant proteins and routine exercise such as walking Continue statin unchanged 5. Primary hypertension - ICD9: 401.9, ICD10: I10 Improved control, continue unchanged for now. Consider increased dose of lisinopril at next visit if needed. - Encouraged sodium restriction, DASH or Mediterranean diet - Recommend regular aerobic exercise 6. Encounter for immunization - ICD9: V03.89, ICD10: Z23 - TDAP VACCINE, AGE 7+ YR (ADACEL, BOOSTRIX) 7. Need for shingles vaccine - ICD9: V04.89, ICD10: Z23 - SHINGRIX PRINTED PHARMACY INSTRUCTIONS 8. Encounter for screening mammogram for breast cancer - ICD9: V76.12, ICD10: Z12.31 - Encourage monthly BSE - EMILY SCREENING - EMILY SCREENING W AJ 9. Screening for colon cancer - ICD9: V76.51, ICD10: Z12.11 - COLOGUARD Janelle Cherry APRN.CNS Medical Decision Making: Problems: Moderate: 2+ stable chronic illnesses Data: Unique test(s) ordered: 3+ Risk: Moderate: Drug management Medical Decision Making Level: 4 - Moderate documented in this encounter [facility] 11-18-2022 Miscellaneous Notes Patient has been identified by name and date of : Yes Patient phones for refill(s): Requested Prescriptions Pending Prescriptions Disp Refills empagliflozin (JARDIANCE) 25 mg tablet 30 tablet 3 Sig: Take 1 tablet by mouth daily with breakfast. Date of last office visit in primary care: 08/26/2020 Please advise. Thank you. Mary Ellen Pat LPN documented in this encounter [facility] 10-25-2022 History of Present illness Narrative POPULATION HEALTH NAVIGATION OUTREACH Action/FYI 10/25/22 Discuss/due [employer] Care Gaps: ~Colorectal Cancer ~Advance Directives Outcome: ~Left message on voice mail and sent [facility] message. ~AD information sent via [employer] Patient Identified by Name and : NO Outreach Outcome/Action Unable to reach patient: Left message MyChart message sent Advance Directives sent Did you use a PCP flex slot to schedule this appointment? N/A Reason for Outreach Care Gap or Scheduling/Wellness visits Payer: Payor: [employer] MEDICARE / Plan: [employer] MEDICARE PPO / Product Type: PPO / Care Gap Reviewed:: Colorectal Cancer Screening Reminder: Reminder note to check Health Maintenance for items below Health Maintenance items due: BP CONTROLLED (<130/80) Never done DTAP,TDAP,TD(2 - Td or Tdap) due on 04/02/2022 ADVANCE DIRECTIVE DISCUSSION due on 06/19/2022 DEPRESSION ASSESSMENT due on 06/19/2022 COLORECTAL CANCER SCREENING due on 07/03/2022 Navigation Signature: Munira Gage Population Health Navigator October 25, 2022 8:14 AM documented in this encounter [facility] 07-20-2022 Miscellaneous Notes NEAL: 05/17/2022 Last refill: 03/21/2022 QTY: 30 Refills: 3 Patient's request for medication is as follows: Requested Prescriptions Pending Prescriptions Disp Refills empagliflozin (JARDIANCE) 25 mg tablet 30 tablet 3 Sig: Take 1 tablet by mouth daily with breakfast. Please approve the above prescription(s) to electronically send to pharmacy. Ector Hair Ma documented in this encounter [facility] 05-17-2022 Jailyn Cherry APRN.PORTER SAMPLE CASE - 05/17/2022 9:31 AM EST Check to see if your insurance covers shingles and Tdap vaccine and what location to get the vaccine -usually best covered at your local pharmacy where you get prescriptions filled Increase your dose of lisinopril from 20 mg daily to 30 mg daily. Let us know if not feeling well with the change. documented in this encounter [facility] 05-17-2022 History of Present illness Narrative SUBJECTIVE: BP CONTROLLED (<130/80) Never done DEPRESSION ASSESSMENT Never done HPI Anai Hebert is a 71 year old female. PMH significant for ACTIVE PROBLEM LIST Controlled Type 2 Diabetes Mellitus With Diabetic Cataract (Hcc) Essential Hypertension Bmi 45.0-49.9, Adult (Hcc) Degeneration of Lumbar Or Lumbosacral Intervertebral Disc Low Back Pain With Left-Sided Sciatica Mixed Hyperlipidemia Vitamin D Deficiency Arthritis of Knee, Degenerative DAKOTA (obstructive sleep apnea), severe on PSG Anxiety Neurosis High Triglycerides Morbid Obesity Due to Excess Calories ([facility]) Cervical Radiculopathy Dysuria Trigger Finger, Left Middle Finger Oab (Overactive Bladder) Type 2 Diabetes Mellitus With Microalbuminuria, Without Long-Term Current Use of Insulin (Hcc) Secondary Hyperparathyroidism (Hcc) Albuminuria Presents for routine follow up . Notes not sleeping as much as since time alexe and family member returned home. Notes is grumpy due to weaning off some medications. Has sunlight lamp at home for use in low daylight times to help mood. DIABETES MELLITUS: Without report of excessive thirst or increased frequency of urination, chest pain or dyspnea , numbness, tingling or pain in extremities, new or unusual visual symptoms, low sugar/hypoglycemic reactions, weight loss/gain, lightheadedness/dizziness and bowel changes/loose stools. Patient's last HgA1C was Hemoglobin A1C (%) Date Value 05/09/2022 7.0 12/07/2021 7.7 04/21/2021 7.6 12/23/2020 7.7 ) Notes home FBS typically in well controlled since last here. Walking daily, tries to be consistent Eating more healthy meals, less fast foods. Notes prior gastric bypass and eating every 2 hours. Weight is decreased since lst here. HTN: Without report of headache, chest pain, palpitations, dyspnea, peripheral edema, orthopnea, fatigue and PND.Notes occasional dry cough, helped with cough drop or similar. Last 14 Encounter BP Readings: Date: BP: 05/17/2022 144/92 12/13/2021 142/78 04/28/2021 158/80 12/31/2020 156/85[trubp average[ 04/22/2019 195/105 01/21/2019 162/88[rechecked 3 times --was initially 180's over 80s[ 10/22/2018 183/84 10/11/2018 196/85 05/23/2018 180/88 03/19/2018 158/80 03/06/2018 211/95 03/01/2018 169/80 02/08/2018 154/80 01/25/2018 194/93 Hyperlipidemia. Ms. Hebert reports doing well on current therapy Her most recent lipid panels are: Cholesterol, Total (mg/dL) Date Value 05/09/2022 185 12/07/2021 162 12/23/2020 152 08/11/2020 187 HDL Cholesterol (mg/dL) Date Value 05/09/2022 49 12/07/2021 46 12/23/2020 38 08/11/2020 34 LDL Cholesterol (mg/dL) Date Value 05/09/2022 105 12/07/2021 77 12/23/2020 75 08/11/2020 108 LDL Cholesterol, Nonfasting (mg/dL) Date Value 08/14/2021 76 Triglyceride (mg/dL) Date Value 05/09/2022 157 12/07/2021 197 12/23/2020 196 08/11/2020 227 No report GERD, HB, abdominal pain. Taking vitamin d supplemental. Taking once per week. Review of Systems Constitutional: Negative. Respiratory: Negative. Cardiovascular: Negative. Endocrine: Negative. Objective BP 144/92 Pulse 60 Resp 16 Wt 91.6 kg (202 lb) LMP 03/06/1997 BMI 39.45 kg/m Physical Exam Vitals and nursing note reviewed. Constitutional: Appearance: Normal appearance. She is obese. HENT: Head: Normocephalic and atraumatic. Eyes: Conjunctiva/sclera: Conjunctivae normal. Cardiovascular: Rate and Rhythm: Normal rate and regular rhythm. Heart sounds: Normal heart sounds. Pulmonary: Effort: Pulmonary effort is normal. Breath sounds: Normal breath sounds. Abdominal: General: Bowel sounds are normal. Skin: General: Skin is warm and dry. Neurological: General: No focal deficit present. Mental Status: She is alert and oriented to person, place, and time. ALLERGIES Allergen Reactions Bactrim [Sulfametho* Rash Pt. developed total body rash 4-5 days after starting. Medications empagliflozin (JARDIANCE) 25 mg tablet Take 1 tablet by mouth daily with breakfast. cholecalciferol, Vitamin D3, (VITAMIN D3) 1,250 mcg (50,000 unit) cap capsule Take 1 capsule by mouth one time a week. ursodiol (ACTIGALL) 300 mg capsule Take 300 mg by mouth twice daily. blood sugar diagnostic (BLOOD GLUCOSE TEST) test strip Test blood sugar(s) 3 times daily. Dx: Type 2 DM - Uncontrolled E11.65 Insulin: Yes metFORMIN (GLUCOPHAGE) 500 mg tablet Take 2 tablets by mouth daily with breakfast AND 1 tablet daily with dinner. Lancets lancets Test blood sugar(s) 3 times daily. Dx: Type 2 DM - Uncontrolled E11.65 Insulin: Yes nystatin (MYCOSTATIN) cream Apply 1 application to affected area twice daily. metoprolol succinate ER (TOPROL XL) 50 mg 24 hr tablet Take 1 tablet by mouth once daily. rosuvastatin (CRESTOR) 5 mg tablet Take 1 tablet by mouth daily at bedtime. lisinopril (ZESTRIL,PRINIVIL) 30 mg tablet Take 1 tablet by mouth once daily. mupirocin (BACTROBAN) 2 % ointment Apply 1 application to affected area three times daily. Location: umbilicus (Patient not taking: No sig reported) ketoconazole (NIZORAL) 2 % shampoo Lather scalp psoriasis areas for full 5 minutes on alternate days (qoday) as directed and tolerated for up to 2-4 wks or less, then if alot better, can gradually taper as able to once per week or less for maintenance tx. Can also use as a cleanser for 5 minute lather of fold areas of behind ears, under breasts, and groin area, as tolerated, daily to alternate day for 2-4 weeks and if cleared up can taper to weekly for maintenance control. (Patient not taking: No sig reported) COMPOUNDED PRESCRIPTION Initiate CPAP @ 10 cm of water with humidification. Mask, optional chin strap, filters, tubing, humidifier and lifetime supplies. (Patient not taking: No sig reported) PAST MEDICAL HISTORY Diagnosis Date Adjustment disorder with mixed anxiety and depressed mood 11/29/2013 Benign neoplasm of rectum and anal canal Degenerative tear of medial meniscus 01/06/2011 Dermatofibroma of left lower leg 07/02/2012 Eczema intertrigo 07/02/2012 Erythema intertrigo 07/02/2012 External hemorrhoids without mention of complication 07/03/2012 Internal hemorrhoids without mention of complication 07/03/2012 Marital conflict 01/17/2014 Obesity, unspecified DAKOTA (obstructive sleep apnea), severe on PSG 03/22/2013 Needs CPAP at 10 cm H2O with nasal pillows mask Other psoriasis 07/02/2012 Primary hyperparathyroidism (HCC) Type II or unspecified type diabetes mellitus without mention of complication, uncontrolled Unspecified essential hypertension Vitamin D deficiency 06/04/2010 Xerosis cutis 07/02/2012 Social History Tobacco Use Smoking status: Never Smokeless tobacco: Never Substance Use Topics Alcohol use: No Drug use: No Component Latest Ref Rng & Units 08/14/2021 12/07/2021 05/09/2022 Protein, Total 6.3 - 8.0 g/dL 6.9 6.5 7.1 Albumin 3.9 - 4.9 g/dL 3.8 (L) 4.2 4.4 Calcium 8.5 - 10.2 mg/dL 9.8 9.0 9.6 Bilirubin, Total 0.2 - 1.3 mg/dL 0.4 0.5 0.5 Alkaline Phosphatase 34 - 123 U/L 76 66 59 AST 13 - 35 U/L 40 (H) 17 17 ALT 7 - 38 U/L 31 12 15 Glucose 74 - 99 mg/dL 145 (H) 127 (H) 146 (H) BUN 7 - 21 mg/dL 16 17 22 (H) Creatinine 0.58 - 0.96 mg/dL 0.91 0.87 1.00 (H) Sodium 136 - 144 mmol/L 141 139 140 Potassium 3.7 - 5.1 mmol/L 4.6 4.2 4.2 Chloride 97 - 105 mmol/L 106 (H) 105 105 CO2 22 - 30 mmol/L 18 (L) 22 22 Anion Gap 9 - 18 mmol/L 17 12 13 eGFR >=60 mL/min/1.73m 68 72 61 WBC 3.70 - 11.00 k/uL 8.57 7.77 7.90 RBC 3.90 - 5.20 m/uL 5.07 5.00 4.92 Hemoglobin 11.5 - 15.5 g/dL 14.5 14.6 14.5 Hematocrit 36.0 - 46.0 % 47.6 (H) 45.0 46.4 (H) MCV 80.0 - 100.0 fL 93.9 90.0 94.3 MCH 26.0 - 34.0 pg 28.6 29.2 29.5 MCHC 30.5 - 36.0 g/dL 30.5 32.4 31.3 RDW-CV 11.5 - 15.0 % 14.7 14.3 15.4 (H) Platelet Count 150 - 400 k/uL 224 201 182 MPV 9.0 - 12.7 fL 12.4 10.9 12.8 (H) Absolute nRBC <0.01 k/uL <0.01 <0.01 <0.01 Cholesterol, Total <200 mg/dL 162 185 Triglyceride <150 mg/dL 197 (H) 157 (H) HDL Cholesterol >39 mg/dL 46 49 Non HDL Cholesterol <130 mg/dL 116 136 (H) Fasting Time hrs 12 12 VLDL Cholesterol <30 mg/dL 39 (H) 31 (H) TC:HDL Ratio <5.10 3.52 3.78 LDL Cholesterol <100 mg/dL 77 105 (H) LDL:HDL Ratio <2.54 1.67 2.14 Total Cholesterol, Nonfasting <200 mg/dL 151 Triglycerides, Nonfasting <150 mg/dL 174 (H) HDL Cholesterol, Nonfasting >39 mg/dL 40 LDL Cholesterol, Nonfasting <100 mg/dL 76 Non HDL Cholesterol, Nonfasting <130 mg/dL 111 VLDL Cholesterol, Nonfasting <30 mg/dL 35 (H) Total Chol/HDL Ratio, Nonfasting <5.10 mg/dL 3.78 LDL/HDL Ratio, Nonfasting <2.54 mg/dL 1.90 Creatinine, Ur Random (UCRR) 20.0 - 300.0 mg/dL 31.4 26.0 Albumin, Urine Random mg/L 152.4 275.1 Albumin/Creat Ratio <30 mg/g 485 (H) 1,058 (H) Hemoglobin A1C 4.3 - 5.6 % 8.2 (H) 7.7 (H) 7.0 (H) Estimated Average Glucose mg/dL 189 174 154 Vitamin D 25 Hydroxy 31.0 - 80.0 ng/mL 82.2 (H) 55.1 65.4 ASSESSMENT/PLAN: 1. Type 2 diabetes mellitus with microalbuminuria, without long-term current use of insulin (HCC) - ICD9: 250.40, 791.0, ICD10: E11.29, R80.9 (primary diagnosis) Improved control - Continue current medications - Blood glucose monitoring on a once a day schedule 2. Screening for diabetic retinopathy - ICD9: V80.2, ICD10: Z13.5 Completed at [facility] February 2022, not yet in scanned documents 3. Encounter for immunization - ICD9: V03.89, ICD10: Z23 4. Primary hypertension - ICD9: 401.9, ICD10: I10 Suboptimal control Increase lisinopril from 20 mg daily to 30 mg daily. - Encouraged dietary sodium restriction/DASH diet - Recommended regular aerobic exercise. - METOPROLOL SUCCINATE ER 50 MG TABLET,EXTENDED RELEASE 24 HR 5. Mixed hyperlipidemia - ICD9: 272.2, ICD10: E78.2 controlled Continue current treatment unchanged Recommend a plant based diet such as Mediterranean diet with plenty of vegetables, fruits,whole grains, fish, chicken, turkey or plant proteins and routine exercise such as walking - ROSUVASTATIN 5 MG TABLET Janelle Cherry APRN.CNS Medical Decision Making: Problems: Moderate: 2+ stable chronic illnesses Risk: Moderate: Drug management Medical Decision Making Level: 4 - Moderate documented in this encounter [facility] 05-05-2022 History of Present illness Narrative POPULATION HEALTH NAVIGATION OUTREACH Action/FYI Left message to review H/M Updated appt note CHELLE Pt identified by name and : NO Outreach Outcome/Action Unable to reach patient: Left message MyChart message sent Did you use a PCP flex slot to schedule this appointment? N/A Reason for Outreach Care Gap or Scheduling/Wellness visits Payer: Payor: [employer] MEDICARE / Plan: [employer] MEDICARE PPO / Product Type: PPO / Care Gap Reviewed:: Diabetic Eye Exam Reminder: Reminder note to check Health Maintenance for items below Health Maintenance items due: BP CONTROLLED (<130/80) Never done DILATED RETINAL EXAM due on 12/14/2019 COVID-19 VACCINE(3 - Booster for Pfizer series) due on 12/10/2020 DEPRESSION ASSESSMENT Never done INFLUENZA(1) due on 02/17/2022 DTAP,TDAP,TD(2 - Td or Tdap) due on 04/02/2022 Message Sent to Practice: No Navigation Signature: Beryl Crespo May 05, 2022 2:24 PM documented in this encounter [facility] 03-21-2022 Miscellaneous Notes Last OV: 12/13/2021 Next OV: 05/17/2022 documented in this encounter [facility] 03-10-2022 Miscellaneous Notes March 10, 2022 PID: [id number] Anai Hebert [address] [place] [address] Dear Ms. Hebert, We are pleased to inform you that the results of your recent breast imaging exam on 03/10/2022 are normal. Early detection of cancer is very important. We also understand recommendations regarding breast cancer screening are controversial. Please discuss with your primary care provider which strategy is best for you and whether a mammogram is right for you. Your imaging studies and report will be kept on file at [facility] as part of your permanent medical record and are available for your continuing care. Thank you for allowing us to help in meeting your health care needs. Sincerely, Dr. Valiente Interpreting Radiologist [facility] (Normal over 40) documented in this encounter [facility] 03-10-2022 History of Present illness Narrative Radiology Service Progress Note PATIENT NAME: Anai Hebert DATE OF SERVICE: March 10, 2022 TIME: 7:56 AM PATIENT IDENTITY VERIFICATION COMPLETED USING TWO (2) IDENTIFIERS: Name and Date of confirmed by patient verbally. FALL SCREENING: Has the patient had 2 falls in the last year or 1 fall with injury or currently using an Ambulatory Assistive Device (Walker, Cane, Wheelchair, Crutches, etc.)? No PATIENT GENDER DATA: Female. status: : No status: NO. PATIENT RELEVANT IMPLANT DATA REVIEWED: Not Applicable RADIOLOGY DEPARTMENT: Mammography PERIPHERAL IV DATA: Not applicable SIGNED BY: RT Kristin(R) March 10, 2022 7:56 AM documented in this encounter [facility] 12-13-2021 History of Present illness Narrative This note was created using [employer]. Subjective Anai Hebert is a 71 year old female. Patient presents with: Follow Up SUBJECTIVE: Anai Hebert is a 71 year old year old lady here today for follow up appointment for review of medical conditions. Noted that has not been using CPAP since not needing based on not having the symptoms of DAKOTA since lost about 100 pounds. has not noted apnea episodes and she no longer snores. Nocturia twice a night. Able to get right back to sleep. Sugars are better. BP still better at home. Down to 120 to 130s at home. Will see eye doctor for follow up--Dr. Karimi. [facility]. PAST MEDICAL HISTORY Diagnosis Date Adjustment disorder with mixed anxiety and depressed mood 11/29/2013 Benign neoplasm of rectum and anal canal Degenerative tear of medial meniscus 01/06/2011 Dermatofibroma of left lower leg 07/02/2012 Eczema intertrigo 07/02/2012 Erythema intertrigo 07/02/2012 External hemorrhoids without mention of complication 07/03/2012 Internal hemorrhoids without mention of complication 07/03/2012 Marital conflict 01/17/2014 Obesity, unspecified DAKOTA (obstructive sleep apnea), severe on PSG 03/22/2013 Needs CPAP at 10 cm H2O with nasal pillows mask Other psoriasis 07/02/2012 Primary hyperparathyroidism (HCC) Type II or unspecified type diabetes mellitus without mention of complication, uncontrolled Unspecified essential hypertension Vitamin D deficiency 06/04/2010 Xerosis cutis 07/02/2012 Current Outpatient Medications Medication Sig empagliflozin (JARDIANCE) 25 mg tablet Take 1 tablet by mouth daily with breakfast. cholecalciferol, Vitamin D3, (VITAMIN D3) 1,250 mcg (50,000 unit) cap capsule Take 1 capsule by mouth one time a week. ursodiol (ACTIGALL) 300 mg capsule Take 300 mg by mouth twice daily. metFORMIN (GLUCOPHAGE) 500 mg tablet Take 2 tablets by mouth daily with breakfast AND 1 tablet daily with dinner. metoprolol succinate ER (TOPROL XL) 50 mg 24 hr tablet Take 1 tablet by mouth once daily. rosuvastatin (CRESTOR) 5 mg tablet Take 1 tablet by mouth daily at bedtime. lisinopril (ZESTRIL, PRINIVIL) 20 mg tablet Take 1 tablet by mouth once daily. Lancets lancets Test blood sugar(s) 3 times daily. Dx: Type 2 DM - Uncontrolled E11.65 Insulin: Yes nystatin (MYCOSTATIN) cream Apply 1 application to affected area twice daily. blood sugar diagnostic (BLOOD GLUCOSE TEST) test strip Test blood sugar(s) 3 times daily. Dx: Type 2 DM - Uncontrolled E11.65 Insulin: Yes ciclopirox (LOPROX) 0.77 % cream Apply 1 application to affected area twice daily. as directed to rash on face as well as skin folds (Patient not taking: Reported on 04/28/2021 ) mupirocin (BACTROBAN) 2 % ointment Apply 1 application to affected area three times daily. Location: umbilicus (Patient not taking: Reported on 12/31/2020 ) calcium carbonate-vitamin D3 (OSCAL+D) 500 mg(1,250mg) -400 unit chewable tablet Take 1 tablet by mouth three times daily. (Patient not taking: Reported on 12/13/2021 ) ketoconazole (NIZORAL) 2 % shampoo Lather scalp psoriasis areas for full 5 minutes on alternate days (qoday) as directed and tolerated for up to 2-4 wks or less, then if alot better, can gradually taper as able to once per week or less for maintenance tx. Can also use as a cleanser for 5 minute lather of fold areas of behind ears, under breasts, and groin area, as tolerated, daily to alternate day for 2-4 weeks and if cleared up can taper to weekly for maintenance control. (Patient not taking: Reported on 12/31/2020 ) COMPOUNDED PRESCRIPTION Initiate CPAP @ 10 cm of water with humidification. Mask, optional chin strap, filters, tubing, humidifier and lifetime supplies. (Patient not taking: Reported on 04/28/2021 ) No current facility-administered medications for this visit. Review of Systems Objective BP 142/88 Pulse 63 Wt 91.2 kg (201 lb) LMP 03/06/1997 SpO2 100% BMI 39.26 kg/m Last 5 Encounter Wt Readings: Date: Wt: 12/13/2021 91.2 kg (201 lb) 04/28/2021 94.8 kg (209 lb) 12/31/2020 95.7 kg (211 lb) 04/22/2019 104.8 kg (231 lb) 01/21/2019 105.2 kg (232 lb) No waist measurement recorded Estimated body mass index is 39.26 kg/m as calculated from the following: Height as of 05/23/18: 152.4 cm (5'). Weight as of this encounter: 91.2 kg (201 lb). Last 5 Encounter BP Readings: Date: BP: 12/13/2021 142/88 04/28/2021 158/80 12/31/2020 156/85[trubp average[ 04/22/2019 195/105 01/21/2019 162/88[rechecked 3 times --was initially 180's over 80s[ Physical Exam Constitutional: Appearance: Normal appearance. She is obese. HENT: Head: Normocephalic. Eyes: Conjunctiva/sclera: Conjunctivae normal. Cardiovascular: Rate and Rhythm: Normal rate and regular rhythm. Heart sounds: Normal heart sounds. Pulmonary: Effort: Pulmonary effort is normal. Breath sounds: Normal breath sounds. Skin: General: Skin is warm and dry. Neurological: General: No focal deficit present. Mental Status: She is alert and oriented to person, place, and time. Psychiatric: Mood and Affect: Mood normal. Behavior: Behavior normal. Thought Content: Thought content normal. Judgment: Judgment normal. Feet:Shoes and socks removed, Are you having foot pain No, No deformities, ulcers, calluses, normal distal pulses and sensitive to 10 gm monofilament Component Latest Ref Rng & Units 08/11/2020 12/23/2020 04/21/2021 08/14/2021 12/07/2021 Protein, Total 6.3 - 8.0 g/dL 6.6 6.9 6.9 6.5 Albumin 3.9 - 4.9 g/dL 4.0 4.2 3.8 (L) 4.2 Calcium 8.5 - 10.2 mg/dL 9.1 9.5 9.8 9.0 Bilirubin, Total 0.2 - 1.3 mg/dL 0.4 0.4 0.4 0.5 Alkaline Phosphatase 34 - 123 U/L 71 65 76 66 AST 13 - 35 U/L 18 21 40 (H) 17 Glucose 74 - 99 mg/dL 223 (H) 144 (H) 145 (H) 127 (H) BUN 7 - 21 mg/dL 17 19 16 17 Creatinine 0.58 - 0.96 mg/dL 0.87 1.03 (H) 0.91 0.87 Sodium 136 - 144 mmol/L 139 142 141 139 Potassium 3.7 - 5.1 mmol/L 3.9 4.2 4.6 4.2 Chloride 97 - 105 mmol/L 106 (H) 109 (H) 106 (H) 105 CO2 22 - 30 mmol/L 23 20 (L) 18 (L) 22 Anion Gap 9 - 18 mmol/L 10 13 17 12 ALT 7 - 38 U/L 19 20 31 12 eGFR- >60 >60 eGFR-All Other Races . >60 53 eGFR >=60 mL/min/1.73m 68 72 WBC 3.70 - 11.00 k/uL 8.93 8.57 7.77 RBC 3.90 - 5.20 m/uL 4.92 5.07 5.00 Hemoglobin 11.5 - 15.5 g/dL 14.0 14.5 14.6 Hematocrit 36.0 - 46.0 % 44.6 47.6 (H) 45.0 MCV 80.0 - 100.0 fL 90.7 93.9 90.0 MCH 26.0 - 34.0 pg 28.5 28.6 29.2 MCHC 30.5 - 36.0 g/dL 31.4 30.5 32.4 RDW-CV 11.5 - 15.0 % 14.2 14.7 14.3 Platelet Count 150 - 400 k/uL 201 224 201 MPV 9.0 - 12.7 fL 11.0 12.4 10.9 Absolute nRBC <0.01 k/uL <0.01 <0.01 <0.01 Cholesterol, Total <200 mg/dL 187 152 162 Triglyceride <150 mg/dL 227 (H) 196 (H) 197 (H) HDL Cholesterol >39 mg/dL 34 (L) 38 (L) 46 LDL Cholesterol <100 mg/dL 108 (H) 75 77 Non HDL Cholesterol <130 mg/dL 153 (H) 114 116 Fasting Time hrs 12 12 12 VLDL Cholesterol <30 mg/dL 45 (H) 39 (H) 39 (H) TC:HDL Ratio <5.10 5.50 (H) 4.00 3.52 LDL:HDL Ratio <2.54 3.18 (H) 1.97 1.67 Total Cholesterol, Nonfasting <200 mg/dL 151 Triglycerides, Nonfasting <150 mg/dL 174 (H) HDL Cholesterol, Nonfasting >39 mg/dL 40 LDL Cholesterol, Nonfasting <100 mg/dL 76 Non HDL Cholesterol, Nonfasting <130 mg/dL 111 VLDL Cholesterol, Nonfasting <30 mg/dL 35 (H) Total Chol/HDL Ratio, Nonfasting <5.10 mg/dL 3.78 LDL/HDL Ratio, Nonfasting <2.54 mg/dL 1.90 Creatinine, Ur Random (UCRR) 20.0 - 300.0 mg/dL 58.2 31.4 Albumin, Urine Random mg/L 178.1 152.4 Albumin/Creat Ratio <30 mg/g 306 (H) 485 (H) Hemoglobin A1C 4.3 - 5.6 % 9.3 (H) 7.7 (H) 7.6 (H) 8.2 (H) 7.7 (H) Estimated Average Glucose mg/dL 220 174 171 189 174 Vitamin D 25 Hydroxy 31.0 - 80.0 ng/mL 45.7 67.3 82.2 (H) 55.1 Assessment and Plan ASSESSMENT/PLAN: 1. Type 2 diabetes mellitus with microalbuminuria, without long-term current use of insulin ([facility]) - ICD9: 250.40, 791.0, ICD10: E11.29, R80.9 (primary diagnosis) Controlled. - Continue current medications - Encouraged regular aerobic exercise and weight loss 2. Class 2 severe obesity due to excess calories with serious comorbidity and body mass index (BMI) of 39.0 to 39.9 in adult ([facility]) - ICD9: 278.01, V85.39, ICD10: E66.01, Z68.39 Weight decreasing - Behavioral intervention 3. Breast cancer screening by mammogram - ICD9: V76.12, ICD10: Z12.31 - Set up for mammogram, yearly mammogram recommended - Follow up for annual exam in one year. - EMILY SCREENING 4. Need for vaccination - ICD9: V05.9, ICD10: Z23 - PNEUMOCOCCAL IMMUNIZATION PPSV 23 5. Vitamin D deficiency - ICD9: 268.9, ICD10: E55.9 Continue present management. 6. High triglycerides - ICD9: 272.1, ICD10: E78.1 Staying under 200; almost to goal <150. 7. Hypertension--much improved. Continue present management. Does fine at home. Griffin Stahl MD documented in this encounter [facility] 11-17-2021 Miscellaneous Notes Okayed Patient took her last pill today and needs it called in today. Last OV: 08/23/21 Next OV: 12/13/21 documented in this encounter [facility] 11-11-2021 History of Present illness Narrative POPULATION HEALTH NAVIGATION OUTREACH Action/FYI: Javedtna Care Gaps 11/11/21 Discuss/Due: ~Advance Directives ~Dilated Retinal Exam ~Breast Cancer Screening ~HgBA1C (order is in) Outcome: ~Patient declined all scheduling. States she would like to call on her own to make her appointments. ~Patient did request AD information be sent via [employer] Pt identified by name and : YES, via phone Outreach Outcome/Action Spoke to patient or caregiver: Patient declined Advance Directives sent Reason for Outreach Care Gap or Scheduling/Wellness visits Payer: Payor: [employer] MEDICARE / Plan: [employer] MEDICARE PPO / Product Type: PPO / Care Gap Reviewed:: Breast Cancer screening Diabetic Eye Exam HBA1C Reminder: Reminder note to check Health Maintenance for items below Health Maintenance items due: PNEUMOCOCCAL: 66+(1 - PCV) Never done BP CONTROLLED (<130/80) Never done SHINGRIX VACCINE(2 of 3) due on 05/17/2013 DIABETIC FOOT EXAM due on 06/30/2018 DILATED RETINAL EXAM due on 12/14/2019 COVID-19 VACCINE(3 - Booster for Pfizer series) due on 03/17/2021 ADVANCE DIRECTIVE DISCUSSION Never done MAMMOGRAM due on 09/21/2021 HBA1C due on 11/11/2021 Message Sent to Practice: No Navigation Signature: Munira Gage Population Health Navigator November 11, 2021 5:16 PM documented in this encounter [facility] 10-14-2015 History of Past i llness Narrative Problem Noted Date Resolved Date Cervicalgia 10/14/2015 02/05/2020 Primary hyperparathyroidism 07/09/201511/18 Overview: s/p parathyroidectomy Serum calcium elevated 02/20/2015 6 Plantar Fasciitis, left heel 03/04/201009/2014 documented as of this encounter (statuses as of 11/11/2021) [facility]-2016 History of Past illness Narrative* Problem Noted Date Resolved Date Cervicalgia 10/14/2015 02/05/2020 Primary hyperparathyroidism 07/09/201511/18 Overview: s/p parathyroidectomy Serum calcium elevated 02/20/2015 6 Plantar Fasciitis, left heel 03/04/201009/2014 documented as of this encounter (statuses as of 11/17/2021) [facility] History of Past illness Narrative* Problem Noted Date Resolved Date Cervicalgia 10/14/2015 02/05/2020 Primary hyperparathyroidism 07/09/201511/18 Overview: s/p parathyroidectomy Serum calcium elevated 02/20/2015 6 Plantar Fasciitis, left heel 03/04/201009/2014 documented as of this encounter (statuses as of 12/14/2021) [address]27-2016 History of Past illness Narrative* Problem Noted Date Resolved Date Cervicalgia 10/14/2015 02/05/2020 Primary hyperparathyroidism 07/09/201511/18 Overview: s/p parathyroidectomy Serum calcium elevated 02/20/2015 6 Plantar Fasciitis, left heel 03/04/201009/2014 documented as of this encounter (statuses as of 03/11/2022) [facility] History of Past illness Narrative* Problem Noted Date Resolved Date Cervicalgia 10/14/2015 02/05/2020 Primary hyperparathyroidism 07/09/201511/18 Overview: s/p parathyroidectomy Serum calcium elevated 02/20/2015 6 Plantar Fasciitis, left heel 03/04/201009/2014 documented as of this encounter (statuses as of 03/12/2022) [facility] History of Past illness Narrative* Problem Noted Date Resolved Date Cervicalgia 10/14/2015 02/05/2020 Primary hyperparathyroidism 07/09/201511/18 Overview: s/p parathyroidectomy Serum calcium elevated 02/20/2015 6 Plantar Fasciitis, left heel 03/04/201009/2014 documented as of this encounter (statuses as of 03/21/2022) [facility] History of Past illness Narrative* Problem Noted Date Resolved Date Cervicalgia 10/14/2015 02/05/2020 Primary hyperparathyroidism 07/09/201511/18 Overview: s/p parathyroidectomy Serum calcium elevated 02/20/2015 6 Plantar Fasciitis, left heel 03/04/201009/2014 documented as of this encounter (statuses as of 05/05/2022) [place] [id number] History of Past illness Narrative* Problem Noted Date Resolved Date Cervicalgia 10/14/2015 02/05/2020 Primary hyperparathyroidism 07/09/201511/18 Overview: s/p parathyroidectomy Serum calcium elevated 02/20/2015 6 Plantar Fasciitis, left heel 03/04/201009/2014 documented as of this encounter (statuses as of 05/17/2022) [facility] History of Past illness Narrative* Problem Noted Date Resolved Date Cervicalgia 10/14/2015 02/05/2020 Primary hyperparathyroidism 07/09/201511/18 Overview: s/p parathyroidectomy Serum calcium elevated 02/20/2015 6 Plantar Fasciitis, left heel 03/04/201009/2014 documented as of this encounter (statuses as of 05/24/2022) [facility] History of Past illness Narrative* Problem Noted Date Resolved Date Cervicalgia 10/14/2015 02/05/2020 Primary hyperparathyroidism 07/09/201511/18 Overview: s/p parathyroidectomy Serum calcium elevated 02/20/2015 6 Plantar Fasciitis, left heel 03/04/201009/2014 documented as of this encounter (statuses as of 07/20/2022) [facility] History of Past illness Narrative* Problem Noted Date Resolved Date Cervicalgia 10/14/2015 02/05/2020 Primary hyperparathyroidism 07/09/201511/18 Overview: s/p parathyroidectomy Serum calcium elevated 02/20/2015 6 Plantar Fasciitis, left heel 03/04/201009/2014 documented as of this encounter (statuses as of 10/26/2022) [address]27-2016 History of Past illness Narrative* Problem Noted Date Resolved Date Cervicalgia 10/14/2015 02/05/2020 Primary hyperparathyroidism 07/09/201511/18 Overview: s/p parathyroidectomy Serum calcium elevated 02/20/2015 6 Plantar Fasciitis, left heel 03/04/201009/2014 documented as of this encounter (statuses as of 11/16/2022) [address]27-2016 History of Past illness Narrative* Problem Noted Date Resolved Date Cervicalgia 10/14/2015 02/05/2020 Primary hyperparathyroidism 07/09/201511/18 Overview: s/p parathyroidectomy Serum calcium elevated 02/20/2015 6 Plantar Fasciitis, left heel 03/04/201009/2014 documented as of this encounter (statuses as of 11/18/2022) [address]27-2016 History of Past illness Narrative* Problem Noted Date Diagnosed Date Resolved Date Cervicalgia 10/14/2015 02/05/2020 Primary hyperparathyroidism 07/09/2015 12/08/2016 Overview: s/p parathyroidectomy Serum calcium elevated 02/20/201510/20 Plantar Fasciitis, left heel 03/04/2010 02/20/2015 documented as of this encounter (statuses as of 01/16/2023) [address]27-2016 History of Past illness Narrative* Problem Noted Date Diagnosed Date Resolved Date Cervicalgia 10/14/2015 02/05/2020 Primary hyperparathyroidism 07/09/2015 12/08/2016 Overview: s/p parathyroidectomy Serum calcium elevated 02/20/201510/20 Plantar Fasciitis, left heel 03/04/2010 02/20/2015 documented as of this encounter (statuses as of 02/27/2023) [address]27-2016 History of Past illness Narrative* Problem Noted Date Diagnosed Date Resolved Date Cervicalgia 10/14/2015 02/05/2020 Primary hyperparathyroidism 07/09/2015 12/08/2016 Overview: s/p parathyroidectomy Serum calcium elevated 02/20/201510/20 Plantar Fasciitis, left heel 03/04/2010 02/20/2015 documented as of this encounter (statuses as of 03/13/2023) [address]27-2016 History of Past illness Narrative* Problem Noted Date Diagnosed Date Resolved Date Cervicalgia 10/14/2015 02/05/2020 Primary hyperparathyroidism 07/09/2015 12/08/2016 Overview: s/p parathyroidectomy Serum calcium elevated 02/20/201510/20 Plantar Fasciitis, left heel 03/04/2010 02/20/2015 documented as of this encounter (statuses as of 03/21/2023) [place] [id number] History of Past illness Narrative* Problem Noted Date Diagnosed Date Resolved Date Cervicalgia 10/14/2015 02/05/2020 Primary hyperparathyroidism 07/09/2015 12/08/2016 Overview: s/p parathyroidectomy Serum calcium elevated 02/20/201510/20 Plantar Fasciitis, left heel 03/04/2010 02/20/2015 documented as of this encounter (statuses as of 03/25/2023) [address]27-2016 History of Past illness Narrative* Problem Noted Date Diagnosed Date Resolved Date Cervicalgia 10/14/2015 02/05/2020 Primary hyperparathyroidism 07/09/2015 12/08/2016 Overview: s/p parathyroidectomy Serum calcium elevated 02/20/201510/20 Plantar Fasciitis, left heel 03/04/2010 02/20/2015 documented as of this encounter (statuses as of 04/23/2023) [address]27-2016 History of Past illness Narrative* Problem Noted Date Diagnosed Date Resolved Date Cervicalgia 10/14/2015 02/05/2020 Primary hyperparathyroidism 07/09/2015 12/08/2016 Overview: s/p parathyroidectomy Serum calcium elevated 02/20/201510/20 Plantar Fasciitis, left heel 03/04/2010 02/20/2015 documented as of this encounter (statuses as of 05/16/2023) [address]27-2016 History of Past illness Narrative* Problem Noted Date Diagnosed Date Resolved Date Cervicalgia 10/14/2015 02/05/2020 Primary hyperparathyroidism 07/09/2015 12/08/2016 Overview: s/p parathyroidectomy Serum calcium elevated 02/20/201510/20 Plantar Fasciitis, left heel 03/04/2010 02/20/2015 documented as of this encounter (statuses as of 05/19/2023) [facility] Diagnosis Onset Date Resolution Status Acute kidney injury resolved Dehydration resolved Elevated lipase resolved Elevated liver function tests resolved Hyperbilirubinemia resolved Hypokalemia resolved Lactic acidosis resolved Leukocytosis resolved Metabolic acidosis resolved Metabolic encephalopathy res [facility] Work Phone: Evaluation note* Diagnosis Type 2 diabetes mellitus with microalbuminuria, without long-term current use of insulin ([facility]) [facility] this encounter [facility]* Diagnosis Type 2 diabetes mellitus with microalbuminuria, without long-term current use of insulin ([facility])- Primary Class 2 severe obesity due to excess calories with serious comorbidity and body mass index (BMI) of 39.0 to 39.9 in adult ([facility]) Breast cancer screening by mammogram Need for vaccination Need for prophylactic vaccination and inoculation against unspecified single disease Vitamin D deficiency Unspecified vitamin D deficiency High triglycerides Pure hyperglyceridemia Essential hypertension Unspecified essential hypertension [facility]* Diagnosis Breast cancer screening by mammogram [facility] Diagnosis Type 2 diabetes mellitus with microalbuminuria, without long-term current use of insulin ([facility]) [facility] Diagnosis Type 2 diabetes mellitus with microalbuminuria, without long-term current use of insulin ([facility])- Primary Screening for diabetic retinopathy Screening for other eye conditions Encounter for immunization Need for other specified prophylactic vaccination against single bacterial disease Primary hypertension Unspecified essential hypertension Mixed hyperlipidemia [facility]* Diagnosis 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, without long-term current use of insulin ([facility])- Primary Essential hypertension Unspecified essential hypertension Vitamin D deficiency Unspecified vitamin D deficiency [facility] Diagnosis Type 2 diabetes mellitus with microalbuminuria, without long-term current use of insulin ([facility]) [facility]* Diagnosis Type 2 diabetes mellitus with microalbuminuria, without long-term current use of insulin ([facility]) [facility]* Diagnosis Type 2 diabetes mellitus with microalbuminuria, without long-term current use of insulin ([facility])- Primary Class 2 severe obesity due to excess calories with serious comorbidity and body mass index (BMI) of 39.0 to 39.9 in adult (HCC) Secondary hyperparathyroidism of renal origin (HCC) Secondary hyperparathyroidism (of renal origin) Mixed hyperlipidemia Primary hypertension Unspecified essential hypertension Encounter for immunization Need for other specified prophylactic vaccination against single bacterial disease Need for shingles vaccine Need for prophylactic vaccination and inoculation against other viral diseases Encounter for screening mammogram for breast cancer Screening for colon cancer Special screening for malignant neoplasms, colon [facility] Diagnosis Type 2 diabetes mellitus with microalbuminuria, without long-term current use of insulin (HCC) [facility] Diagnosis Encounter for screening mammogram for breast cancer [facility] Diagnosis Primary hypertension Unspecified essential hypertension Mixed hyperlipidemia [facility] Diagnosis Type 2 diabetes mellitus with microalbuminuria, without long-term current use of insulin (HCC) [facility]* Diagnosis Type 2 diabetes mellitus with microalbuminuria, without long-term current use of insulin ([facility])- Primary Class 3 severe obesity due to excess calories with body mass index (BMI) of 40.0 to 44.9 in adult, unspecified whether serious comorbidity present (HCC) Primary hypertension Unspecified essential hypertension Mixed hyperlipidemia Acute cough Encounter for screening mammogram for breast cancer [facility] Diagnosis Type 2 diabetes mellitus with microalbuminuria, without long-term current use of insulin (HCC) [facility]* Diagnosis Type 2 diabetes mellitus with microalbuminuria, without long-term current use of insulin (HCC) [facility] Diagnosis 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, without long-term current use of insulin (HCC)- Primary Essential hypertension Unspecified essential hypertension Mixed hyperlipidemia High triglycerides Pure hyperglyceridemia [facility] Diagnosis Medicare annual wellness visit, subsequent- Primary Routine general medical examination at a health care facility 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, without long-term current use of insulin (HCC) White coat syndrome with diagnosis of hypertension Mixed hyperlipidemia Vitamin D deficiency Unspecified vitamin D deficiency Class 2 obesity due to excess calories with body mass index (BMI) of 38.0 to 38.9 in adult, unspecified whether serious comorbidity present Nocturia more than twice per night Albuminuria Proteinuria Encounter for immunization Need for other specified prophylactic vaccination against single bacterial disease [facility] Diagnosis 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, without long-term current use of insulin (HCC)- Primary Mixed hyperlipidemia Primary hypertension Unspecified essential hypertension [place] (obstructive sleep apnea) Obstructive sleep apnea (adult) (pediatric) Encounter for immunization Need for other specified prophylactic vaccination against single bacterial disease Screening for depression Caregiver stress Other health problem within the family [facility] noteNo assessment information availableWLake [facility] Work Phone: Evaluation note* Diagnosis Encounter for screening mammogram for breast cancer [facility] Work Phone: [facility] Discharge instructionsWLake [facility] Work Phone: Reason for referral (narrative)* Diagnostic Procedure Only (Routine) - Pending Review Specialty Diagnoses / Procedures Referred By Fritz short Referred To Contact [facility] Diagnoses Encounter for screening mammogram for breast cancer Procedures EMILY SCREENING W AJ SCREENING DIGITAL BREAST TOMOSYNTHESIS BI SCREENING MAMMOGRAPHY BI 2-VIEW BREAST INC Janelle Moran, KRISTEN.PORTER SAMPLE CASE [id number] [place] [address] [facility] [address] [place] [address] Referral ID Status Reason Start Date Expiration Date Visits Requested Visits Authorized [id number] Pending Review Auto-Generat ed Referral 01/16/2023 02/15/2024 1 1 * Diagnostic Procedure Only (Routine) - Pending Review Specialty Diagnoses / Procedures Referred By Fritz short Referred To Contact [facility] Diagnoses Encounter for screening mammogram for breast cancer Procedures EMILY SCREENING SCREENING MAMMOGRAPHY BI [facility] Janelle Cherry APRN.PORTER SAMPLE CASE [id number] [place] [address] [facility] [address] [place] [address] Referral ID Status Reason Start Date Expiration Date Visits Requested Visits Authorized [id number] Pending Review Auto-Generat ed Referral 01/16/2023 02/15/2024 1 1 [facility] for referral (narrative)* Diagnostic Procedure Only (Routine) - Closed Specialty Diagnoses / Procedures Referred By Fritz short Referred To Contact [facility] Diagnoses Encounter for screening mammogram for breast cancer Procedures EMILY SCREENING SCREENING MAMMOGRAPHY BI 2-VIEW BREAST INC Janelle Moran APRN.CNS [address] [place] [address] [facility] [address] [place] [address] Referral ID Status Reason Start Date Expiration Date V isits Requested Visits Authorized [id number] Closed Auto-Generate d Referral 01/16/2023 02/15/2024 1 1 [facility] for referral (narrative)* Diagnostic Procedure Only (Routine) - Pending Review Specialty Diagnoses / Procedures Referred By Fritz short Referred To Contact [facility] Diagnoses Encounter for screening mammogram for breast cancer Procedures EMILY SCREENING W AJ SCREENING DIGITAL BREAST TOMOSYNTHESIS BI SCREENING MAMMOGRAPHY BI 2-VIEW BREAST INC aJnelle Moran APRN.PORTER SAMPLE CASE [id number] [place] [address] [facility] [address] [place] [address] Referral ID Status Reason Start Date Expiration Date Visits Requested Visits Authorized [id number] Pending Review Auto-Generat ed Referral 12/11/2023 01/09/2025 1 1 [facility] for referral (narrative)No reason for referral information availableWLake County [facility] Work Phone: Reuuuq for visit Narrative* Diagnostic Procedure Only (Routine) - Closed Specialty Diagnoses / Procedures Referred By Fritz short Referred To Contact [facility] Diagnoses Encounter for screening mammogram for breast cancer Procedures EMILY SCREENING SCREENING MAMMOGRAPHY BI 2-VIEW BREAST INC Janelle Moran APRN.PORTER SAMPLE CASE [id number] [place] [address] [facility] [address] [place] [address] Referral ID Status Reason Start Date Expiration Date V isits Requested Visits Authorized [id number] Closed Auto-Generate d Referral 01/16/2023 02/15/2024 1 1 [facility] Chief Complaint and Reason for Visit Chief Complaint ACUTE PANCREATITIS ACUTE PANCREATITIS ACUTE PANCREATITIS ACUTE PANCREATITIS ACUTE PANCREATITIS ACUTE PANCREATITIS ACUTE PANCREATITIS ACUTE PANCREATITIS 2 [facility]ASIS Reason for Visit Acute kidney injury Dehydration Elevated lipase Elevated liver function tests Hyperbilirubinemia Hypokalemia Lactic acidosis Leukocytosis Metabolic acidosis Metabolic encephalopathy Chief Complaint Admit Date 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 November 26, 2024 7:46am Family History No Family History Records Found Relationship Condition Age at Onset Recorded Date/T angeline Unknown Family History?No pe rtinent history Unknown April 22, 2015 11:45pm Family History?No pe rtinent history Unknown April 22, 2015 11:45pm Advance Directives No Advanced Directives Records Found Advance Directive Response Recorded Date/ Time Advance Directives No April 23, 2015 1:03am Living Will Yes August 01, 022 11:04am Power of Viscose Cellar Charge Hand Yes August 01, 2021 11:04am Documents on File Type Date Recorded Patient Personnel Officer Expl anation Advance Directive(s) 04/05/2018 11:15 AM Advance Directive(s) 02/17/2016 2:41 PM Documents on File Type Date Recorded Patient Personnel Officer Expl anation Advance Directive(s) 04/05/2018 11:15 AM Advance Directive(s) 02/17/2016 2:41 PM Advance Directive Response Recorded Date/ Time Advance Directives No April 23, 2015 1:03am Reason for Referral Specialty Diagnoses / Procedures Referred By Contac t Referred To Contact [facility] Diagnoses Breast cancer screening by mammogram Procedures EMILY SCREENING SCREENING MAMMOGRAPHY BI 2-VIEW BREAST INC CAD Griffin Stahl MD [address] [place] [address] [facility] [address] [place] [address] Referral ID Status Reason Start Date Expiration Date Visits Requested Visits Authorized [id number] Pending Review Auto-Generat ed Referral 12/13/2021 03/13/2022 3 3 Referral ID Status Reason Start Date Expiration Date V isits Requested Visits Authorized [id number] Closed Auto-Generate d Referral 12/13/2021 03/13/2022 3 1 Summary Purpose Additional Source Comments Goals (unrecognized section and content) Goals may be documented in a n alternate sectionGoals may be documented in an alternate section Source Comments (unrecognize d section and content) In the event this informatio n is protected by the Federal Confidentiality of Alcohol and Drug Abuse Patient Records regulations: The Federal rules restrict any use of the information to criminally investigate or prosecute any alcohol or drug abuse patient.[facility] the event this information is protected by the Federal Confidentiality of Alcohol and Drug Abuse Patient Records regulations: The Federal rules restrict any use of the information to criminally investigate or prosecute any alcohol or drug abuse patient.[facility] HospitalIn the event this information is protected by the Federal Confidentiality of Alcohol and Drug Abuse Patient Records regulations: The Federal rules restrict any use of the information to criminally investigate or prosecute any alcohol or drug abuse patient.[facility] HospitalIn the event this information is protected by the Federal Confidentiality of Alcohol and Drug Abuse Patient Records regulations: The Federal rules restrict any use of the information to criminally investigate or prosecute any alcohol or drug abuse patient.[facility]In the event this information is protected by the Federal Confidentiality of Alcohol and Drug Abuse Patient Records regulations: The Federal rules restrict any use of the information to criminally investigate or prosecute any alcohol or drug abuse patient.[facility] HospitalIn the event this information is protected by the Federal Confidentiality of Alcohol and Drug Abuse Patient Records regulations: The Federal rules restrict any use of the information to criminally investigate or prosecute any alcohol or drug abuse patient.[facility] HospitalIn the event this information is protected by the Federal Confidentiality of Alcohol and Drug Abuse Patient Records regulations: The Federal rules restrict any use of the information to criminally investigate or prosecute any alcohol or drug abuse patient.[facility] HospitalIn the event this information is protected by the Federal Confidentiality of Alcohol and Drug Abuse Patient Records regulations: The Federal rules restrict any use of the information to criminally investigate or prosecute any alcohol or drug abuse patient.[facility] HospitalIn the event this information is protected by the Federal Confidentiality of Alcohol and Drug Abuse Patient Records regulations: The Federal rules restrict any use of the information to criminally investigate or prosecute any alcohol or drug abuse patient.[facility] HospitalIn the event this information is protected by the Federal Confidentiality of Alcohol and Drug Abuse Patient Records regulations: The Federal rules restrict any use of the information to criminally investigate or prosecute any alcohol or drug abuse patient.[facility] HospitalIn the event this information is protected by the Federal Confidentiality of Alcohol and Drug Abuse Patient Records regulations: The Federal rules restrict any use of the information to criminally investigate or prosecute any alcohol or drug abuse patient.[facility] HospitalIn the event this information is protected by the Federal Confidentiality of Alcohol and Drug Abuse Patient Records regulations: The Federal rules restrict any use of the information to criminally investigate or prosecute any alcohol or drug abuse patient.[facility] HospitalIn the event this information is protected by the Federal Confidentiality of Alcohol and Drug Abuse Patient Records regulations: The Federal rules restrict any use of the information to criminally investigate or prosecute any alcohol or drug abuse patient.[facility] HospitalIn the event this information is protected by the Federal Confidentiality of Alcohol and Drug Abuse Patient Records regulations: The Federal rules restrict any use of the information to criminally investigate or prosecute any alcohol or drug abuse patient.[facility] HospitalIn the event this information is protected by the Federal Confidentiality of Alcohol and Drug Abuse Patient Records regulations: The Federal rules restrict any use of the information to criminally investigate or prosecute any alcohol or drug abuse patient.[facility] HospitalIn the event this information is protected by the Federal Confidentiality of Alcohol and Drug Abuse Patient Records regulations: The Federal rules restrict any use of the information to criminally investigate or prosecute any alcohol or drug abuse patient.[facility] HospitalIn the event this information is protected by the Federal Confidentiality of Alcohol and Drug Abuse Patient Records regulations: The Federal rules restrict any use of the information to criminally investigate or prosecute any alcohol or drug abuse patient.[facility] HospitalIn the event this information is protected by the Federal Confidentiality of Alcohol and Drug Abuse Patient Records regulations: The Federal rules restrict any use of the information to criminally investigate or prosecute any alcohol or drug abuse patient.[facility] HospitalIn the event this information is protected by the Federal Confidentiality of Alcohol and Drug Abuse Patient Records regulations: The Federal rules restrict any use of the information to criminally investigate or prosecute any alcohol or drug abuse patient.[facility] HospitalIn the event this information is protected by the Federal Confidentiality of Alcohol and Drug Abuse Patient Records regulations: The Federal rules restrict any use of the information to criminally investigate or prosecute any alcohol or drug abuse patient.[facility] HospitalIn the event this information is protected by the Federal Confidentiality of Alcohol and Drug Abuse Patient Records regulations: The Federal rules restrict any use of the information to criminally investigate or prosecute any alcohol or drug abuse patient.[facility] HospitalIn the event this information is protected by the Federal Confidentiality of Alcohol and Drug Abuse Patient Records regulations: The Federal rules restrict any use of the information to criminally investigate or prosecute any alcohol or drug abuse patient.[facility] HospitalIn the event this information is protected by the Federal Confidentiality of Alcohol and Drug Abuse Patient Records regulations: The Federal rules restrict any use of the information to criminally investigate or prosecute any alcohol or drug abuse patient.[facility] HospitalIn the event this information is protected by the Federal Confidentiality of Alcohol and Drug Abuse Patient Records regulations: The Federal rules restrict any use of the information to criminally investigate or prosecute any alcohol or drug abuse patient.[facility] HospitalIn the event this information is protected by the Federal Confidentiality of Alcohol and Drug Abuse Patient Records regulations: The Federal rules restrict any use of the information to criminally investigate or prosecute any alcohol or drug abuse patient.[facility] HospitalIn the event this information is protected by the Federal Confidentiality of Alcohol and Drug Abuse Patient Records regulations: The Federal rules restrict any use of the information to criminally investigate or prosecute any alcohol or drug abuse patient.[facility] HospitalIn the event this information is protected by the Federal Confidentiality of Alcohol and Drug Abuse Patient Records regulations: The Federal rules restrict any use of the information to criminally investigate or prosecute any alcohol or drug abuse patient.[facility] HospitalIn the event this information is protected by the Federal Confidentiality of Alcohol and Drug Abuse Patient Records regulations: The Federal rules restrict any use of the information to criminally investigate or prosecute any alcohol or drug abuse patient.[facility] HospitalIn the event this information is protected by the Federal Confidentiality of Alcohol and Drug Abuse Patient Records regulations: The Federal rules restrict any use of the information to criminally investigate or prosecute any alcohol or drug abuse patient.[facility] HospitalIn the event this information is protected by the Federal Confidentiality of Alcohol and Drug Abuse Patient Records regulations: The Federal rules restrict any use of the information to criminally investigate or prosecute any alcohol or drug abuse patient.[facility] HospitalIn the event this information is protected by the Federal Confidentiality of Alcohol and Drug Abuse Patient Records regulations: The Federal rules restrict any use of the information to criminally investigate or prosecute any alcohol or drug abuse patient.[facility] Reason for Visit (unrecogniz ed section and content) Reason Onset Date Comments Population Health Navigation Outreach 11/11/2021 [employer] Care Gaps Reason Onset Date Comments Refill Request 11/16/2021 Reason Onset Date Comments Follow Up Breast Problem 12/13/2021 Mammogram at [facility] Specialty Diagnoses / Procedures Referred By Contac t Referred To Contact [facility] Diagnoses Breast cancer screening by mammogram Procedures EMILY SCREENING SCREENING MAMMOGRAPHY BI 2-VIEW BREAST INC Griffin Mason MD [address] [place] [address] [facility] [address] [place] [address] Referral ID Status Reason Start Date Expiration Date V isits Requested Visits Authorized [id number] Closed Auto-Generate d Referral 12/13/2021 03/13/2022 3 1 Reason Onset Date Comments Refill Request 03/19/2022 Reason Onset Date Comments Population Health Navigation Outreach 05/05/2022 [employer] care cap Reason Comments F/U 6 Month Reason Onset Date Comments Refill Request 07/20/2022 Reason Onset Date Comments Population Health Navigation Outreach 10/25/2022 [employer] Care Gaps Reason Comments Refill Request Reason Onset Date Comments Refill Request 11/17/2022 Reason Comments F/U 6 months Labs prior Reason Onset Date Comments Population Health Navigation Outreach 02/27/2023 [employer] Care Gaps 9.1.23 Reason Onset Date Comments Refill Request 03/18/2023 Reason Onset Date Comments Refill Request 05/14/2023 Reason Onset Date Comments Refill Request 05/18/2023 Reason Onset Date Comments Refill Request 10/16/2023 Reason Comments F/U 6 Month Reason Onset Date Comments Refill Request 01/17/2024 Reason Onset Date Comments Refill Request 02/14/2024 Reason Onset Date Comments Refill Request 05/02/2024 Reason Comments Medicare Wellness Exam and refill needed , worried about patient getting dementia Reason Onset Date Comments Refill Request 12/09/2024 Care Teams (unrecognized sec tion and content) Director Of Food And Nutrition Relationship Specialty Start Date End Date Griffin Stahl MD [address] [facility] [place] [address] PCP - General Cardiology 10/09/08 Blair Gar MD Primary Staff Physician Cardiology 09/04/18 [facility] [address] [place] [address] Pharmacist Pharmacy 08/26/20 Director Of Food And Nutrition Relationship Specialty Start Date End Date Griffin Stahl MD [address] [place] [address] PCP - General Cardiology 10/09/08 Blair Gar MD Primary Staff Physician Cardiology 09/04/18 [facility] [address] [place] [place] [address] Pharmacist Pharmacy 08/26/20 Director Of Food And Nutrition Relationship Specialty Start Date End Date Griffin Stahl MD [address] [place] [address] PCP - General Cardiology 10/09/08 Blair Gar MD Primary Staff Physician Cardiology 09/04/18 [facility] [address] [place] [place] [address] Pharmacist Pharmacy 08/26/20 Director Of Food And Nutrition Relationship Specialty Start Date End Date Griffin Stahl MD [address] [place] [address] PCP - General Cardiology 10/09/08 Blair Gar MD Primary Staff Physician Cardiology 09/04/18 [facility] [address] [place] [place] [address] Pharmacist Pharmacy 08/26/20 Director Of Food And Nutrition Relationship Specialty Start Date End Date Griffin Stahl MD [address] [place] [place] [address] PCP - General Cardiology 10/09/08 Blair Gar MD Primary Staff Physician Cardiology 09/04/18 [facility] [address] [facility] [place] [address] Pharmacist Pharmacy 08/26/20 Director Of Food And Nutrition Relationship Specialty Start Date End Date Griffin Stahl MD [address] [place] [place] [address] PCP - General Cardiology 10/09/08 Blair Gar MD Primary Staff Physician Cardiology 09/04/18 [facility] [address] [place] [place] [address] Pharmacist Pharmacy 08/26/20 Director Of Food And Nutrition Relationship Specialty Start Date End Date Griffin Stahl MD [address] [place] [place] [address] PCP - General Cardiology 10/09/08 Blair Gar MD Primary Staff Physician Cardiology 09/04/18 RaulitoAundrea carranzajulian, [facility] [address] [place] [address] Pharmacist Pharmacy 08/26/20 Director Of Food And Nutrition Relationship Specialty Start Date End Date Griffin Stahl MD [address] [place] [place] [address] PCP - General Cardiology 10/09/08 Blair Gar MD [address] [place] [address] Primary Staff Physician Cardiology 09/04/18 RaulitoAundrea carranzajulian, [facility] [address] [place] [address] Pharmacist Pharmacy 08/26/20 Director Of Food And Nutrition Relationship Specialty Start Date End Date Griffin Stahl MD [address] [place] [address] PCP - General Cardiology 10/09/08 Blair Gar MD [address] [place] [address] Primary Staff Physician Cardiology 09/04/18 RaulitotereDeanna, [facility] [address] [place] [address] Pharmacist Pharmacy 08/26/20 Director Of Food And Nutrition Relationship Specialty Start Date End Date Griffin Stahl MD [address] [place] [place] [address] PCP - General Cardiology 10/09/08 Blair Gar MD [address] [place] [address] Primary Staff Physician Cardiology 09/04/18 Deanna Faye, [facility] [address] [place] [address] Pharmacist Pharmacy 08/26/20 Director Of Food And Nutrition Relationship Specialty Start Date End Date Griffin Stahl MD [address] [place] [place] [address] PCP - General Cardiology 10/09/08 Blair Gar MD [address] [place] [address] Primary Staff Physician Cardiology 09/04/18 [facility] [address] [place] [place] [address] Pharmacist Pharmacy 08/26/20 Director Of Food And Nutrition Relationship Specialty Start Date End Date Griffin Stahl MD [address] [place] [address] PCP - General Cardiology 10/09/08 Blair Gar MD [address] [place] [address] Primary Staff Physician Cardiology 09/04/18 [facility] [address] [place] [place] [address] Pharmacist Pharmacy 08/26/20 Director Of Food And Nutrition Relationship Specialty Start Date End Date Griffin Stahl MD [address] [place] [address] PCP - General Cardiology 10/09/08 Blair Gar MD [address] [place] [address] Primary Staff Physician Cardiology 09/04/18 [facility] [address] [place] [address] Pharmacist Pharmacy 08/26/20 Director Of Food And Nutrition Relationship Specialty Start Date End Date Griffin Stahl MD [address] [place] [address] PCP - General Cardiology 10/09/08 Blair Gar MD [address] [place] [address] Primary Staff Physician Cardiology 09/04/18 [facility] [address] [place] [address] Pharmacist Pharmacy 08/26/20 Director Of Food And Nutrition Relationship Specialty Start Date End Date Griffin Stahl MD [address] [place] [address] PCP - General Cardiology 10/09/08 Blair Gar MD [address] [place] [address] Primary Staff Physician Cardiology 09/04/18 [facility] [address] [place] [address] Pharmacist Pharmacy 08/26/20 Director Of Food And Nutrition Relationship Specialty Start Date End Date Griffin Stahl MD [address] [place] [address] PCP - General Cardiology 10/09/08 Blair Gar MD [address] [place] [address] Primary Staff Physician Cardiology 09/04/18 Deanna Faye, [facility] [address] [place] [address] Pharmacist Pharmacy 08/26/20 Director Of Food And Nutrition Relationship Specialty Start Date End Date Griffin Stahl MD [address] [place] [place] [address] PCP - General Cardiology 10/09/08 Blair Gar MD [address] [place] [address] Primary Staff Physician Cardiology 09/04/18 [facility] [address] [place] [address] Pharmacist Pharmacy 08/26/20 Director Of Food And Nutrition Relationship Specialty Start Date End Date Griffin Stahl MD [address] [facility] [place] [address] PCP - General Cardiology 10/09/08 Blair aGr MD [address] [place] [address] Primary Staff Physician Cardiology 09/04/18 [facility] [address] [place] [address] Pharmacist Pharmacy 08/26/20 Director Of Food And Nutrition Relationship Specialty Start Date End Date Griffin Stahl MD [address] [place] [place] [address] PCP - General Cardiology 10/09/08 Blair Gar MD [address] [place] [address] Primary Staff Physician Cardiology 09/04/18 Director Of Food And Nutrition Relationship Specialty Start Date End Date Griffin Stahl MD [address] [place] [address] PCP - General Cardiology 10/09/08 Blari Gar MD [address] [place], [place] [address] Primary Staff Physician Cardiology 09/04/18 Director Of Food And Nutrition Relationship Specialty Start Date End Date Griffin Stahl MD [address] [place], [place] [address] PCP - General Cardiology 10/09/08 Blair Gar MD [address] [place], [place] [address] Primary Staff Physician Cardiology 09/04/18 Director Of Food And Nutrition Relationship Specialty Start Date End Date Griffin Stahl MD [address] [place], [place] [address] PCP - General Cardiology 10/09/08 Blair Gar MD [address] [place] [address] Primary Staff Physician Cardiology 09/04/18 Director Of Food And Nutrition Relationship Specialty Start Date End Date Griffin Stahl MD [address] [place], [place] [address] PCP - General Cardiology 10/09/08 Blair Gar MD [address] [place], [place] [address] Primary Staff Physician Cardiology 09/04/18 Director Of Food And Nutrition Relationship Specialty Start Date End Date Griffin Stahl MD [address] [place], [place] [id number] PCP - General Cardiology 10/09/08 Blair Gar MD [address] [place] [address] Primary Staff Physician Cardiology 09/04/18 Director Of Food And Nutrition Relationship Specialty Start Date End Date Griffin Stahl MD [address] [place] [address] PCP - General Cardiology 10/09/08 Blair Gar MD [address] [place] [address] Primary Staff Physician Cardiology 09/04/18 Janelle Cherry, KRISTEN.[employer] [address] [place] [address] Practical Nursing Instructor Internal Medicine 05/27/24 Rachel Kilpatrick APRN.[employer] [address] [place] [address] Practical Nursing Instructor Internal Medicine 05/27/24 Director Of Food And Nutrition Relationship Specialty Start Date End Date Griffin Stahl MD [address] [place] [address] PCP - General Cardiology 10/09/08 Blair Gar MD [address] [place] [address] Primary Staff Physician Cardiology 09/04/18 Rachel Kilpatrick APRN.[employer] [address] [place] [address] Practical Nursing Instructor Internal Medicine 09/10/24 Janelle Cherry, CADD MANAGER.[employer] [address] [facility], [place] [address] Practical Nursing Instructor Internal Medicine 11/06/24 Team Status: Active Member Role Status Dates Dr. Griffin Stahl MD Primary Care Provider Active Team Status: Inactive Member Role Status Dates Dr. Griffin Stahl MD Primary Care Provider Active Start: November 26, 2024 End: November 26, 2024 Dr. Matt Mason MD Attending Provider Active Start: November 26, 2024 End: November 26, 2024 Dr. Matt Mason MD Referring Provider Active Start: November 26, 2024 End: November 26, 2024 Director Of Food And Nutrition Relationship Specialty Start Date End Date Griffin Stahl MD [address] [place], [place] [address] PCP - General Cardiology 10/09/08 Blair Gar MD [address] [place] [place], [place] [address] Primary Staff Physician Cardiology 09/04/18 Rachel Kilpatrick, CADD MANAGER.[employer] [address] [facility], [place] [address] Practical Nursing Instructor Internal Medicine 09/10/24 Janelle Cherry, CADD MANAGER.[employer] [address] [place] [address] Practical Nursing Instructor Internal Medicine 11/06/24 Director Of Food And Nutrition Relationship Specialty Start Date End Date Griffin Stahl MD [address] [place] [place], [place] [address] PCP - General Cardiology 10/09/08 Blair Gar MD [address] [place] [address] Primary Staff Physician Cardiology 09/04/18 Rachel Kilpatrick APRN.[employer] [address] [place] [address] [facility] Internal Medicine 09/10/24 Janelle Cherry APRN.[employer] CASE [address] [place], [place] [address] [facility] Internal Medicine 11/06/24 INFORMATION SOURCE (unrecogn ized section and content) DATE CREATED AUTHOR 12/14/2024 [facility] DATE CREATED AUTHOR AUTHOR'S CHIKIS CANALES 01/03/2025 [facility] FOR RECORDS PERTAINING TO PATIENTS WHO ARE OR HAVE BEEN ENROLLED IN A CHEMICAL DEPENDENCY/SUBSTANCEABUSE PROGRAM, SOME INFORMATION MAY BE OMITTED. This clinical summary was aggregated from multiple sources. Caution should be exercised in using it in the provision of clinical care. This summary normalizes information from multiple sources, and as a consequence, information in this document may materially change the coding, format and clinical context of patient data. In addition, data may be omitted in some cases. CLINICAL DECISIONS SHOULD BE BASED ON THE PRIMARY CLINICAL RECORDS. [employer] provides no warranty or guarantee of the accuracy or completeness of information in this document.
[2025-01-08] MEDS: Lactated Ringers 1,000 ML 15 ML IV (06:35)
--- NOTE | 2025-01-08 06:58 | PCM.HP.STD ---
HPI - General General Date of Service: 01/08/25 Chief Complaint: Left renal mass HPI Narrative TONYA HEBERT, is a 74 F who presents for a laparoscopic robotic assisted left partial nephrectomy for an enlarging left renal mass PFSH Medical History (Updated 12/23/24 @ 14:54 by Emily Graham) Wears glasses Wears partial dentures Bladder disease High cholesterol Dietary restriction Non-smoker Sleep apnea Herpes zoster Choledocholithiasis Diabetes Hypertension Morbid obesity with BMI of 45.0-49.9, adult Left-sided colitis with ileus Home Medications ?Medication ?Instructions ?Recorded ?Last Taken ?Type metformin 1,000 mg tablet 1,000 mg PO BIDCM diabetic 04/22/15 01/07/25 History empagliflozin 25 mg tablet 25 mg PO DAILY diabetic 08/01/21 01/04/25 History (Jardiance) metoprolol succinate 50 mg 50 mg PO DAILY heart 08/01/21 01/08/25 History tablet,extended release 24 hr rosuvastatin 5 mg tablet 5 mg PO QHS cholesterol 08/01/21 01/07/25 History lisinopril 20 mg tablet 40 mg PO DAILY 10/10/22 01/07/25 History oxybutynin chloride 5 mg tablet 5 mg PO DAILY 10/09/23 01/08/25 History ursodiol 300 mg capsule 300 mg PO BID #180 caps 11/03/23 01/08/25 Rx cholecalciferol (vitamin D3) 125 125 mcg PO DAILY 12/23/24 01/07/25 History mcg (5,000 unit) tablet (Vitamin D3) potassium chloride 10 mEq 10 meq PO DAILY 01/03/25 01/08/25 History tablet,extended release(part/cryst) (Klor-Con M) Allergy/AdvReac Type Severity Reaction Status Date / Time sulfamethoxazole (From Allergy Itching Verified 01/08/25 06:25 Bactrim) trimethoprim (From Bactrim) Allergy Itching Verified 01/08/25 06:25 Surgical History (Updated 12/23/24 @ 14:54 by Emily Graham) Hx of colonoscopy History of cholecystectomy History of gastric bypass Social History (Reviewed 10/10/22 @ 08:04 by Samantha Whitlock STONE SPREADER OPERATOR, STONE SPREADER OPERATOR-C) Smoking Status: Never smoker alcohol intake: never substance use type: does not use Vital Signs Vital Signs Vital Signs: 01/08/25 06:32 01/08/25 06:32 01/08/25 06:37 Temperature 97.9 F Temperature Source Temporal Pulse Rate 63 54 L Respiratory Rate 16 Respiratory Pattern Normal Blood Pressure 213/77 H 198/80 H Blood Pressure Mean 122 Blood Pressure Source Monitor Blood Pressure Position Semi-Fowlers Blood Pressure Location Left Arm Pulse Ox 100 Oxygen Delivery Method Room Air Weight Weight: 84 kg Body Mass Index (BMI) 36.1 Results Lab / Micro Data 01/06/25 08:59
--- NOTE | 2025-01-08 07:01 | PCM.PRE.AN2 ---
ASA Classification* ASA Classification ASA Classification: 3 Assessment & Plan Anesthesia* Anesthesia Assessment Anesthesia Assessment: Discussed sedation and/or anesthesia options, risks, benefits, and alternatives with patient/parents/legal guardian/POA. Questions invited. The patient/parents/legal guardian/POA seems to understand and agrees to proceed with anesthesia plan. Reviewed the physical assessment, medical history, allergy history and patient home medications list prior to surgery/procedure/anesthetic and documented any changes. Performed airway and anesthesia risk assessments. Anesthesia Type Anesthesia Type: General (Consider GlideScope intubation) History Source History Obtained from:: Patient and Chart Anesthesia Focused Assessment* Temperature: 97.9 F Pulse Rate: 54 Blood Pressure: 198/80 Respiratory Rate: 16 Pulse Ox: 100 Oxygen Delivery Method: Room Air Airway Assessment Mouth opens: >3 cm Mallampati Score: IV Teeth Condition: Partial (Upper and lower partials are out. Rest of the teeth are tight.) Neck Range of motion (ROM): Limited ROM (Slight Decrease) Labs Anesthesia Preop lab: CBC WBC 6.9 K/mm3 (4.4-11.0) 08/04/21 05:02 08/04/21 RBC 4.61 M/mm3 (4.2-5.4) 08/04/21 05:02 08/04/21 Hgb 13.3 g/dL (12.0-15.0) 08/04/21 05:02 08/04/21 Hct 40.7 % (37-47) 08/04/21 05:02 08/04/21 Plt Count 220 K/mm3 (150-450) 08/04/21 05:02 08/04/21 CHEMISTRY Potassium 4.5 mmol/L (3.3-5.1) 01/06/25 08:59 01/06/25 Sodium 141 mmol/L (133-145) 01/06/25 08:59 01/06/25 Magnesium 1.5 mg/dL (1.8-2.4) L 04/23/15 05:25 04/23/15 BUN 19 mg/dL (4-19) 01/06/25 08:59 01/06/25 Creatinine 0.98 mg/dL (0.70-1.20) 01/06/25 08:59 01/06/25 Glucose 204 mg/dL (70-99) H 01/06/25 08:59 01/06/25 POC Glucose 195 mg/dL (70-110) H 08/04/21 06:36 08/04/21 COAG PT 14.6 SECONDS (11.7-14.9) 08/01/21 07:17 08/01/21 Pre-Assessment Diagnosis/Proposed Procedure Planned Operative Procedure(s): (L) Lap Robotic Partial Nephrectomy Anesthesia History Anesthesia History - municipal services manager: Anesthesia History - municipal services manager Hx Hospitalization No 12/23/24 14:55 Any Problems With Anesthesia No 12/23/24 14:55 Cholinesterase deficiency No 12/23/24 14:55 You/Your Family Experience No 12/23/24 14:55 fever (hyperthermia) with Relationship Recent Exposure to Contagious No 01/08/25 06:32 Disease Does patient have nerve No 12/23/24 14:55 stimulator Patient instructed to have device shut off --Does patient have Pacemaker No 01/08/25 06:32 or ICD? When Was Last Pacemaker Check QUESTION #4 FULL TEXT: You/Your Family Experience fever (hyperthermia) with Anesthesia Last Oral Intake Last Oral intake: Last Oral Intake NPO since 20:00 01/08/25 06:32 Meds taken in AM with sips of Yes 01/08/25 06:32 water? Meds patient instructed to METOPROLOL, DITROPAN 01/08/25 06:32 take am of surgery Any additional information?: Yes Meds taken in AM with sips of water?: Yes PONV PONV - municipal services manager: PONV - municipal services manager Female Yes 12/23/24 14:55 HX of Motion Sickness No 12/23/24 14:55 HX of N/V After Surgery No 12/23/24 14:55 Non-Smoker Yes 12/23/24 14:55 Duration of Surgery greater Yes 12/23/24 14:55 than 60 minutes Number of Risk Factors 3 12/23/24 14:55 PONV Score Moderate Risk 12/23/24 14:55 Height & Weight Height & Weight: Anesthesia: Height & Weight Height 5 ft 01/08/25 06:32 Weight: 84 kg 01/08/25 06:32 Body Mass Index (BMI) 36.1 01/08/25 06:32 Respiratory Assessment Respiratory Assessment - municipal services manager: Respiratory Tract Infection Hx - municipal services manager Hx Respiratory Tract Infection No 12/23/24 14:55 STOP Sleep Apnea STOP Sleep Apnea - municipal services manager: STOP Sleep Apnea - municipal services manager Hx Hypertension Yes: ON MEDS 12/23/24 14:55 Hx Sleep Apnea No 12/23/24 14:55 CPAP Yes 08/01/21 10:04 BIPAP No 08/01/21 10:04 Do you snore loudly (louder No 12/23/24 14:55 than talking or can be heard Do you often feel tired/ No 12/23/24 14:55 fatigued/ sleepy during daytime? Has anyone observed you stop No 12/23/24 14:55 breathing during sleep? STOP Results Negative 12/23/24 14:55 QUESTION #5 FULL TEXT : Do you snore loudly (louder than talking or can be heard through closed doors)? 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 Specify any problems Hx of Preganancy in last 3 No 12/23/24 14:55 Months Nurse Filling Out Transfusion JZOLLINGE 12/23/24 14:55 & Questions: Date: 12/23/24 12/23/24 14:55 Time: 14:56 12/23/24 14:55 Patient unable to answer at this time (ie. confused, unrespo /Reproduction History /Reproductive History - municipal services manager: /Reproductive Hx- municipal services manager Hx Now No 12/23/24 14:55 Gestational Age (in weeks): EDC: Hx Hx Para Hx Section SAB No 12/23/24 14:55 Active Medications Active Medications: Current Medications Generic Name Dose Route Start Last Admin Trade Name Freq PRN Reason Stop Dose Admin Cefazolin Sodium 2 gm/ Sodium 110 mls @ 200 mls/hr 01/08/25 07:30 Chloride IV 01/08/25 08:02 INTRAOP ONE Lactated Ringer's 1,000 mls @ 15 mls/hr 01/08/25 06:30 01/08/25 06:35 IV 15 mls/hr .Q48H RILEY Administration PFSH Medical History Wears glasses Wears partial dentures Bladder disease High cholesterol Dietary restriction Non-smoker Sleep apnea Herpes zoster Choledocholithiasis Diabetes Hypertension Morbid obesity with BMI of 45.0-49.9, adult Left-sided colitis with ileus Home Medications ?Medication ?Instructions ?Recorded ?Last Taken ?Type metformin 1,000 mg tablet 1,000 mg PO BIDCM diabetic 04/22/15 01/07/25 History empagliflozin 25 mg tablet 25 mg PO DAILY diabetic 08/01/21 01/04/25 History (Jardiance) metoprolol succinate 50 mg 50 mg PO DAILY heart 08/01/21 01/08/25 History tablet,extended release 24 hr rosuvastatin 5 mg tablet 5 mg PO QHS cholesterol 08/01/21 01/07/25 History lisinopril 20 mg tablet 40 mg PO DAILY 10/10/22 01/07/25 History oxybutynin chloride 5 mg tablet 5 mg PO DAILY 10/09/23 01/08/25 History ursodiol 300 mg capsule 300 mg PO BID #180 caps 11/03/23 01/08/25 Rx cholecalciferol (vitamin D3) 125 125 mcg PO DAILY 12/23/24 01/07/25 History mcg (5,000 unit) tablet (Vitamin D3) potassium chloride 10 mEq 10 meq PO DAILY 01/03/25 01/08/25 History tablet,extended release(part/cryst) (Klor-Con M) Allergy/AdvReac Type Severity Reaction Status Date / Time sulfamethoxazole (From Allergy Itching Verified 01/08/25 06:25 Bactrim) trimethoprim (From Bactrim) Allergy Itching Verified 01/08/25 06:25 Surgical History Hx of colonoscopy History of cholecystectomy History of gastric bypass Social History Smoking Status: Never smoker alcohol intake: never substance use type: does not use Review of Systems (Anesthesia) ROS Narrative System reviewed and no additional complaints, except as documented.
--- NOTE | 2025-01-08 07:30 | KID_PTH ---
PATIENT: TONYA HEBERT LOC: MS3 U#:[id number] AGE/SX: 74/F ROOM: [id number] RE01/08/[address]: Dr. Matt Mason MD : 1950 BED: 1 DIS: 01/09/2025 SPEC #: [id number] RECD: 01/08/25 11:41 STATUS: LORENZO REJoe #: [id number] JEMIMA: 01/08/25 07:[address]: Matt Mason DEPT: SURGICAL PATHOLOGY RECD BY: Yves Leach ENTERED: 01/08/25 13:17 SP TYPE: KIDNEY OTHR DR: Dr. Tameka Tiwari MD Tissues: A - Kidney, NOS Procedures: Immunohistochemical Stains Special Stain Group I Surgery Specimen Level V Alcian Blue/PAS (control) IHC Stain ADDITIONAL HEADER OPERATION: Laparoscopic robotic partial nephrectomy PRE-OP DIAGNOSIS: Neoplasm of uncertain behavior of left kidney TISSUE SUBMITTED: A- Left kidney mass MICROSCOPIC DIAGNOSIS A. Kidney, left, neoplasm of uncertain behavior, partial nephrectomy: - Mucinous tubular and spindle cell carcinoma, low grade, surgical margin free, pT1a pNX - see note, comments, and Synoptic Report. Note: IHC and Alcian Blue special stain performed. The tumor cells are positive for CK7, CD10, PAX8 and AMACR; with focal/negative staining for CD117, CAIX and Vimentin. Alcian blue highlights stromal mucin. These findings support the histologic impression. SYNOPTIC REPORT FOR RENAL CARCINOMA OF THE KIDNEY: Nephrectomy type (p=partial, t=total):?p Laterality (R=right, L=left): L Focality (u=unifocal, m=multifocal):?u Tumor size (cm):?2.5 cm Histologic type:?mucinous tubular and spindle cell carcinoma Tumor grade:?low grade % sarcomatoid:?0 % rhabdoid:?0 % coagulative necrosis:?60 Lymphovascular invasion: not identified ? Tumor extent: confined to the kidney ? Margins (N=negative, P=positive, NA=not applicable):?N ??? Location positive margin:?NA ? Regional lymph nodes (NA=not applicable): ??? Number examined:?0 ??? Number positive:?NA ? Non-neoplastic kidney:?patchy chronic inflammation Additional findings:?none pTNM:?pT1a pNX Comments: This is considered a low grade tumor. Although an unusual finding, necrosis is sometimes seen. ? Pathologic Staging Definitions (pTNM): Primary Tumor (pT) pTX:? Primary tumor cannot be assessed pT0:? No evidence of primary tumor pT1a:?? Tumor </= 4 cm, limited to the kidney pT1b:?? Tumor > 4 cm and </= 7 cm, limited to the kidney pT2a:?? Tumor > 7 cm and </= 10 cm, limited to the kidney pT2b:?? Tumor > 10 cm, limited to the kidney pT3a:?? Tumor invades renal vein/branches, perirenal fat, renal sinus fat (adipose/soft tissue/small vessels) or pelvicalyceal system pT3b:?? Tumor extends into vena cava below the diaphragm pT3c:?? Tumor extends into vena cava above the diaphragm or invades vena cava wall pT4:? Tumor invades beyond Gerota's fascia including direct extension to adrenal gland COMMENT Selected slides/images were reviewed in intradepartmental consultation by Dr Dilia Le ( pathology division, [facility]. MICROSCOPIC DESCRIPTION Slides are reviewed. All controls show appropriate reactivity. All immunohistochemistry, in situ hybridization, and histochemical tests were developed by and are performed at the [facility], [address] [place] [address]. All Immunofluorescent (IF)?tests were developed by and are performed at the [facility], [address] [place] [address] ?[facility]. All tests reported here, except those addressing HER2 overexpression as a predictive marker, have not been cleared by or approved by the US Food and Drug Administration (FDA). The laboratory is regulated under CLIA as qualified to perform high-complexity testing. The tests are used for clinical purposes. They should not be regarded as investigational or for research. GROSS DESCRIPTION A. Received in formalin labeled with the patient's name and date of . Designated as left kidney mass is a 25.2 g, 4.9 x 3.7 x 3.4 cm partial nephrectomy, devoid of orientation. There is a moderate amount of attached and focally cauterized adipose tissue. The specimen is inked black. Sectioning reveals a 2.5 x 2.1 x 2.1 cm well-circumscribed, yellow-red to brown, soft and variegated mass that is grossly contained within the renal parenchyma. [employer] [address] [employer] sections are submitted in 9 cassettes representing approximately 90% of the mass. [place] 01/08/2025 CPT:44031,[id number]
--- NOTE | 2025-01-08 07:44 | DCINST_ITS ---
Discharge Instructions DC O2, CPAP, BIPAP needs Home O2 Discharge instructions: No Dressing / Incision Discharge Activity: May Not Drive (while taking narcotic pain medications.) and May Shower Lifting Restrictions: no lifting heavy > 10lbs Dressing / Incision Call your doctor if you observe: Fever of 101 or Higher Suture Line Care: Avoid Pulling/Pushing and Avoid Pinching/Bending Cleanse incision/area with: Soap & Water Follow Up Care Please Follow Up With: Matt Mason MD When: Call [phone] for an appointment Test Results: Test results from this visit will be discussed in further detail at your follow- up appointment, if applicable. Discharge Plan Admission Primary Reason for Your Visit: Left partial nephrectomy Attending Provider: Matt Mason Primary Care Provider: Tameka Tiwari Instructions Print Language: Portuguese Discharge Orders/Prescriptions Prescriptions: New oxycodone 5 mg tablet 5 mg PO Q6H PRN (Reason: pain) 3 Days Qty: 14 0RF docusate sodium [Colace] 100 mg capsule 100 mg PO BID Qty: 20 0RF Continued lisinopril 20 mg tablet 40 mg PO DAILY oxybutynin chloride 5 mg tablet 5 mg PO DAILY metformin 1,000 MG tablet 1,000 mg PO BIDCM Patient Comments: blood sugar metoprolol succinate 50 mg tablet extended release 24 hr 50 mg PO DAILY rosuvastatin 5 mg tablet 5 mg PO QHS Jardiance 25 mg tablet 25 mg PO DAILY Patient Comments: TAKE 1 TABLET BY MOUTH EVERY DAY WITH BREAKFAST cholecalciferol (vitamin D3) [Vitamin D3] 125 mcg (5,000 unit) tablet 125 mcg PO DAILY potassium chloride [Klor-Con M10] 10 mEq tablet,ER particles/crystals 10 meq PO DAILY Rx Instructions: PATIENT STARTED ON 01/02/25 ursodiol 300 mg capsule 300 mg PO BID Qty: 180 3RF Referrals / Follow Up: Matt Mason MD [Med Staff - Active Staff] - Tameka Tiwari MD [Primary Care Provider] - Disposition Disposition (needs filled in before D/C Order can be placed): Home, Self Care
--- NOTE | 2025-01-08 10:16 | PCM.OPRPT ---
Operative Report (Standard) Operative Information Date of Procedure: 01/08/25 Pre-Operative Diagnosis: Enlarging left solid renal mass Post-Operative Diagnosis: The same Surgery/Procedure Performed: Laparoscopic robotic assisted left partial nephrectomy computer applications developer: No Type of Anesthesia: General RN Documented Start/Stop Times: Operation Date: 01/08/25 07:30 Case Time Into Pre-Op 01/08/25 06:19 Out of Pre-Op 01/08/25 07:27 Anesthesia Start 01/08/25 07:30 Into Room 01/08/25 07:30 Procedure Start 01/08/25 08:05 Procedure Start Time: 08:05 Procedure Stop Time: 10:17 Select all DRAINS/GRAFTS/IMPLANTS that apply: Drains Drain details: Denton catheter Estimated Blood Loss: 50 cc Specimen collected: Yes Description of specimen(s) removed: Left renal mass Description of surgery: This is a 74-year-old female who I originally saw for a small left renal mass we elected to watch the mass but during observation the masses started growing and subsequent follow-up imaging demonstrated the mass was enlarging the mass did not appear to be carcinoma on imaging no biopsy was done but the fact that this is an enlarging mass appears to be carcinoma imaging I recommended we proceed with a partial nephrectomy to remove the mass off the kidney the mass is about 2.8 cm in size it is in the lower pole of the left kidney. Patient has a prior surgery laparoscopic gastric bypass surgery. She was consented for left partial nephrectomy and we proceeded Patient was taken back to the operating room after induction of anesthesia she was placed supine on the table Denton catheter was placed we then did and placed her in modified left flank position for approach to the left kidney laparoscopic robotic approach patient was axillary roll in place all pressure points were made sure there were padded and then the abdomen was prepped and draped in usual sterile fashion marked out my approach to the left side camera port left arm port to right arm ports an air seal port I then introduced a Veress needle variceal needle into the peritoneal cavity insufflated the Cavity with CO2 gas I then placed the camera trocar and immediately saw some adhesions from the prior surgery to the anterior abdominal wall and some adhesions to the large colon the colon was fairly distended and small bowel was normal but a very large distended colon so then at this point I then put my other trocars then very carefully under direct visualization we then docked the robot I then dissected down these adhesions to the anterior abdominal wall first this allowed more retraction of the colon out of the way and then I dissected the adhesions off the lateral wall and then this allowed more of the retraction of the large colon out of the way it is fairly distended colon I then went to the kidney elevated the spleen off the kidney dissected the spleen up the kidney laterally I did dissected the pancreas off the kidney inferiorly and then worked to the hilum identified the renal vein I then dissected the white line of Toldt off the kidney the reflected the other part of the colon off the kidney all the way down to the pelvis I then was able to get underneath the kidney with the fourth arm elevate the kidney up and then dissected towards the hilum until I encountered the renal vein and then underneath the renal vein dissected until I found the renal artery. Once the renal artery was identified then fourth arm was removed we then went up to the kidney we defatted the lower part of the kidney I then used laparoscopic ultrasound to identify the tumor it was a solid heterogeneous mass in the lower pole of the kidney very suspicious for carcinoma I then marked out the edges circumferentially for my resection site all the way around I used a 1 cm margin all the way around this tumor. Then once the tumor was completely defatted margins identified and marked and cauterized on the surface of the kidney we then clamped the artery with 2 clamps and then started resection of the tumor cut deep down first and then went underneath the tumor and then started going underneath the tumor to dissect the tumor off the kidney we stayed in the normal parenchyma the entire time complete gross normal resection the tumor was then excised off the kidney we did not into the collecting system we then put the tumor in Endo Catch bag I then closed the we ran the base of the resection site with 3 oh STRATAFIX stitch x 2 and then we unclamped the artery there was no significant bleeding arterial pumping from the base of the resection site we then plus Floseal and Surgicel in the resection site to control minor oozing then we reapproximated the edges of the defect of the kidney using a running 0 Vicryl stitch with interrupted interrupted sliding Stephanie free technique bring in the 2 edges of the kidney together we ran 1-0 Vicryl in the room and a second 0 Vicryl and this brought the 2 edges back together perfectly the entire time kidney was off clamp had good color and perfusion we then lowered the pressure to 5 mmHg there was no sign of bleeding from the resection site. The tumor was then extracted we then removed all the stitches and removed the clamp on the artery we then extended the air seal port and extracted the tumor to the air seal port and then I closed the AirSeal port extraction site with interrupted 0 Vicryl's for complete closure when it went back in the abdomen and inspected with the laparoscope inspected the colon and the small bowel I did not see any signs of injury or any and yet anything abnormal the everything was irrigated I then suctioned out the irrigation fluid blood loss was only 50 cc complete successful resection of the tumor and currently the patient anesthetic is being reversed and the closing of the laparoscopic incision sites with subcuticular stitches go talk to the family. Surgical Findings: Complete resection of the left renal mass gross negative margins Complications Complications: No Admit VTE Documentation VTE Present on Admission: No VTE Mechan Device Prophylaxis: SCD's VTE Pharm Prophylaxis ordered?: No
--- NOTE | 2025-01-08 10:54 | PCM.POST.ANE ---
Anesthesia: Postop Eval I Current Vital Signs Temperature: 97.2 F Pulse Rate: 74 Blood Pressure: 163/83 Respiratory Rate: 16 Pulse Ox: 93 Oxygen Delivery Method: Room Air Assessment Airway patent: Yes Spontaneous unlabored respirations: Yes Mental status: Asleep nausea: No Vomiting: No Anesthesia Complication: No Fluid Hydration Crystalloid volume administer (ml): 1,200 Total IV fluid infused: 1,200 Progress Note Anesthesia document: Postop Eval 1 completed: Yes
[2025-01-08] MEDS: 0.9% Normal Saline (1000mL) 1,000 ML 125 ML IV (14:59)
--- NOTE | 2025-01-08 17:20 | NURSING ---
This RN assisted into sitting position on the edge of the bed. Sat for 2 min. Then took a few steps to chair. Now sitting in chair with no complaints. Call light in reach and SCD's maintained.
--- NOTE | 2025-01-08 19:12 | POSTOPAN2_ITS ---
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
--- NOTE | 2025-01-08 19:12 | PCM.POSTANE2 ---
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 Vomiting No 01/08/25 10:55 EARLY CHILDHOOD EDUCATION COORDINATOR.SHOF Anesthesia Postop Eval I: Fluid Summary Crystalloid volume administer 1,200 01/08/25 10:55 EARLY CHILDHOOD EDUCATION COORDINATOR.SHOF (ml) Colloids volume administered ( ml) Blood Product volume administered (ml) Total IV fluid infused 1,200 01/08/25 10:55 EARLY 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
[2025-01-09] VITALS (8 sets, daily range): BP systolic 149–208; BP diastolic 69–96; PULSE 63–88; RESP 16; TEMP 36.8–37.2; O2SAT 95–98
[2025-01-09] MEDS: 0.9% Normal Saline (1000mL) 1,000 ML 125 ML IV (00:27)
[2025-01-09 05:49] LABS: Hematocrit 37.0 % (37-47); Hemoglobin 12.1 g/dL (12.0-15.0); Immature Granulocytes Count 0.070 X10^3/uL (0.0-0.0); Mean Corp Hgb Conc 32.7 g/dL (32-36); Mean Corpuscular Volume 91.6 fL (81-99); Mean Platelet Vol. 11.3 fl (6.2-12.0); NRBC Flagged by Analyzer 0 % (0-5); Platelet Count 203 K/mm3 (150-450); RBC Distribution Width CV 15.0 % (11.6-14.6); RBC Distribution Width SD 50.4 fl (35.1-43.9); Red Blood Count 4.04 M/mm3 (4.2-5.4); White Blood Count 13.3 K/mm3 (4.4-11.0)
[2025-01-09 06:09] LABS: Anion Gap 12 (5-15); BUN 12 mg/dL (4-19); BUN/Creat Ratio 10.3 RATIO (10-20); Calcium,Total 8.2 mg/dL (7.6-11.0); Carbon Dioxide 21.8 mmol/L (21.0-32.0); Chloride 105 mmol/L (98-108); Estimated Creatinine Clearance 40.14 ml/min (50-250); Glucose 201 mg/dL (70-99); Potassium 3.6 mmol/L (3.3-5.1)
--- NOTE | 2025-01-09 07:32 | DS.PCM_ITS ---
Providers Date of Admission: 01/08/25 Date of Discharge: 01/09/25 Primary Care Physician: Dr. Tameka Tiwari MD Reason For Visit: Lap Robotic Partial Nephrectomy Medications at Discharge Home Medications metformin 1,000 mg tablet 1,000 mg PO BIDCM diabetic 04/22/15 empagliflozin 25 mg tablet (Jardiance) 25 mg PO DAILY diabetic 08/01/21 metoprolol succinate 50 mg tablet,extended release 24 hr 50 mg PO DAILY heart 08/01/21 rosuvastatin 5 mg tablet 5 mg PO QHS cholesterol 08/01/21 lisinopril 20 mg tablet 40 mg PO DAILY 10/10/22 oxybutynin chloride 5 mg tablet 5 mg PO DAILY 10/09/23 ursodiol 300 mg capsule 300 mg PO BID #180 caps 11/03/23 cholecalciferol (vitamin D3) 125 mcg (5,000 unit) tablet (Vitamin D3) 125 mcg PO DAILY 12/23/24 potassium chloride 10 mEq tablet,extended release(part/cryst) (Klor-Con M) 10 meq PO DAILY 01/03/25 docusate sodium 100 mg capsule (Colace) 100 mg PO BID #20 caps 01/08/25 oxycodone 5 mg tablet 5 mg PO Q6H PRN pain 3 days #14 tabs 01/08/25 Hospital Course Operations - (Left partial nephrectomy) Physical Exam Const alert and oriented x3 General Appearance: cooperative HEENT normocephalic and head/scalp atraumatic Eyes PERRL and EOMs intact bilaterally Neck supple, no JVD and no carotid bruits Resp normal respiratory effort, normal air movement and clear to auscultation bilaterally Cardio regular rate and no murmurs GI normal to inspection, nondistended, normoactive bowel sounds and soft to palpation Extremity normal capillary refill General Extremity: no tenderness to palpation of joints or extremities; Negative for edema Skin no rashes or lesions noted and no wounds General Skin Exam: no breakdown Neuro CN's II-XII intact bilaterally Psych affect normal Appearance: appropriate Weight / BMI Weight Weight: 84 kg Body Mass Index (BMI) 36.1 ABG / Lab / Microbiology Data 01/09/25 05:19 01/09/25 05:19 Laboratory: Laboratory Results - last 24 hr 01/08/25 10:57: POC Glucose 241 H 01/09/25 05:19: WBC 13.3 H, RBC 4.04 L, Hgb 12.1, Hct 37.0, MCV 91.6, MCH 30.0, MCHC 32.7, RDW Std Deviation 50.4 H, RDW Coeff of Francy 15.0 H, Plt Count 203, MPV 11.3, Immature Gran % (Auto) 0.500, Neut % (Auto) 81.1 H, Lymph % (Auto) 6.9 L, [place] % (Auto) 11.3 H, Eos % (Auto) 0.0, Baso % (Auto) 0.2, Absolute Neuts (auto) 10.8 H, Absolute Lymphs (auto) 0.92, Nucleated RBC % 0, Sodium 139, Potassium 3.6, Chloride 105, Carbon Dioxide 21.8, Anion Gap 12, BUN 12, Creatinine 1.20, E stim Creat Clear Calc 40.14 L, Est GFR (MDRD) Non-Af 48 L, BUN/Creatinine Ratio 10.3, Glucose 201 H, Calcium 8.2 D/C Instructions Call your doctor if you observe: Fever of 101 or Higher Suture Line Care: Avoid Pulling/Pushing and Avoid Pinching/Bending Cleanse incision/area with: Soap & Water DC O2, CPAP, BIPAP Needs Home O2 Discharge instructions: No Please Follow Up With: Matt Mason MD When: Call [phone] for an appointment Meaningful Use Info Meaningful Use Meaningful Use Diagnoses (Choose all that apply): None applicable Discharge Plan Admission Admit Date/Time: 01/08/25 07:41 Primary Reason for Your Visit: Left partial nephrectomy Attending Provider: Matt Mason Primary Care Provider: Tameka Tiwari Discharge Orders/Prescriptions Prescriptions: New oxycodone 5 mg tablet 5 mg PO Q6H PRN (Reason: pain) 3 Days Qty: 14 0RF docusate sodium [Colace] 100 mg capsule 100 mg PO BID Qty: 20 0RF Continued lisinopril 20 mg tablet 40 mg PO DAILY oxybutynin chloride 5 mg tablet 5 mg PO DAILY metformin 1,000 MG tablet 1,000 mg PO BIDCM Patient Comments: blood sugar metoprolol succinate 50 mg tablet extended release 24 hr 50 mg PO DAILY rosuvastatin 5 mg tablet 5 mg PO QHS Jardiance 25 mg tablet 25 mg PO DAILY Patient Comments: TAKE 1 TABLET BY MOUTH EVERY DAY WITH BREAKFAST cholecalciferol (vitamin D3) [Vitamin D3] 125 mcg (5,000 unit) tablet 125 mcg PO DAILY potassium chloride [Klor-Con M10] 10 mEq tablet,ER particles/crystals 10 meq PO DAILY Rx Instructions: PATIENT STARTED ON 01/02/25 ursodiol 300 mg capsule 300 mg PO BID Qty: 180 3RF Referrals / Follow Up: Matt Mason MD [Med Staff - Active Staff] - Tameka Tiwari MD [Primary Care Provider] -
[2025-01-09] MEDS: Potassium Chloride Oral Tablet 10 MEQ PO (08:01)
[2025-01-09] MEDS: Metoprolol(XL)Succ 50 MG Tablet PO (08:01)
--- NOTE | 2025-01-09 09:18 | CASEMGMT ---
Dx:lap robotic partial nephrectomy LACE:2 6-Clicks:20 Medical record reviewed and patient evaluated for identification of discharge planning needs. Based on this review, at this time criteria are not present to indicate a need for discharge planning. Will remain available to assist with discharge planning needs as identified or requested. Pt has a dc order in at this time.
[2025-01-09] MEDS: Furosemide 20 MG/2 ML VIAL 10 MG IV (09:31)
[2025-01-09] MEDS: 0.9% Saline Lock 10 ML Syringe IV (09:36)
== END 2025-01-09 13:43 | disposition home or self-care (01) ==
LOC: SDC 18:13 → MS3 01-09 08:42
PROVIDERS: Anesthesiology; Admitting Provider Urology; PCP Internal Medicine; Referring Provider Urology; Visit Provider Urology
PROC: (CPT 50543; principal; 2025-01-08 07:10)
DX: C64.2 Malignant neoplasm of left kidney, except renal pelvis (principal); E66.01 Morbid (severe) obesity due to excess calories; E11.9 Type 2 diabetes mellitus without complications; Z68.36 Body mass index [BMI] 36.0-36.9, adult; I10 Essential (primary) hypertension; E78.00 Pure hypercholesterolemia, unspecified; Z79.84 Long term (current) use of oral hypoglycemic drugs; Z98.84 Bariatric surgery status; Z79.899 Other long term (current) drug therapy
CPT/HCPCS: 50543; S2900; 00862; 36415; 80048; 82962; 83036; 85025; 88307; 88312; 88341; 88342; 93005; 94668; 96361; 96374; 96375; 99221; A4216; G0378; J1938; J2405

== ENCOUNTER → 2025-05-22 | Outpatient (CLI) | payer MEDICARE, SELFPAY ==
--- NOTE | 2025-05-22 08:18 | RAD_ITS ---
PROCEDURE: CHEST PA AND LATERAL 05/22/2025 REASON FOR EXAM: MALIGNANT NEOPLASM OF LEFT KIDNEY TECHNIQUE: Procedure Code: RADCXR Modality: DX Procedure: CHEST PA AND LATERAL COMPARISON: August 01, 2021 FINDINGS: Heart size and mediastinal configuration are within normal limits. There is minimal atelectasis or scar in the left lingular segment. There is no pneumothorax or effusion. Aortic calcifications are noted. There is no visible acute bony abnormality. RAD/Chest PA and Lateral IMPRESSION: There is minimal atelectasis or scar in the left lingular segment, improved com pared to the prior. Reading Location: [facility]
== END | disposition home or self-care (01) ==
LOC: RAD 08:16
PROVIDERS: PCP Internal Medicine; Referring Provider Urology; Visit Provider Urology
DX: C64.2 Malignant neoplasm of left kidney, except renal pelvis (principal)
CPT/HCPCS: 71046